=== PATIENT | male | born 1945 ===

== ENCOUNTER 2018-02-12 07:33 | Inpatient (IN) ==
[2018-02-12 08:44] LABS: Baso % (Auto) 0.5 % (0.0-2.0); Eos # (Auto) 0.1 th/mm3 (0.0-0.4); Eos % (Auto) 0.6 % (0.0-4.0); Hematocrit 33.2 % (39.0-51.0); Hemoglobin 10.8 gm/dL (13.0-17.0); Lymph # (Auto) 0.5 th/mm3 (1.0-4.8); Lymph % (Auto) 5.8 % (9.0-44.0); Mean Corpuscular HGB Conc 32.7 % (32.0-36.0); Mean Corpuscular Hemoglobin 30.6 pg (27.0-34.0); Mean Corpuscular Volume 93.6 fL (80.0-100.0); Mean Platelet Volume 8.2 fL (7.0-11.0); Mono % (Auto) 10.7 % (0.0-8.0); Neut # (Auto) 7.4 th/mm3 (1.8-7.7); Neut % (Auto) 82.4 % (16.0-70.0); Platelet Count 249 th/mm3 (150-450); Red Blood Count 3.55 mil/mm3 (4.50-5.90); Red Cell Distribution Width 16.6 % (11.6-17.2)
[2018-02-12 09:02] LABS: Calcium 8.1 mg/dL (8.5-10.1); Carbon Dioxide 22.9 meq/L (21.0-32.0); Potassium 4.7 meq/L (3.5-5.1)
[2018-02-12 10:56] LABS: INR 1.8 Ratio; Prothrombin Time 18.2 sec (9.8-11.6)
[2018-02-12] MEDS ORDERED: Heparin/NS PF Inj 1,000 ML ONE (11:17)
[2018-02-12] MEDS ORDERED: Lidocaine 2% Inj 50 ML Vial ONE (11:18)
[2018-02-12] MEDS ORDERED: Sodium Chloride 0.9% 2 ML Flush PRN IV.FLUSH (11:32)
[2018-02-12] MEDS ORDERED: Heparin 10,000 UNITS/10 ML Vial (for IV use) ONE (11:58)
[2018-02-12] MEDS ORDERED: Sod Chloride 0.9% Inj 1,000 ML IV.SIG SCH (12:00)
[2018-02-12] MEDS ORDERED: fentaNYL Citrate Inj 100 MCG/2 ML Ampul ONE (12:02)
[2018-02-12] MEDS ORDERED: Morphine Sulfate Inj 2 MG/ML Vial IV.PUSH PRN (12:33)
--- NOTE | 2018-02-12 12:33 | P.OP ---
Preoperative Diagnosis: Left lower extremity critical limb ischemia with tissue loss Postoperative Diagnosis: Left lower extremity critical limb ischemia with tissue loss Date of procedure: 02/12/18 Procedure: #1 ultrasound-guided access of the right common femoral artery #2 AIF angiogram #3 left lower extremity third order angiogram #4 Perclose of the right common femoral artery #5 radiological supervision limitation #6 conscious sedation Anesthesia: other (Conscious sedation with local) Surgeon: Dami Sainz MD Estimated blood loss (mL): 5 Operation and Findings: Findings #1 the infrarenal abdominal aorta the bilateral common iliac artery, external iliac artery, and common femoral arteries noted to be patent with no evidence of significant stenosis. #2 the left common femoral artery left superficial femoral artery left profunda femoral artery, and popliteal artery with noted to be heavily calcified with no evidence of significant stenosis. 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 There is a single runoff to the foot via the left peroneal artery. There is severe microvascular disease involving the left foot with no evidence of constitution of the left posterior tibial artery, very small atrophic and diseased dorsalis pedis artery. #4 the patient does not have an endovascular or open option for left lower extremity revascularization. His left great toe with dry gangrene, auto amputating. I will perform left first toe amputation tomorrow. I explained to the patient that he has poor blood flow to the left foot and his wound healing may be compromised. I also explained to him that he is at high risk for needing an amputation. He understands the risk and he would like to proceed with a toe amputation. Description of the procedure The patient was taken to the operating room, laid supine on the OR table. After adequate sedation the patient was prepped and draped in the standard sterile fashion. Timeout was called with all members and they are in agreement. 1% lidocaine was injected in the right groin. Using ultrasound guidance access we accessed the right common femoral artery. 5 Icelandic sheath was placed. A catheter was placed in the infrarenal abdominal aorta and an AIF angiogram was performed. A catheter was placed in the left of the artery and a left lower extremity third order angiogram was performed. I attempted to cannulate which I thought the proximal left anterior tibial artery. But the vessel was turned out to be a collateral and the actual anterior tibial artery does not have proximal stump to cannulate. At this point all catheter and sheath removed hemostasis achieved by applying the Perclose device the right common femoral artery. The patient tolerated the procedure well and was taken to the recovery unit in stable condition.
[2018-02-12] MEDS ORDERED: Insulin NovoLOG Aspart Correctional Sugar Inj SQ SCH (12:45)
--- NOTE | 2018-02-12 12:47 | CATHPROC ---
[facility] HIS Report Study Information Study Number Admission Scheduled Start Study Start [id number] Feb 12 2018 7:33AM 02/12/2018 Feb 12 2018 11:04AM [facility] Service Cath Endovascular Study Admit Source Facility Department Other [facility] Physician and Clinical Staff Initial MD Sainz, Dami Quick Service Technician Chasidy Oshea RN Recorder Jazmyn Arzola,PHYSICAL OPTICS TEACHER TECH2 Scrub Marifer, Damaris,RT(R) (BS) Procedures Performed Procedure Location (Site) Vessel Name Angiogram (manual) Fem Sup. (left) Femoral Art Angiogram (manual) Fem Sup. (right) Femoral Art Angiogram (manual) PELVIS Angiogram (manual) Peroneal (left) Popliteal Angiogram (manual) Peroneal (right) Popliteal Angiogram (manual) Popliteal R (R10) Popliteal Angiogram (manual) Tib, Ant. (left) Popliteal Angiogram (manual) Tib, Post (Left) Popliteal Wire insertion Fem Art (right) Femoral Art Equipment Time Justowriter Operator Description Size Mfg Part Number Used/Scraped PERCLOSE, PRO GLIDE CLOSER 12:17 ILM CRITICAL CARE FR 6 [id number] *[id number] Used DEVICE [id number] 11:05 LIM CRITICAL CARE WIRE, SUPERCORE 190CM Used *[id number] 11:38 ANGIO-DYNAMICS OMNI FLUSH 65CM CATHETER FR 5 Used *[id number] INTRODUCER SET, 11:05 [employer]. FR 5 [id number] *[id number] Used MICROPUNCTURE STIFF CATHETER, CXI SUPPORT 2.6FR 12:01 COOK/DANIAL [id number] Used 0.18 WIRE, GUIDE APPROACH HYDRO [id number] 12:07 COOK/DANIAL 300CM Used ST *[id number] WIRE, CHOICE PT 300CM PT EX. [id number] 12:00 Meditech 300CM Used SUPP *[id number] 11:05 AvidBiotics PACK, CCL CUSTOM * Used *[id number] 12:11 nTAG Interactive 30 AARON INDEFLATOR Used *[id number] PROBE COVER, STERILE [id number] 11:05 ComCrowd * Used ULTRASOUND W/ GEL *[id number] 11:05 NAMIC MANIFOLD, 4 PORT * Used *[id number] 12:01 NAMIC TUBING, HIGH PRESSURE 48" 48" Used *[id number] 11:05 NYCOMED OMNIPAQUE, 300 MG, 150ML 150ML [id number] Used 11:05 NYCOMED OMNIPAQUE, 300 MG, 50ML 50ML [id number] Used [id number] 11:05 TERUMO MEDICAL SHEATH, FR5 TERUMO (10CM) FR 5 Used *[id number] SHEATH, FR6 PINNACLE [id number] 11:58 TERUMO MEDICAL/DANIAL FR 6 Used DESTINATION 45CM *[id number] WIRE, ANGLED GLIDE .035 [id number] 11:05 TERUMO MEDICAL/DANIAL 260CM Used 260CM *[id number] Equipment Model, Serial, Lot Number and Expiration Data Description Model Number Serial Number Lot Number Expiration Date PERCLOSE, PRO GLIDE CLOSER [id number] 08-16-2018 DEVICE WIRE, CHOICE PT 300CM PT EX. [id number] 11-24-2018 SUPP WIRE, GUIDE APPROACH HYDRO [id number] 01-04-2020 ST History: Current Medications Medication Dosage/Unit Route Frequency Last Date/Time Taken NORVASC Neurontin Insulin LOPRESSOR CRESTOR Coumadin History: Allergies Allergy Reaction No Known Allergies History: Risk Factors Hypertension Dyslipidemia Yes Yes Peripheral Artery On Dialysis Diabetes Disease History: Other Current Smoker Method No Cigarettes Labs Hgb (g/dl) Hct (%) Platelets (thousands) 11.60-17.00 35.00-51.00 150.00-450.00 10.8 33.2 249 Glucose (mg/dl) BUN (mg/dl) Creatinine (mg/dl) BUN:Creatinine (1:x) 74.00-106.00 7.00-18.00 0.50-1.30 10.00-20.00 88 57 8.1 7 Na (meq/l) K (meq/l) 136.00-145.00 3.50-5.10 133 4.7 INR (PTT:PT) 0.90-1.10 1.8 CPK-MB (ng/ML) 0.50-3.60 Not Drawn Medication Medication Total Dose (Bolus/Oral) Medication Total Dosage/Unit 1% XYLOCAINE 20 mL FENTANYL 50 mcg HEPARIN 3000 units Medications (Bolus/Oral) Medication Time Given Dosage/Unit Administered By Reason 02/12/2018 11:32:40 1% XYLOCAINE 20 mL Dami Sainz AM 20 mL 1% XYLOCAINE given in lab by Dami Sainz in Right Groin via Subcutaneous. Ordered by Dami Sainz. 02/12/2018 11:59:09 HEPARIN 3000 units Chasidy Oshea AM 3000 units HEPARIN given in lab by Chasidy Oshea, RN in Right Antecubital via Peripheral IV. Ordere d by Dami Sainz. 02/12/2018 12:03:06 FENTANYL 50 mcg Chasidy Oshea PM 50 mcg FENTANYL given in lab by Chasidy Oshea, NACHO in Right Antecubital via Peripheral IV. Ordered b y Dami Sainz. Medication (Drip) Medication Time Given Dosage/Unit Concentration/Unit Diluent (ml) Solutio n 02/12/2018 11:05:02 IV Solutions 0 mL (IV) 500 NaCl .9 AM Patient arrived on IV Solutions in Right Antecubital via Peripheral IV. Pump/Drip Flow = 20 ml/hr usi ng NaCl .9. Initial Case Assessment Cardiovascular HR Rhythm NIBP Chest Pain 71 sr 117/71 0 Circulatory - Right Pulses Femoral 2 Scale (0,1,2,3,4,d) Circulatory - Left Pulses Femoral 2 Scale (0,1,2,3,4,d) Neurological State Oriented to time-place- Alert Moves all extremities person Respiration - General Respiration Rate SpO2 (%) (B/min) 19 96 Final Case Assessment Cardiovascular HR Rhythm NIBP Chest Pain 76 sr/pvc's 168/37 0 Circulatory - Right Pulses Femoral 2 Scale (0,1,2,3,4,d) Circulatory - Left Pulses Femoral 2 Scale (0,1,2,3,4,d) Neurological State Oriented to time-place- Alert Moves all extremities person Respiration - General Respiration Rate SpO2 (%) (B/min) 18 98 Chronological Log Time Study Chronological Log 11:02:00 Patient arrived via Bed with port-a cath noted in the left upper chest and fistula in the l eft upper extremity. 11:02:05 Patient Name, D.O.B, / Armband Verified By R.N. 11:04:12 Consent signed by the physician and the patient and verified by the [facility] [employer] staff. 11:04:13 Pre-op and post- op instructions given; patient acknowledges understanding of instructions. 11:04:14 Verbal Stimulation=2 Physical Stimulation=2 Airway=2 Respiration=2 TOTAL=8. (0=absent, 1=li mited, 2=present) 11:04:56 Presedation assessment performed by [facility] [employer] [facility] RN. 11:04:58 Patient has been NPO for More than 6Hrs. 11:04:59 Skin Breakdown-necrosis of left great toe 11:05:00 Ebony Prominences Protected 11:05:01 A # 20 IV was noted in the Antecubital (right). Grade = 0 11:05:02 Patient arrived on IV Solutions in Right Antecubital via Peripheral IV. Pump/Drip Flow = 20 ml/hr using NaCl .9. 11:05:04 History and physical on the chart or being dictated. Vitals capture started with the following parameters, Patient=Adult, Interval=5 min, Initial Pr bvypxo=908 mmHg, 11:10:27 Deflation Rate=5 mmHg, Cuff placed on Left Arm 11:10:58 JRLK=647/71 mmhg, SpO2=94.0 % Assessment: Initial Case, HR=71 BPM, Rhythm=sr, OXRX=462/71 mmhg, Chest Pain=0 Right Pulses: Femoral=2 11:16:46 Left Pulses: Femoral=2 Neurological: State=Alert, Ox3, MIJARES Respiration: Resp=19 B/min, SpO2=96 % 11:16:48 HR=71 bpm, WGZC=228/47 mmhg, SpO2=97.0 %, Resp=16 B/min 11:19:10 MD arrived. 11:21:59 HR=72 bpm, NZIT=452/36 mmhg, SpO2=96.0 %, Resp=11 B/min 11:22:33 Bilateral groins prepped with 2% chlorhexidine, and draped after a 3 minute waiting time. 11:26:19 HR=58 bpm, GVEJ=144/40 mmhg, SpO2=96.0 %, Resp=19 B/min 11:28:51 Pressure channel 2 zeroed. 11:30:59 Reference ECG taken Time Out. Correct patient, correct procedure, correct physician, labs, allergies, and equipment verified with pathology laboratory director 11:31:21 team present. Fire risk assesment completed (see hard stop sheet for coding). Time Out Conc urred by MD and individual staff in procedure. INR 1.8 MD aware and wishes to proceed 11:31:49 HR=70 bpm, SKVV=840/69 mmhg, SpO2=97.0 %, Resp=21 B/min 11:32:37 Case Start 11:32:40 20 mL 1% XYLOCAINE given in lab by Dami Sainz in Right Groin via Subcutaneous. Ordered by Dami Sainz. 11:34:25 Access site was Right Femoral Artery. Using ultrasound guidance. A INTRODUCER SET, MICROPUNCTURE STIFF FR 5 was advanced into the Fem Art (right) using the Perc utaneous 11:34:51 technique. 11:35:13 A WIRE, SUPERCORE 190CM was inserted via Fem Art (right). A SHEATH, FR5 TERUMO (10CM) FR 5 was exchanged in the Fem Art (right). This was necessary in or dylan to 11:35:23 accomodate a larger catheter. 11:37:04 HR=77 bpm, KRGG=893/34 mmhg, SpO2=94.0 %, Resp=23 B/min A OMNI FLUSH 65CM CATHETER FR 5 was advanced over a wire. OMNIPAQUE, 300 MG, 150ML 150ML was us ed for 11:37:08 injections. 11:37:54 Wire removed 11:38:00 PELVIS angiogram, manually injected. 11:38:18 Wire advanced up and over to the left iliac. 11:40:02 Wire removed 11:40:16 Fem Sup. (left) angiogram, manually injected. Recorded Pressure: Ao, HR=71, Condition=Condition 1 11:40:22 (Aorta) Ao 193/58/107 11:41:13 Popliteal R (R10) angiogram, manually injected. 11:41:18 HR=73 bpm, XWBL=571/44 mmhg, SpO2=95.0 %, Resp=22 B/min 11:41:39 Peroneal (right) angiogram, manually injected. 11:44:13 Tib, Ant. (left) angiogram, manually injected. 11:46:17 HR=73 bpm, UUOX=931/53 mmhg, SpO2=96.0 %, Resp=20 B/min 11:50:19 Tib, Post (Left) angiogram, manually injected. 11:51:18 HR=73 bpm, HIRM=854/38 mmhg, SpO2=96.0 %, Resp=17 B/min 11:57:03 HR=73 bpm, YVTG=906/71 mmhg, SpO2=97.0 %, Resp=21 B/min 11:59:07 A WIRE, SUPERCORE 190CM was inserted via Fem Art (right). 3000 units HEPARIN given in lab by Chasidy Oshea, RN in Right Antecubital via Peripheral IV. Ordered by Emeli, 11:59:09 Dami. A SHEATH, FR6 PINNACLE DESTINATION 45CM FR 6 was exchanged in the Fem Art (right). This was nec essary in 11:59:30 order to accomodate a larger catheter. 12:01:14 HR=85 bpm, UWRT=128/35 mmhg, SpO2=95.0 %, Resp=15 B/min 50 mcg FENTANYL given in lab by Chasidy Oshea, RN in Right Antecubital via Peripheral IV. Ord ered by Emeli, 12:03:06 Dami. A CATHETER, CXI SUPPORT 2.6FR 0.18 was advanced over a wire. OMNIPAQUE, 300 MG, 150ML 150ML was used for 12:04:18 injections. Up and over to the left 12:05:34 A WIRE, CHOICE PT 300CM PT EX. SUPP 300CM was inserted via Fem Art (right). 12:06:23 Peroneal (left) angiogram, manually injected. 12:07:33 The previous wire was exchanged for a WIRE, GUIDE APPROACH HYDRO ST 300CM. Advanced up and over to the left 12:07:42 HR=71 bpm, XXYG=856/36 mmhg, SpO2=99.0 %, Resp=18 B/min 12:11:23 HR=73 bpm, PNXC=469/31 mmhg, SpO2=95.0 %, Resp=15 B/min 12:11:35 Tib, Ant. (left) angiogram, manually injected. 12:14:58 Tib, Ant. (left) angiogram, manually injected. 12:15:21 Wire removed 12:15:27 Catheter was removed w/o difficulty 12:15:30 A WIRE, SUPERCORE 190CM was inserted via Fem Art (right). 12:15:49 Sheath pulled back int abdominal aorta 12:16:26 HR=72 bpm, VWDA=020/39 mmhg, SpO2=98.0 %, Resp=17 B/min 12:16:49 Fem Sup. (right) angiogram, manually injected. 12:16:56 Sheath removed for closure device deployment. 12:17:28 PERCLOSE, PRO GLIDE CLOSER DEVICE FR 6 placement in the Fem Art (right) Manual pressure hel d 12:21:19 HR=74 bpm, EXNY=263/39 mmhg, SpO2=97.0 %, Resp=16 B/min 12:22:35 Case End (Physician broke scrub) 12:26:22 HR=79 bpm, GOTI=329/37 mmhg, SpO2=96.0 % 12:28:24 No case complications noted. 12:28:25 Cine recording checked. 12:28:27 Bedside Report will be given. Assessment: Final Case, HR=76 BPM, Rhythm=sr/pvc's, ICTL=764/37 mmhg, Chest Pain=0 Right Pulses: Femoral=2 12:28:32 Left Pulses: Femoral=2 Neurological: State=Alert, Ox3, MIJARES Respiration: Resp=18 B/min, SpO2=98 % 12:31:21 HR=70 bpm, IFWN=002/52 mmhg, SpO2=97.0 %, Resp=24 B/min 12:36:26 HR=69 bpm, CWLS=807/44 mmhg, SpO2=98.0 %, Resp=10 B/min 12:37:58 Hemostasis obtained. 12:38:20 Sterile dressing applied to site 12:41:48 Vitals capture stopped. 12:46:01 Patient moved to bed 12:46:09 Patient transported to DOCU. End Study - Contrast Media Used In Study Contrast Total Opened (mL) Total Used (mL) Total Wasted (mL) Omnipaque 300 55 55 0 End Study - Maximum Contrast Load Max Contrast Load (mL) 80.0 End Study - Radiation Exposure Fluoro Time Fluoro Dose (mGy) Cine Dose (uGym2) (minutes) 7.2 311 6061 End Study - Sheaths Sheaths Pulled By Sheath Hold Time (min) Dami Sainz End Study - Patient Disposition Complications Transferred To Interventional Outcome No [facility] [employer] Holding No attempt made
[2018-02-12] MEDS ORDERED: Gabapentin 300 MG Capsule PO SCH (13:00)
[2018-02-12] MEDS ORDERED: Dextrose 50% in Water 50 ML Vial IV.PUSH PRN (14:05)
[2018-02-12] MEDS ORDERED: Albumin Human 25% Inj 100 ML IV.SIG PRN (14:17)
[2018-02-12] MEDS ORDERED: Acetaminophen 325 MG Tablet PO PRN (14:17)
[2018-02-12] MEDS ORDERED: Sod Chloride 0.9% Inj 1,000 ML IV.CONT PRN (14:17)
[2018-02-12] MEDS ORDERED: Sod Chloride 0.9% Inj 1,000 ML OTHER PRN ×2 (14:17)
[2018-02-12] MEDS ORDERED: Gelatin 12 MM/7 MM Topical Foam TOPICAL PRN (14:17)
[2018-02-12] MEDS ORDERED: Heparin 10,000 UNITS/10 ML Vial (for IV use) OTHER PRN ×2 (14:17)
[2018-02-12] MEDS ORDERED: Iohexol 350 MG/ML 100 ML Vial (for Cath Lab) IVCONTRAST ONE (16:33)
--- NOTE | 2018-02-12 16:42 | P.CONNP ---
History of Present Illness Service: Nephrology Reason for Consult: ESRD Primary Care Provider: No Primary Care Physician History of Present Illness: Patient was admitted for an elective angiogram of lower extremities. He has had this procedure, there were no endovascular stent options or need for bypass surgery. Patient has history of dry gangrene of left big toe and there are plans for amputation of left 1st toe. Patient was seen during dialysis. He is on 2K, UF goal is 3 liters. BFR is 350 ml/min. He is tolerating it well, BP is high SBP is 170-180 Review of Systems Constitutional: Denies anorexia Eyes: Denies blind spots, Denies blurry vision Cardiovascular: Reports leg pain with activity, Denies chest pain, Denies shortness of breath when lying down Gastrointestinal: Denies abdominal pain Neurologic: Denies abnormal hearing, Denies confusion PMFSH - History History Provided By: Patient - Medical History Medical History: Medical History (Last Updated 02/12/18 @ 08:41 by Renetta Cunningham) Diabetes Hyperlipemia Hypertension Left popliteal artery occlusion PAD (peripheral artery disease) SOB (shortness of breath) on exertion Wound of left foot - Tobacco History Smoking Status: Former smoker - Alcohol History How Often Do You Have a Drink Containing Alcohol: Never Medications and Allergies Active Medications: Active Medications Acetaminophen (Tylenol) 650 mg PO UNSCH PRN PRN Reason: SEE LABEL COMMENTS Amlodipine Besylate (Norvasc) 10 mg PO DAILY YUMIKO Atorvastatin Calcium (Lipitor) 20 mg PO DAILY YUMIKO Clonidine HCl (Catapres) 0.1 mg PO UNSCH PRN PRN Reason: SEE LABEL COMMENTS Dextrose (D50w Vial) 50 ml IV.PUSH UNSCH PRN PRN Reason: PER HYPOGLYCEMIA PROTOCOL Diphenhydramine HCl (Benadryl) 25 mg PO UNSCH PRN PRN Reason: SEE LABEL COMMENTS Epoetin Itz (Epogen Inj) 10,000 unit IV.PUSH UNSCH PRN PRN Reason: SEE LABEL COMMENTS Gabapentin (Neurontin) 200 mg PO DAILY YUM[facility]KO Gelatin (Gelfoam 12 Mm/7 Mm Topical) 1 foam TOPICAL PRN PRN PRN Reason: help stop bleeding from site Gentamicin Sulfate (Gentamicin Inj) 20 mg OTHER WITH DIALYSIS PRN PRN Reason: Dwell Gentamycin Lock Glucagon (Glucagon Inj) 1 mg OTHER PRN PRN PRN Reason: for Hypoglycemia Protocol Heparin Sodium (Porcine) (Heparin Inj) 5,000 units SQ Q8H YUMIKO Heparin Sodium (Porcine) (Heparin Inj) 8,000 units OTHER WITH DIALYSIS PRN PRN Reason: for machine prime Heparin Sodium (Porcine) (Heparin Inj) 1,000 units OTHER WITH DIALYSIS PRN PRN Reason: Dwell Heparin to Fill Catheter Sodium Chloride (Ns Inj) 1,000 mls @ 30 mls/hr IV.SIG .Q24H YUMIKO Albumin Human (Flexbumin 25% Inj) 100 mls @ 60 mls/hr IV.SIG WITH DIALYSIS PRN PRN Reason: hypotension / volume replace Sodium Chloride (Ns Inj) 1,000 mls @ 0 mls/hr OTHER .Q0M PRN PRN Reason: for prime and rinse back Sodium Chloride (Ns Inj) 1,000 mls @ 200 mls/hr OTHER .Q5H PRN PRN Reason: for dialyzer flush PRN Sodium Chloride (Ns Inj) 1,000 mls @ 0 mls/hr IV.CONT .Q0M PRN PRN Reason: hypotension / volume replace Insulin Aspart (Novolog Insulin Correctional Sugar Inj) 0 unit SQ ACHS YUMIKO; Protocol Insulin Detemir (Levemir Inj) 10 unit SQ DAILY YUMIKO Mannitol (Mannitol Inj) 12.5 gm IV.PUSH UNSCH PRN PRN Reason: hypotension / volume replace Metoprolol Tartrate (Lopressor) 25 mg PO BID [facility] Morphine Sulfate (Morphine Inj) 2 mg IV.PUSH Q2H PRN PRN Reason: PAIN SCALE 7 TO 10 Nitroglycerin (Nitrostat Sl) 0.4 mg SL Q5M PRN PRN Reason: CHEST PAIN Ondansetron HCl (Zofran Inj) 4 mg IV.PUSH UNSCH PRN PRN Reason: NAUSEA OR VOMITING Oxycodone HCl (Roxicodone) 5 mg PO Q6H PRN PRN Reason: PAIN SCALE 1 TO 6 Sodium Chloride (Ns Flush) 2 ml IV.FLUSH BID [facility] Sodium Chloride (Ns Flush) 2 ml IV.FLUSH PRN PRN PRN Reason: FLUSH AFTER USING IV ACCESS Sodium Chloride (Ns Flush) 5 ml IV.FLUSH PRN PRN PRN Reason: flush each lumen during HD Allergies Allergy/AdvReac Type Severity Reaction Status Date / Time No Known Allergies Allergy Verified 02/12/18 08:31 Home Medications Medication Instructions Recorded Confirmed Type amlodipine 10 mg PO DAILY 02/12/18 02/12/18 History cyanocobalamin (vitamin B-12) 100 mcg PO DAILY 02/12/18 02/12/18 History gabapentin 300 mg PO TID 02/12/18 02/12/18 History insulin aspart U-100 [Novolog 1 sliding scale dose SUBCUT UD 02/12/18 02/12/18 History U-100 Insulin aspart] insulin glargine [Lantus Solostar 10 unit SUBCUT DAILY 02/12/18 02/12/18 History U-100 Insulin] metoprolol tartrate 25 mg PO BID 02/12/18 02/12/18 History multivitamin [Multiple Vitamins] 1 tab PO DAILY 02/12/18 02/12/18 History rosuvastatin 10 mg PO DAILY 02/12/18 02/12/18 History warfarin [Coumadin] 5 mg PO DAILY 02/12/18 02/12/18 History Exam Vital signs: Vital Signs 02/12/18 08:36 02/12/18 13:00 Temperature 98.7 F Pulse Rate 68 Respiratory Rate 18 Blood Pressure 179/85 H Pulse Oximetry 100 99 Intake & Output 02/11/18 02/12/18 02/12/18 18:59 06:59 18:59 Weight 129.6 kg Other: Weight On Admission 129.6 kg - Constitutional no acute distress, obese - Routine HEENT Exam Head: Present: normocephalic, atraumatic Eye: Present: EOMI, PERRL ENT: Present: mucous membranes moist - Routine Neck Exam Present: supple. Absent: JVD, lymphadenopathy, thyromegaly - Routine Respiratory Exam Present: accessory muscle use, CTA bilaterally - Routine Cardiovascular Exam Present: RRR, S1, S2 - Routine Abdominal Exam Present: soft, normoactive bowel sounds - Routine Extremities Exam Present: full ROM. Absent: cyanosis, clubbing, edema - Routine Skin Exam Present: gangrene. Absent: rash - Routine Neurological Exam Present: alert, oriented X3, CN II-XII intact Results - Lab Results 02/12/18 08:20 02/12/18 08:20 Most recent lab results Calcium 8.1 mg/dL (8.5-10.1) L 02/12/18 08:20 Assessment and Plan - Assessment (1) ESRD (end stage renal disease) Code(s): N18.6 - End stage renal disease Status: Acute Plan: Dialysis will be continued TTS. Seen during dialysis today. Avoid Gadolinium. Monitor fluid and electrolytes. Monitor phosphorus intermittently. (2) Type 2 diabetes mellitus Code(s): E11.9 - Type 2 diabetes mellitus without complications Status: Acute Plan: maintain Blood sugar between 140 and 180 while hospitalized. (3) Essential (primary) hypertension Code(s): I10 - Essential (primary) hypertension Status: Acute Plan: Currently on Amlodipine and Metoprolol. BP is high. On prn Clonidine. Patient to be monitored. Restart home medications. (4) Anemia associated with chronic renal failure Code(s): D63.1 - Anemia in chronic kidney disease Status: Acute Plan: Epogen with dialysis. - Attending Attestation Thanks for the consult.
[2018-02-12] MEDS: Insulin NovoLOG Aspart Correctional Sugar Inj SQ SCH ×2 (18:28→21:29)
[2018-02-12] MEDS ORDERED: Sodium Chloride 0.9% 2 ML Flush BID IV.FLUSH SCH (21:00)
[2018-02-12] MEDS: Gabapentin 100 MG Capsule PO SCH (21:26)
[2018-02-12] MEDS: Metoprolol Tartrate 25 MG Tablet PO SCH (21:29)
[2018-02-12] MEDS: Heparin - SQ 10,000 UNITS/ML Vial SQ SCH (21:30)
[2018-02-13 07:43] LABS: Hematocrit 31.9 % (39.0-51.0); Hemoglobin 10.6 gm/dL (13.0-17.0); Mean Corpuscular HGB Conc 33.2 % (32.0-36.0); Mean Corpuscular Hemoglobin 30.4 pg (27.0-34.0); Mean Corpuscular Volume 91.5 fL (80.0-100.0); Mean Platelet Volume 8.8 fL (7.0-11.0); Platelet Count 259 th/mm3 (150-450); Red Blood Count 3.49 mil/mm3 (4.50-5.90); Red Cell Distribution Width 16.1 % (11.6-17.2); White Blood Count 8.1 th/mm3 (4.0-11.0)
[2018-02-13 08:05] LABS: INR 1.7 Ratio
[2018-02-13 08:09] LABS: Prothrombin Time 16.8 sec (9.8-11.6)
[2018-02-13 08:27] LABS: Albumin 2.5 g/dL (3.4-5.0); Calcium 7.9 mg/dL (8.5-10.1); Carbon Dioxide 29.5 meq/L (21.0-32.0); Phosphorus 4.7 mg/dL (2.5-4.9); Potassium 4.7 meq/L (3.5-5.1)
[2018-02-13] MEDS: Heparin - SQ 10,000 UNITS/ML Vial SQ SCH ×3 (08:29→20:31)
[2018-02-13] MEDS: Insulin NovoLOG Aspart Correctional Sugar Inj SQ SCH ×4 (08:30→20:31)
[2018-02-13] MEDS: Insulin Detemir Inj 1,000 UNIT/10 ML Vial SQ SCH (08:30)
[2018-02-13] MEDS: Metoprolol Tartrate 25 MG Tablet PO SCH ×2 (08:30→20:32)
[2018-02-13] MEDS: amLODIPine 10 MG Tablet PO SCH (08:30)
[2018-02-13] MEDS: Gabapentin 100 MG Capsule PO SCH (08:31)
[2018-02-13] MEDS ORDERED: Sodium Chlor 0.9% Inj 500 ML IV.CONT ONE (12:45)
[2018-02-13] MEDS ORDERED: Chlorhexidine Gluconate 2% 1 Pack (2 Cloths) TOPICAL ONE (12:45)
[2018-02-13] MEDS ORDERED: Metoprolol Tartrate 25 MG Tablet PO ONE (12:45)
[2018-02-13] MEDS ORDERED: Propofol Inj 500 MG/50 ML Vial ONE (13:10)
--- NOTE | 2018-02-13 13:20 | P.PNVS ---
Subjective Post Op Day #: 1 Subjective/Hospital Course: Doing well, no complaints Objective Vital Signs / I&O: Vital Signs 02/12/18 18:33 02/12/18 20:00 02/12/18 23:29 Temperature 98.2 F 98.1 F 99.8 F H Pulse Rate 66 78 158 H Respiratory Rate 20 19 18 Blood Pressure 170/80 H 141/71 H 137/93 H Pulse Oximetry 97 95 96 02/12/18 23:35 02/13/18 00:00 02/13/18 04:00 Temperature 99.9 F H Pulse Rate 75 68 71 Respiratory Rate 19 Blood Pressure 182/81 H Pulse Oximetry 100 02/13/18 08:00 02/13/18 12:00 Temperature 98.8 F 98 F Pulse Rate 84 65 Respiratory Rate 20 18 Blood Pressure 111/65 119/58 L Pulse Oximetry 94 L 97 Intake & Output 02/12/18 02/13/18 02/13/18 18:59 06:59 18:59 Intake Total 600 / 600 Output Total 2500 / 2500 800 / 800 Balance -2500 / -2500 -200 / -200 Weight 129.6 kg 115.8 kg Intake: Oral 600 / 600 Output: Urine 800 / 800 Hemodialysis Amount 2500 / 2500 Other: # Voids 4 Weight On Admission 129.6 kg Exam: + L DP signal R groin CDI, no hematoma Laboratory Results - last 24 hr 02/12/18 02/12/18 02/13/18 17:59 21:22 07:08 WBC 8.1 RBC 3.49 L Hgb 10.6 L Hct 31.9 L MCV 91.5 MCH 30.4 MCHC 33.2 RDW 16.1 Plt Count 259 MPV 8.8 PT INR Sodium Potassium Chloride Carbon Dioxide Anion Gap BUN Creatinine Estimated GFR POC Glucose 123 H 107 Random Glucose Calcium Phosphorus Albumin 02/13/18 02/13/18 02/13/18 07:08 07:08 07:27 WBC RBC Hgb Hct MCV MCH MCHC RDW Plt Count MPV PT 16.8 H INR 1.7 Sodium 138 Potassium 4.7 Chloride 102 Carbon Dioxide 29.5 Anion Gap 7 BUN 47 H Creatinine 6.65 H Estimated GFR 8 L POC Glucose 82 Random Glucose 91 Calcium 7.9 L Phosphorus 4.7 Albumin 2.5 L Assessment and Plan - Plan S/P LLE angio POD 1 Plan Left 1st toe amp today
--- NOTE | 2018-02-13 13:31 | P.PNNP ---
Subjective Interval history: Patient was seen, no distress. Complaints of hunger. Patient is NPO, plans for amputation of left 1st today today. Patient gets dialysis TTS. Patient dialyzed yesterday, 2.5 L removed. Perm cath in place for dialysis. <Jacquelin Mendez - Last Filed: 02/13/18 13:37> Physical Exam Vital signs: Vital Signs 02/12/18 18:33 02/12/18 20:00 02/12/18 23:29 Temperature 98.2 F 98.1 F 99.8 F H Pulse Rate 66 78 158 H Respiratory Rate 20 19 18 Blood Pressure 170/80 H 141/71 H 137/93 H Pulse Oximetry 97 95 96 02/12/18 23:35 02/13/18 00:00 02/13/18 04:00 Temperature 99.9 F H Pulse Rate 75 68 71 Respiratory Rate 19 Blood Pressure 182/81 H Pulse Oximetry 100 02/13/18 08:00 02/13/18 12:00 Temperature 98.8 F 98 F Pulse Rate 84 65 Respiratory Rate 20 18 Blood Pressure 111/65 119/58 L Pulse Oximetry 94 L 97 Intake & Output 02/12/18 02/13/18 02/13/18 18:59 06:59 18:59 Intake Total 600 / 600 Output Total 2500 / 2500 800 / 800 Balance -2500 / -2500 -200 / -200 Weight 129.6 kg 115.8 kg Intake: Oral 600 / 600 Output: Urine 800 / 800 Hemodialysis Amount 2500 / 2500 Other: # Voids 4 Weight On Admission 129.6 kg - Constitutional no acute distress - Routine HEENT Exam Head: Present: normocephalic Eye: Present: EOMI, PERRL ENT: Present: mucous membranes moist - Routine Respiratory Exam Present: CTA bilaterally. Absent: accessory muscle use - Routine Cardiovascular Exam Present: RRR. Absent: murmur - Routine Abdominal Exam Present: soft, normoactive bowel sounds. Absent: tenderness - Routine Extremities Exam Present: vascular access Comments: Dry gangrene of left big toe. - Routine Neurological Exam Present: alert, oriented X3 - Routine Psychiatric Exam Present: normal affect <Jacquelin Mendez - Last Filed: 02/13/18 13:37> Vital signs: Vital Signs 02/12/18 20:00 02/12/18 23:29 02/12/18 23:35 Temperature 98.1 F 99.8 F H Pulse Rate 78 158 H 75 Respiratory Rate 19 18 Blood Pressure 141/71 H 137/93 H Pulse Oximetry 95 96 02/13/18 00:00 02/13/18 04:00 02/13/18 08:00 Temperature 99.9 F H 98.8 F Pulse Rate 68 71 68 Respiratory Rate 19 20 Blood Pressure 182/81 H 111/65 Pulse Oximetry 100 94 L 02/13/18 12:00 02/13/18 16:00 02/13/18 17:50 Temperature 98 F 98 F Pulse Rate 66 73 Respiratory Rate 18 18 Blood Pressure 119/58 L 126/63 Pulse Oximetry 97 93 L 93 L Intake & Output 02/12/18 02/13/18 02/13/18 18:59 06:59 18:59 Intake Total 600 / 600 450 / 450 Output Total 2500 / 2500 800 / 800 Balance -2500 / -2500 -200 / -200 449 / 449 Weight 129.6 kg 115.8 kg Intake: Oral 600 / 600 Anesthesia Amount 450 / 450 Output: Urine 800 / 800 Hemodialysis Amount 2500 / 2500 Estimated Blood Loss Other: # Voids 4 Weight On Admission 129.6 kg <Harvey Anaya - Last Filed: 02/13/18 18:53> Assessment and Plan - Assessment (1) ESRD (end stage renal disease) Code(s): N18.6 - End stage renal disease Status: Acute Plan: Patient gets dialysis TTS. Patient dialyzed yesterday, 2.5 L removed. Perm cath in place for dialysis. Avoid Gadolinium. Monitor fluid and electrolytes. Monitor phosphorus intermittently. (2) Type 2 diabetes mellitus Code(s): E11.9 - Type 2 diabetes mellitus without complications Status: Acute Plan: maintain Blood sugar between 140 and 180 while hospitalized. (3) Essential (primary) hypertension Code(s): I10 - Essential (primary) hypertension Status: Acute Plan: Currently on Amlodipine and Metoprolol. BP is high. On prn Clonidine. Patient to be monitored. (4) Anemia associated with chronic renal failure Code(s): D63.1 - Anemia in chronic kidney disease Status: Acute Plan: Epogen with dialysis. <Jacquelin Mendez - Last Filed: 02/13/18 13:37> - Assessment (1) ESRD (end stage renal disease) Code(s): N18.6 - End stage renal disease Status: Acute (2) Type 2 diabetes mellitus Code(s): E11.9 - Type 2 diabetes mellitus without complications Status: Acute (3) Essential (primary) hypertension Code(s): I10 - Essential (primary) hypertension Status: Acute (4) Anemia associated with chronic renal failure Code(s): D63.1 - Anemia in chronic kidney disease Status: Acute - Attending Attestation patient was seen and examined. Amputation of left first toe scheduled for today. <Harvey Anaya - Last Filed: 02/13/18 18:53>
[2018-02-13] MEDS ORDERED: Lidocaine 1% Inj 50 ML Vial ONE (13:41)
[2018-02-13] MEDS ORDERED: ceFAZolin 1 GM Premix Inj 2 GM/100 ML FROZ.PIGGY IV.SIG ONE (13:55)
--- NOTE | 2018-02-13 16:15 | P.OP ---
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 He was prepped and draped in the slandered sterile fashion, time out was called with all members of the OR in agreement. An incision was made around the right 1st toe, dissection was taking down the subcutaneous tissue using the electrocautery. the toe was amputated and sent for pathology. Hemostasis was acheived. the wound was closed using nylon suture that were placed in the interrupted fashion. sterile dressing was applied, the patient tolerated the procedure well and was taking to the recovery unit in stable condition Conclusion: Patient underwent a successful right first toe amputation. 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 He is at high risk for limb loss.
[2018-02-14] MEDS: Heparin - SQ 10,000 UNITS/ML Vial SQ SCH ×3 (06:21→21:01)
[2018-02-14] MEDS: Insulin NovoLOG Aspart Correctional Sugar Inj SQ SCH ×4 (08:06→20:52)
[2018-02-14] MEDS: Gabapentin 100 MG Capsule PO SCH (08:06)
[2018-02-14] MEDS: amLODIPine 10 MG Tablet PO SCH (08:06)
[2018-02-14] MEDS: Metoprolol Tartrate 25 MG Tablet PO SCH ×2 (08:06→21:03)
[2018-02-14] MEDS: Insulin Detemir Inj 1,000 UNIT/10 ML Vial SQ SCH (08:07)
--- NOTE | 2018-02-14 09:57 | P.PNNP ---
Subjective Interval history: Patient gets dialysis TTS. Patient to be dialyzed today, goal of [address] for dialysis. Patient had complaints of diarrhea that started this morning. Denied nausea/ vomiting, SOB, chest pain. Patient is s/p right first toe amputation. <Jacquelin Mendez - Last Filed: 02/14/18 10:06> Physical Exam Vital signs: Vital Signs 02/13/18 12:00 02/13/18 14:33 02/13/18 14:45 Temperature 98 F 99 F Pulse Rate 66 66 67 Respiratory Rate 18 15 16 Blood Pressure 119/58 L 112/56 L 150/67 H Pulse Oximetry 97 100 98 02/13/18 15:00 02/13/18 15:15 02/13/18 15:33 Temperature 97.8 F Pulse Rate 63 67 64 Respiratory Rate 15 17 17 Blood Pressure 176/77 H 165/72 H 172/74 H Pulse Oximetry 93 L 97 95 02/13/18 16:00 02/13/18 17:50 02/13/18 20:00 Temperature 98 F Pulse Rate 73 96 H Respiratory Rate 18 Blood Pressure 126/63 Pulse Oximetry 93 L 93 L 02/13/18 20:30 02/14/18 00:00 02/14/18 04:00 Temperature 100.3 F H 100.8 F H Pulse Rate 75 71 72 Respiratory Rate 18 20 Blood Pressure 146/68 H 118/59 L Pulse Oximetry 95 94 L 02/14/18 08:00 02/14/18 09:42 Temperature 99.3 F Pulse Rate 78 Respiratory Rate 16 Blood Pressure 124/56 L Pulse Oximetry 99 94 L Intake & Output 02/13/18 02/14/18 02/14/18 18:59 06:59 18:59 Intake Total 550 / 550 740 / 740 Output Total 301 / 301 600 / 600 Balance 249 / 249 140 / 140 Weight 128 kg Intake: IV 100 / 100 500 / 500 NS Inj 500 ML @ 30 mls/hr IV. 500 / 500 CONT .[id number] ONE Rx#:[id number] Ancef 1 GM Premix Inj 2 gm In 100 / 100 100 ml @ 0 mls/hr IV.SIG .STK- MED ONE Rx#:[id number] Oral 240 / 240 Anesthesia Amount 450 / 450 Output: Urine 300 / 300 600 / 600 Estimated Blood Loss Other: # Bowel Movements 0 - Constitutional no acute distress - Routine HEENT Exam Head: Present: normocephalic Eye: Present: EOMI, PERRL ENT: Present: mucous membranes moist - Routine Neck Exam Present: trachea midline, tracheal deviation. Absent: JVD - Routine Respiratory Exam Absent: accessory muscle use, respiratory distress - Routine Cardiovascular Exam Present: RRR - Routine Abdominal Exam Present: soft, normoactive bowel sounds. Absent: tenderness - Routine Extremities Exam Present: edema, amputation - Routine Neurological Exam Present: alert, oriented X3 - Routine Psychiatric Exam Present: normal affect <Jacquelin Mendez - Last Filed: 02/14/18 10:06> Vital signs: Vital Signs 02/14/18 00:00 02/14/18 04:00 02/14/18 08:00 Temperature 100.8 F H 99.3 F Pulse Rate 71 72 87 Respiratory Rate 20 16 Blood Pressure 118/59 L 124/56 L Pulse Oximetry 94 L 99 02/14/18 09:42 02/14/18 16:00 Temperature 100.8 F H Pulse Rate 102 H Respiratory Rate 18 Blood Pressure 179/80 H Pulse Oximetry 94 L 96 Intake & Output 02/14/18 02/14/18 02/15/18 06:59 18:59 06:59 Intake Total 740 / 740 240 / 240 Output Total 600 / 600 2500 / 2500 Balance 140 / 140 -2260 / -2260 Weight 128 kg Intake: IV 500 / 500 NS Inj 500 ML @ 30 mls/hr IV. 500 / 500 CONT .[id number] ONE Rx#:[id number] Oral 240 / 240 240 / 240 Output: Urine 600 / 600 Hemodialysis Amount 2500 / 2500 Other: # Voids 1 # Bowel Movements 0 1 <Harvey Anaya - Last Filed: 02/14/18 20:50> Assessment and Plan - Assessment (1) ESRD (end stage renal disease) Code(s): N18.6 - End stage renal disease Status: Acute Plan: Patient gets dialysis TTS. Patient to be dialyzed today, goal of 3 L. [address] in [address] for dialysis. Avoid Gadolinium. Monitor fluid and electrolytes. Monitor phosphorus intermittently. (2) Type 2 diabetes mellitus Code(s): E11.9 - Type 2 diabetes mellitus without complications Status: Acute Plan: maintain Blood sugar between 140 and 180 while hospitalized. (3) Essential (primary) hypertension Code(s): I10 - Essential (primary) hypertension Status: Acute Plan: Currently on Amlodipine and Metoprolol. On prn Clonidine. Monitor BP. (4) Anemia associated with chronic renal failure Code(s): D63.1 - Anemia in chronic kidney disease Status: Acute Plan: Epogen with dialysis. Hemoglobin 10.6. <Jacquelin Mendez - Last Filed: 02/14/18 10:06> - Assessment (1) ESRD (end stage renal disease) Code(s): N18.6 - End stage renal disease Status: Acute (2) Type 2 diabetes mellitus Code(s): E11.9 - Type 2 diabetes mellitus without complications Status: Acute (3) Essential (primary) hypertension Code(s): I10 - Essential (primary) hypertension Status: Acute (4) Anemia associated with chronic renal failure Code(s): D63.1 - Anemia in chronic kidney disease Status: Acute - Attending Attestation patient was seen and examined. Agree with above assessment and plan. <Harvey Anaya - Last Filed: 02/14/18 20:50>
[2018-02-14 10:12] LABS: Baso % (Auto) 0.5 % (0.0-2.0); Eos % (Auto) 0.4 % (0.0-4.0); Hematocrit 35.4 % (39.0-51.0); Hemoglobin 11.6 gm/dL (13.0-17.0); Lymph # (Auto) 0.4 th/mm3 (1.0-4.8); Lymph % (Auto) 3.9 % (9.0-44.0); Mean Corpuscular HGB Conc 32.8 % (32.0-36.0); Mean Corpuscular Hemoglobin 30.1 pg (27.0-34.0); Mean Corpuscular Volume 91.8 fL (80.0-100.0); Mean Platelet Volume 8.8 fL (7.0-11.0); Mono # (Auto) 1.2 th/mm3 (0.0-0.9); Mono % (Auto) 12.2 % (0.0-8.0); Platelet Count 231 th/mm3 (150-450); Red Blood Count 3.86 mil/mm3 (4.50-5.90); Red Cell Distribution Width 15.7 % (11.6-17.2); White Blood Count 9.6 th/mm3 (4.0-11.0)
--- NOTE | 2018-02-14 10:21 | P.PNVS ---
Subjective Post Op Day #: 1 Procedure: R first toe amputation Subjective/Hospital Course: 72/M s/p R 1st toe amputation POD 1 Pt seen in HD Pt reported 1 episode of diarrhea this am Pt denied abdominal/Chest pain Pt w/o any complaints of pain Objective Vital Signs / I&O: Vital Signs 02/13/18 12:00 02/13/18 14:33 02/13/18 14:45 Temperature 98 F 99 F Pulse Rate 66 66 67 Respiratory Rate 18 15 16 Blood Pressure 119/58 L 112/56 L 150/67 H Pulse Oximetry 97 100 98 02/13/18 15:00 02/13/18 15:15 02/13/18 15:33 Temperature 97.8 F Pulse Rate 63 67 64 Respiratory Rate 15 17 17 Blood Pressure 176/77 H 165/72 H 172/74 H Pulse Oximetry 93 L 97 95 02/13/18 16:00 02/13/18 17:50 02/13/18 20:00 Temperature 98 F Pulse Rate 73 96 H Respiratory Rate 18 Blood Pressure 126/63 Pulse Oximetry 93 L 93 L 02/13/18 20:30 02/14/18 00:00 02/14/18 04:00 Temperature 100.3 F H 100.8 F H Pulse Rate 75 71 72 Respiratory Rate 18 20 Blood Pressure 146/68 H 118/59 L Pulse Oximetry 95 94 L 02/14/18 08:00 02/14/18 09:42 Temperature 99.3 F Pulse Rate 78 Respiratory Rate 16 Blood Pressure 124/56 L Pulse Oximetry 99 94 L Intake & Output 02/13/18 02/14/18 02/14/18 18:59 06:59 18:59 Intake Total 550 / 550 740 / 740 Output Total 301 / 301 600 / 600 Balance 249 / 249 140 / 140 Weight 128 kg Intake: IV 100 / 100 500 / 500 NS Inj 500 ML @ 30 mls/hr IV. 500 / 500 CONT .[id number] ONE Rx#:[id number] Ancef 1 GM Premix Inj 2 gm In 100 / 100 100 ml @ 0 mls/hr IV.SIG .STK- MED ONE Rx#:[id number] Oral 240 / 240 Anesthesia Amount 450 / 450 Output: Urine 300 / 300 600 / 600 Estimated Blood Loss Other: # Bowel Movements 0 Laboratory Results - last 24 hr 11/02/13/18 02/13/18 14:40 16:40 17:40 WBC RBC Hgb Hct MCV MCH MCHC RDW Plt Count MPV Neut % (Auto) Lymph % (Auto) [place] % (Auto) Eos % (Auto) Baso % (Auto) Neut # (Auto) Lymph # (Auto) [place] # (Auto) Eos # (Auto) Baso # (Auto) WBC Differential Differential Comment POC Glucose 82 132 H Phosphorus 4.8 02/13/18 02/14/18 02/14/18 20:24 07:13 09:11 WBC 9.6 RBC 3.86 L Hgb 11.6 L Hct 35.4 L MCV 91.8 MCH 30.1 MCHC 32.8 RDW 15.7 Plt Count 231 MPV 8.8 Neut % (Auto) 83.0 H Lymph % (Auto) 3.9 L [place] % (Auto) 12.2 H Eos % (Auto) 0.4 Baso % (Auto) 0.5 Neut # (Auto) 8.0 H Lymph # (Auto) 0.4 L [place] # (Auto) 1.2 H Eos # (Auto) 0.0 Baso # (Auto) 0.0 WBC Differential . Differential Comment Auto diff final POC Glucose 111 H 87 Phosphorus Assessment and Plan - Plan S/P LLE angio POD 2 S/P R 1st toe amputation POD 1 Pt w/o complaints Plan D/C planning - Potentially tomorrow am Continue pain control Continue post operative surveillance and monitoring Jaquelin Smith NP [facility] [phone] Discharge Planning: tomorrow am
[2018-02-14 10:44] LABS: Calcium 7.4 mg/dL (8.5-10.1); Carbon Dioxide 24.8 meq/L (21.0-32.0); Phosphorus 4.6 mg/dL (2.5-4.9); Potassium 4.7 meq/L (3.5-5.1)
[2018-02-14 10:59] LABS: Albumin 2.5 g/dL (3.4-5.0); Calcium-Albumin Corrected 8.6 mg/dL (8.5-10.1)
[2018-02-14] MEDS ORDERED: Influenza (Quadrivalent) Vaccine 0.5 ML Syringe IM ONE (19:15)
[2018-02-15] MEDS: Heparin - SQ 10,000 UNITS/ML Vial SQ SCH ×4 (05:19→22:28)
[2018-02-15] MEDS: Metoprolol Tartrate 25 MG Tablet PO SCH ×2 (09:32→22:29)
[2018-02-15] MEDS: Insulin Detemir Inj 1,000 UNIT/10 ML Vial SQ SCH (09:32)
[2018-02-15] MEDS: amLODIPine 10 MG Tablet PO SCH (09:32)
[2018-02-15] MEDS: Insulin NovoLOG Aspart Correctional Sugar Inj SQ SCH ×4 (09:33→22:30)
[2018-02-15] MEDS: Gabapentin 100 MG Capsule PO SCH (09:33)
--- NOTE | 2018-02-15 09:53 | P.PNNP ---
Subjective Interval history: Patient was seen, no distress. Denied chest pain, nausea, vomiting. Patient was on 2L nasal cannula for SOB. Patient stated he no longer has diarrhea. Patient is s/p right first toe amputation. Patient was dialyzed yesterday, 2.5 L removed. Patient gets dialysis TTS. Patient is possibly getting discharged today, if not, patient to be dialyzed tomorrow. <Jacquelin Mendez - Last Filed: 02/15/18 09:56> Physical Exam Vital signs: Vital Signs 02/14/18 16:00 02/14/18 20:00 02/14/18 21:43 Temperature 100.8 F H 97.8 F Pulse Rate 102 H 99 H Respiratory Rate 18 17 Blood Pressure 179/80 H 166/83 H Pulse Oximetry 96 94 L 95 02/14/18 23:45 02/15/18 00:00 02/15/18 04:00 Temperature 101.3 F H 99.1 F Pulse Rate 84 90 91 H Respiratory Rate 18 16 Blood Pressure 162/80 H 168/92 H Pulse Oximetry 95 95 02/15/18 08:00 Temperature 99.1 F Pulse Rate 80 Respiratory Rate 20 Blood Pressure 197/91 H Pulse Oximetry 95 Intake & Output 02/14/18 02/15/18 02/15/18 18:59 06:59 18:59 Intake Total 240 / 240 240 / 240 Output Total 2500 / 2500 Balance -2260 / -2260 240 / 240 Weight 124.2 kg Intake: Oral 240 / 240 240 / 240 Output: Hemodialysis Amount 2500 / 2500 Other: # Voids 1 # Bowel Movements 1 - Constitutional no acute distress - Routine HEENT Exam Head: Present: normocephalic Eye: Present: EOMI, PERRL ENT: Present: mucous membranes moist - Routine Neck Exam Present: trachea midline. Absent: JVD, tracheal deviation - Routine Respiratory Exam Present: decreased breath sounds. Absent: accessory muscle use, respiratory distress - Routine Cardiovascular Exam Present: RRR - Routine Abdominal Exam Present: soft, normoactive bowel sounds - Routine Extremities Exam Present: edema, amputation, vascular access Comments: s/p right 1st toe amputation - Routine Neurological Exam Present: alert, oriented X3 - Routine Psychiatric Exam Present: normal affect <Jacquelin Mendez - Last Filed: 02/15/18 09:56> Vital signs: Vital Signs 02/14/18 16:00 02/14/18 20:00 02/14/18 21:43 Temperature 100.8 F H 97.8 F Pulse Rate 102 H 99 H Respiratory Rate 18 17 Blood Pressure 179/80 H 166/83 H Pulse Oximetry 96 94 L 95 02/14/18 23:45 02/15/18 00:00 02/15/18 04:00 Temperature 101.3 F H 99.1 F Pulse Rate 84 90 91 H Respiratory Rate 18 16 Blood Pressure 162/80 H 168/92 H Pulse Oximetry 95 95 02/15/18 08:00 02/15/18 09:30 02/15/18 12:00 Temperature 99.1 F 99.2 F Pulse Rate 90 81 80 Respiratory Rate 20 16 Blood Pressure 197/91 H 138/62 155/70 H Pulse Oximetry 95 98 02/15/18 12:12 Temperature Pulse Rate Respiratory Rate Blood Pressure Pulse Oximetry 98 Intake & Output 02/14/18 02/15/18 02/15/18 18:59 06:59 18:59 Intake Total 240 / 240 240 / 240 Output Total 2500 / 2500 Balance -2260 / -2260 240 / 240 Weight 124.2 kg Intake: Oral 240 / 240 240 / 240 Output: Hemodialysis Amount 2500 / 2500 Other: # Voids 1 # Bowel Movements 1 <Harvey Anaya - Last Filed: 02/15/18 15:54> Assessment and Plan - Assessment (1) ESRD (end stage renal disease) Code(s): N18.6 - End stage renal disease Status: Acute Plan: Patient was dialyzed yesterday, 2.5 L removed. Patient gets dialysis TTS. Perm cath in place for dialysis. Patient is possibly getting discharged today, if not, patient to be dialyzed tomorrow. Avoid Gadolinium. Monitor fluid and electrolytes. Monitor phosphorus intermittently. (2) Type 2 diabetes mellitus Code(s): E11.9 - Type 2 diabetes mellitus without complications Status: Acute Plan: maintain Blood sugar between 140 and 180 while hospitalized. (3) Essential (primary) hypertension Code(s): I10 - Essential (primary) hypertension Status: Acute Plan: Currently on Amlodipine and Metoprolol. On prn Clonidine. Monitor BP. (4) Anemia associated with chronic renal failure Code(s): D63.1 - Anemia in chronic kidney disease Status: Acute Plan: Epogen with dialysis. Hemoglobin 11.6. <Jacquelin Mendez - Last Filed: 02/15/18 09:56> - Assessment (1) ESRD (end stage renal disease) Code(s): N18.6 - End stage renal disease Status: Acute (2) Type 2 diabetes mellitus Code(s): E11.9 - Type 2 diabetes mellitus without complications Status: Acute (3) Essential (primary) hypertension Code(s): I10 - Essential (primary) hypertension Status: Acute (4) Anemia associated with chronic renal failure Code(s): D63.1 - Anemia in chronic kidney disease Status: Acute - Attending Attestation patient was seen and examined. Agree with above assessment and plan. To be discharged today. <Harvey Anaya - Last Filed: 02/15/18 15:54>
--- NOTE | 2018-02-15 10:38 | P.PNVS ---
Subjective Procedure: R first toe amputation Subjective/Hospital Course: 72/M s/p R 1st toe amputation report pain at the amputation site Objective Vital Signs / I&O: Vital Signs 02/14/18 16:00 02/14/18 20:00 02/14/18 21:43 Temperature 100.8 F H 97.8 F Pulse Rate 102 H 99 H Respiratory Rate 18 17 Blood Pressure 179/80 H 166/83 H Pulse Oximetry 96 94 L 95 02/14/18 23:45 02/15/18 00:00 02/15/18 04:00 Temperature 101.3 F H 99.1 F Pulse Rate 84 90 91 H Respiratory Rate 18 16 Blood Pressure 162/80 H 168/92 H Pulse Oximetry 95 95 02/15/18 08:00 Temperature 99.1 F Pulse Rate 80 Respiratory Rate 20 Blood Pressure 197/91 H Pulse Oximetry 95 Intake & Output 02/14/18 02/15/18 02/15/18 18:59 06:59 18:59 Intake Total 240 / 240 240 / 240 Output Total 2500 / 2500 Balance -2260 / -2260 240 / 240 Weight 124.2 kg Intake: Oral 240 / 240 240 / 240 Output: Hemodialysis Amount 2500 / 2500 Other: # Voids 1 # Bowel Movements 1 Exam: Right fist toe wound CDI Laboratory Results - last 24 hr 02/14/18 02/14/18 02/14/18 09:11 11:49 17:52 Sodium 135 L Potassium 4.7 Chloride 100 Carbon Dioxide 24.8 Anion Gap 10 BUN 55 H Creatinine 7.79 H Estimated GFR 7 L POC Glucose 90 147 H Random Glucose 106 Calcium 7.4 L* Calcium Adj for Albumin 8.6 Phosphorus 4.6 Albumin 2.5 L 02/14/18 02/15/18 19:45 08:14 Sodium Potassium Chloride Carbon Dioxide Anion Gap BUN Creatinine Estimated GFR POC Glucose 128 H 118 H Random Glucose Calcium Calcium Adj for Albumin Phosphorus Albumin Assessment and Plan - Plan S/P LLE angio POD 3 S/P R 1st toe amputation POD 2 Pt w/o complaints Plan D/C planning - Potentially tomorrow am patient requesting one more day in hospital for pain control will DC in am Discharge Planning: tomorrow am
--- NOTE | 2018-02-15 10:45 | P.DS ---
Discharge Summary - Admission Date 02/12/18 12:33 - Admission Diagnosis (1) PVD (peripheral vascular disease) - Discharge Date 02/16/18 - Discharge Diagnosis (1) PVD (peripheral vascular disease) Status: Chronic - Summary Brief History from admission: 72-year-old male who presents with right first toe gangrene. I performed a diagnostic angiography this shows significant significant tibial disease with significant microvascular disease of the right foot. There is no endovascular, open option to treat the patient. He was offered to amputation understanding the high risk of limb loss. Procedure: R first toe amputation Significant Findings: Abnormal Lab Results 02/14/18 02/14/18 02/14/18 09:11 11:49 17:52 Sodium 135 L Potassium 4.7 Chloride 100 Carbon Dioxide 24.8 Anion Gap 10 BUN 55 H Creatinine 7.79 H Estimated GFR 7 L POC Glucose 90 147 H Random Glucose 106 Calcium 7.4 L* Calcium Adj for Albumin 8.6 Phosphorus 4.6 Albumin 2.5 L 02/14/18 02/15/18 19:45 08:14 Sodium Potassium Chloride Carbon Dioxide Anion Gap BUN Creatinine Estimated GFR POC Glucose 128 H 118 H Random Glucose Calcium Calcium Adj for Albumin Phosphorus Albumin Hospital Course: Evaluation and angiomas performed successfully. Postop day #1 the patient was taken to the operating room for a right first palpitation that was done successfully. The patient has not completed hospital course. He wanted to stay in the hospital for an pain control. Patient was tolerated regular diet and he was ambulating without any difficulties. His right toe wound was clean dry intact. He was discharged home in stable condition. - Discharge Instructions Any questions or concerns: Call [facility] at [facility] [phone] Discharge Plan - Discharge Disposition Patient Disposition: Discharge Home - Discharge Condition Condition: Good - Discharge Order Discharge Orders: Discharge Order (Routine); Ordered 02/16/18 Ordered By: Dami Sainz - Physicians Team Primary Care Provider: Primary Care Nadia Gould Attending Provider: Dami Sainz Other Providers: Harvey Anaya MD - Rxs /Orders / Referrals /Forms Prescriptions: No Action amlodipine 10 mg Tablet 10 mg PO DAILY cyanocobalamin (vitamin B-12) 100 mcg Tablet 100 mcg PO DAILY gabapentin 300 mg Capsule 300 mg PO TID insulin aspart U-100 [Novolog U-100 Insulin aspart] 100 unit/mL Solution 1 sliding scale dose SUBCUT UD insulin glargine [Lantus Solostar U-100 Insulin] 100 unit/mL (3 mL) Insulin Pen 10 unit SUBCUT DAILY metoprolol tartrate 25 mg Tablet 25 mg PO BID multivitamin [Multiple Vitamins] Tablet 1 tab PO DAILY rosuvastatin 10 mg Tablet 10 mg PO DAILY warfarin [Coumadin] 5 mg Tablet 5 mg PO DAILY Referrals: Dami Sainz MD [Physician] - See Instructions (Your follow up appointment is scheduled on 03/06/18 at 9:15) Primary Care Nadia Gould [Primary Care Provider] - See Instructions - Discharge Instructions Patient Printed Instructions: Heart Healthy Diet (DC), Cigarette Smoking and Your Health (GEN), Preventing Infections (GEN), How To Wash Your Hands (DC), Toe Amputation (DC), Toe Amputation (IP), Angiogram (DC)
[2018-02-15] MEDS ORDERED: Gabapentin 100 MG Capsule PO SCH (21:00)
[2018-02-16] MEDS: Heparin - SQ 10,000 UNITS/ML Vial SQ SCH (04:45)
--- NOTE | 2018-02-16 07:22 | P.PNVS ---
Subjective Post Op Day #: 2 Procedure: R first toe amputation Subjective/Hospital Course: burning pain but only slightly worse than usual ready for d/c Objective Vital Signs / I&O: Vital Signs 02/15/18 08:00 02/15/18 09:30 02/15/18 12:00 Temperature 99.1 F 99.2 F Pulse Rate 90 81 80 Respiratory Rate 20 16 Blood Pressure 197/91 H 138/62 155/70 H Pulse Oximetry 95 98 02/15/18 12:12 02/15/18 16:00 02/15/18 17:43 Temperature 99.1 F Pulse Rate 76 Respiratory Rate 16 Blood Pressure 207/91 H Pulse Oximetry 98 96 96 02/15/18 20:00 02/16/18 00:00 02/16/18 04:00 Temperature 99.4 F 98.2 F 99 F Pulse Rate 70 81 73 Respiratory Rate 20 18 15 Blood Pressure 160/77 H 164/71 H 158/86 H Pulse Oximetry 99 94 L 97 Intake & Output 02/15/18 02/16/18 02/16/18 18:59 06:59 18:59 Intake Total 480 / 480 Balance 480 / 480 Weight 123.1 kg Intake: Oral 480 / 480 Other: # Voids 3 # Bowel Movements 1 Exam: resting comfortably no distress foot wrapped Laboratory Results - last 24 hr 02/15/18 02/15/18 02/15/18 08:14 11:24 16:37 POC Glucose 118 H 131 H 175 H 02/15/18 20:36 POC Glucose 148 H Assessment and Plan - Plan S/P LLE angio POD 4 S/P R 1st toe amputation POD 3 Pt w/o complaints Plan d/c today Discharge Planning: today
[2018-02-16 09:00] VITALS: BP 138/81; RESP 18; TEMP 100.2
[2018-02-16] MEDS: Insulin Detemir Inj 1,000 UNIT/10 ML Vial SQ SCH (09:04)
[2018-02-16] MEDS: Metoprolol Tartrate 25 MG Tablet PO SCH (09:05)
[2018-02-16] MEDS: amLODIPine 10 MG Tablet PO SCH (09:05)
[2018-02-16] MEDS: Insulin NovoLOG Aspart Correctional Sugar Inj SQ SCH (09:09)
[2018-02-16 10:45] VITALS: PULSE 84
[2018-02-16 11:19] VITALS: O2SAT 99
== END 2018-02-16 11:51 | disposition home or self-care (01) ==
LOC: HSDC 07:33 → HDIC 07:40 → HSDI 12:33 → N04 18:30
PROVIDERS: ADMIT Surgery; ATTEND Surgery
PROC: ANGIOLE (2018-02-12 10:30)

== ENCOUNTER 2018-02-22 16:27 | Inpatient (IN) ==
[2018-02-22] MEDS ORDERED: Bisacodyl 10 MG Supp RECTAL PRN (21:49)
--- NOTE | 2018-02-22 22:51 | P.HPIM ---
History of Present Illness Service: [facility] Primary Care Physician: UNKNOWN History of Present Illness: 72 y/o male with a history of hypertension, HLD, diabetes, dvt on anticoagulation, neuropathy and ESRD on hemodialysis was [place] [facility] [place] be [place] by vascular surgery. He is 1 week status post left great toe amputation by Dr. Earl. He states once he got home last Sunday he had tripped and fallen, EMS came and picked him up and put him on the couch and when he tried to get off the couch he fell again [facility]. He states he has been at ever since and has only been laying around in bed. He denies any chest pain, shortness of breath, fever or chills. Dressing noted to the left amputation site it was covered with Vaseline gauze and Bart and patient states they have been changing it daily and treating him with antibiotics. According to the RN he received vancomycin prior to coming to [place]. Not much documentation was sent from prior hospital. Review of Systems Review of Systems: all other systems reviewed are negative [facility] Social History Social History Substance History: No History of Abuse Second Hand Smoke Exposure: No Smoking Status: Former smoker How Often Do You Have a Drink Containing Alcohol: Never Medications and Allergies Allergies Allergy/AdvReac Type Severity Reaction Status Date / Time No Known Allergies Allergy Verified 02/12/18 08:31 Home Medications Medication Instructions Recorded Confirmed Type amlodipine 10 mg PO DAILY 02/12/18 02/22/18 History gabapentin 300 mg PO TID 02/12/18 02/22/18 History insulin aspart U-100 [Novolog 1 sliding scale dose SUBCUT UD 02/12/18 02/22/18 History U-100 Insulin aspart] insulin glargine [Lantus Solostar 10 unit SUBCUT DAILY 02/12/18 02/22/18 History U-100 Insulin] metoprolol tartrate 25 mg PO BID 02/12/18 02/22/18 History multivitamin [Multiple Vitamins] 1 tab PO DAILY 02/12/18 02/22/18 History rosuvastatin 10 mg PO DAILY 02/12/18 02/22/18 History warfarin [Coumadin] 5 mg PO DAILY 02/12/18 02/22/18 History Active Medications: Active Medications Acetaminophen (Tylenol) 650 mg PO Q4H PRN PRN Reason: Temp > 100.4 Al Hydroxide/Mg Hydroxide (Milk Of Magnesia Liq) 30 ml PO Q12H PRN PRN Reason: Mild Constipation Bisacodyl (Dulcolax Supp) 10 mg RECTAL DAILY PRN PRN Reason: SEVERE CONSITIPATION Lactulose (Lactulose Liq) 30 ml PO DAILY PRN PRN Reason: SEVERE CONSITIPATION Ondansetron HCl (Zofran Inj) 4 mg IV.PUSH Q6H PRN PRN Reason: NAUSEA OR VOMITING Sennosides (Senokot) 17.2 mg PO Q12H PRN PRN Reason: Moderate Constipation Sodium Chloride (Ns Flush) 2 ml IV.FLUSH BID YUMIKO Sodium Chloride (Ns Flush) 2 ml IV.FLUSH PRN PRN PRN Reason: FLUSH AFTER USING IV ACCESS Physical Exam Narrative: GENERAL: well nourished patient in no acute distress SKIN: Warm and dry. left foot s/p great toe amputation partially open draining sanguinous fluid, 2 sutures intact HEAD: Atraumatic. Normocephalic. EYES: Pupils equal and round. No scleral icterus. No injection or drainage. CARDIOVASCULAR: Regular rate and rhythm. RESPIRATORY: No accessory muscle use. Clear to auscultation. Breath sounds equal bilaterally. GASTROINTESTINAL: Abdomen soft, obese, non-tender, nondistended. Hepatic and splenic margins not palpable. MUSCULOSKELETAL: Extremities without clubbing, cyanosis, or edema. No obvious deformities. NEUROLOGICAL: Awake and alert. No obvious cranial nerve deficits. Motor grossly within normal limits. 4 out of 5 muscle strength in bilateral legs. Normal speech. Caprini VTE Risk Assessment Caprini VTE Risk Assessment: Moderate/High Risk (score >= 2) Caprini Risk Assessment Model: Point Value = 1 Point Value = 2 Point Value = 3 Point Value = 5 Age 41-60 Minor surgery BMI > 25 kg/m2 Swollen legs Varicose veins or History of unexplained or recurrent spontaneous Oral contraceptives or hormone replacement Sepsis (< 1 month) Serious lung disease, including pneumonia (< 1 month) Abnormal pulmonary function Acute myocardial infarction Congestive heart failure (< 1 month) History of inflammatory bowel disease Medical patient at bed rest Age 61-74 Arthroscopic surgery Major open surgery (> 45 min) Laparoscopic surgery (> 45 min) Malignancy Confined to bed (> 72 hours) Immobilizing plaster cast Central venous access Age >= 75 History of VTE Family history of VTE Factor V Leiden Prothrombin [id number] Lupus anticoagulant Anticardiolipin antibodies Elevated serum homocysteine Heparin-induced thrombocytopenia Other congenital or acquired thrombophilia Stroke (< 1 month) Elective arthroplasty Hip, pelvis, or leg fracture Acute spinal cord injury (< 1 month) Prophylaxis Regimen: Total Risk Factor Score Risk Level Prophylaxis Regimen 0-1 Low Early ambulation 2 Moderate Order ONE of the following: *Sequential Compression Device (SCD) *Heparin 5000 units SQ BID 3-4 Higher Order ONE of the following medications: *Heparin 5000 units SQ TID *Enoxaparin/Lovenox 40 mg SQ daily (WT < 150 kg, CrCl > 30 mL/min) *Enoxaparin/Lovenox 30 mg SQ daily (WT < 150 kg, CrCl > 10-29 mL/min) *Enoxaparin/Lovenox 30 mg SQ BID (WT < 150 kg, CrCl > 30 mL/min) AND/OR *Sequential Compression Device (SCD) 5 or more Highest Order ONE of the following medications: *Heparin 5000 units SQ TID (Preferred with Epidurals) *Enoxaparin/Lovenox 40 mg SQ daily (WT < 150 kg, CrCl > 30 mL/min) *Enoxaparin/Lovenox 30 mg SQ daily (WT < 150 kg, CrCl > 10-29 mL/min) *Enoxaparin/Lovenox 30 mg SQ BID (WT < 150 kg, CrCl > 30 mL/min) AND *Sequential Compression Device (SCD) Assessment and Plan Plan 72 y/o male with a history of hypertension, diabetes, neuropathy and ESRD on hemodialysis was sent [place] [facility] [place] be evaluated by vascular surgery. He is 1 week status post left great toe amputation by Dr. Earl. Cellulitis with Non healing wound s/p left great toe amputation CTA runoff completed at reviewed and shows LLE swelling/edema with disorganized soft tissue fluid without a drainable abscess, extensive pad with steno-occlusive disease -Consult vascular surgery for recommendations -vancomycin and zosyn IV -PT eval and treat -CBC in AM -Hold antibiotics for now until evaluated by vascular HTN, chronic -Resume home medications amlodipine and metoprolol -Monitor vitals Diabetes, chronic -Accu checks with SSI -Diabetic/renal diet -Resume long-acting insulin Diabetic neuropathy -Continue home gabapentin End-stage renal disease on hemodialysis -Consult nephrology, patient known to Dr. Prather DVT prophylaxis: Coumadin
[2018-02-22] MEDS ORDERED: Dextrose 50% in Water 50 ML Vial IV.PUSH PRN (23:05)
[2018-02-22] MEDS: Acetaminophen 325 MG Tablet PO PRN (23:32)
[2018-02-23 05:22] LABS: Baso % (Auto) 0.2 % (0.0-2.0); Eos # (Auto) 0.4 th/mm3 (0.0-0.4); Eos % (Auto) 3.9 % (0.0-4.0); Hematocrit 30.1 % (39.0-51.0); Hemoglobin 10.1 gm/dL (13.0-17.0); Lymph # (Auto) 0.4 th/mm3 (1.0-4.8); Lymph % (Auto) 3.9 % (9.0-44.0); Mean Corpuscular HGB Conc 33.4 % (32.0-36.0); Mean Corpuscular Hemoglobin 30.4 pg (27.0-34.0); Mean Corpuscular Volume 91.1 fL (80.0-100.0); Mean Platelet Volume 8.4 fL (7.0-11.0); Mono # (Auto) 1.2 th/mm3 (0.0-0.9); Mono % (Auto) 10.7 % (0.0-8.0); Neut # (Auto) 8.8 th/mm3 (1.8-7.7); Neut % (Auto) 81.3 % (16.0-70.0); Platelet Count 275 th/mm3 (150-450); Red Blood Count 3.31 mil/mm3 (4.50-5.90); Red Cell Distribution Width 16.4 % (11.6-17.2); White Blood Count 10.8 th/mm3 (4.0-11.0)
[2018-02-23 05:33] LABS: Calcium 7.1 mg/dL (8.5-10.1); Carbon Dioxide 23.7 meq/L (21.0-32.0); Magnesium 2.3 mg/dL (1.5-2.5)
[2018-02-23 05:49] LABS: Albumin 1.9 g/dL (3.4-5.0); Calcium-Albumin Corrected 8.8 mg/dL (8.5-10.1)
--- NOTE | 2018-02-23 08:50 | P.PNVS ---
Subjective Post Op Day #: 10 Procedure: L great toe amputation Subjective/Hospital Course: admitted for concerns of wound. pt denies pain (though diminished sensation) he denies f/c Objective Vital Signs / I&O: Vital Signs 02/23/18 00:00 02/23/18 04:00 02/23/18 07:47 Temperature 99.3 F 99.8 F H 99.2 F Pulse Rate 68 70 77 Respiratory Rate 20 20 18 Blood Pressure 161/67 H 141/65 H 108/44 L Pulse Oximetry 95 95 02/23/18 08:20 Temperature Pulse Rate Respiratory Rate 18 Blood Pressure Pulse Oximetry Intake & Output 02/22/18 02/23/18 02/23/18 18:59 06:59 18:59 Intake Total 200 / 200 Balance 200 / 200 Intake: Oral 200 / 200 Exam: L foot with amputation of great toe with minimal healing no odor incision dehisced no significant drainage Laboratory Results - last 24 hr 02/23/18 02/23/18 02/23/18 04:15 04:15 08:24 WBC 10.8 RBC 3.31 L Hgb 10.1 L Hct 30.1 L MCV 91.1 MCH 30.4 MCHC 33.4 RDW 16.4 Plt Count 275 MPV 8.4 Neut % (Auto) 81.3 H Lymph % (Auto) 3.9 L [place] % (Auto) 10.7 H Eos % (Auto) 3.9 Baso % (Auto) 0.2 Neut # (Auto) 8.8 H Lymph # (Auto) 0.4 L [place] # (Auto) 1.2 H Eos # (Auto) 0.4 Baso # (Auto) 0.0 WBC Differential . Differential Comment Auto diff final Sodium 134 L Potassium 5.0 Chloride 97 L Carbon Dioxide 23.7 Anion Gap 13 BUN 68 H Creatinine 9.55 H Estimated GFR 5 L POC Glucose 175 H Random Glucose 138 H Calcium 7.1 L* Calcium Adj for Albumin 8.8 Magnesium 2.3 Albumin 1.9 L Assessment and Plan - Assessment (1) PVD (peripheral vascular disease) Code(s): I73.9 - Peripheral vascular disease, unspecified Status: Chronic - Plan R LE with poorly healing toe amputation. This was discussed by Dr. Sainz with the patient pre-operatively given poor perfusion. However, I don't see any evidence of worsening infection (no systemic symptoms, no leukocytosis) 1. Wound care 2. Check XRay 3. Likely can be managed as an outpatient but may require further more proximal amputation Bayron Malloy MD [facility] [phone]
[2018-02-23] MEDS ORDERED: Gabapentin 300 MG Capsule PO SCH (09:00)
--- NOTE | 2018-02-23 09:17 | XR ---
EXAM DATE: 02/23/2018 9:09 AM EST AGE/SEX: 72 years / Male INDICATIONS: Left foot amputation. CLINICAL DATA: This is the patient's initial encounter. Patient reports that signs and symptoms have been present for 1 day and indicates a pain score of 4/10. MEDICAL/SURGICAL HISTORY: Diabetes. . Left foot toes amputation. COMPARISON: No prior exams available for comparison. FINDINGS: Severe deformity is identified of the forefoot. A surgical changes following subtotal amputation of t he great toe is noted. The base of the proximal phalanx remains present. The second toe has been completely amputated. Small residual metallic structure which appears to repr esent a distal end of the fixation pin remains embedded in the distal second metatarsal. The third toe has been partially amputated at the proximal interphalangeal joint. Soft tissue breakdown is identified along the stump of the great toe. Residual proximal phalanx demon strates some marginal irregularity adjacent to the breakdown. Bony structures are otherwise intact. Significant arthropathy is seen of the midfoot. CONCLUSION: Tissue breakdown overlying the residual proximal phalanx of the great toe with underlying bone irregu larity. Deformity of the forefoot following amputations as described above. Significant midfoot arthropathy. Electronically signed by: Jayden Juan MD 02/23/2018 9:15 AM EST
[2018-02-23] MEDS: Insulin Detemir Inj 1,000 UNIT/10 ML Vial SQ SCH (09:41)
[2018-02-23] MEDS: Insulin NovoLOG Aspart Correctional Sugar Inj SQ SCH ×4 (09:41→20:22)
[2018-02-23] MEDS: Metoprolol Tartrate 25 MG Tablet PO SCH ×2 (09:42→20:22)
[2018-02-23] MEDS: amLODIPine 10 MG Tablet PO SCH (09:43)
--- NOTE | 2018-02-23 10:14 | P.CONNP ---
History of Present Illness Service: Nephrology Consult date: 02/23/18 Requesting Physician: Salvatore Armendariz Reason for Consult: ESRD management Primary Care Provider: UNKNOWN Chief Complaint: Weakness and fall History of Present Illness: Patient is a 72-year-old -[place] male who had diabetes, hypertension, ESRD on hemodialysis on Sunday, and Sunday last dialysis on , he stated he had left toe amputation by Dr. Malloy, he went home and he could not walk properly and had a fall they picked him up and put him on the couch and he had a second fall as well, patient was brought to the emergency has been admitted for observation his left foot wound check by vascular surgery, today is his day for dialysis he denies any chest pain or shortness of breath. Review of Systems Constitutional: Reports body ache(s), Reports weakness Cardiovascular: Reports other Respiratory: Reports other Gastrointestinal: Reports other Musculoskeletal: Reports muscle weakness Neurologic: Reports weakness PMFSH - History History Provided By: Patient - Medical History Medical History: Medical History (Last Reviewed 02/23/18 @ 10:11 by Shin Castrejon MD) Diabetes Hyperlipemia Hypertension Left popliteal artery occlusion PAD (peripheral artery disease) SOB (shortness of breath) on exertion Wound of left foot - Family History Family History: Family History (Last Updated 02/23/18 @ 10:12 by Shin Castrejon MD) Other Family history non-contributory - Social History I have reviewed the patient's Social History: Yes - Tobacco History Second Hand Smoke Exposure: No Tobacco Use In Past 30 Days: No Smoking Status: Former smoker - Alcohol History How Often Do You Have a Drink Containing Alcohol: Never - Substance Use History Substance History: No History of Abuse Medications and Allergies Active Medications: Active Medications Acetaminophen (Tylenol) 650 mg PO Q4H PRN PRN Reason: Temp > 100.4 Last Admin: 02/22/18 23:32 Dose: 650 mg Al Hydroxide/Mg Hydroxide (Milk Of Magnesia Liq) 30 ml PO Q12H PRN PRN Reason: Mild Constipation Amlodipine Besylate (Norvasc) 10 mg PO DAILY [facility] Last Admin: 02/23/18 09:43 Dose: Not Given Atorvastatin Calcium (Lipitor) 20 mg PO DAILY [facility] Last Admin: 02/23/18 09:43 Dose: 20 mg Bisacodyl (Dulcolax Supp) 10 mg RECTAL DAILY PRN PRN Reason: SEVERE CONSITIPATION Dextrose (D50w Vial) 50 ml IV.PUSH UNSCH PRN PRN Reason: PER HYPOGLYCEMIA PROTOCOL Gabapentin (Neurontin) 300 mg PO TID [facility] Last Admin: 02/23/18 09:43 Dose: 300 mg Glucagon (Glucagon Inj) 1 mg OTHER PRN PRN PRN Reason: for Hypoglycemia Protocol Insulin Aspart (Novolog Insulin Correctional Sugar Inj) 0 unit SQ ACHS [facility]; Protocol Last Admin: 02/23/18 09:41 Dose: 2 unit Insulin Detemir (Levemir Inj) 10 unit SQ DAILY [facility] Last Admin: 02/23/18 09:41 Dose: 10 unit Lactulose (Lactulose Liq) 30 ml PO DAILY PRN PRN Reason: SEVERE CONSITIPATION Last Admin: 02/23/18 05:30 Dose: 30 ml Metoprolol Tartrate (Lopressor) 25 mg PO BID [facility] Last Admin: 02/23/18 09:42 Dose: 25 mg Multivitamins (Theragran) 1 tab PO DAILY [facility] Last Admin: 02/23/18 09:43 Dose: 1 tab Ondansetron HCl (Zofran Inj) 4 mg IV.PUSH Q6H PRN PRN Reason: NAUSEA OR VOMITING Sennosides (Senokot) 17.2 mg PO Q12H PRN PRN Reason: Moderate Constipation Sodium Chloride (Ns Flush) 2 ml IV.FLUSH BID [facility] Last Admin: 02/23/18 09:42 Dose: 2 ml Sodium Chloride (Ns Flush) 2 ml IV.FLUSH PRN PRN PRN Reason: FLUSH AFTER USING IV ACCESS Warfarin Sodium (Coumadin) 5 mg PO DAILY [facility] Allergies Allergy/AdvReac Type Severity Reaction Status Date / Time No Known Allergies Allergy Verified 02/12/18 08:31 Home Medications Medication Instructions Recorded Confirmed Type amlodipine 10 mg PO DAILY 02/12/18 02/22/18 History gabapentin 300 mg PO TID 02/12/18 02/22/18 History insulin aspart U-100 [Novolog 1 sliding scale dose SUBCUT UD 02/12/18 02/22/18 History U-100 Insulin aspart] insulin glargine [Lantus Solostar 10 unit SUBCUT DAILY 02/12/18 02/22/18 History U-100 Insulin] metoprolol tartrate 25 mg PO BID 02/12/18 02/22/18 History multivitamin [Multiple Vitamins] 1 tab PO DAILY 02/12/18 02/22/18 History rosuvastatin 10 mg PO DAILY 02/12/18 02/22/18 History warfarin [Coumadin] 5 mg PO DAILY 02/12/18 02/22/18 History Exam Vital signs: Vital Signs 02/23/18 00:00 02/23/18 04:00 02/23/18 07:47 Temperature 99.3 F 99.8 F H 99.2 F Pulse Rate 68 70 77 Respiratory Rate 20 20 18 Blood Pressure 161/67 H 141/65 H 108/44 L Pulse Oximetry 95 95 02/23/18 08:20 Temperature Pulse Rate Respiratory Rate 18 Blood Pressure Pulse Oximetry Intake & Output 02/22/18 02/23/18 02/23/18 18:59 06:59 18:59 Intake Total 200 / 200 Balance 200 / 200 Intake: Oral 200 / 200 Narrative: GENERAL: Well-nourished, well-developed patient. SKIN: Warm and dry. HEAD: Normocephalic. EYES: No scleral icterus. No injection or drainage. NECK: Supple, trachea midline. No JVD or lymphadenopathy. CARDIOVASCULAR: Regular rate and rhythm without murmurs, gallops, or rubs. Permacath on the left side of the chest RESPIRATORY: Breath sounds equal bilaterally. No accessory muscle use. GASTROINTESTINAL: Abdomen soft, non-tender, nondistended. EXTREMITIES: Left foot is dressed no drainage, muscle weakness present NEUROLOGICAL: Awake, alert, and oriented x 3. Non-focal. Generalized weakness Results - Lab Results 02/23/18 04:15 02/23/18 04:15 Most recent lab results Calcium 7.1 mg/dL (8.5-10.1) L* 02/23/18 04:15 Magnesium 2.3 mg/dL (1.5-2.5) 02/23/18 04:15 Assessment and Plan - Assessment (1) ESRD (end stage renal disease) Code(s): N18.6 - End stage renal disease Status: Acute (2) Type 2 diabetes mellitus Code(s): E11.9 - Type 2 diabetes mellitus without complications Status: Acute (3) Essential (primary) hypertension Code(s): I10 - Essential (primary) hypertension Status: Acute (4) PVD (peripheral vascular disease) Code(s): I73.9 - Peripheral vascular disease, unspecified Status: Chronic - Plan Hemodialysis to be arranged on Sunday, and Sunday continue supportive care, patient is seen by vascular surgery and continue to monitor wound on the left foot, dressing changes as ordered Physical therapy will be needed strengthening exercises Continue to monitor
[2018-02-23] MEDS ORDERED: Heparin 10,000 UNITS/10 ML Vial (for IV use) OTHER PRN (10:32)
[2018-02-23] MEDS ORDERED: Gelatin 12 MM/7 MM Topical Foam TOPICAL PRN (10:32)
[2018-02-23] MEDS ORDERED: Acetaminophen 325 MG Tablet PO PRN (10:32)
[2018-02-23] MEDS ORDERED: Sod Chloride 0.9% Inj 1,000 ML IV.CONT PRN (10:32)
[2018-02-23] MEDS ORDERED: Sod Chloride 0.9% Inj 1,000 ML OTHER PRN (10:32)
[2018-02-23 13:40] LABS: INR 3.6 Ratio; Prothrombin Time 35.8 sec (9.8-11.6)
--- NOTE | 2018-02-23 16:52 | P.PN ---
Subjective Interval history: Nursing denies any acute changes overnight. Patient himself says he feels weak overall. Says he has no sensation in his left foot. When asking exactly why he was sent over from [facility] to [place], he says "I do not know." Chart H&P indicates that he was sent over for possible worsening wound infection to [place] since he had an amputation of that left foot toe done here. Physical Exam Vital signs: Vital Signs 02/23/18 00:00 02/23/18 04:00 02/23/18 07:47 Temperature 99.3 F 99.8 F H 99.2 F Pulse Rate 68 70 77 Respiratory Rate 20 20 18 Blood Pressure 161/67 H 141/65 H 108/44 L Pulse Oximetry 95 95 02/23/18 08:20 02/23/18 11:39 02/23/18 12:15 Temperature 99.0 F Pulse Rate 59 L Respiratory Rate 18 18 Blood Pressure 85/37 L 130/51 L Pulse Oximetry 94 L Intake & Output 02/22/18 02/23/18 02/23/18 18:59 06:59 18:59 Intake Total 200 / 200 Balance 200 / 200 Weight 117.9 kg Intake: Oral 200 / 200 Other: Weight On Admission 117.9 kg Narrative: Getting dialysis done at this time Clear lungs bilaterally, unlabored breathing Heart sounds regular rate and rhythm, murmurs Left lower extremities sock removed, only has lateralmost 2 digits remaining, , appears to have some necrotic tissue where he had his most recent amputation with sutures Results - Labs CBC & Chem 7: 02/23/18 04:15 02/23/18 04:15 Laboratory Results - last 24 hr 02/23/18 02/23/18 02/23/18 04:15 04:15 08:24 WBC 10.8 RBC 3.31 L Hgb 10.1 L Hct 30.1 L MCV 91.1 MCH 30.4 MCHC 33.4 RDW 16.4 Plt Count 275 MPV 8.4 Neut % (Auto) 81.3 H Lymph % (Auto) 3.9 L [place] % (Auto) 10.7 H Eos % (Auto) 3.9 Baso % (Auto) 0.2 Neut # (Auto) 8.8 H Lymph # (Auto) 0.4 L [place] # (Auto) 1.2 H Eos # (Auto) 0.4 Baso # (Auto) 0.0 WBC Differential . Differential Comment Auto diff final PT INR Sodium 134 L Potassium 5.0 Chloride 97 L Carbon Dioxide 23.7 Anion Gap 13 BUN 68 H Creatinine 9.55 H Estimated GFR 5 L POC Glucose 175 H Random Glucose 138 H Calcium 7.1 L* Calcium Adj for Albumin 8.8 Magnesium 2.3 Albumin 1.9 L 02/23/18 13:10 WBC RBC Hgb Hct MCV MCH MCHC RDW Plt Count MPV Neut % (Auto) Lymph % (Auto) [place] % (Auto) Eos % (Auto) Baso % (Auto) Neut # (Auto) Lymph # (Auto) [place] # (Auto) Eos # (Auto) Baso # (Auto) WBC Differential Differential Comment PT 35.8 H D INR 3.6 Sodium Potassium Chloride Carbon Dioxide Anion Gap BUN Creatinine Estimated GFR POC Glucose Random Glucose Calcium Calcium Adj for Albumin Magnesium Albumin - Imaging Impressions Foot X-Ray 02/23/18 00:00 CONCLUSION: Tissue breakdown overlying the residual proximal phalanx of the great toe with underlying bone irregularity. Deformity of the forefoot following amputations as described above. Significant midfoot arthropathy. Assessment and Plan - Plan 72 y/o male with a history of hypertension, diabetes, neuropathy and ESRD on hemodialysis was [facility] [place] be evaluated by vascular surgery. He is 1 week status post left great toe amputation by Dr. Malloy. Cellulitis with Non healing wound s/p left great toe amputation CTA runoff completed at reviewed and shows LLE swelling/edema with disorganized soft tissue fluid without a drainable abscess, extensive pad with steno-occlusive disease -Vascular surgery following, recommending medical management for now, x-ray is unremarkable -I will hold off on antibiotics at this time -Continue Lipitor, already on Coumadin -PT eval and treat -His culture results from there indicate: UA NG 48 hrs 12 Blood culture 02/17 - NG x 5 Blood culture 02/21 - Neg so far ESRD HTN, chronic -home medications amlodipine and metoprolol -Nephrology following, dialysis Diabetes, chronic -Accu checks with SSI -Diabetic/renal diet -long-acting insulin Diabetic neuropathy -Continue home gabapentin Generalized weakness PT recommending rehab Hx of DVT - has [place] filter, Coumadin I have faxed over a request medical records to [facility] and so that we can get more definitive information regarding his hospital course through their discharge summary and the exact reason for transfer.
[2018-02-23] MEDS: Sod Chloride 0.9% Inj 1,000 ML OTHER PRN (17:29)
[2018-02-24 08:12] LABS: INR 2.8 Ratio; Prothrombin Time 28.3 sec (9.8-11.6)
[2018-02-24] MEDS: Insulin NovoLOG Aspart Correctional Sugar Inj SQ SCH ×5 (09:26→20:41)
[2018-02-24] MEDS: Metoprolol Tartrate 25 MG Tablet PO SCH ×2 (09:28→20:41)
[2018-02-24] MEDS: amLODIPine 10 MG Tablet PO SCH (09:28)
[2018-02-24] MEDS: Gabapentin 300 MG Capsule PO SCH (09:28)
[2018-02-24] MEDS: Insulin Detemir Inj 1,000 UNIT/10 ML Vial SQ SCH (09:29)
--- NOTE | 2018-02-24 14:31 | P.PN ---
Subjective Interval history: Nursing denies any acute changes overnight. Patient self reports having some low back pain which he thinks is due to his position in the bed. There apparently was a fever since last night of 100.5. Patient himself denies feeling feverish. Denies any new pain in her nausea vomiting. Denies having any pain in his left foot which he has no sensation in any way. I was able to review the remaining of his outside medical records Physical Exam Vital signs: Vital Signs 02/23/18 20:00 02/24/18 00:00 02/24/18 04:00 Temperature 98.3 F 100.5 F H 98.9 F Pulse Rate 84 77 67 Respiratory Rate 17 19 18 Blood Pressure 132/62 133/61 138/79 Pulse Oximetry 95 91 L 92 L 02/24/18 08:00 02/24/18 10:05 02/24/18 12:00 Temperature 97.6 F 98.4 F Pulse Rate 54 L 70 69 Respiratory Rate 12 14 Blood Pressure 120/56 L 187/81 H Pulse Oximetry 97 98 Intake & Output 02/23/18 02/24/18 02/24/18 18:59 06:59 18:59 Intake Total 240 / 240 Output Total 3000 / 3000 0 / 0 Balance -3000 / -3000 240 / 240 Weight 117.9 kg Intake: Oral 240 / 240 Other 0 / 0 Output: Urine 0 / 0 Hemodialysis Amount 3000 / 3000 Other: # Voids 600 Date of Last Bowel Movement 02/23/18 02/23/18 02/23/18 # Bowel Movements 1 Weight On Admission 117.9 kg Narrative: Left foot appears largely unchanged since yesterday, status post lateral digit amputation with sutures in place, upon high pressure I am able to express some blood from the most distal aspect of his incision. There is no pus I am able to express, no follow odor noted Clear lungs bilaterally, unlabored breathing Heart sounds regular rate and rhythm, no murmurs No lower extremity edema bilaterally Results - Labs CBC & Chem 7: 02/23/18 04:15 02/23/18 04:15 Laboratory Results - last 24 hr 02/24/18 02/24/18 02/24/18 07:30 07:51 13:19 PT 28.3 H INR 2.8 POC Glucose 170 H 162 H Assessment and Plan - Plan 72 y/o black male transferred over from [facility] to [facility] on 02/22 for suspected infected nonhealing diabetic foot wound status post left great toe amputation (operated on 02/13 at [place]). Patient was originally admitted to [facility] on 02/17 due to generalized weakness and fevers. He was started on B.S. abxs, had CTA workup which demonstrated extensive PAD but no drainable abscess. Outside MRI report of of L foot is questionable for osteomyelitis. He was then transferred to [place] for vascular surgery input at rec of pt's personal cyanide pot tender in light of non- healing L foot wound. Diabetic L foot wound -Non healing wound s/p left great toe amputation at [facility] on 02/[address] Sainz at [place] -CTA runoff completed at reviewed and shows LLE swelling/edema with disorganized soft tissue fluid without a drainable abscess, extensive pad with steno-occlusive disease -Vascular surgery following, recommending medical management for now -Continue Lipitor, already on Coumadin -His culture results [facility] show: UA NG 48 hrs 02/18 Blood culture 02/17 - NG x 5 Blood culture 02/21 - Neg so far New fever - obtaining blood cultures, CXR - start zosyn if fever recurs in light of possible undiagnosed osteo ESRD HTN, chronic -home medications amlodipine and metoprolol -Nephrology following, dialysis Diabetes, chronic -Accu checks with SSI -Diabetic/renal diet -long-acting insulin Diabetic neuropathy -Continue home gabapentin Generalized weakness PT recommending rehab Hx of DVT - has Prince filter, Coumadin Addendum: received outside foot MRI report. hard to R/o osteo based upon extensive conclusion. D/w Dr. Malloy from vascular surgery, conservative management for now. Borderline fever at 100.2 has occurred and CRP and sed rate are elevated significantly, thus I will order blood cultures, order bone scan, consult infectious disease, and order Zosyn renally dosed.
[2018-02-24] MEDS: Lidocaine 5% Patch T-DERMAL SCH (15:05)
--- NOTE | 2018-02-24 16:03 | XR ---
EXAM DATE: 02/24/2018 3:54 PM EST AGE/SEX: 72 years / Male INDICATIONS: . fever CLINICAL DATA: This is the patient's initial encounter. Patient reports that signs and symptoms have been present for 2 days and indicates a pain score of Nonresponsive. MEDICAL/SURGICAL HISTORY: . Diabetes. . Left foot toes amputation COMPARISON: No prior exams available for comparison. FINDINGS: There is a double-lumen catheter in place from the left internal jugular approach with the tips overl orquidea the right atrium. The heart size is mildly enlarged. The lungs are associated grossly clear. Sig nificant effusion is not seen. CONCLUSION: Double-lumen catheter in place from the left internal jugular approach. Electronically signed by: Josep Rich MD 02/24/2018 4:02 PM EST
--- NOTE | 2018-02-24 18:13 | P.PNNP ---
Subjective Interval history: Patient had hemodialysis yesterday Physical Exam Vital signs: Vital Signs 02/23/18 20:00 02/24/18 00:00 02/24/18 04:00 Temperature 98.3 F 100.5 F H 98.9 F Pulse Rate 84 77 67 Respiratory Rate 17 19 18 Blood Pressure 132/62 133/61 138/79 Pulse Oximetry 95 91 L 92 L 02/24/18 08:00 02/24/18 10:05 02/24/18 12:00 Temperature 97.6 F 98.4 F Pulse Rate 54 L 70 69 Respiratory Rate 12 14 Blood Pressure 120/56 L 187/81 H Pulse Oximetry 97 98 02/24/18 16:00 Temperature 99.1 F Pulse Rate 70 Respiratory Rate 12 Blood Pressure 160/76 H Pulse Oximetry 98 Intake & Output 02/23/18 02/24/18 02/24/18 18:59 06:59 18:59 Intake Total 240 / 240 Output Total 3000 / 3000 0 / 0 Balance -3000 / -3000 240 / 240 Weight 117.9 kg Intake: Oral 240 / 240 Other 0 / 0 Output: Urine 0 / 0 Hemodialysis Amount 3000 / 3000 Other: # Voids 600 Date of Last Bowel Movement 02/23/18 02/23/18 02/23/18 # Bowel Movements 1 Weight On Admission 117.9 kg Narrative: Left foot appears largely unchanged since yesterday, status post lateral digit amputation with sutures in place, upon high pressure I am able to express some blood from the most distal aspect of his incision. There is no pus I am able to express, no follow odor noted Clear lungs bilaterally, unlabored breathing Heart sounds regular rate and rhythm, no murmurs No lower extremity edema bilaterally Assessment and Plan - Assessment (1) ESRD (end stage renal disease) Code(s): N18.6 - End stage renal disease Status: Acute (2) Type 2 diabetes mellitus Code(s): E11.9 - Type 2 diabetes mellitus without complications Status: Acute (3) Essential (primary) hypertension Code(s): I10 - Essential (primary) hypertension Status: Acute (4) PVD (peripheral vascular disease) Code(s): I73.9 - Peripheral vascular disease, unspecified Status: Chronic - Plan Hemodialysis to be arranged on Sunday, and Sunday continue supportive care, patient is seen by vascular surgery and continue to monitor wound on the left foot, dressing changes as ordered Hemodialysis done yesterday 3 L removed continue TTS schedule
[2018-02-24] MEDS: Piperacil/Tazo 2.25 GM Premix 50 ML IV.SIG SCH (22:23)
[2018-02-25 07:30] LABS: INR 2.8 Ratio
[2018-02-25] MEDS: Insulin Detemir Inj 1,000 UNIT/10 ML Vial SQ SCH (09:31)
[2018-02-25] MEDS: Lidocaine 5% Patch T-DERMAL SCH (09:31)
[2018-02-25] MEDS: Metoprolol Tartrate 25 MG Tablet PO SCH ×2 (09:32→20:42)
[2018-02-25] MEDS: Gabapentin 300 MG Capsule PO SCH (09:32)
[2018-02-25] MEDS: Insulin NovoLOG Aspart Correctional Sugar Inj SQ SCH ×4 (09:32→20:48)
[2018-02-25] MEDS: amLODIPine 10 MG Tablet PO SCH (09:32)
[2018-02-25] MEDS: Piperacil/Tazo 2.25 GM Premix 50 ML IV.SIG SCH ×3 (09:33→20:42)
--- NOTE | 2018-02-25 10:39 | P.PNVS ---
Subjective Subjective/Hospital Course: denies foot pain Objective Vital Signs / I&O: Vital Signs 02/24/18 12:00 02/24/18 16:00 02/24/18 19:59 Temperature 98.4 F 99.1 F 100.2 F H Pulse Rate 69 70 72 Respiratory Rate 14 12 18 Blood Pressure 187/81 H 160/76 H 136/64 Pulse Oximetry 98 98 95 02/24/18 20:00 02/25/18 00:00 02/25/18 01:42 Temperature 99.7 F H 99.5 F Pulse Rate 71 Respiratory Rate 18 Blood Pressure 130/60 Pulse Oximetry 98 95 93 L 02/25/18 04:00 02/25/18 08:00 02/25/18 10:03 Temperature 98.2 F 98.6 F Pulse Rate 67 62 Respiratory Rate 18 17 Blood Pressure 119/53 L 165/71 H Pulse Oximetry 100 99 99 Intake & Output 02/24/18 02/25/18 02/25/18 18:59 06:59 18:59 Intake Total 200 / 200 Output Total 0 / 0 Balance 0 / 0 200 / 200 Weight 117.9 kg Intake: IV 50 / 50 Zosyn 2.25 GM Premix 50 ML @ 50 / 50 100 mls/hr IV.SIG Q12H [facility] Rx#: [id number] Oral 150 / 150 Output: Urine 0 / 0 Other: Date of Last Bowel Movement 02/23/18 02/23/18 02/23/18 Physical Exam: left 1st toe wound with gangrene. No purulent discharge Laboratory Results - last 24 hr 02/23/18 02/24/18 02/24/18 04:15 13:19 17:31 ESR PT INR POC Glucose 162 H 174 H C-Reactive Protein 20.00 H 02/24/18 02/25/18 19:42 06:43 ESR Greater than 140 H PT 28.0 H INR 2.8 POC Glucose C-Reactive Protein Impressions Chest X-Ray 02/24/18 00:00 CONCLUSION: Double-lumen catheter in place from the left internal jugular approach. Assessment and Plan - Assessment (1) PVD (peripheral vascular disease) Code(s): I73.9 - Peripheral vascular disease, unspecified Status: Chronic - Plan R LE with poorly healing toe amputation We will treat the patient medically with local wound care. He may need more proximal amputation in the future. Stable for discharge from vascular surgery standpoint will schedule follow-up appointment.
[2018-02-25] MEDS ORDERED: Vancomycin Inj 1,000 MG in Sodium Chlor 0.9% Inj 250 ML IV.SIG ONE (11:00)
--- NOTE | 2018-02-25 11:11 | P.PN ---
Subjective Interval history: Follow up osteomyelitis February 25, 2018-patient seen and examined, no acute event overnight. Case discussed with above infectious disease specialist and vascular surgery. Patient states per nurse report has not been able to urinate. Vitals stable. Physical Exam Vital signs: Vital Signs 02/24/18 12:00 02/24/18 16:00 02/24/18 19:59 Temperature 98.4 F 99.1 F 100.2 F H Pulse Rate 69 70 72 Respiratory Rate 14 12 18 Blood Pressure 187/81 H 160/76 H 136/64 Pulse Oximetry 98 98 95 02/24/18 20:00 02/25/18 00:00 02/25/18 01:42 Temperature 99.7 F H 99.5 F Pulse Rate 71 Respiratory Rate 18 Blood Pressure 130/60 Pulse Oximetry 98 95 93 L 02/25/18 04:00 02/25/18 08:00 02/25/18 10:03 Temperature 98.2 F 98.6 F Pulse Rate 67 62 Respiratory Rate 18 17 Blood Pressure 119/53 L 165/71 H Pulse Oximetry 100 99 99 Intake & Output 02/24/18 02/25/18 02/25/18 18:59 06:59 18:59 Intake Total 200 / 200 Output Total 0 / 0 Balance 0 / 0 200 / 200 Weight 117.9 kg Intake: IV 50 / 50 Zosyn 2.25 GM Premix 50 ML @ 50 / 50 100 mls/hr IV.SIG Q12H [facility] Rx#: [id number] Oral 150 / 150 Output: Urine 0 / 0 Other: Date of Last Bowel Movement 02/23/18 02/23/18 02/23/18 Narrative: GENERAL: NAD SKIN: Warm and dry. Left foot with open and chronic ulcer HEAD: Atraumatic. Normocephalic. EYES: Pupils equal and round. No scleral icterus. No injection or drainage. ENT: No nasal bleeding or discharge. Mucous membranes pink and moist. NECK: Trachea midline. No JVD. CARDIOVASCULAR: Regular rate and rhythm. RESPIRATORY: No accessory muscle use. Clear to auscultation. Breath sounds equal bilaterally. GASTROINTESTINAL: Abdomen soft, non-tender, nondistended. Hepatic and splenic margins not palpable. MUSCULOSKELETAL: Extremities without clubbing, cyanosis, or edema. No obvious deformities. NEUROLOGICAL: Awake and alert. No obvious cranial nerve deficits. Motor grossly within normal limits. Five out of 5 muscle strength in the arms and legs. Normal speech. PSYCHIATRIC: Appropriate mood and affect; insight and judgment normal. Results - Labs CBC & Chem 7: 02/23/18 04:15 02/23/18 04:15 Laboratory Results - last 24 hr 02/23/18 02/24/18 02/24/18 04:15 13:19 17:31 ESR PT INR POC Glucose 162 H 174 H C-Reactive Protein 20.00 H 02/24/18 02/25/18 19:42 06:43 ESR Greater than 140 H PT 28.0 H INR 2.8 POC Glucose C-Reactive Protein Microbiology 02/24/18 19:45 Blood - Peripheral Aerobic Blood Culture - Preliminary No growth in 1 day 02/24/18 19:45 Blood - Peripheral Anaerobic Blood Culture - Preliminary No growth in 1 day 02/24/18 20:00 Blood - Peripheral Aerobic Blood Culture - Preliminary No growth in 1 day 02/24/18 20:00 Blood - Peripheral Anaerobic Blood Culture - Preliminary No growth in 1 day - Imaging Impressions Chest X-Ray 02/24/18 00:00 CONCLUSION: Double-lumen catheter in place from the left internal jugular approach. Assessment and Plan - Plan 72-year-old man with: Diabetic L foot wound Osteomyelitis left foot -Non healing wound s/p left great toe amputation at [facility] on 02/[address] Sainz at [place] -CTA runoff completed at reviewed and shows LLE swelling/edema with disorganized soft tissue fluid without a drainable abscess, extensive pad with steno-occlusive disease -Vascular surgery following, recommending medical management for now. Case discussed with Dr. Sainz today February 25, 2018 -Infectious disease specialist consulted, and [facility] -Currently on vancomycin and Zosyn culture report -Patient will more likely benefit from BKA -Bone scan pending -His culture results [facility] show: UA NG 48 hrs 02/18 Blood culture 02/17 - NG x 5 Blood culture 02/21 - Neg so far Febrile episode -Currently on Zosyn and vancomycin -Infectious disease specialty has been consulted ESRD on hemodialysis TTS HTN, chronic -home medications amlodipine and metoprolol -Nephrology following, dialysis -Check bladder scan Diabetes, chronic -Accu checks with SSI -Diabetic/renal diet -long-acting insulin Diabetic neuropathy -Continue home gabapentin Generalized weakness PT recommending rehab Hx of DVT - has Prince filter, Coumadin
--- NOTE | 2018-02-25 11:18 | P.CONID ---
History of Present Illness Service: Infectious disease Consult date: 02/25/18 Requesting Physician: Salvatore Armendariz Reason for Consult: Evaluate patient with fevers Primary Care Provider: UNKNOWN Chief Complaint: Weakness and fall History of Present Illness: Patient seen and examined. Records reviewed. Records from the other hospital reviewed. Patient is a 72-year-old male, initially admitted at [facility] on February 17, transferred here at [place] for vascular surgical evaluation. Patient had undergone revascularization procedure, as well as amputation of his left big toe. On reviewing the pathology report, the margin of the toe was positive for osteomyelitis. According to the patient after he was discharged from the hospital he went home, and at home he fell. He lives by himself. He fell a second time and we could not get up, so he called the ambulance, and the patient was taken to [facility] and he was admitted there. There is mention that he had some fevers in the other hospital, and he had leukocytosis. MRI of the left foot did not show any evidence suggestive of osteomyelitis on the remaining toe on the left foot. He was transferred here for further vascular evaluation. Since admission he has had some fevers. His white count is normal. Patient denies any respiratory complaint. He stated that he has not been able to urinate. Normally he still could urinate, and patient stated he had a straight catheterization done at [facility] and they got a lot of urine. No diarrhea. No nausea or vomiting. No abdominal pain. He has been noted to have gangrenous changes at his amputation site on the left foot. Infectious disease consultation has been requested to assist with evaluation and treatment of this patient with ongoing fevers. Review of Systems Constitutional: Reports fever(s), Denies chills, Denies night sweats Eyes: Denies discharge, Denies dry eyes Ears, Nose, Mouth, and Throat: Denies difficulty swallowing, Denies facial pain , Denies headache(s), Denies nasal discharge, Denies pain with swallowing, Denies sore throat Cardiovascular: Denies chest pain, Denies shortness of breath Respiratory: Denies chest congestion, Denies cough Gastrointestinal: Denies abdominal pain, Denies loose stools, Denies nausea, Denies pain with swallowing, Denies vomiting Genitourinary: Reports other (unable to urinate) Musculoskeletal: Reports back pain, Denies body aches Skin/Breast: Reports sores, Reports wounds Neurologic: Reports tingling/numbness/burning sensations PMFSH - History History Provided By: Patient - Medical History Medical History: Medical History (Last Reviewed 02/25/18 @ 11:12 by Krystal Raymond MD) Diabetes Hyperlipemia Hypertension Left popliteal artery occlusion PAD (peripheral artery disease) SOB (shortness of breath) on exertion Wound of left foot - Family History Family History: Family History (Last Reviewed 02/25/18 @ 11:12 by Krystal Raymond MD) Other Family history non-contributory - Tobacco History Second Hand Smoke Exposure: No Tobacco Use In Past 30 Days: No Smoking Status: Former smoker - Alcohol History How Often Do You Have a Drink Containing Alcohol: Never - Substance Use History Substance History: No History of Abuse - Travel History Recent Travel in the [facility] Within the Last 8 Weeks: No Recent Travel Out of the Country Within the Last 8 Weeks: No - Immunization History Tetanus Immunization: Unsure Medications and Allergies Active Medications: Active Medications Acetaminophen (Tylenol) 650 mg PO Q4H PRN PRN Reason: Temp > 100.4 Last Admin: 02/22/18 23:32 Dose: 650 mg Al Hydroxide/Mg Hydroxide (Milk Of Marlon Romero) 30 ml PO Q12H PRN PRN Reason: Mild Constipation Amlodipine Besylate (Norvasc) 10 mg PO DAILY [facility] Last Admin: 02/25/18 09:32 Dose: 10 mg Atorvastatin Calcium (Lipitor) 20 mg PO DAILY [facility] Last Admin: 02/25/18 09:32 Dose: 20 mg Bisacodyl (Dulcolax Supp) 10 mg RECTAL DAILY PRN PRN Reason: SEVERE CONSITIPATION Clonidine HCl (Catapres) 0.1 mg PO UNSCH PRN PRN Reason: SEE LABEL COMMENTS Dextrose (D50w Vial) 50 ml IV.PUSH UNSCH PRN PRN Reason: PER HYPOGLYCEMIA PROTOCOL Diphenhydramine HCl (Benadryl) 25 mg PO UNSCH PRN PRN Reason: SEE LABEL COMMENTS Epoetin Itz (Epogen Inj) 4,000 unit IV.PUSH UNSCH PRN PRN Reason: SEE LABEL COMMENTS Last Admin: 02/23/18 17:28 Dose: 4,000 unit Gabapentin (Neurontin) 300 mg PO Q24H [facility] Last Admin: 02/25/18 09:32 Dose: 300 mg Gelatin (Gelfoam 12 Mm/7 Mm Topical) 1 foam TOPICAL PRN PRN PRN Reason: help stop bleeding from site Gentamicin Sulfate (Gentamicin Inj) 20 mg OTHER WITH DIALYSIS PRN PRN Reason: Dwell Gentamycin Lock Last Admin: 02/23/18 17:29 Dose: 20 mg Glucagon (Glucagon Inj) 1 mg OTHER PRN PRN PRN Reason: for Hypoglycemia Protocol Heparin Sodium (Porcine) (Heparin Inj) 8,000 units OTHER WITH DIALYSIS PRN PRN Reason: for machine prime Heparin Sodium (Porcine) (Heparin Inj) 1,000 units OTHER WITH DIALYSIS PRN PRN Reason: Dwell Heparin to Fill Catheter Albumin Human (Flexbumin 25% Inj) 100 mls @ 60 mls/hr IV.SIG WITH DIALYSIS PRN PRN Reason: hypotension / volume replace Sodium Chloride (Ns Inj) 1,000 mls @ 0 mls/hr OTHER .Q0M PRN PRN Reason: for prime and rinse back Last Infusion: 02/23/18 19:00 Dose: 0 mls/hr Sodium Chloride (Ns Inj) 1,000 mls @ 0 mls/hr IV.CONT .Q0M PRN PRN Reason: hypotension / volume replace Sodium Chloride (Ns Inj) 1,000 mls @ 200 mls/hr OTHER .Q5H PRN PRN Reason: for dialyzer flush PRN Vancomycin HCl 1,000 mg/ (Sodium Chloride) 250 mls @ 250 mls/hr IV.SIG ONCE ONE Stop: 02/25/18 12:03 Piperacillin/Tazobactam/Dextrose (Zosyn 2.25 Gm Premix) 50 mls @ 100 mls/hr IV.SIG Q8H [facility] Insulin Aspart (Novolog Insulin Correctional Sugar Inj) 0 unit SQ ACHS [facility]; Protocol Last Admin: 02/25/18 09:32 Dose: 2 unit Insulin Detemir (Levemir Inj) 10 unit SQ DAILY [facility] Last Admin: 02/25/18 09:31 Dose: 10 unit Lactulose (Lactulose Liq) 30 ml PO DAILY PRN PRN Reason: SEVERE CONSITIPATION Last Admin: 02/23/18 05:30 Dose: 30 ml Lidocaine HCl (Lidoderm 5% Patch.12 Hr) 1 patch T-DERMAL DAILY [facility] Last Admin: 02/25/18 09:31 Dose: 1 patch Mannitol (Mannitol Inj) 12.5 gm IV.PUSH UNSCH PRN PRN Reason: hypotension / volume replace Metoprolol Tartrate (Lopressor) 25 mg PO BID [facility] Last Admin: 02/25/18 09:32 Dose: 25 mg Multivitamins (Theragran) 1 tab PO DAILY [facility] Last Admin: 02/25/18 09:32 Dose: 1 tab Nitroglycerin (Nitrostat Sl) 0.4 mg SL Q5M PRN PRN Reason: CHEST PAIN Ondansetron HCl (Zofran Inj) 4 mg IV.PUSH Q6H PRN PRN Reason: NAUSEA OR VOMITING Ondansetron HCl (Zofran Inj) 4 mg IV.PUSH UNSCH PRN PRN Reason: NAUSEA OR VOMITING Patch Removal (Remove Old Patch) 1 each T-DERMAL HS [facility] Last Admin: 02/24/18 20:42 Dose: 1 each Sennosides (Senokot) 17.2 mg PO Q12H PRN PRN Reason: Moderate Constipation Sodium Chloride (Ns Flush) 2 ml IV.FLUSH BID [facility] Last Admin: 02/24/18 20:41 Dose: 2 ml Sodium Chloride (Ns Flush) 2 ml IV.FLUSH PRN PRN PRN Reason: FLUSH AFTER USING IV ACCESS Sodium Chloride (Ns Flush) 5 ml IV.FLUSH PRN PRN PRN Reason: flush each lumen during HD Warfarin Sodium (Coumadin) 5 mg PO DAILY@1600 [facility] Last Admin: 02/24/18 15:05 Dose: 5 mg Allergies Allergy/AdvReac Type Severity Reaction Status Date / Time No Known Allergies Allergy Verified 02/12/18 08:31 Home Medications Medication Instructions Recorded Confirmed Type amlodipine 10 mg PO DAILY 02/12/18 02/22/18 History gabapentin 300 mg PO TID 02/12/18 02/22/18 History insulin aspart U-100 [Novolog 1 sliding scale dose SUBCUT UD 02/12/18 02/22/18 History U-100 Insulin aspart] insulin glargine [Lantus Solostar 10 unit SUBCUT DAILY 02/12/18 02/22/18 History U-100 Insulin] metoprolol tartrate 25 mg PO BID 02/12/18 02/22/18 History multivitamin [Multiple Vitamins] 1 tab PO DAILY 02/12/18 02/22/18 History rosuvastatin 10 mg PO DAILY 02/12/18 02/22/18 History warfarin [Coumadin] 5 mg PO DAILY 02/12/18 02/22/18 History Exam Vital signs: Vital Signs 02/24/18 12:00 02/24/18 16:00 02/24/18 19:59 Temperature 98.4 F 99.1 F 100.2 F H Pulse Rate 69 70 72 Respiratory Rate 14 12 18 Blood Pressure 187/81 H 160/76 H 136/64 Pulse Oximetry 98 98 95 02/24/18 20:00 02/25/18 00:00 02/25/18 01:42 Temperature 99.7 F H 99.5 F Pulse Rate 71 Respiratory Rate 18 Blood Pressure 130/60 Pulse Oximetry 98 95 93 L 02/25/18 04:00 02/25/18 08:00 02/25/18 10:03 Temperature 98.2 F 98.6 F Pulse Rate 67 62 Respiratory Rate 18 17 Blood Pressure 119/53 L 165/71 H Pulse Oximetry 100 99 99 Intake & Output 02/24/18 02/25/18 02/25/18 18:59 06:59 18:59 Intake Total 200 / 200 Output Total 0 / 0 Balance 0 / 0 200 / 200 Weight 117.9 kg Intake: IV 50 / 50 Zosyn 2.25 GM Premix 50 ML @ 50 / 50 100 mls/hr IV.SIG Q12H [facility] Rx#: [id number] Oral 150 / 150 Output: Urine 0 / 0 Other: Date of Last Bowel Movement 02/23/18 02/23/18 02/23/18 Narrative: Physical examination GENERAL: Patient is a well-nourished, well-developed male, awake and alert, not in respiratory distress. SKIN: Cool and dry. No generalized rash, no ecchymoses and no evidence of embolic lesions. HEAD: Atraumatic. Normocephalic. No temporal wasting, or tenderness. EYES: [place] conjunctiva. No petechia or hemorrhage. Pupils equal, round and reactive to light. Extraocular movements full and intact. No scleral icterus. No injection or drainage. EARS, NOSE AND THROAT: Nose without bleeding or purulent nasal discharge. No sinus tenderness. Mucous membranes pink and moist. No oral lesions noted. No exudate. No oral thrush. NECK: Trachea midline. Supple and not tender, no meningeal signs CARDIOVASCULAR: Regular rate and rhythm. No murmurs, rubs or gallops heard RESPIRATORY: Clear to auscultation. Breath sounds equal bilaterally. No rales , wheezing or rhonchi ABDOMEN: Soft, globular, non-tender, nondistended. He have ventral hernia . Bowel sounds present and normoactive. No guarding. No rebound. No organomegaly. EXTREMITIES: No clubbing, cyanosis, or edema. No calf tenderness. He has brownish discoloration of his skin both legs. L foot - amputation site is very dark, with sutures in place, has a small area of dehiscence with some dark bloody, and there is also black skin on plantar aspect of his L foot over his MT. Also with some ischemic changes on dorsum of his L foot over the MT. NO odor currently appreciated NEUROLOGICAL: Awake and alert. Cranial nerves grossly intact. Motor grossly within normal limits. PSYCHIATRIC: Normal affect, calm and cooperative. LINE: No evidence of infection Results - Labs CBC & Chem 7: 02/23/18 04:15 02/23/18 04:15 Labs: Laboratory Results - last 24 hr 02/23/18 02/24/18 02/24/18 04:15 13:19 17:31 ESR PT INR POC Glucose 162 H 174 H C-Reactive Protein 20.00 H 02/24/18 02/25/18 19:42 06:43 ESR Greater than 140 H PT 28.0 H INR 2.8 POC Glucose C-Reactive Protein - Imaging Impressions Chest X-Ray 02/24/18 00:00 CONCLUSION: Double-lumen catheter in place from the left internal jugular approach. Assessment and Plan - Plan Impression Possible sepsis, with ongoing fevers, source? - ?L foot, has ongoing ischemia - has osteo in the margin on pathology - unable to urinate, R/O UTI - has permacath ESRD on HD PVD Recommendation IV vanco Continue Zosyn UA and C/S Wound C/S Get BC from permacath when he goes for his HD tomorrow Follow C/S Spoke with vascular surgery Follow temps MOnitor progress I will make further recommendation once work-up completed I will follow along with you Thank you for this consultation D/W RN D/W Chayo (HEPAS) D/WS Dr Sainz (vascular)
--- NOTE | 2018-02-25 14:02 | P.PNNP ---
Subjective Interval history: Patient is feeling tired left toe wound some drainage seen Physical Exam Vital signs: Vital Signs 02/24/18 16:00 02/24/18 19:59 02/24/18 20:00 Temperature 99.1 F 100.2 F H 99.7 F H Pulse Rate 70 72 Respiratory Rate 12 18 Blood Pressure 160/76 H 136/64 Pulse Oximetry 98 95 98 02/25/18 00:00 02/25/18 01:42 02/25/18 04:00 Temperature 99.5 F 98.2 F Pulse Rate 71 67 Respiratory Rate 18 Blood Pressure 130/60 119/53 L Pulse Oximetry 95 93 L 100 02/25/18 08:00 02/25/18 10:03 Temperature 98.6 F Pulse Rate 62 Respiratory Rate 17 Blood Pressure 165/71 H Pulse Oximetry 99 99 Intake & Output 02/24/18 02/25/18 02/25/18 18:59 06:59 18:59 Intake Total 200 / 200 Output Total 0 / 0 Balance 0 / 0 200 / 200 Weight 117.9 kg Intake: IV 50 / 50 Zosyn 2.25 GM Premix 50 ML @ 50 / 50 100 mls/hr IV.SIG Q12H [facility] Rx#: [id number] Oral 150 / 150 Output: Urine 0 / 0 Other: Date of Last Bowel Movement 02/23/18 02/23/18 02/23/18 Narrative: GENERAL: Well-nourished, well-developed patient. SKIN: Warm and dry. HEAD: Normocephalic. EYES: No scleral icterus. No injection or drainage. NECK: Supple, trachea midline. No JVD or lymphadenopathy. CARDIOVASCULAR: Regular rate and rhythm without murmurs, gallops, or rubs. RESPIRATORY: Breath sounds equal bilaterally. No accessory muscle use. GASTROINTESTINAL: Abdomen soft, non-tender, nondistended. EXTREMITIES: Left toe amputation site darkening of skin drainage seen NEUROLOGICAL: Awake, alert, and oriented x 3. Non-focal. Assessment and Plan - Assessment (1) ESRD (end stage renal disease) Code(s): N18.6 - End stage renal disease Status: Acute (2) Type 2 diabetes mellitus Code(s): E11.9 - Type 2 diabetes mellitus without complications Status: Acute (3) Essential (primary) hypertension Code(s): I10 - Essential (primary) hypertension Status: Acute (4) PVD (peripheral vascular disease) Code(s): I73.9 - Peripheral vascular disease, unspecified Status: Chronic - Plan Hemodialysis to be arranged on Sunday, and Sunday continue supportive care, patient is seen by vascular surgery and continue to monitor wound on the left foot, Hemodialysis done Sunday 3 L removed continue TTS schedule Continue supportive care
[2018-02-26] MEDS: Piperacil/Tazo 2.25 GM Premix 50 ML IV.SIG SCH ×3 (03:38→20:50)
[2018-02-26 06:13] LABS: INR 3.3 Ratio; Prothrombin Time 33.2 sec (9.8-11.6)
[2018-02-26] MEDS: Insulin NovoLOG Aspart Correctional Sugar Inj SQ SCH ×4 (09:46→20:52)
[2018-02-26] MEDS: Albumin Human 25% Inj 100 ML IV.SIG PRN (10:05)
--- NOTE | 2018-02-26 10:05 | NM ---
EXAM DATE: 02/26/2018 9:07 AM EST AGE/SEX: 72 years / Male INDICATIONS: Left foot wound. CLINICAL DATA: This is the patient's initial encounter. Patient reports that signs and symptoms have been present for 3 days and indicates a pain score of 5/10. Location: , Laterality: MEDICAL/SURGICAL HISTORY: Diabetes mellitus type II. . Left great tor amputated. COMPARISON: [facility], FOOT LIMITED LEFT 2V, 02/23/2018. . DOSE: 20.1 mCi Tc99m Ceretec labeled white blood cells IV IMAGING TIMES: 30 min , 3 hrs , 24 hrs IMAGING: SPECT/CT imaging with fusion was performed. RADIATION DOSE: 2.55 CTDIvol(mGy) TECHNIQUE: Following the in vitro labeling of autologous white cells and reinjection, whole body sca n was performed at the specified times. SPECT imaging was performed at the specified time in sagittal , axial and coronal planes. Attenuation correction was performed with the computed tomography and neal th the attenuation correction and non-attenuation corrected data sets were reviewed. FINDINGS: CT of the foot demonstrates erosive destructive changes involving the base of the proximal phalanx of the first toe and underlying sesamoid bones beneath the first metatarsophalangeal joint. Small gas b ubbles are seen surrounding the sesamoid bones. Deformity is also noted of the distal first metatarsal without clearly destructive change. Focal radiotracer accumulation is identified in the tracer circulation is predominantly in the residu al proximal phalanx and the lateral sesamoid beneath the metatarsophalangeal joint. CONCLUSION: 1. Erosive destructive bone changes with abnormal radiotracer accumulation involving the residual pr oximal phalanx of the great toe following amputation and the underlying sesamoid bones. 2. Deformity of the distal first metatarsal without significant tracer accumulation. 3. Inflammation with small air bubbles surrounding the sesamoid bones. 4. Osteomyelitis of the residual first proximal phalanx and sesamoid bones is suspected. Electronically signed by: Jayden Juan MD 02/26/2018 10:04 AM EST
--- NOTE | 2018-02-26 11:16 | P.PNID ---
Subjective Remarks: Patient is a 72-year-old male, initially admitted at [facility] on February 17, transferred here at [place] for vascular surgical evaluation. Patient had undergone revascularization procedure, as well as amputation of his left big toe. On reviewing the pathology report, the margin of the toe was positive for osteomyelitis. According to the patient after he was discharged from the hospital he went home, and at home he fell. He lives by himself. He fell a second time and we could not get up, so he called the ambulance, and the patient was taken to [facility] and he was admitted there. There is mention that he had some fevers in the other hospital, and he had leukocytosis. MRI of the left foot did not show any evidence suggestive of osteomyelitis on the remaining toe on the left foot. He was transferred here for further vascular evaluation. Since admission he has had some fevers. His white count is normal. Patient denies any respiratory complaint. He stated that he has not been able to urinate. Normally he still could urinate, and patient stated he had a straight catheterization done at [facility] and they got a lot of urine. No diarrhea. No nausea or vomiting. No abdominal pain. He has been noted to have gangrenous changes at his amputation site on the left foot. Infectious disease consultation has been requested to assist with evaluation and treatment of this patient with ongoing fevers. Notes reviewed Kavita lawton Seen in HD unit D/W RN - to get wound C/S Antibiotics: Rory Sainz Past Medical History: Diabetes Hyperlipemia Hypertension Left popliteal artery occlusion PAD (peripheral artery disease) SOB (shortness of breath) on exertion Wound of left foot Allergies/Adverse Reactions: Allergies No Known Allergies Allergy (Verified 02/12/18 08:31) Objective Vital Signs 02/25/18 17:00 02/25/18 20:00 02/25/18 20:42 Temperature 98.1 F 97.8 F Pulse Rate 69 64 Respiratory Rate 18 17 Blood Pressure 113/55 L 154/66 H Pulse Oximetry 97 98 97 02/26/18 00:00 02/26/18 09:20 Temperature 97.9 F Pulse Rate 67 Respiratory Rate 17 Blood Pressure 135/72 Pulse Oximetry 96 92 L Intake & Output 02/25/18 02/26/18 02/26/18 18:59 06:59 18:59 Intake Total 770 / 770 880 / 880 Balance 770 / 770 880 / 880 Weight 117.9 kg Intake: IV 50 / 50 400 / 400 Zosyn 2.25 GM Premix 50 ML @ 50 / 50 150 / 150 100 mls/hr IV.SIG Q8H [facility] Rx#: [id number] Vancomycin Inj 1,000 MG In NS 250 / 250 Inj 250 ML @ 250 mls/hr IV.SIG ONCE ONE Rx#:[id number] Oral 720 / 720 480 / 480 Other: # Voids 0 Date of Last Bowel Movement 02/23/18 # Bowel Movements 0 02/24/18 19:45 Blood - Peripheral Aerobic Blood Culture - Preliminary No growth in 2 days 02/24/18 19:45 Blood - Peripheral Anaerobic Blood Culture - Preliminary No growth in 2 days 02/24/18 20:00 Blood - Peripheral Aerobic Blood Culture - Preliminary No growth in 2 days 02/24/18 20:00 Blood - Peripheral Anaerobic Blood Culture - Preliminary No growth in 2 days Lab - Hematology Results 02/24/18 19:42 ESR Greater than 140 H Lab - Chemistry Results 02/23/18 02/24/18 02/24/18 04:15 13:19 17:31 POC Glucose 162 H 174 H C-Reactive Protein 20.00 H 02/25/18 02/25/18 11:41 17:54 POC Glucose 128 H 200 H C-Reactive Protein Imaging: ITS Impressions Foot X-Ray 02/23/18 00:00 CONCLUSION: Tissue breakdown overlying the residual proximal phalanx of the great toe with underlying bone irregularity. Deformity of the forefoot following amputations as described above. Significant midfoot arthropathy. Chest X-Ray 02/24/18 00:00 CONCLUSION: Double-lumen catheter in place from the left internal jugular approach. WBC Scan Nuclear Medicine 02/25/18 00:00 CONCLUSION: 1. Erosive destructive bone changes with abnormal radiotracer accumulation involving the residual proximal phalanx of the great toe following amputation and the underlying sesamoid bones. 2. Deformity of the distal first metatarsal without significant tracer accumulation. 3. Inflammation with small air bubbles surrounding the sesamoid bones. 4. Osteomyelitis of the residual first proximal phalanx and sesamoid bones is suspected. Physical Exam: GENERAL: awake and alert, not in respiratory distress. SKIN: Cool and dry. No generalized rash, no ecchymoses and no evidence of embolic lesions. HEAD: Atraumatic. Normocephalic. No temporal wasting, or tenderness. EYES: [place] conjunctiva. No petechia or hemorrhage. Pupils equal, round and reactive to light. Extraocular movements full and intact. No scleral icterus. No injection or drainage. EARS, NOSE AND THROAT: Nose without bleeding or purulent nasal discharge. No sinus tenderness. Mucous membranes pink and moist. No oral lesions noted. No exudate. No oral thrush. NECK: Trachea midline. Supple and not tender, no meningeal signs CARDIOVASCULAR: Regular rate and rhythm. No murmurs, rubs or gallops heard RESPIRATORY: Clear to auscultation. Breath sounds equal bilaterally. No rales , wheezing or rhonchi ABDOMEN: Soft, globular, non-tender, nondistended. He has ventral hernia . Bowel sounds present and normoactive. No guarding. No rebound. No organomegaly. EXTREMITIES: No clubbing, cyanosis, or edema. No calf tenderness. He has brownish discoloration of his skin both legs. L foot - amputation site is very dark, with sutures in place, has a small area of dehiscence with some dark bloody, and there is also black skin on plantar aspect of his L foot over his MT. Also with some ischemic changes on dorsum of his L foot over the MT. NO odor currently appreciated NEUROLOGICAL: Grossly non-focal. PSYCHIATRIC: Normal affect, calm and cooperative. LINE: No evidence of infection Assessment and Plan - Plan Impression Possible sepsis, with ongoing fevers, source? - ?L foot, has ongoing ischemia - has osteo in the margin on pathology - unable to urinate, R/O UTI - has permacath Osteo remaining big toe left and sesamoid - ischemic changes on his L foot ESRD on HD PVD Recommendation IV vanco Continue Zosyn Follow C/S Spoke with vascular surgery yesterday Follow temps MOnitor progress
[2018-02-26] MEDS: Insulin Detemir Inj 1,000 UNIT/10 ML Vial SQ SCH (12:53)
[2018-02-26] MEDS: Metoprolol Tartrate 25 MG Tablet PO SCH ×2 (13:44→20:50)
--- NOTE | 2018-02-26 13:45 | P.PNVS ---
Subjective Subjective/Hospital Course: denies foot pain Objective Vital Signs / I&O: Vital Signs 02/25/18 17:00 02/25/18 20:00 02/25/18 20:42 Temperature 98.1 F 97.8 F Pulse Rate 69 64 Respiratory Rate 18 17 Blood Pressure 113/55 L 154/66 H Pulse Oximetry 97 98 97 02/26/18 00:00 02/26/18 09:20 02/26/18 13:13 Temperature 97.9 F 97.0 F L Pulse Rate 67 69 Respiratory Rate 17 20 Blood Pressure 135/72 146/65 H Pulse Oximetry 96 92 L 92 L Intake & Output 02/25/18 02/26/18 02/26/18 18:59 06:59 18:59 Intake Total 770 / 770 880 / 880 100 / 100 Output Total 1500 / 1500 Balance 770 / 770 880 / 880 -1400 / -1400 Weight 117.9 kg Intake: IV 50 / 50 400 / 400 100 / 100 Flexbumin 25% Inj 100 ML @ 60 100 / 100 mls/hr IV.SIG WITH DIALYSIS PRN Rx#:[id number] Zosyn 2.25 GM Premix 50 ML @ 50 / 50 150 / 150 100 mls/hr IV.SIG Q8H YUMIKO Rx#: [id number] Vancomycin Inj 1,000 MG In NS 250 / 250 Inj 250 ML @ 250 mls/hr IV.SIG ONCE ONE Rx#:[id number] Oral 720 / 720 480 / 480 Output: Hemodialysis Amount 1500 / 1500 Other: # Voids 0 Date of Last Bowel Movement 02/23/18 # Bowel Movements 0 Physical Exam: left 1st toe wound stable since previous exam. Laboratory Results - last 24 hr 02/25/18 02/26/18 02/26/18 17:54 04:41 11:09 PT 33.2 H INR 3.3 POC Glucose 200 H 103 Microbiology 02/24/18 19:45 Aerobic Blood Culture - Preliminary Blood - Peripheral No growth in 2 days Anaerobic Blood Culture - Preliminary No growth in 2 days 02/24/18 20:00 Aerobic Blood Culture - Preliminary Blood - Peripheral No growth in 2 days Anaerobic Blood Culture - Preliminary No growth in 2 days Impressions Chest X-Ray 02/24/18 00:00 CONCLUSION: Double-lumen catheter in place from the left internal jugular approach. WBC Scan Nuclear Medicine 02/25/18 00:00 CONCLUSION: 1. Erosive destructive bone changes with abnormal radiotracer accumulation involving the residual proximal phalanx of the great toe following amputation and the underlying sesamoid bones. 2. Deformity of the distal first metatarsal without significant tracer accumulation. 3. Inflammation with small air bubbles surrounding the sesamoid bones. 4. Osteomyelitis of the residual first proximal phalanx and sesamoid bones is suspected. Assessment and Plan - Assessment (1) PVD (peripheral vascular disease) Code(s): I73.9 - Peripheral vascular disease, unspecified Status: Chronic - Plan L LE with poorly healing toe amputation possible osteo of the first toe Discussed with patient regarding his condition and poor blood supply I explained to him that he may need a L BKA. Continue with local wound care I discussed the case with ID and admitting team Will continue to follow
[2018-02-26] MEDS: Gabapentin 300 MG Capsule PO SCH (14:09)
[2018-02-26] MEDS: amLODIPine 10 MG Tablet PO SCH (14:09)
[2018-02-26] MEDS: Lidocaine 5% Patch T-DERMAL SCH (14:09)
--- NOTE | 2018-02-26 14:19 | P.PN ---
Subjective Interval history: Follow up osteomyelitis February 25, 2018-patient seen and examined, no acute event overnight. Case discussed with above infectious disease specialist and vascular surgery. Patient states per nurse report has not been able to urinate. Vitals stable. February 26, 2018-patient seen and examined, had hemodialysis today. Denies any left foot pain. Again discussed with patient about the need for possible left BKA; his response was he needed to talk to his family and he was not ready to have his foot cut off yet Physical Exam Vital signs: Vital Signs 02/25/18 17:00 02/25/18 20:00 02/25/18 20:42 Temperature 98.1 F 97.8 F Pulse Rate 69 64 Respiratory Rate 18 17 Blood Pressure 113/55 L 154/66 H Pulse Oximetry 97 98 97 02/26/18 00:00 02/26/18 09:20 02/26/18 13:13 Temperature 97.9 F 97.0 F L Pulse Rate 67 69 Respiratory Rate 17 20 Blood Pressure 135/72 146/65 H Pulse Oximetry 96 92 L 92 L Intake & Output 02/25/18 02/26/18 02/26/18 18:59 06:59 18:59 Intake Total 770 / 770 880 / 880 100 / 100 Output Total 1500 / 1500 Balance 770 / 770 880 / 880 -1400 / -1400 Weight 117.9 kg Intake: IV 50 / 50 400 / 400 100 / 100 Flexbumin 25% Inj 100 ML @ 60 100 / 100 mls/hr IV.SIG WITH DIALYSIS PRN Rx#:[id number] Zosyn 2.25 GM Premix 50 ML @ 50 / 50 150 / 150 100 mls/hr IV.SIG Q8H YUMIKO Rx#: [id number] Vancomycin Inj 1,000 MG In NS 250 / 250 Inj 250 ML @ 250 mls/hr IV.SIG ONCE ONE Rx#:[id number] Oral 720 / 720 480 / 480 Output: Hemodialysis Amount 1500 / 1500 Other: # Voids 0 Date of Last Bowel Movement 02/23/18 # Bowel Movements 0 Narrative: GENERAL: NAD SKIN: Warm and dry. HEAD: Atraumatic. Normocephalic. EYES: Pupils equal and round. No scleral icterus. No injection or drainage. ENT: No nasal bleeding or discharge. Mucous membranes pink and moist. NECK: Trachea midline. No JVD. CARDIOVASCULAR: Regular rate and rhythm. RESPIRATORY: No accessory muscle use. Clear to auscultation. Breath sounds equal bilaterally. GASTROINTESTINAL: Abdomen soft, non-tender, nondistended. Hepatic and splenic margins not palpable. MUSCULOSKELETAL: Extremities without clubbing, cyanosis, or edema. No obvious deformities. NEUROLOGICAL: Awake and alert. No obvious cranial nerve deficits. Motor grossly within normal limits. Left foot - amputation site is very dark, with sutures in place, has a small area of dehiscence with some dark bloody, and there is also black skin on plantar aspect of his L foot over his MT. Also with some ischemic changes on dorsum of his L foot over the MT PSYCHIATRIC: Appropriate mood and affect; insight and judgment normal. Results - Labs CBC & Chem 7: 02/23/18 04:15 02/23/18 04:15 Laboratory Results - last 24 hr 02/25/18 02/26/18 02/26/18 17:54 04:41 11:09 PT 33.2 H INR 3.3 POC Glucose 200 H 103 Microbiology 02/24/18 19:45 Blood - Peripheral Aerobic Blood Culture - Preliminary No growth in 2 days 02/24/18 19:45 Blood - Peripheral Anaerobic Blood Culture - Preliminary No growth in 2 days 02/24/18 20:00 Blood - Peripheral Aerobic Blood Culture - Preliminary No growth in 2 days 02/24/18 20:00 Blood - Peripheral Anaerobic Blood Culture - Preliminary No growth in 2 days - Imaging Impressions WBC Scan Nuclear Medicine 02/25/18 00:00 CONCLUSION: 1. Erosive destructive bone changes with abnormal radiotracer accumulation involving the residual proximal phalanx of the great toe following amputation and the underlying sesamoid bones. 2. Deformity of the distal first metatarsal without significant tracer accumulation. 3. Inflammation with small air bubbles surrounding the sesamoid bones. 4. Osteomyelitis of the residual first proximal phalanx and sesamoid bones is suspected. Assessment and Plan - Plan 72-year-old man with: Diabetic L foot wound Osteomyelitis left foot -Non healing wound s/p left great toe amputation at [facility] on 02/[address] Sainz at [place] -CTA runoff completed at reviewed and shows LLE swelling/edema with disorganized soft tissue fluid without a drainable abscess, extensive pad with steno-occlusive disease -Vascular surgery following, Dr. Sainz -Infectious disease specialist consulted -Currently on vancomycin and Zosyn pending culture report -Patient will more likely benefit from left BKA -Bone scan pending -His culture results [facility] show: UA NG 48 hrs 02/18 Blood culture 02/17 - NG x 5 Blood culture 02/21 - Neg so far Febrile episode -Currently on Zosyn and vancomycin -Infectious disease specialty has been consulted ESRD on hemodialysis TTS HTN, chronic -home medications amlodipine and metoprolol -Nephrology following, dialysis Diabetes, chronic -Accu checks with SSI -Diabetic/renal diet -long-acting insulin Diabetic neuropathy -Continue home gabapentin Generalized weakness PT recommending rehab Hx of DVT - has [place] filter, Coumadin
--- NOTE | 2018-02-26 19:02 | P.PNNP ---
Subjective Interval history: Patient feels tired at dialysis earlier Physical Exam Vital signs: Vital Signs 02/25/18 20:00 02/25/18 20:42 02/26/18 00:00 Temperature 97.8 F 97.9 F Pulse Rate 64 67 Respiratory Rate 17 17 Blood Pressure 154/66 H 135/72 Pulse Oximetry 98 97 96 02/26/18 09:20 02/26/18 13:13 02/26/18 16:00 Temperature 97.0 F L 97.3 F L Pulse Rate 69 73 Respiratory Rate 20 18 Blood Pressure 146/65 H 132/59 L Pulse Oximetry 92 L 92 L 100 Intake & Output 02/26/18 02/26/18 02/27/18 06:59 18:59 06:59 Intake Total 880 / 880 150 / 150 Output Total 1500 / 1500 Balance 880 / 880 -1350 / -1350 Weight 117.9 kg Intake: IV 400 / 400 150 / 150 Flexbumin 25% Inj 100 ML @ 60 100 / 100 mls/hr IV.SIG WITH DIALYSIS PRN Rx#:[id number] Zosyn 2.25 GM Premix 50 ML @ 150 / 150 50 / 50 100 mls/hr IV.SIG Q8H YUMIKO Rx#: [id number] Vancomycin Inj 1,000 MG In NS 250 / 250 Inj 250 ML @ 250 mls/hr IV.SIG ONCE ONE Rx#:[id number] Oral 480 / 480 Output: Hemodialysis Amount 1500 / 1500 Other: Date of Last Bowel Movement 02/23/18 Narrative: GENERAL: Well-nourished, well-developed patient. SKIN: Warm and dry. HEAD: Normocephalic. EYES: No scleral icterus. No injection or drainage. NECK: Supple, trachea midline. No JVD or lymphadenopathy. CARDIOVASCULAR: Regular rate and rhythm without murmurs, gallops, or rubs. RESPIRATORY: Breath sounds equal bilaterally. No accessory muscle use. GASTROINTESTINAL: Abdomen soft, non-tender, nondistended. EXTREMITIES: Left foot darkening of the skin, poor wound healing NEUROLOGICAL: Awake, alert, and oriented x 3. Non-focal. Assessment and Plan - Assessment (1) ESRD (end stage renal disease) Code(s): N18.6 - End stage renal disease Status: Acute (2) Type 2 diabetes mellitus Code(s): E11.9 - Type 2 diabetes mellitus without complications Status: Acute (3) Essential (primary) hypertension Code(s): I10 - Essential (primary) hypertension Status: Acute (4) PVD (peripheral vascular disease) Code(s): I73.9 - Peripheral vascular disease, unspecified Status: Chronic - Plan Hemodialysis arranged on Sunday, and Sunday continue supportive care, patient is seen by vascular surgery and continue to monitor wound on the left foot, possible left BKA plan Hemodialysis done today 1.5 L removed continue TTS schedule Continue supportive care
[2018-02-27] MEDS: Piperacil/Tazo 2.25 GM Premix 50 ML IV.SIG SCH ×3 (04:10→21:18)
[2018-02-27 06:09] LABS: INR 4.5 Ratio; Prothrombin Time 44.8 sec (9.8-11.6)
[2018-02-27] MEDS: amLODIPine 10 MG Tablet PO SCH (08:45)
[2018-02-27] MEDS: Lidocaine 5% Patch T-DERMAL SCH (08:45)
[2018-02-27] MEDS: Gabapentin 300 MG Capsule PO SCH (08:45)
[2018-02-27] MEDS: Metoprolol Tartrate 25 MG Tablet PO SCH ×2 (08:45→21:18)
[2018-02-27] MEDS: Insulin Detemir Inj 1,000 UNIT/10 ML Vial SQ SCH (08:45)
[2018-02-27] MEDS: Insulin NovoLOG Aspart Correctional Sugar Inj SQ SCH ×4 (08:46→21:24)
--- NOTE | 2018-02-27 10:51 | P.PN ---
Subjective Interval history: Follow up osteomyelitis February 25, 2018-patient seen and examined, no acute event overnight. Case discussed with above infectious disease specialist and vascular surgery. Patient states per nurse report has not been able to urinate. Vitals stable. February 26, 2018-patient seen and examined, had hemodialysis today. Denies any left foot pain. Again discussed with patient about the need for possible left BKA; his response was he needed to talk to his family and he was not ready to have his foot cut off yet February 27, 2018-patient seen and examined, states he would like to work with PT. No other issues. No acute event overnight. Physical Exam Vital signs: Vital Signs 02/26/18 13:13 02/26/18 16:00 02/26/18 20:00 Temperature 97.0 F L 97.3 F L 99.4 F Pulse Rate 69 73 72 Respiratory Rate 20 18 17 Blood Pressure 146/65 H 132/59 L 138/63 Pulse Oximetry 92 L 100 100 02/27/18 00:00 02/27/18 04:00 02/27/18 08:00 Temperature 100.2 F H 98.6 F 97.8 F Pulse Rate 65 60 59 L Respiratory Rate 18 19 19 Blood Pressure 133/63 132/62 114/65 Pulse Oximetry 98 98 96 02/27/18 09:34 Temperature Pulse Rate Respiratory Rate Blood Pressure Pulse Oximetry 98 Intake & Output 02/26/18 02/27/18 02/27/18 18:59 06:59 18:59 Intake Total 510 / 510 750 / 750 Output Total 1500 / 1500 0 / 0 Balance -990 / -990 750 / 750 Weight 117.8 kg Intake: IV 150 / 150 100 / 100 Flexbumin 25% Inj 100 ML @ 60 100 / 100 mls/hr IV.SIG WITH DIALYSIS PRN Rx#:[id number] Zosyn 2.25 GM Premix 50 ML @ 50 / 50 100 / 100 100 mls/hr IV.SIG Q8H YUMIKO Rx#: [id number] Oral 360 / 360 650 / 650 Output: Urine 0 / 0 Hemodialysis Amount 1500 / 1500 Other: Date of Last Bowel Movement 02/23/18 02/24/18 Narrative: GENERAL: NAD SKIN: Warm and dry. HEAD: Normocephalic. EYES: No scleral icterus. No injection or drainage. NECK: Supple, trachea midline. No JVD or lymphadenopathy. CARDIOVASCULAR: Regular rate and rhythm without murmurs, gallops, or rubs. RESPIRATORY: Breath sounds equal bilaterally. No accessory muscle use. GASTROINTESTINAL: Abdomen soft, non-tender, nondistended. EXTREMITIES: Left foot darkening of the skin, poor wound healing NEUROLOGICAL: Awake, alert, and oriented x 3. Non-focal. Results - Labs CBC & Chem 7: 02/23/18 04:15 02/23/18 04:15 Laboratory Results - last 24 hr 02/26/18 02/26/18 02/26/18 11:09 17:41 20:12 PT INR POC Glucose 103 169 H 248 H 02/27/18 02/27/18 05:19 07:56 PT 44.8 H D INR 4.5 POC Glucose 134 H Microbiology 02/26/18 13:51 Wound - Foot Gram Stain - Final 02/24/18 19:45 Blood - Peripheral Aerobic Blood Culture - Preliminary No growth in 2 days 02/24/18 19:45 Blood - Peripheral Anaerobic Blood Culture - Preliminary No growth in 2 days 02/24/18 20:00 Blood - Peripheral Aerobic Blood Culture - Preliminary No growth in 2 days 02/24/18 20:00 Blood - Peripheral Anaerobic Blood Culture - Preliminary No growth in 2 days Assessment and Plan - Plan 72-year-old man with: Diabetic L foot wound Osteomyelitis left foot -Non healing wound s/p left great toe amputation at [facility] on 02/[address] Sainz at [place] -CTA runoff completed at reviewed and shows LLE swelling/edema with disorganized soft tissue fluid without a drainable abscess, extensive pad with steno-occlusive disease -Vascular surgery following, Dr. Sainz -Infectious disease specialist consulted -Currently on vancomycin and Zosyn pending culture report -Patient will more likely benefit from left BKA -His culture results [facility] show: UA NG 48 hrs 02/18 Blood culture 02/17 - NG x 5 Blood culture 02/21 - Neg so far ESRD on hemodialysis TTS HTN, chronic -home medications amlodipine and metoprolol -Nephrology following, dialysis Diabetes, chronic -Accu checks with SSI -Diabetic/renal diet -long-acting insulin Diabetic neuropathy -Continue home gabapentin Generalized weakness PT recommending rehab Hx of DVT - has [place] filter, Coumadin -INR supratherapeutic, Coumadin currently on hold
--- NOTE | 2018-02-27 13:21 | P.PNID ---
Subjective Remarks: Patient is a 72-year-old male, initially admitted at [facility] on February 17, transferred here at [facility] for vascular surgical evaluation. Patient had undergone revascularization procedure, as well as amputation of his left big toe. On reviewing the pathology report, the margin of the toe was positive for osteomyelitis. According to the patient after he was discharged from the hospital he went home, and at home he fell. He lives by himself. He fell a second time and we could not get up, so he called the ambulance, and the patient was taken to [facility] and he was admitted there. There is mention that he had some fevers in the other hospital, and he had leukocytosis. MRI of the left foot did not show any evidence suggestive of osteomyelitis on the remaining toe on the left foot. He was transferred here for further vascular evaluation. Since admission he has had some fevers. His white count is normal. Patient denies any respiratory complaint. He stated that he has not been able to urinate. Normally he still could urinate, and patient stated he had a straight catheterization done at [facility] and they got a lot of urine. No diarrhea. No nausea or vomiting. No abdominal pain. He has been noted to have gangrenous changes at his amputation site on the left foot. Infectious disease consultation has been requested to assist with evaluation and treatment of this patient with ongoing fevers. Notes reviewed Has low grade temps HD done yesterday Wound C/S pending States he is not ready for amputation Antibiotics: Rory Sainz Past Medical History: Diabetes Hyperlipemia Hypertension Left popliteal artery occlusion PAD (peripheral artery disease) SOB (shortness of breath) on exertion Wound of left foot Allergies/Adverse Reactions: Allergies No Known Allergies Allergy (Verified 02/12/18 08:31) Objective Vital Signs 02/26/18 16:00 02/26/18 20:00 02/27/18 00:00 Temperature 97.3 F L 99.4 F 100.2 F H Pulse Rate 73 72 65 Respiratory Rate 18 17 18 Blood Pressure 132/59 L 138/63 133/63 Pulse Oximetry 100 100 98 02/27/18 04:00 02/27/18 08:00 02/27/18 09:34 Temperature 98.6 F 97.8 F Pulse Rate 60 59 L Respiratory Rate 19 19 Blood Pressure 132/62 114/65 Pulse Oximetry 98 96 98 02/27/18 12:00 Temperature 98.0 F Pulse Rate 74 Respiratory Rate 19 Blood Pressure 131/52 L Pulse Oximetry 95 Intake & Output 02/26/18 02/27/18 02/27/18 18:59 06:59 18:59 Intake Total 510 / 510 750 / 750 Output Total 1500 / 1500 0 / 0 Balance -990 / -990 750 / 750 Weight 117.8 kg Intake: IV 150 / 150 100 / 100 Flexbumin 25% Inj 100 ML @ 60 100 / 100 mls/hr IV.SIG WITH DIALYSIS PRN Rx#:[id number] Zosyn 2.25 GM Premix 50 ML @ 50 / 50 100 / 100 100 mls/hr IV.SIG Q8H YUMIKO Rx#: [id number] Oral 360 / 360 650 / 650 Output: Urine 0 / 0 Hemodialysis Amount 1500 / 1500 Other: Date of Last Bowel Movement 02/23/18 02/24/18 02/26/18 11:24 Blood - Other Aerobic Blood Culture - Preliminary No growth in 1 day 02/26/18 11:24 Blood - Other Anaerobic Blood Culture - Preliminary No growth in 1 day 02/26/18 11:24 Blood - Other Aerobic Blood Culture - Preliminary No growth in 1 day 02/26/18 11:24 Blood - Other Anaerobic Blood Culture - Preliminary No growth in 1 day 02/24/18 19:45 Blood - Peripheral Aerobic Blood Culture - Preliminary No growth in 3 days 02/24/18 19:45 Blood - Peripheral Anaerobic Blood Culture - Preliminary No growth in 3 days 02/24/18 20:00 Blood - Peripheral Aerobic Blood Culture - Preliminary No growth in 3 days 02/24/18 20:00 Blood - Peripheral Anaerobic Blood Culture - Preliminary No growth in 3 days 02/26/18 13:51 Wound - Foot Gram Stain - Final 02/26/18 13:51 Wound - Foot Wound Culture - Pending Lab - Chemistry Results 02/25/18 02/26/18 02/26/18 17:54 11:09 17:41 POC Glucose 200 H 103 169 H 02/26/18 02/27/18 02/27/18 20:12 07:56 11:22 POC Glucose 248 H 134 H 210 H Imaging: ITS Impressions Foot X-Ray 02/23/18 00:00 CONCLUSION: Tissue breakdown overlying the residual proximal phalanx of the great toe with underlying bone irregularity. Deformity of the forefoot following amputations as described above. Significant midfoot arthropathy. Chest X-Ray 02/24/18 00:00 CONCLUSION: Double-lumen catheter in place from the left internal jugular approach. WBC Scan Nuclear Medicine 02/25/18 00:00 CONCLUSION: 1. Erosive destructive bone changes with abnormal radiotracer accumulation involving the residual proximal phalanx of the great toe following amputation and the underlying sesamoid bones. 2. Deformity of the distal first metatarsal without significant tracer accumulation. 3. Inflammation with small air bubbles surrounding the sesamoid bones. 4. Osteomyelitis of the residual first proximal phalanx and sesamoid bones is suspected. Physical Exam: GENERAL: awake and alert, not in respiratory distress. SKIN: Cool and dry. No generalized rash. HEAD: Atraumatic. Normocephalic. No temporal wasting, or tenderness. EYES: [place] conjunctiva. No petechia or hemorrhage. Pupils equal, round and reactive to light. Extraocular movements full and intact. No scleral icterus. No injection or drainage. EARS, NOSE AND THROAT: Mucous membranes pink and moist. No oral lesions noted. No exudate. No oral thrush. NECK: Trachea midline. Supple and not tender, no meningeal signs CARDIOVASCULAR: Regular rate and rhythm. No murmurs, rubs or gallops heard RESPIRATORY: Clear to auscultation. Breath sounds equal bilaterally. No rales , wheezing or rhonchi ABDOMEN: Soft, globular, non-tender, nondistended. He has ventral hernia . Bowel sounds present and normoactive. No guarding. No rebound. No organomegaly. EXTREMITIES: No clubbing, cyanosis, or edema. No calf tenderness. He has brownish discoloration of his skin both legs. L foot - amputation site is very dark, with sutures in place, has a small area of dehiscence with some dark bloody, and there is also black skin on plantar aspect of his L foot over his MT. Also with some ischemic changes on dorsum of his L foot over the MT. NEUROLOGICAL: Grossly non-focal. PSYCHIATRIC: Normal affect, calm and cooperative. LINE: No evidence of infection Assessment and Plan - Plan Impression Possible sepsis, with ongoing fevers, source? - ?L foot, has ongoing ischemia - has osteo in the margin on pathology - unable to urinate, R/O UTI - has permacath Osteo remaining big toe left and sesamoid - ischemic changes on his L foot ESRD on HD PVD Recommendation Continue Zosyn Continue Vancomycin Follow C/S Follow temps Monitor progress
--- NOTE | 2018-02-27 14:26 | P.PNNP ---
Subjective Interval history: Patient is doing better however he is upset that he has MRSA in his left foot Physical Exam Vital signs: Vital Signs 02/26/18 16:00 02/26/18 20:00 02/27/18 00:00 Temperature 97.3 F L 99.4 F 100.2 F H Pulse Rate 73 72 65 Respiratory Rate 18 17 18 Blood Pressure 132/59 L 138/63 133/63 Pulse Oximetry 100 100 98 02/27/18 04:00 02/27/18 08:00 02/27/18 09:34 Temperature 98.6 F 97.8 F Pulse Rate 60 59 L Respiratory Rate 19 19 Blood Pressure 132/62 114/65 Pulse Oximetry 98 96 98 02/27/18 12:00 Temperature 98.0 F Pulse Rate 74 Respiratory Rate 19 Blood Pressure 131/52 L Pulse Oximetry 95 Intake & Output 02/26/18 02/27/18 02/27/18 18:59 06:59 18:59 Intake Total 510 / 510 750 / 750 50 / 50 Output Total 1500 / 1500 0 / 0 Balance -990 / -990 750 / 750 50 / 50 Weight 117.8 kg Intake: IV 150 / 150 100 / 100 50 / 50 Flexbumin 25% Inj 100 ML @ 60 100 / 100 mls/hr IV.SIG WITH DIALYSIS PRN Rx#:[id number] Zosyn 2.25 GM Premix 50 ML @ 50 / 50 100 / 100 50 / 50 100 mls/hr IV.SIG Q8H YUMIKO Rx#: [id number] Oral 360 / 360 650 / 650 Output: Urine 0 / 0 Hemodialysis Amount 1500 / 1500 Other: Date of Last Bowel Movement 02/23/18 02/24/18 Narrative: GENERAL: NAD SKIN: Warm and dry. HEAD: Normocephalic. EYES: No scleral icterus. No injection or drainage. NECK: Supple, trachea midline. No JVD or lymphadenopathy. CARDIOVASCULAR: Regular rate and rhythm without murmurs, gallops, or rubs. RESPIRATORY: Breath sounds equal bilaterally. No accessory muscle use. GASTROINTESTINAL: Abdomen soft, non-tender, nondistended. EXTREMITIES: Left foot darkening of the skin, poor wound healing NEUROLOGICAL: Awake, alert, and oriented x 3. Non-focal. Assessment and Plan - Assessment (1) ESRD (end stage renal disease) Code(s): N18.6 - End stage renal disease Status: Acute (2) Type 2 diabetes mellitus Code(s): E11.9 - Type 2 diabetes mellitus without complications Status: Acute (3) Essential (primary) hypertension Code(s): I10 - Essential (primary) hypertension Status: Acute (4) PVD (peripheral vascular disease) Code(s): I73.9 - Peripheral vascular disease, unspecified Status: Chronic - Plan Hemodialysis arranged on Sunday, and Sunday continue supportive care, patient is seen by vascular surgery and continue to monitor wound on the left foot, possible left BKA plan Hemodialysis next tomorrow continue TTS schedule continue with vancomycin followed level also is covered for gram-negative with Zosyn Continue supportive care
--- NOTE | 2018-02-27 17:29 | P.PNVS ---
Subjective Subjective/Hospital Course: denies foot pain Objective Vital Signs / I&O: Vital Signs 02/26/18 20:00 02/27/18 00:00 02/27/18 04:00 Temperature 99.4 F 100.2 F H 98.6 F Pulse Rate 72 65 60 Respiratory Rate 17 18 19 Blood Pressure 138/63 133/63 132/62 Pulse Oximetry 100 98 98 02/27/18 08:00 02/27/18 09:34 02/27/18 12:00 Temperature 97.8 F 98.0 F Pulse Rate 59 L 74 Respiratory Rate 19 19 Blood Pressure 114/65 131/52 L Pulse Oximetry 96 98 95 Intake & Output 02/26/18 02/27/18 02/27/18 18:59 06:59 18:59 Intake Total 510 / 510 750 / 750 50 / 50 Output Total 1500 / 1500 0 / 0 Balance -990 / -990 750 / 750 50 / 50 Weight 117.8 kg Intake: IV 150 / 150 100 / 100 50 / 50 Flexbumin 25% Inj 100 ML @ 60 100 / 100 mls/hr IV.SIG WITH DIALYSIS PRN Rx#:[id number] Zosyn 2.25 GM Premix 50 ML @ 50 / 50 100 / 100 50 / 50 100 mls/hr IV.SIG Q8H [facility] Rx#: [id number] Oral 360 / 360 650 / 650 Output: Urine 0 / 0 Hemodialysis Amount 1500 / 1500 Other: Date of Last Bowel Movement 02/23/18 02/24/18 02/27/18 # Bowel Movements 1 Physical Exam: non healing left 1st toe wound with gangrene Laboratory Results - last 24 hr 02/26/18 02/26/18 02/27/18 17:41 20:12 05:19 PT 44.8 H D INR 4.5 POC Glucose 169 H 248 H 02/27/18 02/27/18 02/27/18 07:56 11:22 16:29 PT INR POC Glucose 134 H 210 H 269 H Microbiology 02/26/18 13:51 Gram Stain - Final Wound - Foot Wound Culture - Preliminary S. aureus MRSA gram negative rods 02/26/18 11:24 Aerobic Blood Culture - Preliminary Blood - Other No growth in 1 day Anaerobic Blood Culture - Preliminary No growth in 1 day 02/26/18 11:24 Aerobic Blood Culture - Preliminary Blood - Other No growth in 1 day Anaerobic Blood Culture - Preliminary No growth in 1 day 02/24/18 19:45 Aerobic Blood Culture - Preliminary Blood - Peripheral No growth in 3 days Anaerobic Blood Culture - Preliminary No growth in 3 days 02/24/18 20:00 Aerobic Blood Culture - Preliminary Blood - Peripheral No growth in 3 days Anaerobic Blood Culture - Preliminary No growth in 3 days Impressions WBC Scan Nuclear Medicine 02/25/18 00:00 CONCLUSION: 1. Erosive destructive bone changes with abnormal radiotracer accumulation involving the residual proximal phalanx of the great toe following amputation and the underlying sesamoid bones. 2. Deformity of the distal first metatarsal without significant tracer accumulation. 3. Inflammation with small air bubbles surrounding the sesamoid bones. 4. Osteomyelitis of the residual first proximal phalanx and sesamoid bones is suspected. Assessment and Plan - Assessment (1) PVD (peripheral vascular disease) Code(s): I73.9 - Peripheral vascular disease, unspecified Status: Chronic - Plan L LE with poorly healing toe amputation Patient agrees to L BKA will plan for tomorrow
--- NOTE | 2018-02-28 05:16 | P.PNVS ---
Subjective Subjective/Hospital Course: denies foot pain I have seen Mr Luis Roach and reviewed the angiogram. I agree with Dr. Sainz's surgical plan and think a major amputation is the appropriate next step. Objective Vital Signs / I&O: Vital Signs 02/27/18 08:00 02/27/18 09:34 02/27/18 12:00 Temperature 97.8 F 98.0 F Pulse Rate 59 L 74 Respiratory Rate 19 19 Blood Pressure 114/65 131/52 L Pulse Oximetry 96 98 95 02/27/18 16:00 02/27/18 20:00 02/28/18 00:00 Temperature 98.9 F 98.3 F 98.4 F Pulse Rate 70 70 69 Respiratory Rate 19 18 20 Blood Pressure 146/66 H 141/87 H 134/62 Pulse Oximetry 95 93 L 94 L Intake & Output 02/27/18 02/27/18 02/28/18 06:59 18:59 06:59 Intake Total 750 / 750 50 / 50 50 / 50 Output Total 0 / 0 Balance 750 / 750 50 / 50 50 / 50 Weight 117.8 kg 117.8 kg Intake: IV 100 / 100 50 / 50 50 / 50 Zosyn 2.25 GM Premix 50 ML @ 100 / 100 50 / 50 50 / 50 100 mls/hr IV.SIG Q8H [facility] Rx#: [id number] Oral 650 / 650 Output: Urine 0 / 0 Other: Date of Last Bowel Movement 02/24/18 02/27/18 # Bowel Movements 1 Laboratory Results - last 24 hr 02/27/18 02/27/18 02/27/18 05:19 07:56 11:22 PT 44.8 H D INR 4.5 POC Glucose 134 H 210 H Blood Type Blood Type Recheck Antibody Screen 02/27/18 02/27/18 02/27/18 16:29 18:03 21:21 PT INR POC Glucose 269 H 224 H Blood Type A Positive Blood Type Recheck Required Antibody Screen Negative Microbiology 02/26/18 13:51 Gram Stain - Final Wound - Foot Wound Culture - Preliminary S. aureus MRSA gram negative rods 02/26/18 11:24 Aerobic Blood Culture - Preliminary Blood - Other No growth in 1 day Anaerobic Blood Culture - Preliminary No growth in 1 day 02/26/18 11:24 Aerobic Blood Culture - Preliminary Blood - Other No growth in 1 day Anaerobic Blood Culture - Preliminary No growth in 1 day 02/24/18 19:45 Aerobic Blood Culture - Preliminary Blood - Peripheral No growth in 3 days Anaerobic Blood Culture - Preliminary No growth in 3 days 02/24/18 20:00 Aerobic Blood Culture - Preliminary Blood - Peripheral No growth in 3 days Anaerobic Blood Culture - Preliminary No growth in 3 days Impressions WBC Scan Nuclear Medicine 02/25/18 00:00 CONCLUSION: 1. Erosive destructive bone changes with abnormal radiotracer accumulation involving the residual proximal phalanx of the great toe following amputation and the underlying sesamoid bones. 2. Deformity of the distal first metatarsal without significant tracer accumulation. 3. Inflammation with small air bubbles surrounding the sesamoid bones. 4. Osteomyelitis of the residual first proximal phalanx and sesamoid bones is suspected. Assessment and Plan - Assessment (1) PVD (peripheral vascular disease) Code(s): I73.9 - Peripheral vascular disease, unspecified Status: Chronic - Plan L LE with poorly healing toe amputation Patient agrees to L BKA will plan for tomorrow
[2018-02-28] MEDS: Piperacil/Tazo 2.25 GM Premix 50 ML IV.SIG SCH ×3 (05:23→21:51)
[2018-02-28 07:23] LABS: Baso # (Auto) 0.1 th/mm3 (0.0-0.2); Baso % (Auto) 0.4 % (0.0-2.0); Eos # (Auto) 0.3 th/mm3 (0.0-0.4); Eos % (Auto) 2.4 % (0.0-4.0); Hematocrit 27.2 % (39.0-51.0); Lymph # (Auto) 0.6 th/mm3 (1.0-4.8); Lymph % (Auto) 4.6 % (9.0-44.0); Mean Corpuscular HGB Conc 33.1 % (32.0-36.0); Mean Corpuscular Hemoglobin 29.5 pg (27.0-34.0); Mean Corpuscular Volume 88.9 fL (80.0-100.0); Mean Platelet Volume 7.3 fL (7.0-11.0); Mono # (Auto) 1.1 th/mm3 (0.0-0.9); Mono % (Auto) 8.6 % (0.0-8.0); Neut # (Auto) 10.5 th/mm3 (1.8-7.7); Platelet Count 415 th/mm3 (150-450); Red Blood Count 3.06 mil/mm3 (4.50-5.90); Red Cell Distribution Width 16.6 % (11.6-17.2); White Blood Count 12.5 th/mm3 (4.0-11.0)
[2018-02-28 07:32] LABS: INR 3.3 Ratio; Prothrombin Time 33.4 sec (9.8-11.6)
[2018-02-28 08:02] LABS: Calcium 6.9 mg/dL (8.5-10.1); Carbon Dioxide 25.6 meq/L (21.0-32.0); Total Protein 7.7 g/dL (6.4-8.2); Vancomycin,Random 15.6 Comment
[2018-02-28] MEDS: Lidocaine 5% Patch T-DERMAL SCH (08:32)
[2018-02-28] MEDS: Insulin Detemir Inj 1,000 UNIT/10 ML Vial SQ SCH (08:33)
[2018-02-28] MEDS: Insulin NovoLOG Aspart Correctional Sugar Inj SQ SCH ×4 (08:45→21:55)
[2018-02-28] MEDS: Metoprolol Tartrate 25 MG Tablet PO SCH ×2 (08:46→21:50)
[2018-02-28] MEDS: Gabapentin 300 MG Capsule PO SCH (08:46)
[2018-02-28] MEDS: amLODIPine 10 MG Tablet PO SCH (08:46)
--- NOTE | 2018-02-28 09:12 | P.PN ---
Subjective Interval history: Follow up osteomyelitis February 25, 2018-patient seen and examined, no acute event overnight. Case discussed with above infectious disease specialist and vascular surgery. Patient states per nurse report has not been able to urinate. Vitals stable. February 26, 2018-patient seen and examined, had hemodialysis today. Denies any left foot pain. Again discussed with patient about the need for possible left BKA; his response was he needed to talk to his family and he was not ready to have his foot cut off yet February 27, 2018-patient seen and examined, states he would like to work with PT. No other issues. No acute event overnight. February 28, 2018-patient seen and examined, is now agreeable for left BKA. No acute event overnight. Afebrile. Physical Exam Vital signs: Vital Signs 02/27/18 09:34 02/27/18 12:00 02/27/18 16:00 Temperature 98.0 F 98.9 F Pulse Rate 74 70 Respiratory Rate 19 19 Blood Pressure 131/52 L 146/66 H Pulse Oximetry 98 95 95 02/27/18 20:00 02/28/18 00:00 02/28/18 08:00 Temperature 98.3 F 98.4 F 99.7 F H Pulse Rate 70 69 70 Respiratory Rate 18 20 19 Blood Pressure 141/87 H 134/62 145/65 H Pulse Oximetry 93 L 94 L 95 Intake & Output 02/27/18 02/28/18 02/28/18 18:59 06:59 18:59 Intake Total 50 / 50 580 / 580 Output Total 200 / 200 Balance 50 / 50 380 / 380 Weight 117.8 kg Intake: IV 50 / 50 100 / 100 Zosyn 2.25 GM Premix 50 ML @ 50 / 50 100 / 100 100 mls/hr IV.SIG Q8H [facility] Rx#: [id number] Oral 480 / 480 Output: Urine 200 / 200 Other: Date of Last Bowel Movement 02/27/18 # Bowel Movements 1 Narrative: GENERAL: NAD SKIN: Warm and dry. HEAD: Atraumatic. Normocephalic. EYES: Pupils equal and round. No scleral icterus. No injection or drainage. ENT: No nasal bleeding or discharge. Mucous membranes pink and moist. NECK: Trachea midline. No JVD. CARDIOVASCULAR: Regular rate and rhythm. RESPIRATORY: No accessory muscle use. Clear to auscultation. Breath sounds equal bilaterally. GASTROINTESTINAL: Abdomen soft, non-tender, nondistended. Hepatic and splenic margins not palpable. MUSCULOSKELETAL: Extremities- Left foot darkening of the skin, poor wound healing NEUROLOGICAL: Awake and alert. No obvious cranial nerve deficits. Motor grossly within normal limits. Five out of 5 muscle strength in the arms and legs. Normal speech. PSYCHIATRIC: Appropriate mood and affect; insight and judgment normal. Results - Labs CBC & Chem 7: 02/28/18 07:01 02/28/18 05:01 Laboratory Results - last 24 hr 02/27/18 02/27/18 02/27/18 11:22 16:29 18:03 WBC RBC Hgb Hct MCV MCH MCHC RDW Plt Count MPV Neut % (Auto) Lymph % (Auto) [place] % (Auto) Eos % (Auto) Baso % (Auto) Neut # (Auto) Lymph # (Auto) [place] # (Auto) Eos # (Auto) Baso # (Auto) WBC Differential Differential Comment PT INR Sodium Potassium Chloride Carbon Dioxide Anion Gap BUN Creatinine Estimated GFR POC Glucose 210 H 269 H Random Glucose Calcium Calcium Adj for Albumin Total Bilirubin AST ALT Alkaline Phosphatase Total Protein Albumin Random Vancomycin Blood Type A Positive Blood Type Recheck Required Antibody Screen Negative 02/27/18 02/28/18 02/28/18 21:21 05:01 07:01 WBC 12.5 H RBC 3.06 L Hgb 9.0 L Hct 27.2 L MCV 88.9 MCH 29.5 MCHC 33.1 RDW 16.6 Plt Count 415 D MPV 7.3 Neut % (Auto) 84.0 H Lymph % (Auto) 4.6 L [place] % (Auto) 8.6 H Eos % (Auto) 2.4 Baso % (Auto) 0.4 Neut # (Auto) 10.5 H Lymph # (Auto) 0.6 L [place] # (Auto) 1.1 H Eos # (Auto) 0.3 Baso # (Auto) 0.1 WBC Differential . Differential Comment Auto diff final PT INR Sodium 132 L Potassium 5.0 Chloride 95 L Carbon Dioxide 25.6 Anion Gap 11 BUN 72 H Creatinine 10.68 H* Estimated GFR 5 L POC Glucose 224 H Random Glucose 138 H Calcium 6.9 L* Calcium Adj for Albumin 8.5 Total Bilirubin 0.4 AST 103 H ALT 96 H Alkaline Phosphatase 83 Total Protein 7.7 Albumin 2.0 L Random Vancomycin 15.6 Blood Type Blood Type Recheck Antibody Screen 02/28/18 02/28/18 07:01 08:23 WBC RBC Hgb Hct MCV MCH MCHC RDW Plt Count MPV Neut % (Auto) Lymph % (Auto) [place] % (Auto) Eos % (Auto) Baso % (Auto) Neut # (Auto) Lymph # (Auto) [place] # (Auto) Eos # (Auto) Baso # (Auto) WBC Differential Differential Comment PT 33.4 H D INR 3.3 Sodium Potassium Chloride Carbon Dioxide Anion Gap BUN Creatinine Estimated GFR POC Glucose 141 H Random Glucose Calcium Calcium Adj for Albumin Total Bilirubin AST ALT Alkaline Phosphatase Total Protein Albumin Random Vancomycin Blood Type Blood Type Recheck Antibody Screen Microbiology 02/26/18 13:51 Wound - Foot Gram Stain - Final 02/26/18 13:51 Wound - Foot Wound Culture - Preliminary S. aureus MRSA gram negative rods 02/26/18 11:24 Blood - Other Aerobic Blood Culture - Preliminary No growth in 1 day 02/26/18 11:24 Blood - Other Anaerobic Blood Culture - Preliminary No growth in 1 day 02/26/18 11:24 Blood - Other Aerobic Blood Culture - Preliminary No growth in 1 day 02/26/18 11:24 Blood - Other Anaerobic Blood Culture - Preliminary No growth in 1 day 02/24/18 19:45 Blood - Peripheral Aerobic Blood Culture - Preliminary No growth in 3 days 02/24/18 19:45 Blood - Peripheral Anaerobic Blood Culture - Preliminary No growth in 3 days 02/24/18 20:00 Blood - Peripheral Aerobic Blood Culture - Preliminary No growth in 3 days 02/24/18 20:00 Blood - Peripheral Anaerobic Blood Culture - Preliminary No growth in 3 days Assessment and Plan - Plan 72-year-old man with: Diabetic L foot wound Osteomyelitis left foot -Non healing wound s/p left great toe amputation at [facility] on 02/[address] Sainz at [place] -CTA runoff completed at reviewed and shows LLE swelling/edema with disorganized soft tissue fluid without a drainable abscess, extensive pad with steno-occlusive disease -Vascular surgery following, Dr. Sainz -Infectious disease specialist consulted -Currently on vancomycin and Zosyn wound culture positive for MRSA -Plan for left BKA March 01, 2018 ESRD on hemodialysis TTS HTN, chronic -home medications amlodipine and metoprolol -Nephrology following, dialysis Diabetes, chronic -Accu checks with SSI -Diabetic/renal diet -long-acting insulin Diabetic neuropathy -Continue home gabapentin Generalized weakness PT recommending rehab Hx of DVT - has [place] filter, Coumadin -INR supratherapeutic, Coumadin currently on hold
--- NOTE | 2018-02-28 10:37 | P.PNNP ---
Subjective Interval history: Patient is on dialysis seen during treatment Physical Exam Vital signs: Vital Signs 02/27/18 12:00 02/27/18 16:00 02/27/18 20:00 Temperature 98.0 F 98.9 F 98.3 F Pulse Rate 74 70 70 Respiratory Rate 19 19 18 Blood Pressure 131/52 L 146/66 H 141/87 H Pulse Oximetry 95 95 93 L 02/28/18 00:00 02/28/18 08:00 Temperature 98.4 F 99.7 F H Pulse Rate 69 70 Respiratory Rate 20 19 Blood Pressure 134/62 145/65 H Pulse Oximetry 94 L 95 Intake & Output 02/27/18 02/28/18 02/28/18 18:59 06:59 18:59 Intake Total 50 / 50 580 / 580 Output Total 200 / 200 Balance 50 / 50 380 / 380 Weight 117.8 kg Intake: IV 50 / 50 100 / 100 Zosyn 2.25 GM Premix 50 ML @ 50 / 50 100 / 100 100 mls/hr IV.SIG Q8H [facility] Rx#: [id number] Oral 480 / 480 Output: Urine 200 / 200 Other: Date of Last Bowel Movement 02/27/18 # Bowel Movements 1 Narrative: GENERAL: NAD SKIN: Warm and dry. HEAD: Atraumatic. Normocephalic. EYES: Pupils equal and round. No scleral icterus. No injection or drainage. ENT: No nasal bleeding or discharge. Mucous membranes pink and moist. NECK: Trachea midline. No JVD. CARDIOVASCULAR: Regular rate and rhythm. RESPIRATORY: No accessory muscle use. Clear to auscultation. Breath sounds equal bilaterally. GASTROINTESTINAL: Abdomen soft, non-tender, nondistended. Hepatic and splenic margins not palpable. MUSCULOSKELETAL: Extremities- Left foot darkening of the skin, poor wound healing NEUROLOGICAL: Awake and alert. No obvious cranial nerve deficits. Motor grossly within normal limits. Five out of 5 muscle strength in the arms and legs. Normal speech. PSYCHIATRIC: Appropriate mood and affect; insight and judgment normal. Assessment and Plan - Assessment (1) ESRD (end stage renal disease) Code(s): N18.6 - End stage renal disease Status: Acute (2) Type 2 diabetes mellitus Code(s): E11.9 - Type 2 diabetes mellitus without complications Status: Acute (3) Essential (primary) hypertension Code(s): I10 - Essential (primary) hypertension Status: Acute (4) PVD (peripheral vascular disease) Code(s): I73.9 - Peripheral vascular disease, unspecified Status: Chronic - Plan Hemodialysis arranged on Sunday, and Sunday continue supportive care, patient is seen by vascular surgery and continue to monitor wound on the left foot, possible left BKA plan for tomorrow Hemodialysis proceeding noted ultrafiltration of 2.5 L on 2K bath continue TTS schedule continue with vancomycin also is covered for gram-negative with Zosyn, Vanco level 15.6 Continue supportive care
[2018-02-28] MEDS: Heparin 10,000 UNITS/10 ML Vial (for IV use) OTHER PRN (12:40)
--- NOTE | 2018-02-28 12:40 | P.PNID ---
Subjective Remarks: Patient is a 72-year-old male, initially admitted at [facility] on February 17, transferred here at [place] for vascular surgical evaluation. Patient had undergone revascularization procedure, as well as amputation of his left big toe. On reviewing the pathology report, the margin of the toe was positive for osteomyelitis. According to the patient after he was discharged from the hospital he went home, and at home he fell. He lives by himself. He fell a second time and we could not get up, so he called the ambulance, and the patient was taken to [facility] and he was admitted there. There is mention that he had some fevers in the other hospital, and he had leukocytosis. MRI of the left foot did not show any evidence suggestive of osteomyelitis on the remaining toe on the left foot. He was transferred here for further vascular evaluation. Since admission he has had some fevers. His white count is normal. Patient denies any respiratory complaint. He stated that he has not been able to urinate. Normally he still could urinate, and patient stated he had a straight catheterization done at [facility] and they got a lot of urine. No diarrhea. No nausea or vomiting. No abdominal pain. He has been noted to have gangrenous changes at his amputation site on the left foot. Infectious disease consultation has been requested to assist with evaluation and treatment of this patient with ongoing fevers. Notes reviewed Has low grade temps Getting HD Vascular notes reviewed Patient has agreed to amputation C/S MRSA and GNR Antibiotics: Vanco Zosyn Past Medical History: Diabetes Hyperlipemia Hypertension Left popliteal artery occlusion PAD (peripheral artery disease) SOB (shortness of breath) on exertion Wound of left foot Allergies/Adverse Reactions: Allergies lactose Adverse Reaction (Verified 02/27/18 17:56) Diarrhea Objective Vital Signs 02/27/18 16:00 02/27/18 20:00 02/28/18 00:00 Temperature 98.9 F 98.3 F 98.4 F Pulse Rate 70 70 69 Respiratory Rate 19 18 20 Blood Pressure 146/66 H 141/87 H 134/62 Pulse Oximetry 95 93 L 94 L 02/28/18 08:00 Temperature 99.7 F H Pulse Rate 70 Respiratory Rate 19 Blood Pressure 145/65 H Pulse Oximetry 95 Intake & Output 02/27/18 02/28/18 02/28/18 18:59 06:59 18:59 Intake Total 50 / 50 580 / 580 Output Total 200 / 200 Balance 50 / 50 380 / 380 Weight 117.8 kg Intake: IV 50 / 50 100 / 100 Zosyn 2.25 GM Premix 50 ML @ 50 / 50 100 / 100 100 mls/hr IV.SIG Q8H [facility] Rx#: [id number] Oral 480 / 480 Output: Urine 200 / 200 Other: Date of Last Bowel Movement 02/27/18 # Bowel Movements 1 02/26/18 13:51 Wound - Foot Gram Stain - Final 02/26/18 13:51 Wound - Foot Wound Culture - Preliminary S. aureus MRSA gram negative rods 02/26/18 11:24 Blood - Other Aerobic Blood Culture - Preliminary No growth in 2 days 02/26/18 11:24 Blood - Other Anaerobic Blood Culture - Preliminary No growth in 2 days 02/26/18 11:24 Blood - Other Aerobic Blood Culture - Preliminary No growth in 2 days 02/26/18 11:24 Blood - Other Anaerobic Blood Culture - Preliminary No growth in 2 days 02/24/18 19:45 Blood - Peripheral Aerobic Blood Culture - Preliminary No growth in 4 days 02/24/18 19:45 Blood - Peripheral Anaerobic Blood Culture - Preliminary No growth in 4 days 02/24/18 20:00 Blood - Peripheral Aerobic Blood Culture - Preliminary No growth in 4 days 02/24/18 20:00 Blood - Peripheral Anaerobic Blood Culture - Preliminary No growth in 4 days Lab - Hematology Results 02/28/18 07:01 WBC 12.5 H RBC 3.06 L Hgb 9.0 L Hct 27.2 L MCV 88.9 MCH 29.5 MCHC 33.1 RDW 16.6 Plt Count 415 D MPV 7.3 Neut % (Auto) 84.0 H Lymph % (Auto) 4.6 L [place] % (Auto) 8.6 H Eos % (Auto) 2.4 Baso % (Auto) 0.4 Neut # (Auto) 10.5 H Lymph # (Auto) 0.6 L [place] # (Auto) 1.1 H Eos # (Auto) 0.3 Baso # (Auto) 0.1 WBC Differential . Differential Comment Auto diff final Lab - Chemistry Results 02/26/18 02/26/18 02/27/18 17:41 20:12 07:56 Sodium Potassium Chloride Carbon Dioxide Anion Gap BUN Creatinine Estimated GFR POC Glucose 169 H 248 H 134 H Random Glucose Calcium Calcium Adj for Albumin Total Bilirubin AST ALT Alkaline Phosphatase Total Protein Albumin 02/27/18 02/27/18 02/27/18 11:22 16:29 21:21 Sodium Potassium Chloride Carbon Dioxide Anion Gap BUN Creatinine Estimated GFR POC Glucose 210 H 269 H 224 H Random Glucose Calcium Calcium Adj for Albumin Total Bilirubin AST ALT Alkaline Phosphatase Total Protein Albumin 02/28/18 02/28/18 02/28/18 05:01 08:23 12:13 Sodium 132 L Potassium 5.0 Chloride 95 L Carbon Dioxide 25.6 Anion Gap 11 BUN 72 H Creatinine 10.68 H* Estimated GFR 5 L POC Glucose 141 H 114 H Random Glucose 138 H Calcium 6.9 L* Calcium Adj for Albumin 8.5 Total Bilirubin 0.4 AST 103 H ALT 96 H Alkaline Phosphatase 83 Total Protein 7.7 Albumin 2.0 L Imaging: ITS Impressions Foot X-Ray 02/23/18 00:00 CONCLUSION: Tissue breakdown overlying the residual proximal phalanx of the great toe with underlying bone irregularity. Deformity of the forefoot following amputations as described above. Significant midfoot arthropathy. Chest X-Ray 02/24/18 00:00 CONCLUSION: Double-lumen catheter in place from the left internal jugular approach. WBC Scan Nuclear Medicine 02/25/18 00:00 CONCLUSION: 1. Erosive destructive bone changes with abnormal radiotracer accumulation involving the residual proximal phalanx of the great toe following amputation and the underlying sesamoid bones. 2. Deformity of the distal first metatarsal without significant tracer accumulation. 3. Inflammation with small air bubbles surrounding the sesamoid bones. 4. Osteomyelitis of the residual first proximal phalanx and sesamoid bones is suspected. Physical Exam: GENERAL: awake and alert, not in respiratory distress. SKIN: Cool and dry. No generalized rash. HEAD: Atraumatic. Normocephalic. No temporal wasting, or tenderness. EYES: [place] conjunctiva. No petechia or hemorrhage. Pupils equal, round and reactive to light. Extraocular movements full and intact. No scleral icterus. No injection or drainage. EARS, NOSE AND THROAT: Mucous membranes pink and moist. No oral lesions noted. No exudate. No oral thrush. NECK: Trachea midline. Supple and not tender, no meningeal signs CARDIOVASCULAR: Regular rate and rhythm. No murmurs, rubs or gallops heard RESPIRATORY: Clear to auscultation. Breath sounds equal bilaterally. No rales , wheezing or rhonchi ABDOMEN: Soft, globular, non-tender, nondistended. He has ventral hernia . Bowel sounds present and normoactive. No guarding. No rebound. No organomegaly. EXTREMITIES: No clubbing, cyanosis, or edema. No calf tenderness. He has brownish discoloration of his skin both legs. L foot - amputation site is very dark, with sutures in place, has a small area of dehiscence with some dark bloody, and there is also black skin on plantar aspect of his L foot over his MT. Also with some ischemic changes on dorsum of his L foot over the MT. NEUROLOGICAL: Grossly non-focal. PSYCHIATRIC: Normal affect, calm and cooperative. LINE: No evidence of infection Assessment and Plan - Plan Impression Possible sepsis, with ongoing fevers, source? - ?L foot, has ongoing ischemia - has osteo in the margin on pathology - unable to urinate, R/O UTI - has permacath Osteo remaining big toe left and sesamoid - ischemic changes on his L foot ESRD on HD PVD Recommendation Continue Zosyn Continue Vancomycin - given with HD Follow C/S Follow temps Monitor progress Amputation plans noted for tomorrow
[2018-02-28] MEDS: Vancomycin Inj 1,000 MG in Sodium Chlor 0.9% Inj 250 ML IV.SIG SCH (12:42)
[2018-02-28] MEDS: Budesonide-Formoterol 160/4.5 MCG 6 GM Inhaler INH SCH ×2 (15:04→21:50)
[2018-02-28] MEDS: Acetaminophen 325 MG Tablet PO PRN (23:32)
[2018-03-01] MEDS: Piperacil/Tazo 2.25 GM Premix 50 ML IV.SIG SCH ×3 (05:01→21:20)
[2018-03-01 05:51] LABS: Baso % (Auto) 0.4 % (0.0-2.0); Eos # (Auto) 0.2 th/mm3 (0.0-0.4); Eos % (Auto) 1.6 % (0.0-4.0); Hematocrit 28.6 % (39.0-51.0); Hemoglobin 9.3 gm/dL (13.0-17.0); Lymph # (Auto) 0.5 th/mm3 (1.0-4.8); Lymph % (Auto) 4.4 % (9.0-44.0); Mean Corpuscular HGB Conc 32.5 % (32.0-36.0); Mean Corpuscular Hemoglobin 29.4 pg (27.0-34.0); Mean Corpuscular Volume 90.3 fL (80.0-100.0); Mean Platelet Volume 7.7 fL (7.0-11.0); Mono % (Auto) 8.6 % (0.0-8.0); Neut # (Auto) 9.9 th/mm3 (1.8-7.7); Platelet Count 413 th/mm3 (150-450); Red Blood Count 3.17 mil/mm3 (4.50-5.90); Red Cell Distribution Width 16.2 % (11.6-17.2); White Blood Count 11.7 th/mm3 (4.0-11.0)
[2018-03-01 06:01] LABS: INR 2.1 Ratio; Prothrombin Time 21.4 sec (9.8-11.6)
[2018-03-01 06:11] LABS: Albumin 2.2 g/dL (3.4-5.0); Calcium 7.4 mg/dL (8.5-10.1); Potassium 5.1 meq/L (3.5-5.1); Total Protein 7.8 g/dL (6.4-8.2)
[2018-03-01] MEDS ORDERED: Chlorhexidine Gluconate 2% 1 Pack (2 Cloths) TOPICAL ONE (07:30)
[2018-03-01] MEDS ORDERED: Metoprolol Tartrate 25 MG Tablet PO ONE ×2 (07:30→15:00)
[2018-03-01] MEDS ORDERED: Sodium Chlor 0.9% Inj 500 ML IV.CONT ONE (07:30)
[2018-03-01] MEDS: amLODIPine 10 MG Tablet PO SCH (08:27)
[2018-03-01] MEDS: Metoprolol Tartrate 25 MG Tablet PO SCH ×2 (08:27→21:29)
[2018-03-01] MEDS: Insulin Detemir Inj 1,000 UNIT/10 ML Vial SQ SCH (08:28)
[2018-03-01] MEDS: Insulin NovoLOG Aspart Correctional Sugar Inj SQ SCH ×4 (08:29→21:29)
[2018-03-01] MEDS: Lidocaine 5% Patch T-DERMAL SCH (08:30)
[2018-03-01] MEDS: Gabapentin 300 MG Capsule PO SCH (08:31)
[2018-03-01] MEDS: Budesonide-Formoterol 160/4.5 MCG 6 GM Inhaler INH SCH ×2 (08:31→21:31)
[2018-03-01 09:59] LABS: Bacteria,Urine Rare /hpf; Bilirubin,Urine Negative (Negative); Clarity,Urine Cloudy (Clear); Color,Urine Amber (Yellw/Straw); Glucose,Urine (UA) Negative (Negative); Leukocyte Esterase,Urine Small (Negative); Mucus,Urine Few /lpf (Occasional); Nitrite,Urine Negative (Negative); Specific Gravity,Urine 1.017 (1.002-1.035); Squamous Epithelial Cell,Urine 16 /hpf (0-5)
--- NOTE | 2018-03-01 10:33 | P.PN ---
Subjective Interval history: Follow up osteomyelitis February 25, 2018-patient seen and examined, no acute event overnight. Case discussed with above infectious disease specialist and vascular surgery. Patient states per nurse report has not been able to urinate. Vitals stable. February 26, 2018-patient seen and examined, had hemodialysis today. Denies any left foot pain. Again discussed with patient about the need for possible left BKA; his response was he needed to talk to his family and he was not ready to have his foot cut off yet February 27, 2018-patient seen and examined, states he would like to work with PT. No other issues. No acute event overnight. February 28, 2018-patient seen and examined, is now agreeable for left BKA. No acute event overnight. Afebrile. March 01, 2018-patient seen and examined, currently n.p.o. and heading to the operating room for left BKA. Physical Exam Vital signs: Vital Signs 02/28/18 16:00 02/28/18 17:53 02/28/18 20:00 Temperature 98.7 F 100 F H Pulse Rate 79 78 Respiratory Rate 19 18 Blood Pressure 142/67 H 158/76 H Pulse Oximetry 93 L 93 L 95 02/28/18 23:20 03/01/18 00:00 03/01/18 02:13 Temperature 101.4 F H 101.4 F H 97.3 F L Pulse Rate 75 75 71 Respiratory Rate 20 20 18 Blood Pressure 127/77 127/77 155/70 H Pulse Oximetry 93 L 93 L 03/01/18 04:00 03/01/18 08:23 03/01/18 08:40 Temperature 98.1 F 98.2 F 98.6 F Pulse Rate 73 67 66 Respiratory Rate 18 18 18 Blood Pressure 159/72 H 164/74 H 170/74 H Pulse Oximetry 94 L 96 95 03/01/18 08:58 03/01/18 09:17 Temperature 98.4 F 98.8 F Pulse Rate 71 73 Respiratory Rate 18 18 Blood Pressure 171/76 H 179/74 H Pulse Oximetry 95 94 L Intake & Output 02/28/18 03/01/18 03/01/18 18:59 06:59 18:59 Intake Total 540 / 540 537 / 537 221 / 221 Output Total 0 / 0 75 / 75 Balance 540 / 540 537 / 537 146 / 146 Weight 120.4 kg Intake: IV 300 / 300 100 / 100 Zosyn 2.25 GM Premix 50 ML @ 50 / 50 100 / 100 100 mls/hr IV.SIG Q8H [facility]KO Rx#: [id number] Vancomycin Inj 1,000 MG In NS 250 / 250 Inj 250 ML @ 250 mls/hr IV.SIG WITH DIALYSIS [facility]KO Rx#:[id number] Oral 240 / 240 Intake (Blood Product) Amt 437 / 437 221 / 221 Plasma Thawed 5 Day Acda Unit 221 / 221 [id number] Plasma Thawed 5 Day Acda Unit 210 / 210 [id number] Plasma Thawed 5 Day Acda Unit 0 / 0 [id number] Plasma Thawed 5 Day Acda Unit 227 / 227 [id number] Output: Urine 0 / 0 75 / 75 Other: Date of Last Bowel Movement 02/27/18 02/27/18 # Bowel Movements 0 Narrative: GENERAL: NAD SKIN: Warm and dry. HEAD: Atraumatic. Normocephalic. EYES: Pupils equal and round. No scleral icterus. No injection or drainage. ENT: No nasal bleeding or discharge. Mucous membranes pink and moist. NECK: Trachea midline. No JVD. CARDIOVASCULAR: Regular rate and rhythm. RESPIRATORY: No accessory muscle use. Clear to auscultation. Breath sounds equal bilaterally. GASTROINTESTINAL: Abdomen soft, non-tender, nondistended. Hepatic and splenic margins not palpable. MUSCULOSKELETAL: Extremities- Left foot darkening of the skin, poor wound healing NEUROLOGICAL: Awake and alert. No obvious cranial nerve deficits. Motor grossly within normal limits. Five out of 5 muscle strength in the arms and legs. Normal speech. PSYCHIATRIC: Appropriate mood and affect; insight and judgment normal. Results - Labs CBC & Chem 7: 03/01/18 04:18 03/01/18 04:18 Laboratory Results - last 24 hr 02/28/18 02/28/18 02/28/18 12:13 17:18 17:35 WBC RBC Hgb Hct MCV MCH MCHC RDW Plt Count MPV Neut % (Auto) Lymph % (Auto) [place] % (Auto) Eos % (Auto) Baso % (Auto) Neut # (Auto) Lymph # (Auto) [place] # (Auto) Eos # (Auto) Baso # (Auto) WBC Differential Differential Comment PT INR Sodium Potassium Chloride Carbon Dioxide Anion Gap BUN Creatinine Estimated GFR POC Glucose 114 H 234 H Random Glucose Calcium Calcium Adj for Albumin Total Bilirubin AST ALT Alkaline Phosphatase Total Protein Albumin Urine Color Urine Clarity Urine pH Ur Specific [place] Urine Protein Urine Glucose (UA) Urine Ketones Urine Occult Blood Urine Nitrate Urine Bilirubin Urine Urobilinogen Ur Leukocyte Esterase Urine RBC Urine WBC Ur Squamous Epith Cells Urine Bacteria Urine Mucus Micro UA Comment Ur Microscopic Review Urine Culture Comments Blood Bank Comment 02/28/18 03/01/18 03/01/18 21:53 04:18 04:18 WBC 11.7 H RBC 3.17 L Hgb 9.3 L Hct 28.6 L MCV 90.3 MCH 29.4 MCHC 32.5 RDW 16.2 Plt Count 413 MPV 7.7 Neut % (Auto) 85.0 H Lymph % (Auto) 4.4 L [place] % (Auto) 8.6 H Eos % (Auto) 1.6 Baso % (Auto) 0.4 Neut # (Auto) 9.9 H Lymph # (Auto) 0.5 L [place] # (Auto) 1.0 H Eos # (Auto) 0.2 Baso # (Auto) 0.0 WBC Differential . Differential Comment Auto diff final PT INR Sodium 135 L Potassium 5.1 Chloride 95 L Carbon Dioxide 28.0 Anion Gap 12 BUN 53 H Creatinine 8.59 H Estimated GFR 6 L POC Glucose 167 H Random Glucose 148 H Calcium 7.4 L* Calcium Adj for Albumin 8.8 Total Bilirubin 0.4 AST 110 H ALT 107 H Alkaline Phosphatase 90 Total Protein 7.8 Albumin 2.2 L Urine Color Urine Clarity Urine pH Ur Specific [place] Urine Protein Urine Glucose (UA) Urine Ketones Urine Occult Blood Urine Nitrate Urine Bilirubin Urine Urobilinogen Ur Leukocyte Esterase Urine RBC Urine WBC Ur Squamous Epith Cells Urine Bacteria Urine Mucus Micro UA Comment Ur Microscopic Review Urine Culture Comments Blood Bank Comment 03/01/18 03/01/18 03/01/18 04:18 06:31 07:39 WBC RBC Hgb Hct MCV MCH MCHC RDW Plt Count MPV Neut % (Auto) Lymph % (Auto) [place] % (Auto) Eos % (Auto) Baso % (Auto) Neut # (Auto) Lymph # (Auto) [place] # (Auto) Eos # (Auto) Baso # (Auto) WBC Differential Differential Comment PT 21.4 H D INR 2.1 Sodium Potassium Chloride Carbon Dioxide Anion Gap BUN Creatinine Estimated GFR POC Glucose 127 H Random Glucose Calcium Calcium Adj for Albumin Total Bilirubin AST ALT Alkaline Phosphatase Total Protein Albumin Urine Color Urine Clarity Urine pH Ur Specific [place] Urine Protein Urine Glucose (UA) Urine Ketones Urine Occult Blood Urine Nitrate Urine Bilirubin Urine Urobilinogen Ur Leukocyte Esterase Urine RBC Urine WBC Ur Squamous Epith Cells Urine Bacteria Urine Mucus Micro UA Comment Ur Microscopic Review Urine Culture Comments Blood Bank Comment 03/01/18 03/01/18 09:15 09:15 WBC RBC Hgb Hct MCV MCH MCHC RDW Plt Count MPV Neut % (Auto) Lymph % (Auto) [place] % (Auto) Eos % (Auto) Baso % (Auto) Neut # (Auto) Lymph # (Auto) [place] # (Auto) Eos # (Auto) Baso # (Auto) WBC Differential Differential Comment PT Cancelled INR Cancelled Sodium Potassium Chloride Carbon Dioxide Anion Gap BUN Creatinine Estimated GFR POC Glucose Random Glucose Calcium Calcium Adj for Albumin Total Bilirubin AST ALT Alkaline Phosphatase Total Protein Albumin Urine Color Laura Urine Clarity Cloudy H Urine pH 5.0 Ur Specific [place] 1.017 Urine Protein 100 H Urine Glucose (UA) Negative Urine Ketones Negative Urine Occult Blood Small H Urine Nitrate Negative Urine Bilirubin Negative Urine Urobilinogen Less than 2 Ur Leukocyte Esterase Small H Urine RBC 1 Urine WBC 16 H Ur Squamous Epith Cells 16 Urine Bacteria Rare H Urine Mucus Few H Micro UA Comment Culture indicated Ur Microscopic Review Not Reportable Urine Culture Comments Culture indicated Blood Bank Comment Microbiology 02/26/18 13:51 Wound - Foot Gram Stain - Final 02/26/18 13:51 Wound - Foot Wound Culture - Final S. aureus MRSA Enterobacter species Multidrug Resistant 02/26/18 11:24 Blood - Other Aerobic Blood Culture - Preliminary No growth in 2 days 02/26/18 11:24 Blood - Other Anaerobic Blood Culture - Preliminary No growth in 2 days 02/26/18 11:24 Blood - Other Aerobic Blood Culture - Preliminary No growth in 2 days 02/26/18 11:24 Blood - Other Anaerobic Blood Culture - Preliminary No growth in 2 days 02/24/18 19:45 Blood - Peripheral Aerobic Blood Culture - Preliminary No growth in 4 days 02/24/18 19:45 Blood - Peripheral Anaerobic Blood Culture - Preliminary No growth in 4 days 02/24/18 20:00 Blood - Peripheral Aerobic Blood Culture - Preliminary No growth in 4 days 02/24/18 20:00 Blood - Peripheral Anaerobic Blood Culture - Preliminary No growth in 4 days Assessment and Plan - Plan 72-year-old man with: Diabetic L foot wound Osteomyelitis left foot (left big toe and seasamoi) -Non healing wound s/p left great toe amputation at [facility] on 02/[address] Sainz at [place] -CTA runoff completed at reviewed and shows LLE swelling/edema with disorganized soft tissue fluid without a drainable abscess, extensive pad with steno-occlusive disease -Vascular surgery following, Dr. Sainz -Infectious disease specialist consulted -Currently on vancomycin during HD and Zosyn wound culture positive for MRSA -Plan for left BKA today March 01, 2018 ESRD on hemodialysis TTS HTN, chronic -home medications amlodipine and metoprolol -Nephrology following, dialysis Diabetes, chronic -Accu checks with SSI -Diabetic/renal diet -long-acting insulin Diabetic neuropathy -Continue home gabapentin Generalized weakness PT recommending rehab Hx of DVT - has Prince filter, Coumadin -INR therapeutic, Coumadin currently on hold pending Left BKA today 03/01/18
--- NOTE | 2018-03-01 10:44 | ECG ---
Date Performed: 03/01/2018 Time Performed: 06:08:18 PTAGE: 72 years EKG: Sinus rhythm with 1st degree A-V block Possible left atrial abnormality Left anterior fascicular block Poor R wav e progression Abnormal ECG NO PREVIOUS TRACING DOCTOR: Dex Dumont Interpretating Date/Time 03/01/2018 10:44:36
[2018-03-01 10:46] LABS: INR 1.8 Ratio; Prothrombin Time 17.9 sec (9.8-11.6)
--- NOTE | 2018-03-01 12:00 | P.PNVS ---
Subjective Subjective/Hospital Course: denies foot pain Objective Vital Signs / I&O: Vital Signs 02/28/18 16:00 02/28/18 17:53 02/28/18 20:00 Temperature 98.7 F 100 F H Pulse Rate 79 78 Respiratory Rate 19 18 Blood Pressure 142/67 H 158/76 H Pulse Oximetry 93 L 93 L 95 02/28/18 23:20 03/01/18 00:00 03/01/18 02:13 Temperature 101.4 F H 101.4 F H 97.3 F L Pulse Rate 75 75 71 Respiratory Rate 20 20 18 Blood Pressure 127/77 127/77 155/70 H Pulse Oximetry 93 L 93 L 03/01/18 04:00 03/01/18 08:23 03/01/18 08:40 Temperature 98.1 F 98.2 F 98.6 F Pulse Rate 73 67 66 Respiratory Rate 18 18 18 Blood Pressure 159/72 H 164/74 H 170/74 H Pulse Oximetry 94 L 96 95 03/01/18 08:58 03/01/18 09:17 Temperature 98.4 F 98.8 F Pulse Rate 71 73 Respiratory Rate 18 18 Blood Pressure 171/76 H 179/74 H Pulse Oximetry 95 94 L Intake & Output 02/28/18 03/01/18 03/01/18 18:59 06:59 18:59 Intake Total 540 / 540 537 / 537 221 / 221 Output Total 0 / 0 75 / 75 Balance 540 / 540 537 / 537 146 / 146 Weight 120.4 kg Intake: IV 300 / 300 100 / 100 Zosyn 2.25 GM Premix 50 ML @ 50 / 50 100 / 100 100 mls/hr IV.SIG Q8H [facility] Rx#: [id number] Vancomycin Inj 1,000 MG In NS 250 / 250 Inj 250 ML @ 250 mls/hr IV.SIG WITH DIALYSIS [facility]KO Rx#:[id number] Oral 240 / 240 Intake (Blood Product) Amt 437 / 437 221 / 221 Plasma Thawed 5 Day Acda Unit 221 / 221 [id number] Plasma Thawed 5 Day Acda Unit 210 / 210 [id number] Plasma Thawed 5 Day Acda Unit 0 / 0 [id number] Plasma Thawed 5 Day Acda Unit 227 / 227 [id number] Output: Urine 0 / 0 75 / 75 Other: Date of Last Bowel Movement 02/27/18 02/27/18 # Bowel Movements 0 Physical Exam: Left foot gangrene Laboratory Results - last 24 hr 02/28/18 02/28/18 02/28/18 12:13 17:18 17:35 WBC RBC Hgb Hct MCV MCH MCHC RDW Plt Count MPV Neut % (Auto) Lymph % (Auto) [facility] % (Auto) Eos % (Auto) Baso % (Auto) Neut # (Auto) Lymph # (Auto) [facility] # (Auto) Eos # (Auto) Baso # (Auto) WBC Differential Differential Comment PT INR Sodium Potassium Chloride Carbon Dioxide Anion Gap BUN Creatinine Estimated GFR POC Glucose 114 H 234 H Random Glucose Calcium Calcium Adj for Albumin Total Bilirubin AST ALT Alkaline Phosphatase Total Protein Albumin Urine Color Urine Clarity Urine pH Ur Specific [place] Urine Protein Urine Glucose (UA) Urine Ketones Urine Occult Blood Urine Nitrate Urine Bilirubin Urine Urobilinogen Ur Leukocyte Esterase Urine RBC Urine WBC Ur Squamous Epith Cells Urine Bacteria Urine Mucus Micro UA Comment Ur Microscopic Review Urine Culture Comments Blood Bank Comment 02/28/18 03/01/18 03/01/18 21:53 04:18 04:18 WBC 11.7 H RBC 3.17 L Hgb 9.3 L Hct 28.6 L MCV 90.3 MCH 29.4 MCHC 32.5 RDW 16.2 Plt Count 413 MPV 7.7 Neut % (Auto) 85.0 H Lymph % (Auto) 4.4 L [facility] % (Auto) 8.6 H Eos % (Auto) 1.6 Baso % (Auto) 0.4 Neut # (Auto) 9.9 H Lymph # (Auto) 0.5 L [facility] # (Auto) 1.0 H Eos # (Auto) 0.2 Baso # (Auto) 0.0 WBC Differential . Differential Comment Auto diff final PT INR Sodium 135 L Potassium 5.1 Chloride 95 L Carbon Dioxide 28.0 Anion Gap 12 BUN 53 H Creatinine 8.59 H Estimated GFR 6 L POC Glucose 167 H Random Glucose 148 H Calcium 7.4 L* Calcium Adj for Albumin 8.8 Total Bilirubin 0.4 AST 110 H ALT 107 H Alkaline Phosphatase 90 Total Protein 7.8 Albumin 2.2 L Urine Color Urine Clarity Urine pH Ur Specific [place] Urine Protein Urine Glucose (UA) Urine Ketones Urine Occult Blood Urine Nitrate Urine Bilirubin Urine Urobilinogen Ur Leukocyte Esterase Urine RBC Urine WBC Ur Squamous Epith Cells Urine Bacteria Urine Mucus Micro UA Comment Ur Microscopic Review Urine Culture Comments Blood Bank Comment 03/01/18 03/01/18 03/01/18 04:18 06:31 07:39 WBC RBC Hgb Hct MCV MCH MCHC RDW Plt Count MPV Neut % (Auto) Lymph % (Auto) [facility] % (Auto) Eos % (Auto) Baso % (Auto) Neut # (Auto) Lymph # (Auto) [facility] # (Auto) Eos # (Auto) Baso # (Auto) WBC Differential Differential Comment PT 21.4 H D INR 2.1 Sodium Potassium Chloride Carbon Dioxide Anion Gap BUN Creatinine Estimated GFR POC Glucose 127 H Random Glucose Calcium Calcium Adj for Albumin Total Bilirubin AST ALT Alkaline Phosphatase Total Protein Albumin Urine Color Urine Clarity Urine pH Ur Specific [place] Urine Protein Urine Glucose (UA) Urine Ketones Urine Occult Blood Urine Nitrate Urine Bilirubin Urine Urobilinogen Ur Leukocyte Esterase Urine RBC Urine WBC Ur Squamous Epith Cells Urine Bacteria Urine Mucus Micro UA Comment Ur Microscopic Review Urine Culture Comments Blood Bank Comment 03/01/18 03/01/18 03/01/18 09:15 09:15 10:15 WBC RBC Hgb Hct MCV MCH MCHC RDW Plt Count MPV Neut % (Auto) Lymph % (Auto) [facility] % (Auto) Eos % (Auto) Baso % (Auto) Neut # (Auto) Lymph # (Auto) [facility] # (Auto) Eos # (Auto) Baso # (Auto) WBC Differential Differential Comment PT Cancelled 17.9 H INR Cancelled 1.8 Sodium Potassium Chloride Carbon Dioxide Anion Gap BUN Creatinine Estimated GFR POC Glucose Random Glucose Calcium Calcium Adj for Albumin Total Bilirubin AST ALT Alkaline Phosphatase Total Protein Albumin Urine Color Laura Urine Clarity Cloudy H Urine pH 5.0 Ur Specific [place] 1.017 Urine Protein 100 H Urine Glucose (UA) Negative Urine Ketones Negative Urine Occult Blood Small H Urine Nitrate Negative Urine Bilirubin Negative Urine Urobilinogen Less than 2 Ur Leukocyte Esterase Small H Urine RBC 1 Urine WBC 16 H Ur Squamous Epith Cells 16 Urine Bacteria Rare H Urine Mucus Few H Micro UA Comment Culture indicated Ur Microscopic Review Not Reportable Urine Culture Comments Culture indicated Blood Bank Comment Microbiology 02/26/18 11:24 Aerobic Blood Culture - Preliminary Blood - Other No growth in 3 days Anaerobic Blood Culture - Preliminary No growth in 3 days 02/26/18 11:24 Aerobic Blood Culture - Preliminary Blood - Other No growth in 3 days Anaerobic Blood Culture - Preliminary No growth in 3 days 02/24/18 19:45 Aerobic Blood Culture - Final Blood - Peripheral No growth in 5 days Anaerobic Blood Culture - Final No growth in 5 days 02/24/18 20:00 Aerobic Blood Culture - Final Blood - Peripheral No growth in 5 days Anaerobic Blood Culture - Final No growth in 5 days 02/26/18 13:51 Gram Stain - Final Wound - Foot Wound Culture - Final S. aureus MRSA Enterobacter species Multidrug Resistant Assessment and Plan - Assessment (1) PVD (peripheral vascular disease) Code(s): I73.9 - Peripheral vascular disease, unspecified Status: Chronic - Plan L LE with poorly healing toe amputation Patient received 4 units of FFP, INR 1.8 will hold off surgery today to correct INR Surgery tomorrow Dami Sainz MD [phone]
--- NOTE | 2018-03-01 14:11 | P.PNID ---
Subjective Remarks: Patient is a 72-year-old male, initially admitted at [facility] on February 17, transferred here at [place] for vascular surgical evaluation. Patient had undergone revascularization procedure, as well as amputation of his left big toe. On reviewing the pathology report, the margin of the toe was positive for osteomyelitis. According to the patient after he was discharged from the hospital he went home, and at home he fell. He lives by himself. He fell a second time and we could not get up, so he called the ambulance, and the patient was taken to [facility] and he was admitted there. There is mention that he had some fevers in the other hospital, and he had leukocytosis. MRI of the left foot did not show any evidence suggestive of osteomyelitis on the remaining toe on the left foot. He was transferred here for further vascular evaluation. Since admission he has had some fevers. His white count is normal. Patient denies any respiratory complaint. He stated that he has not been able to urinate. Normally he still could urinate, and patient stated he had a straight catheterization done at [facility] and they got a lot of urine. No diarrhea. No nausea or vomiting. No abdominal pain. He has been noted to have gangrenous changes at his amputation site on the left foot. Infectious disease consultation has been requested to assist with evaluation and treatment of this patient with ongoing fevers. Notes reviewed Temps ok OR on hold - INR still elevated Vascular notes reviewed C/S MRSA and Enterobacter Antibiotics: Vanco Zosyn Past Medical History: Diabetes Hyperlipemia Hypertension Left popliteal artery occlusion PAD (peripheral artery disease) SOB (shortness of breath) on exertion Wound of left foot Allergies/Adverse Reactions: Allergies lactose Adverse Reaction (Verified 02/27/18 17:56) Diarrhea Objective Vital Signs 02/28/18 16:00 02/28/18 17:53 02/28/18 20:00 Temperature 98.7 F 100 F H Pulse Rate 79 78 Respiratory Rate 19 18 Blood Pressure 142/67 H 158/76 H Pulse Oximetry 93 L 93 L 95 02/28/18 23:20 03/01/18 00:00 03/01/18 02:13 Temperature 101.4 F H 101.4 F H 97.3 F L Pulse Rate 75 75 71 Respiratory Rate 20 20 18 Blood Pressure 127/77 127/77 155/70 H Pulse Oximetry 93 L 93 L 03/01/18 04:00 03/01/18 08:23 03/01/18 08:40 Temperature 98.1 F 98.2 F 98.6 F Pulse Rate 73 67 66 Respiratory Rate 18 18 18 Blood Pressure 159/72 H 164/74 H 170/74 H Pulse Oximetry 94 L 96 95 03/01/18 08:58 03/01/18 09:17 Temperature 98.4 F 98.8 F Pulse Rate 71 73 Respiratory Rate 18 18 Blood Pressure 171/76 H 179/74 H Pulse Oximetry 95 94 L Intake & Output 02/28/18 03/01/18 03/01/18 18:59 06:59 18:59 Intake Total 540 / 540 537 / 537 221 / 221 Output Total 0 / 0 75 / 75 Balance 540 / 540 537 / 537 146 / 146 Weight 120.4 kg Intake: IV 300 / 300 100 / 100 Zosyn 2.25 GM Premix 50 ML @ 50 / 50 100 / 100 100 mls/hr IV.SIG Q8H YUMIKO Rx#: [id number] Vancomycin Inj 1,000 MG In NS 250 / 250 Inj 250 ML @ 250 mls/hr IV.SIG WITH DIALYSIS YUMIKO Rx#:[id number] Oral 240 / 240 Intake (Blood Product) Amt 437 / 437 221 / 221 Plasma Thawed 5 Day Acda Unit 221 / 221 [id number] Plasma Thawed 5 Day Acda Unit 210 / 210 [id number] Plasma Thawed 5 Day Acda Unit 0 / 0 [id number] Plasma Thawed 5 Day Acda Unit 227 / 227 [id number] Output: Urine 0 / 0 75 / 75 Other: Date of Last Bowel Movement 02/27/18 02/27/18 # Bowel Movements 0 02/26/18 11:24 Blood - Other Aerobic Blood Culture - Preliminary No growth in 3 days 02/26/18 11:24 Blood - Other Anaerobic Blood Culture - Preliminary No growth in 3 days 02/26/18 11:24 Blood - Other Aerobic Blood Culture - Preliminary No growth in 3 days 02/26/18 11:24 Blood - Other Anaerobic Blood Culture - Preliminary No growth in 3 days 02/24/18 19:45 Blood - Peripheral Aerobic Blood Culture - Final No growth in 5 days 02/24/18 19:45 Blood - Peripheral Anaerobic Blood Culture - Final No growth in 5 days 02/24/18 20:00 Blood - Peripheral Aerobic Blood Culture - Final No growth in 5 days 02/24/18 20:00 Blood - Peripheral Anaerobic Blood Culture - Final No growth in 5 days 03/01/18 09:15 Clean Catch Urine Urine Culture - Pending 02/26/18 13:51 Wound - Foot Gram Stain - Final 02/26/18 13:51 Wound - Foot Wound Culture - Final S. aureus MRSA Enterobacter species Multidrug Resistant Lab - Hematology Results 02/28/18 03/01/18 07:01 04:18 WBC 12.5 H 11.7 H RBC 3.06 L 3.17 L Hgb 9.0 L 9.3 L Hct 27.2 L 28.6 L MCV 88.9 90.3 MCH 29.5 29.4 MCHC 33.1 32.5 RDW 16.6 16.2 Plt Count 415 D 413 MPV 7.3 7.7 Neut % (Auto) 84.0 H 85.0 H Lymph % (Auto) 4.6 L 4.4 L [place] % (Auto) 8.6 H 8.6 H Eos % (Auto) 2.4 1.6 Baso % (Auto) 0.4 0.4 Neut # (Auto) 10.5 H 9.9 H Lymph # (Auto) 0.6 L 0.5 L [place] # (Auto) 1.1 H 1.0 H Eos # (Auto) 0.3 0.2 Baso # (Auto) 0.1 0.0 WBC Differential . . Differential Comment Auto diff final Auto diff final Lab - Chemistry Results 02/27/18 02/27/18 02/28/18 16:29 21:21 05:01 Sodium 132 L Potassium 5.0 Chloride 95 L Carbon Dioxide 25.6 Anion Gap 11 BUN 72 H Creatinine 10.68 H* Estimated GFR 5 L POC Glucose 269 H 224 H Random Glucose 138 H Calcium 6.9 L* Calcium Adj for Albumin 8.5 Total Bilirubin 0.4 AST 103 H ALT 96 H Alkaline Phosphatase 83 Total Protein 7.7 Albumin 2.0 L 02/28/18 02/28/18 02/28/18 08:23 12:13 17:18 Sodium Potassium Chloride Carbon Dioxide Anion Gap BUN Creatinine Estimated GFR POC Glucose 141 H 114 H 234 H Random Glucose Calcium Calcium Adj for Albumin Total Bilirubin AST ALT Alkaline Phosphatase Total Protein Albumin 02/28/18 03/01/18 03/01/18 21:53 04:18 07:39 Sodium 135 L Potassium 5.1 Chloride 95 L Carbon Dioxide 28.0 Anion Gap 12 BUN 53 H Creatinine 8.59 H Estimated GFR 6 L POC Glucose 167 H 127 H Random Glucose 148 H Calcium 7.4 L* Calcium Adj for Albumin 8.8 Total Bilirubin 0.4 AST 110 H ALT 107 H Alkaline Phosphatase 90 Total Protein 7.8 Albumin 2.2 L 03/01/18 12:51 Sodium Potassium Chloride Carbon Dioxide Anion Gap BUN Creatinine Estimated GFR POC Glucose 123 H Random Glucose Calcium Calcium Adj for Albumin Total Bilirubin AST ALT Alkaline Phosphatase Total Protein Albumin Imaging: ITS Impressions Foot X-Ray 02/23/18 00:00 CONCLUSION: Tissue breakdown overlying the residual proximal phalanx of the great toe with underlying bone irregularity. Deformity of the forefoot following amputations as described above. Significant midfoot arthropathy. Chest X-Ray 02/24/18 00:00 CONCLUSION: Double-lumen catheter in place from the left internal jugular approach. WBC Scan Nuclear Medicine 02/25/18 00:00 CONCLUSION: 1. Erosive destructive bone changes with abnormal radiotracer accumulation involving the residual proximal phalanx of the great toe following amputation and the underlying sesamoid bones. 2. Deformity of the distal first metatarsal without significant tracer accumulation. 3. Inflammation with small air bubbles surrounding the sesamoid bones. 4. Osteomyelitis of the residual first proximal phalanx and sesamoid bones is suspected. Physical Exam: GENERAL: awakens easily, NAD. SKIN: Cool and dry. No generalized rash. HEAD: Atraumatic. Normocephalic. No temporal wasting, or tenderness. EYES: [place] conjunctiva. No petechia or hemorrhage. Pupils equal, round and reactive to light. Extraocular movements full and intact. No scleral icterus. No injection or drainage. EARS, NOSE AND THROAT: Mucous membranes pink and moist. No oral lesions noted. No exudate. No oral thrush. NECK: Trachea midline. Supple and not tender, no meningeal signs CARDIOVASCULAR: Regular rate and rhythm. No murmurs, rubs or gallops heard RESPIRATORY: Clear to auscultation. Breath sounds equal bilaterally. No rales , wheezing or rhonchi ABDOMEN: Soft, globular, non-tender, nondistended. He has ventral hernia . Bowel sounds present and normoactive. No guarding. No rebound. No organomegaly. EXTREMITIES: No clubbing, cyanosis, or edema. No calf tenderness. He has brownish discoloration of his skin both legs. L foot - with dressing in place. NEUROLOGICAL: Grossly non-focal. PSYCHIATRIC: Normal affect, calm and cooperative. LINE: No evidence of infection Assessment and Plan - Plan Impression Possible sepsis, with ongoing fevers, source? - ?L foot, has ongoing ischemia - has osteo in the margin on pathology - unable to urinate, R/O UTI - has permacath Osteo remaining big toe left and sesamoid - ischemic changes on his L foot ESRD on HD PVD Recommendation Continue Zosyn Continue Vancomycin - given with HD Follow temps Monitor progress Amputation plans noted - when INR corrected He will not need long course of Abx once amputation done
--- NOTE | 2018-03-01 17:45 | P.PNNP ---
Subjective Interval history: patient Left leg wound gangrene Physical Exam Vital signs: Vital Signs 02/28/18 17:53 02/28/18 20:00 02/28/18 23:20 Temperature 100 F H 101.4 F H Pulse Rate 78 75 Respiratory Rate 18 20 Blood Pressure 158/76 H 127/77 Pulse Oximetry 93 L 95 93 L 03/01/18 00:00 03/01/18 02:13 03/01/18 04:00 Temperature 101.4 F H 97.3 F L 98.1 F Pulse Rate 75 71 73 Respiratory Rate 20 18 18 Blood Pressure 127/77 155/70 H 159/72 H Pulse Oximetry 93 L 94 L 03/01/18 08:00 03/01/18 08:23 03/01/18 08:40 Temperature 98.2 F 98.2 F 98.6 F Pulse Rate 67 67 66 Respiratory Rate 18 18 18 Blood Pressure 164/74 H 164/74 H 170/74 H Pulse Oximetry 96 96 95 03/01/18 08:58 03/01/18 09:17 03/01/18 15:43 Temperature 98.4 F 98.8 F Pulse Rate 71 73 Respiratory Rate 18 18 Blood Pressure 171/76 H 179/74 H Pulse Oximetry 95 94 L 95 03/01/18 16:00 Temperature 99.3 F Pulse Rate 71 Respiratory Rate 20 Blood Pressure 171/74 H Pulse Oximetry 96 Intake & Output 02/28/18 03/01/18 03/01/18 18:59 06:59 18:59 Intake Total 540 / 540 537 / 537 271 / 271 Output Total 0 / 0 75 / 75 Balance 540 / 540 537 / 537 196 / 196 Weight 120.4 kg Intake: IV 300 / 300 100 / 100 50 / 50 Zosyn 2.25 GM Premix 50 ML @ 50 / 50 100 / 100 50 / 50 100 mls/hr IV.SIG Q8H [facility] Rx#: [id number] Vancomycin Inj 1,000 MG In NS 250 / 250 Inj 250 ML @ 250 mls/hr IV.SIG WITH DIALYSIS [facility]KO Rx#:[id number] Oral 240 / 240 Intake (Blood Product) Amt 437 / 437 221 / 221 Plasma Thawed 5 Day Acda Unit 221 / 221 [id number] Plasma Thawed 5 Day Acda Unit 210 / 210 [id number] Plasma Thawed 5 Day Acda Unit 0 / 0 [id number] Plasma Thawed 5 Day Acda Unit 227 / 227 [id number] Output: Urine 0 / 0 75 / 75 Other: Date of Last Bowel Movement 02/27/18 02/27/18 # Bowel Movements 0 Narrative: GENERAL: NAD SKIN: Warm and dry. HEAD: Atraumatic. Normocephalic. EYES: Pupils equal and round. No scleral icterus. No injection or drainage. ENT: No nasal bleeding or discharge. Mucous membranes pink and moist. NECK: Trachea midline. No JVD. CARDIOVASCULAR: Regular rate and rhythm. RESPIRATORY: No accessory muscle use. Clear to auscultation. Breath sounds equal bilaterally. GASTROINTESTINAL: Abdomen soft, non-tender, nondistended. Hepatic and splenic margins not palpable. MUSCULOSKELETAL: Extremities- Left foot darkening of the skin, poor wound healing NEUROLOGICAL: Awake and alert. No obvious cranial nerve deficits. Motor grossly within normal limits. Five out of 5 muscle strength in the arms and legs. Normal speech. PSYCHIATRIC: Appropriate mood and affect; insight and judgment normal. Assessment and Plan - Assessment (1) ESRD (end stage renal disease) Code(s): N18.6 - End stage renal disease Status: Acute (2) Type 2 diabetes mellitus Code(s): E11.9 - Type 2 diabetes mellitus without complications Status: Acute (3) Essential (primary) hypertension Code(s): I10 - Essential (primary) hypertension Status: Acute (4) PVD (peripheral vascular disease) Code(s): I73.9 - Peripheral vascular disease, unspecified Status: Chronic - Plan Hemodialysis arranged on Sunday, and Sunday continue supportive care, patient is seen by vascular surgery and continue to monitor wound on the left foot, possible left BKA plan for tomorrow INR 1.8 FFP given Hemodialysis continue TTS schedule continue with vancomycin also is covered for gram-negative with Zosyn, Vanco level 15.6 02/28/18 Continue supportive care
[2018-03-01 20:35] LABS: INR 1.7 Ratio; Prothrombin Time 16.9 sec (9.8-11.6)
[2018-03-01] MEDS ORDERED: Phytonadione 5 MG/SWFI 5 ML Oral Syringe PO SCH (23:00)
[2018-03-02] MEDS: Piperacil/Tazo 2.25 GM Premix 50 ML IV.SIG SCH ×3 (05:05→19:29)
[2018-03-02 06:37] LABS: INR 1.6 Ratio
[2018-03-02] MEDS: Vancomycin Inj 1,000 MG in Sodium Chlor 0.9% Inj 250 ML IV.SIG SCH (09:10)
[2018-03-02] MEDS: Sod Chloride 0.9% Inj 1,000 ML OTHER PRN (09:11)
[2018-03-02] MEDS: Heparin 10,000 UNITS/10 ML Vial (for IV use) OTHER PRN (09:11)
--- NOTE | 2018-03-02 09:52 | P.PNNP ---
Subjective Interval history: Seen during Hemodialysis tolerating well. Denies any shortness of breath, chest pain, nausea, or vomiting. <Ayah Natarajan - Last Filed: 03/02/18 09:35> Physical Exam Vital signs: Vital Signs 03/01/18 15:43 03/01/18 16:00 03/01/18 18:21 Temperature 99.3 F 97.8 F Pulse Rate 71 71 Respiratory Rate 20 18 Blood Pressure 171/74 H 188/78 H Pulse Oximetry 95 96 95 03/01/18 18:56 03/01/18 19:35 03/01/18 20:00 Temperature 98.3 F 98.7 F 98.6 F Pulse Rate 65 72 74 Respiratory Rate 18 17 20 Blood Pressure 176/76 H 174/77 H 168/88 H Pulse Oximetry 94 L 94 L 97 03/02/18 00:00 03/02/18 04:00 Temperature 99.8 F H 99.2 F Pulse Rate 63 62 Respiratory Rate 17 18 Blood Pressure 160/86 H 155/71 H Pulse Oximetry 98 93 L Intake & Output 03/01/18 03/02/18 03/02/18 18:59 06:59 18:59 Intake Total 631 / 631 100 / 100 1000 / 1000 Output Total 75 / 75 300 / 300 Balance 556 / 556 -200 / -200 1000 / 1000 Weight 120 kg Intake: IV 50 / 50 100 / 100 1000 / 1000 Zosyn 2.25 GM Premix 50 ML @ 50 / 50 100 / 100 100 mls/hr IV.SIG Q8H [facility] Rx#: [id number] NS Inj 1,000 ML @ As Directed 1000 / 1000 OTHER .Q0M PRN Rx#:[id number] Oral 360 / 360 Intake (Blood Product) Amt 221 / 221 0 / 0 Plasma Thawed 5 Day Acda Unit 0 / 0 [id number] Plasma Thawed 5 Day Acda Unit 221 / 221 [id number] Plasma Thawed 5 Day Acda Unit 0 / 0 [id number] Plasma Thawed 5 Day Acda Unit 0 / 0 0 / 0 [id number] Output: Urine 75 / 75 300 / 300 Other: # Voids 2 Date of Last Bowel Movement 03/01/18 03/01/18 # Bowel Movements 2 Narrative: GENERAL: Alert and oriented. NAD SKIN: Warm and dry. NECK: Trachea midline. No JVD. CARDIOVASCULAR: Regular rate and rhythm. Left IJ HD catheter RESPIRATORY: No accessory muscle use. Clear to auscultation. Breath sounds equal bilaterally. GASTROINTESTINAL: Abdomen soft, non-tender, nondistended. Positive BS MUSCULOSKELETAL: Extremities- Left foot darkening of the skin, poor wound healing. PSYCHIATRIC: Appropriate mood and affect; insight and judgment normal. <Ayah Natarajan - Last Filed: 03/02/18 09:35> Vital signs: Vital Signs 03/02/18 00:00 03/02/18 04:00 03/02/18 12:00 Temperature 99.8 F H 99.2 F 99.0 F Pulse Rate 63 62 74 Respiratory Rate 17 18 16 Blood Pressure 160/86 H 155/71 H 160/74 H Pulse Oximetry 98 93 L 94 L 03/02/18 17:00 03/02/18 17:15 03/02/18 17:30 Temperature 98.3 F Pulse Rate 61 62 65 Respiratory Rate 17 16 14 Blood Pressure 111/56 L 101/51 L 104/52 L Pulse Oximetry 100 100 100 03/02/18 17:45 03/02/18 17:46 03/02/18 17:47 Temperature Pulse Rate 62 Respiratory Rate 12 12 12 Blood Pressure 108/56 L Pulse Oximetry 100 03/02/18 18:00 03/02/18 18:30 03/02/18 18:44 Temperature 98.2 F Pulse Rate 63 65 66 Respiratory Rate 14 14 20 Blood Pressure 116/56 L 119/58 L 118/58 L Pulse Oximetry 100 100 100 03/02/18 19:00 03/02/18 19:30 03/02/18 19:31 Temperature Pulse Rate 66 68 Respiratory Rate 14 11 L Blood Pressure 122/58 L 119/58 L Pulse Oximetry 98 100 100 03/02/18 20:02 03/02/18 20:03 Temperature Pulse Rate 69 Respiratory Rate 12 Blood Pressure 112/53 L Pulse Oximetry 100 100 Intake & Output 03/02/18 03/02/18 03/03/18 06:59 18:59 06:59 Intake Total 100 / 100 2868 / 2868 50 / 50 Output Total 300 / 300 4400 / 4400 Balance -200 / -200 -1532 / -1532 50 / 50 Weight 120 kg Intake: IV 100 / 100 1050 / 1050 50 / 50 Zosyn 2.25 GM Premix 50 ML @ 100 / 100 50 / 50 50 / 50 100 mls/hr IV.SIG Q8H [facility]KO Rx#: [id number] NS Inj 1,000 ML @ As Directed 1000 / 1000 OTHER .Q0M PRN Rx#:[id number] Anesthesia Amount 1300 / 1300 Intake (Blood Product) Amt 0 / 0 Plasma Thawed 5 Day Acda Unit 0 / 0 [id number] Mass Transfusion Protocol 518 / 518 Output: Urine 300 / 300 Hemodialysis Amount 4000 / 4000 Estimated Blood Loss 400 / 400 Other: Date of Last Bowel Movement 03/01/18 <Eliana Arita - Last Filed: 03/02/18 20:57> Assessment and Plan - Assessment (1) ESRD (end stage renal disease) Code(s): N18.6 - End stage renal disease Status: Acute Plan: Hemodialysis on Sunday, and Sunday Avoid IVF administration Epogen with dialysis Seen during HD tolerating well, 2 K bath, plan to remove 4 liters of fluid (2) Type 2 diabetes mellitus Code(s): E11.9 - Type 2 diabetes mellitus without complications Status: Acute Plan: Well controlled. On insuling. Recommend to Maintain blood sugars between 140 mg/dl to 180 mg/dl while hospitalized. (3) Essential (primary) hypertension Code(s): I10 - Essential (primary) hypertension Status: Acute Plan: On amlodipine and metoprolol, will monitor (4) PVD (peripheral vascular disease) Code(s): I73.9 - Peripheral vascular disease, unspecified Status: Chronic Plan: Patient is seen by vascular surgery and continue to monitor wound on the left foot, possible left BKA (5) Osteomyelitis Code(s): M86.9 - Osteomyelitis, unspecified Status: Acute Plan: On antibiotics to gram-negative with Zosyn and vancomycin per ID. <Ayah Natarajan - Last Filed: 03/02/18 09:35> - Assessment (1) ESRD (end stage renal disease) Code(s): N18.6 - End stage renal disease Status: Acute Plan: Patient seen during HD and examined, agree with above. Removing 4 liters. Continue antibiotics. (2) Type 2 diabetes mellitus Code(s): E11.9 - Type 2 diabetes mellitus without complications Status: Acute (3) Essential (primary) hypertension Code(s): I10 - Essential (primary) hypertension Status: Acute (4) PVD (peripheral vascular disease) Code(s): I73.9 - Peripheral vascular disease, unspecified Status: Chronic (5) Osteomyelitis Code(s): M86.9 - Osteomyelitis, unspecified Status: Acute <Eliana Arita - Last Filed: 03/02/18 20:57>
--- NOTE | 2018-03-02 11:36 | P.PNIM ---
Subjective Interval history: Patient seen and examined today. Doing well this time. He has not had his BKA performed yet it has been postponed. Status post hemodialysis. Reports he is doing well and his pain is tolerable. Physical Exam Vital signs: Vital Signs 03/01/18 15:43 03/01/18 16:00 03/01/18 18:21 Temperature 99.3 F 97.8 F Pulse Rate 71 71 Respiratory Rate 20 18 Blood Pressure 171/74 H 188/78 H Pulse Oximetry 95 96 95 03/01/18 18:56 03/01/18 19:35 03/01/18 20:00 Temperature 98.3 F 98.7 F 98.6 F Pulse Rate 65 72 74 Respiratory Rate 18 17 20 Blood Pressure 176/76 H 174/77 H 168/88 H Pulse Oximetry 94 L 94 L 97 03/02/18 00:00 03/02/18 04:00 Temperature 99.8 F H 99.2 F Pulse Rate 63 62 Respiratory Rate 17 18 Blood Pressure 160/86 H 155/71 H Pulse Oximetry 98 93 L Intake & Output 03/01/18 03/02/18 03/02/18 18:59 06:59 18:59 Intake Total 631 / 631 100 / 100 1000 / 1000 Output Total 75 / 75 300 / 300 4000 / 4000 Balance 556 / 556 -200 / -200 -3000 / -3000 Weight 120 kg Intake: IV 50 / 50 100 / 100 1000 / 1000 Zosyn 2.25 GM Premix 50 ML @ 50 / 50 100 / 100 100 mls/hr IV.SIG Q8H [facility] Rx#: [id number] NS Inj 1,000 ML @ As Directed 1000 / 1000 OTHER .Q0M PRN Rx#:[id number] Oral 360 / 360 Intake (Blood Product) Amt 221 / 221 0 / 0 Plasma Thawed 5 Day Acda Unit 0 / 0 [id number] Plasma Thawed 5 Day Acda Unit 221 / 221 [id number] Plasma Thawed 5 Day Acda Unit 0 / 0 [id number] Plasma Thawed 5 Day Acda Unit 0 / 0 0 / 0 [id number] Output: Urine 75 / 75 300 / 300 Hemodialysis Amount 4000 / 4000 Other: # Voids 2 Date of Last Bowel Movement 03/01/18 03/01/18 # Bowel Movements 2 Narrative: GENERAL: Alert and oriented. NAD SKIN: Warm and dry. NECK: Trachea midline. No JVD. CARDIOVASCULAR: Regular rate and rhythm. Left IJ HD catheter RESPIRATORY: No accessory muscle use. Clear to auscultation. Breath sounds equal bilaterally. GASTROINTESTINAL: Abdomen soft, non-tender, nondistended. Positive BS MUSCULOSKELETAL: lower extremity with non healing ulcer PSYCHIATRIC: Appropriate mood and affect; insight and judgment normal. Results - Labs CBC & Chem 7: 03/01/18 04:18 03/01/18 04:18 Laboratory Results - last 24 hr 02/25/18 03/01/18 03/01/18 20:42 12:03 12:51 PT INR POC Glucose 251 H 123 H Blood Bank Comment 03/01/18 03/01/18 03/01/18 16:20 19:52 21:22 PT 16.9 H INR 1.7 POC Glucose 130 H 144 H Blood Bank Comment 03/02/18 03/02/18 03/02/18 05:35 08:01 08:21 PT 16.0 H INR 1.6 POC Glucose 114 H Blood Bank Comment Microbiology 02/26/18 11:24 Blood - Other Aerobic Blood Culture - Preliminary No growth in 4 days 02/26/18 11:24 Blood - Other Anaerobic Blood Culture - Preliminary No growth in 4 days 02/26/18 11:24 Blood - Other Aerobic Blood Culture - Preliminary No growth in 4 days 02/26/18 11:24 Blood - Other Anaerobic Blood Culture - Preliminary No growth in 4 days 02/24/18 19:45 Blood - Peripheral Aerobic Blood Culture - Final No growth in 5 days 02/24/18 19:45 Blood - Peripheral Anaerobic Blood Culture - Final No growth in 5 days 02/24/18 20:00 Blood - Peripheral Aerobic Blood Culture - Final No growth in 5 days 02/24/18 20:00 Blood - Peripheral Anaerobic Blood Culture - Final No growth in 5 days 02/26/18 13:51 Wound - Foot Gram Stain - Final 02/26/18 13:51 Wound - Foot Wound Culture - Final S. aureus MRSA Enterobacter species Multidrug Resistant Assessment and Plan - Assessment (1) ESRD (end stage renal disease) Code(s): N18.6 - End stage renal disease Status: Acute (2) Type 2 diabetes mellitus Code(s): E11.9 - Type 2 diabetes mellitus without complications Status: Acute (3) Essential (primary) hypertension Code(s): I10 - Essential (primary) hypertension Status: Acute (4) Anemia associated with chronic renal failure Code(s): D63.1 - Anemia in chronic kidney disease Status: Acute (5) Osteomyelitis Code(s): M86.9 - Osteomyelitis, unspecified Status: Acute - Plan 72-year-old man with: Diabetic L foot wound Osteomyelitis left foot (left big toe and sesamoid) -Plan for BKA currently pending -CTA runoff completed at reviewed and shows LLE swelling/edema with disorganized soft tissue fluid without a drainable abscess, extensive pad with steno-occlusive disease -Vascular surgery following, Dr. 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
[2018-03-02] MEDS: Insulin NovoLOG Aspart Correctional Sugar Inj SQ SCH ×3 (11:43→17:18)
[2018-03-02] MEDS: Insulin Detemir Inj 1,000 UNIT/10 ML Vial SQ SCH (11:44)
[2018-03-02 12:14] LABS: INR 1.5 Ratio; Prothrombin Time 14.7 sec (9.8-11.6)
[2018-03-02] MEDS ORDERED: fentaNYL Citrate Inj 250 MCG/5 ML Ampul ONE (12:49)
[2018-03-02] MEDS: Metoprolol Tartrate 25 MG Tablet PO SCH ×2 (12:57→23:14)
[2018-03-02] MEDS: Budesonide-Formoterol 160/4.5 MCG 6 GM Inhaler INH SCH (13:42)
[2018-03-02] MEDS ORDERED: Calcium Chloride Inj 1 GM/10 ML Syringe ONE (15:08)
[2018-03-02 15:13] LABS: Baso % (Auto) 0.5 % (0.0-2.0); Eos # (Auto) 0.2 th/mm3 (0.0-0.4); Lymph # (Auto) 0.3 th/mm3 (1.0-4.8); Lymph % (Auto) 5.5 % (9.0-44.0); Mean Corpuscular HGB Conc 32.7 % (32.0-36.0); Mean Corpuscular Hemoglobin 30.1 pg (27.0-34.0); Mean Corpuscular Volume 92.2 fL (80.0-100.0); Mean Platelet Volume 7.2 fL (7.0-11.0); Mono # (Auto) 0.3 th/mm3 (0.0-0.9); Neut # (Auto) 4.4 th/mm3 (1.8-7.7); Platelet Count 239 th/mm3 (150-450); Red Blood Count 1.46 mil/mm3 (4.50-5.90); Red Cell Distribution Width 16.5 % (11.6-17.2); White Blood Count 5.3 th/mm3 (4.0-11.0)
[2018-03-02 15:22] LABS: Hematocrit 13.4 % (39.0-51.0); Hemoglobin 4.4 gm/dL (13.0-17.0)
--- NOTE | 2018-03-02 16:34 | P.OP ---
Preoperative Diagnosis: Gangrene of the left foot Postoperative Diagnosis: Gangrene of the left foot Date of procedure: 03/02/18 Procedure: Left below-knee amputation Anesthesia: GETA Surgeon: Dami Sainz MD Estimated blood loss (mL): 400 Operation and Findings: Finding 1. Severe chronic venous insufficiency with engorged venous system that contributed to the majority of the blood loss. 2. Calcinosis of the posterior flap which made the closure extremely difficult. This may compromise wound healing 3. Intraoperative hypotension that was treated with bolus pressors. 4. Incorrect intraoperative hemoglobin of 4 due to poor specimen. Repeat hemoglobin was 10. Description of procedure The patient was taken to the operating room, laid supine on the OR table. After general tracheal anesthesia, the patient was prepped and draped in the standard sterile fashion. Timeout was called with all members in the OR in agreement. An incision was made about 4 fingerbreadths below the tibial tuberosity. Dissection was taken down through the subcutaneous tissues electrocautery. Large varicosities were encountered these were ligated and divided. There was extensive oozing from the subcutaneous tissue that was controlled using electrocautery. The subcutaneous tissue was very difficult to divide due to guarding and calcinosis. The tibia was divided the fibula was divided the posterior compartment neurovascular bundle ligated and divided the anterior compartment neurovascular bundle was ligated and divided. The amputation was completed hemostasis was achieved using multiple 2-0 silk sutures that were placed in the [id number] fashion. The posterior flap was constructed by approximating the fascia using multiple 2-0 Vicryl sutures are placed in a [id number] fashion. The skin was closed using interrupted nylons. Sterile dressing was applied. The patient tolerated the procedure well and was taken to recovery unit in stable condition.
[2018-03-02] MEDS ORDERED: Morphine Sulfate Inj 2 MG/ML Vial IV.PUSH PRN (16:38)
[2018-03-02] MEDS: Lidocaine 5% Patch T-DERMAL SCH (17:16)
[2018-03-02] MEDS: Gabapentin 300 MG Capsule PO SCH (17:17)
[2018-03-02] MEDS: amLODIPine 10 MG Tablet PO SCH (17:17)
[2018-03-02] MEDS ORDERED: *morphine SULFATE 4 MG/ML PERIprocedure ONLY ONE ×2 (17:33→18:45)
[2018-03-02 18:24] LABS: Baso # (Auto) 0.1 th/mm3 (0.0-0.2); Baso % (Auto) 0.8 % (0.0-2.0); Eos # (Auto) 0.2 th/mm3 (0.0-0.4); Eos % (Auto) 1.9 % (0.0-4.0); Hematocrit 24.7 % (39.0-51.0); Hemoglobin 8.1 gm/dL (13.0-17.0); Lymph # (Auto) 0.4 th/mm3 (1.0-4.8); Lymph % (Auto) 3.5 % (9.0-44.0); Mean Corpuscular HGB Conc 32.9 % (32.0-36.0); Mean Corpuscular Hemoglobin 29.8 pg (27.0-34.0); Mean Corpuscular Volume 90.6 fL (80.0-100.0); Mean Platelet Volume 8.2 fL (7.0-11.0); Mono # (Auto) 0.9 th/mm3 (0.0-0.9); Mono % (Auto) 7.4 % (0.0-8.0); Neut # (Auto) 10.1 th/mm3 (1.8-7.7); Neut % (Auto) 86.4 % (16.0-70.0); Platelet Count 395 th/mm3 (150-450); Red Blood Count 2.73 mil/mm3 (4.50-5.90); White Blood Count 11.7 th/mm3 (4.0-11.0)
[2018-03-03] MEDS: Insulin NovoLOG Aspart Correctional Sugar Inj SQ SCH ×5 (01:41→20:36)
[2018-03-03] MEDS: Piperacil/Tazo 2.25 GM Premix 50 ML IV.SIG SCH ×3 (03:28→20:30)
[2018-03-03 04:32] LABS: Hematocrit 23.7 % (39.0-51.0); Hemoglobin 7.5 gm/dL (13.0-17.0); Mean Corpuscular HGB Conc 31.6 % (32.0-36.0); Mean Corpuscular Hemoglobin 28.9 pg (27.0-34.0); Mean Corpuscular Volume 91.4 fL (80.0-100.0); Mean Platelet Volume 7.7 fL (7.0-11.0); Platelet Count 401 th/mm3 (150-450); Red Blood Count 2.59 mil/mm3 (4.50-5.90); Red Cell Distribution Width 16.2 % (11.6-17.2); White Blood Count 11.4 th/mm3 (4.0-11.0)
[2018-03-03 04:56] LABS: Calcium 7.7 mg/dL (8.5-10.1); Carbon Dioxide 29.2 meq/L (21.0-32.0); Potassium 5.2 meq/L (3.5-5.1)
--- NOTE | 2018-03-03 07:27 | P.PNVS ---
Subjective Post Op Day #: 1 Procedure: Left below-knee amputation Subjective/Hospital Course: Left lower extremity pain is controlled Objective Vital Signs / I&O: Vital Signs 03/02/18 12:00 03/02/18 17:00 03/02/18 17:15 Temperature 99.0 F 98.3 F Pulse Rate 74 61 62 Respiratory Rate 16 17 16 Blood Pressure 160/74 H 111/56 L 101/51 L Pulse Oximetry 94 L 100 100 03/02/18 17:30 03/02/18 17:45 03/02/18 17:46 Temperature Pulse Rate 65 62 Respiratory Rate 14 12 12 Blood Pressure 104/52 L 108/56 L Pulse Oximetry 100 100 03/02/18 17:47 03/02/18 18:00 03/02/18 18:30 Temperature 98.2 F Pulse Rate 63 65 Respiratory Rate 12 14 14 Blood Pressure 116/56 L 119/58 L Pulse Oximetry 100 100 03/02/18 18:44 03/02/18 19:00 03/02/18 19:30 Temperature Pulse Rate 66 66 Respiratory Rate 20 14 Blood Pressure 118/58 L 122/58 L Pulse Oximetry 100 98 100 03/02/18 19:31 03/02/18 20:02 03/02/18 20:03 Temperature Pulse Rate 68 69 Respiratory Rate 11 L 12 Blood Pressure 119/58 L 112/53 L Pulse Oximetry 100 100 100 03/02/18 20:15 03/02/18 21:00 03/03/18 00:00 Temperature 98.4 F 98.7 F Pulse Rate 71 75 Respiratory Rate 12 16 Blood Pressure 112/51 L Pulse Oximetry 100 91 L 90 L 03/03/18 01:45 03/03/18 04:00 03/03/18 07:02 Temperature 98.4 F Pulse Rate 70 Respiratory Rate 16 16 Blood Pressure 129/58 L Pulse Oximetry 94 L 90 L Intake & Output 03/02/18 03/03/18 03/03/18 18:59 06:59 18:59 Intake Total 2868 / 2868 770 / 770 Output Total 4400 / 4400 Balance -1532 / -1532 770 / 770 Weight 122 kg Intake: IV 1050 / 1050 50 / 50 Zosyn 2.25 GM Premix 50 ML @ 50 / 50 50 / 50 100 mls/hr IV.SIG Q8H [facility] Rx#: [id number] NS Inj 1,000 ML @ As Directed 1000 / 1000 OTHER .Q0M PRN Rx#:[id number] Oral 720 / 720 Anesthesia Amount 1300 / 1300 Mass Transfusion Protocol 518 / 518 Output: Hemodialysis Amount 4000 / 4000 Estimated Blood Loss 400 / 400 Other: # Voids 0 Date of Last Bowel Movement 03/01/18 Exam: Left BKA dressings clean dry intact Laboratory Results - last 24 hr 03/02/18 03/02/18 03/02/18 08:01 08:21 11:41 WBC RBC Hgb Hct MCV MCH MCHC RDW Plt Count MPV Prelim Diff (Auto) Neut % (Auto) Lymph % (Auto) [place] % (Auto) Eos % (Auto) Baso % (Auto) Neut # (Auto) Lymph # (Auto) [place] # (Auto) Eos # (Auto) Baso # (Auto) WBC Differential Differential Comment PT 14.7 H INR 1.5 Sodium Potassium Chloride Carbon Dioxide Anion Gap BUN Creatinine Estimated GFR POC Glucose 114 H Random Glucose Calcium Blood Type Antibody Screen MTS Gel Crossmatch Blood Bank Comment 03/02/18 03/02/18 03/02/18 14:43 14:44 14:45 WBC 5.3 RBC 1.46 L Hgb 4.4 L* D Hct 13.4 L* MCV 92.2 MCH 30.1 MCHC 32.7 RDW 16.5 Plt Count 239 D MPV 7.2 Prelim Diff (Auto) Sales Appointment Coordinator Neut % (Auto) 84.0 H Lymph % (Auto) 5.5 L [place] % (Auto) 6.0 Eos % (Auto) 4.0 Baso % (Auto) 0.5 Neut # (Auto) 4.4 Lymph # (Auto) 0.3 L [place] # (Auto) 0.3 Eos # (Auto) 0.2 Baso # (Auto) 0.0 WBC Differential . Differential Comment Auto diff final PT INR Sodium Potassium Chloride Carbon Dioxide Anion Gap BUN Creatinine Estimated GFR POC Glucose Random Glucose Calcium Blood Type A Positive Antibody Screen Negative MTS Gel Crossmatch See Detail Blood Bank Comment 03/02/18 03/02/18 03/03/18 17:01 18:12 01:36 WBC 11.7 H D RBC 2.73 L Hgb 8.1 L D Hct 24.7 L MCV 90.6 MCH 29.8 MCHC 32.9 RDW 17.0 Plt Count 395 D MPV 8.2 Prelim Diff (Auto) Neut % (Auto) 86.4 H Lymph % (Auto) 3.5 L [place] % (Auto) 7.4 Eos % (Auto) 1.9 Baso % (Auto) 0.8 Neut # (Auto) 10.1 H Lymph # (Auto) 0.4 L [place] # (Auto) 0.9 Eos # (Auto) 0.2 Baso # (Auto) 0.1 WBC Differential . Differential Comment Auto diff final PT INR Sodium Potassium Chloride Carbon Dioxide Anion Gap BUN Creatinine Estimated GFR POC Glucose 130 H 140 H Random Glucose Calcium Blood Type Antibody Screen MTS Gel Crossmatch Blood Bank Comment 03/03/18 03/03/18 03:13 03:13 WBC 11.4 H RBC 2.59 L Hgb 7.5 L Hct 23.7 L MCV 91.4 MCH 28.9 MCHC 31.6 L RDW 16.2 Plt Count 401 MPV 7.7 Prelim Diff (Auto) Neut % (Auto) Lymph % (Auto) [place] % (Auto) Eos % (Auto) Baso % (Auto) Neut # (Auto) Lymph # (Auto) [place] # (Auto) Eos # (Auto) Baso # (Auto) WBC Differential Differential Comment PT INR Sodium 135 L Potassium 5.2 H Chloride 96 L Carbon Dioxide 29.2 Anion Gap 10 BUN 48 H Creatinine 8.37 H Estimated GFR 6 L POC Glucose Random Glucose 121 H Calcium 7.7 L Blood Type Antibody Screen MTS Gel Crossmatch Blood Bank Comment Microbiology 03/01/18 09:15 Urine Culture - Preliminary Clean Catch Urine Immature growth - reincubate 02/26/18 11:24 Aerobic Blood Culture - Preliminary Blood - Other No growth in 4 days Anaerobic Blood Culture - Preliminary No growth in 4 days 02/26/18 11:24 Aerobic Blood Culture - Preliminary Blood - Other No growth in 4 days Anaerobic Blood Culture - Preliminary No growth in 4 days Assessment and Plan - Assessment (1) PVD (peripheral vascular disease) Code(s): I73.9 - Peripheral vascular disease, unspecified Status: Chronic - Plan Status post left BKA postop day #1 1. Pain control 2. PT 3. Transfuse 1 unit of packed RBC 4. Dressing change in 1-2 days Dami Sainz MD [id number]
[2018-03-03] MEDS: Budesonide-Formoterol 160/4.5 MCG 6 GM Inhaler INH SCH ×3 (08:18→20:33)
[2018-03-03] MEDS: Insulin Detemir Inj 1,000 UNIT/10 ML Vial SQ SCH (10:37)
[2018-03-03] MEDS: Gabapentin 300 MG Capsule PO SCH (10:37)
[2018-03-03] MEDS: amLODIPine 10 MG Tablet PO SCH (10:47)
[2018-03-03] MEDS: Metoprolol Tartrate 25 MG Tablet PO SCH ×2 (10:47→20:30)
--- NOTE | 2018-03-03 10:58 | P.PNID ---
Subjective Remarks: Patient is a 72-year-old male, initially admitted at [facility] on February 17, transferred here at [facility] for vascular surgical evaluation. Patient had undergone revascularization procedure, as well as amputation of his left big toe. On reviewing the pathology report, the margin of the toe was positive for osteomyelitis. According to the patient after he was discharged from the hospital he went home, and at home he fell. He lives by himself. He fell a second time and we could not get up, so he called the ambulance, and the patient was taken to [facility] and he was admitted there. There is mention that he had some fevers in the other hospital, and he had leukocytosis. MRI of the left foot did not show any evidence suggestive of osteomyelitis on the remaining toe on the left foot. He was transferred here for further vascular evaluation. Since admission he has had some fevers. His white count is normal. Patient denies any respiratory complaint. He stated that he has not been able to urinate. Normally he still could urinate, and patient stated he had a straight catheterization done at [facility] and they got a lot of urine. No diarrhea. No nausea or vomiting. No abdominal pain. He has been noted to have gangrenous changes at his amputation site on the left foot. Infectious disease consultation has been requested to assist with evaluation and treatment of this patient with ongoing fevers. Notes reviewed Temps ok Had LBKA yesterday C/O pain C/S MRSA and Enterobacter Antibiotics: Vanco Zosyn Past Medical History: Diabetes Hyperlipemia Hypertension Left popliteal artery occlusion PAD (peripheral artery disease) SOB (shortness of breath) on exertion Wound of left foot Allergies/Adverse Reactions: Allergies lactose Adverse Reaction (Verified 02/27/18 17:56) Diarrhea Objective Vital Signs 03/02/18 12:00 03/02/18 17:00 03/02/18 17:15 Temperature 99.0 F 98.3 F Pulse Rate 74 61 62 Respiratory Rate 16 17 16 Blood Pressure 160/74 H 111/56 L 101/51 L Pulse Oximetry 94 L 100 100 03/02/18 17:30 03/02/18 17:45 03/02/18 17:46 Temperature Pulse Rate 65 62 Respiratory Rate 14 12 12 Blood Pressure 104/52 L 108/56 L Pulse Oximetry 100 100 03/02/18 17:47 03/02/18 18:00 03/02/18 18:30 Temperature 98.2 F Pulse Rate 63 65 Respiratory Rate 12 14 14 Blood Pressure 116/56 L 119/58 L Pulse Oximetry 100 100 03/02/18 18:44 03/02/18 19:00 03/02/18 19:30 Temperature Pulse Rate 66 66 Respiratory Rate 20 14 Blood Pressure 118/58 L 122/58 L Pulse Oximetry 100 98 100 03/02/18 19:31 03/02/18 20:02 03/02/18 20:03 Temperature Pulse Rate 68 69 Respiratory Rate 11 L 12 Blood Pressure 119/58 L 112/53 L Pulse Oximetry 100 100 100 03/02/18 20:15 03/02/18 21:00 03/03/18 00:00 Temperature 98.4 F 98.7 F Pulse Rate 71 75 Respiratory Rate 12 16 Blood Pressure 112/51 L Pulse Oximetry 100 91 L 90 L 03/03/18 01:45 03/03/18 04:00 03/03/18 07:02 Temperature 98.4 F Pulse Rate 70 Respiratory Rate 16 16 Blood Pressure 129/58 L Pulse Oximetry 94 L 90 L 03/03/18 08:00 03/03/18 08:37 Temperature 97.9 F Pulse Rate 77 Respiratory Rate 18 Blood Pressure 106/51 L Pulse Oximetry 100 91 L Intake & Output 03/02/18 03/03/18 03/03/18 18:59 06:59 18:59 Intake Total 2868 / 2868 770 / 770 Output Total 4400 / 4400 Balance -1532 / -1532 770 / 770 Weight 122 kg Intake: IV 1050 / 1050 50 / 50 Zosyn 2.25 GM Premix 50 ML @ 50 / 50 50 / 50 100 mls/hr IV.SIG Q8H [facility] Rx#: [id number] NS Inj 1,000 ML @ As Directed 1000 / 1000 OTHER .Q0M PRN Rx#:[id number] Oral 720 / 720 Anesthesia Amount 1300 / 1300 Mass Transfusion Protocol 518 / 518 Output: Hemodialysis Amount 4000 / 4000 Estimated Blood Loss 400 / 400 Other: # Voids 0 Date of Last Bowel Movement 03/01/18 03/01/18 09:15 Clean Catch Urine Urine Culture - Final 10-50,000 cfu/mL mixed christophe (probable contaminants) 02/26/18 11:24 Blood - Other Aerobic Blood Culture - Preliminary No growth in 4 days 02/26/18 11:24 Blood - Other Anaerobic Blood Culture - Preliminary No growth in 4 days 02/26/18 11:24 Blood - Other Aerobic Blood Culture - Preliminary No growth in 4 days 02/26/18 11:24 Blood - Other Anaerobic Blood Culture - Preliminary No growth in 4 days 02/24/18 19:45 Blood - Peripheral Aerobic Blood Culture - Final No growth in 5 days 02/24/18 19:45 Blood - Peripheral Anaerobic Blood Culture - Final No growth in 5 days 02/24/18 20:00 Blood - Peripheral Aerobic Blood Culture - Final No growth in 5 days 02/24/18 20:00 Blood - Peripheral Anaerobic Blood Culture - Final No growth in 5 days 02/26/18 13:51 Wound - Foot Gram Stain - Final 02/26/18 13:51 Wound - Foot Wound Culture - Final S. aureus MRSA Enterobacter species Multidrug Resistant Lab - Hematology Results 03/02/18 03/02/18 03/03/18 14:45 18:12 03:13 WBC 5.3 11.7 H D 11.4 H RBC 1.46 L 2.73 L 2.59 L Hgb 4.4 L* D 8.1 L D 7.5 L Hct 13.4 L* 24.7 L 23.7 L MCV 92.2 90.6 91.4 MCH 30.1 29.8 28.9 MCHC 32.7 32.9 31.6 L RDW 16.5 17.0 16.2 Plt Count 239 D 395 D 401 MPV 7.2 8.2 7.7 Prelim Diff (Auto) Director Professional Services Neut % (Auto) 84.0 H 86.4 H Lymph % (Auto) 5.5 L 3.5 L [place] % (Auto) 6.0 7.4 Eos % (Auto) 4.0 1.9 Baso % (Auto) 0.5 0.8 Neut # (Auto) 4.4 10.1 H Lymph # (Auto) 0.3 L 0.4 L [place] # (Auto) 0.3 0.9 Eos # (Auto) 0.2 0.2 Baso # (Auto) 0.0 0.1 WBC Differential . . Differential Comment Auto diff final Auto diff final Lab - Chemistry Results 12/10/18 12/14/18 12/14/18 20:42 12:51 16:20 Sodium Potassium Chloride Carbon Dioxide Anion Gap BUN Creatinine Estimated GFR POC Glucose 251 H 123 H 130 H Random Glucose Calcium 03/01/18 03/02/18 03/02/18 21:22 08:01 17:01 Sodium Potassium Chloride Carbon Dioxide Anion Gap BUN Creatinine Estimated GFR POC Glucose 144 H 114 H 130 H Random Glucose Calcium 03/03/18 03/03/18 03/03/18 01:36 03:13 08:25 Sodium 135 L Potassium 5.2 H Chloride 96 L Carbon Dioxide 29.2 Anion Gap 10 BUN 48 H Creatinine 8.37 H Estimated GFR 6 L POC Glucose 140 H 136 H Random Glucose 121 H Calcium 7.7 L Imaging: ITS Impressions Foot X-Ray 02/23/18 00:00 CONCLUSION: Tissue breakdown overlying the residual proximal phalanx of the great toe with underlying bone irregularity. Deformity of the forefoot following amputations as described above. Significant midfoot arthropathy. Chest X-Ray 02/24/18 00:00 CONCLUSION: Double-lumen catheter in place from the left internal jugular approach. WBC Scan Nuclear Medicine 02/25/18 00:00 CONCLUSION: 1. Erosive destructive bone changes with abnormal radiotracer accumulation involving the residual proximal phalanx of the great toe following amputation and the underlying sesamoid bones. 2. Deformity of the distal first metatarsal without significant tracer accumulation. 3. Inflammation with small air bubbles surrounding the sesamoid bones. 4. Osteomyelitis of the residual first proximal phalanx and sesamoid bones is suspected. Physical Exam: GENERAL: awakens easily, NAD. SKIN: Cool and dry. No generalized rash. HEAD: Atraumatic. Normocephalic. No temporal wasting, or tenderness. EYES: Richards conjunctiva. No petechia or hemorrhage. No scleral icterus. No injection or drainage. EARS, NOSE AND THROAT: Mucous membranes pink and moist. No oral lesions noted. No exudate. No oral thrush. NECK: Trachea midline. Supple and not tender, no meningeal signs CARDIOVASCULAR: Regular rate and rhythm. No murmurs, rubs or gallops heard RESPIRATORY: Clear to auscultation. Breath sounds equal bilaterally. No rales , wheezing or rhonchi ABDOMEN: Soft, globular, non-tender, nondistended. He has ventral hernia . Bowel sounds present and normoactive. No guarding. No rebound. No organomegaly. EXTREMITIES: No clubbing, cyanosis, or edema. Intact dressing to LBKA stump NEUROLOGICAL: Grossly non-focal. PSYCHIATRIC: Normal affect, calm and cooperative. LINE: No evidence of infection Assessment and Plan - Plan Impression Possible sepsis, with ongoing fevers, source? - ?L foot, has ongoing ischemia - has osteo in the margin on pathology - unable to urinate, R/O UTI - has permacath Osteo remaining big toe left and sesamoid - ischemic changes on his L foot - S/P LBKA ESRD on HD PVD Recommendation Continue Zosyn Continue Vancomycin - given with HD If stable, should be able to D/C Abx soon Monitor progress
--- NOTE | 2018-03-03 11:17 | P.PNNP ---
Subjective Interval history: Patient is alert, has pain in left leg, no SOB. Physical Exam Vital signs: Vital Signs 03/02/18 12:00 03/02/18 17:00 03/02/18 17:15 Temperature 99.0 F 98.3 F Pulse Rate 74 61 62 Respiratory Rate 16 17 16 Blood Pressure 160/74 H 111/56 L 101/51 L Pulse Oximetry 94 L 100 100 03/02/18 17:30 03/02/18 17:45 03/02/18 17:46 Temperature Pulse Rate 65 62 Respiratory Rate 14 12 12 Blood Pressure 104/52 L 108/56 L Pulse Oximetry 100 100 03/02/18 17:47 03/02/18 18:00 03/02/18 18:30 Temperature 98.2 F Pulse Rate 63 65 Respiratory Rate 12 14 14 Blood Pressure 116/56 L 119/58 L Pulse Oximetry 100 100 03/02/18 18:44 03/02/18 19:00 03/02/18 19:30 Temperature Pulse Rate 66 66 Respiratory Rate 20 14 Blood Pressure 118/58 L 122/58 L Pulse Oximetry 100 98 100 03/02/18 19:31 03/02/18 20:02 03/02/18 20:03 Temperature Pulse Rate 68 69 Respiratory Rate 11 L 12 Blood Pressure 119/58 L 112/53 L Pulse Oximetry 100 100 100 03/02/18 20:15 03/02/18 21:00 03/03/18 00:00 Temperature 98.4 F 98.7 F Pulse Rate 71 75 Respiratory Rate 12 16 Blood Pressure 112/51 L Pulse Oximetry 100 91 L 90 L 03/03/18 01:45 03/03/18 04:00 03/03/18 07:00 Temperature 98.4 F Pulse Rate 70 77 Respiratory Rate 16 Blood Pressure 129/58 L Pulse Oximetry 94 L 90 L 03/03/18 07:02 03/03/18 08:00 03/03/18 08:37 Temperature 97.9 F Pulse Rate 72 Respiratory Rate 16 18 Blood Pressure 106/51 L Pulse Oximetry 100 91 L 03/03/18 09:00 03/03/18 10:00 Temperature Pulse Rate 74 74 Respiratory Rate Blood Pressure Pulse Oximetry Intake & Output 03/02/18 03/03/18 03/03/18 18:59 06:59 18:59 Intake Total 2868 / 2868 770 / 770 Output Total 4400 / 4400 Balance -1532 / -1532 770 / 770 Weight 122 kg Intake: IV 1050 / 1050 50 / 50 Zosyn 2.25 GM Premix 50 ML @ 50 / 50 50 / 50 100 mls/hr IV.SIG Q8H [facility] Rx#: [id number] NS Inj 1,000 ML @ As Directed 1000 / 1000 OTHER .Q0M PRN Rx#:[id number] Oral 720 / 720 Anesthesia Amount 1300 / 1300 Mass Transfusion Protocol 518 / 518 Output: Hemodialysis Amount 4000 / 4000 Estimated Blood Loss 400 / 400 Other: # Voids 0 Date of Last Bowel Movement 03/01/18 Narrative: GENERAL: Alert and oriented. NAD SKIN: Warm and dry. NECK: Trachea midline. No JVD. CARDIOVASCULAR: Regular rate and rhythm. Left IJ HD catheter RESPIRATORY: No accessory muscle use. Clear to auscultation. Breath sounds equal bilaterally. GASTROINTESTINAL: Abdomen soft, non-tender, nondistended. Positive BS MUSCULOSKELETAL: Left BKA, covered with dressing. PSYCHIATRIC: Appropriate mood and affect; insight and judgment normal. Assessment and Plan - Assessment (1) ESRD (end stage renal disease) Code(s): N18.6 - End stage renal disease Status: Acute Plan: Patient with end stage renal disease, on HD. HD done yesterday, tolerated well. Now has Left BKA. Follow the Hgb and electrolytes. (2) Type 2 diabetes mellitus Code(s): E11.9 - Type 2 diabetes mellitus without complications Status: Acute Plan: Well controlled. On insuling. Recommend to Maintain blood sugars between 140 mg/dl to 180 mg/dl while hospitalized. (3) Essential (primary) hypertension Code(s): I10 - Essential (primary) hypertension Status: Acute Plan: On amlodipine and metoprolol, will monitor (4) PVD (peripheral vascular disease) Code(s): I73.9 - Peripheral vascular disease, unspecified Status: Chronic Plan: Patient is seen by vascular surgery and continue to monitor wound on the left foot, possible left BKA (5) Osteomyelitis Code(s): M86.9 - Osteomyelitis, unspecified Status: Acute Plan: On antibiotics to gram-negative with Zosyn and vancomycin per ID. - Plan Hemodialysis arranged on Sunday, and Sunday continue supportive care, patient is seen by vascular surgery and continue to monitor wound on the left foot, possible left BKA plan for tomorrow INR 1.8 FFP given Hemodialysis continue TTS schedule continue with vancomycin also is covered for gram-negative with Zosyn, Vanco level 15.6 02/28/18 Continue supportive care
[2018-03-03] MEDS: Lidocaine 5% Patch T-DERMAL SCH (12:38)
--- NOTE | 2018-03-03 16:33 | P.PNIM ---
Subjective Interval history: Patient complains of pain in the left lower ext after undergoing bka. No other complaints. Physical Exam Vital signs: Vital Signs 03/02/18 17:00 03/02/18 17:15 03/02/18 17:30 Temperature 98.3 F Pulse Rate 61 62 65 Respiratory Rate 17 16 14 Blood Pressure 111/56 L 101/51 L 104/52 L Pulse Oximetry 100 100 100 03/02/18 17:45 03/02/18 17:46 03/02/18 17:47 Temperature Pulse Rate 62 Respiratory Rate 12 12 12 Blood Pressure 108/56 L Pulse Oximetry 100 03/02/18 18:00 03/02/18 18:30 03/02/18 18:44 Temperature 98.2 F Pulse Rate 63 65 66 Respiratory Rate 14 14 20 Blood Pressure 116/56 L 119/58 L 118/58 L Pulse Oximetry 100 100 100 03/02/18 19:00 03/02/18 19:30 03/02/18 19:31 Temperature Pulse Rate 66 68 Respiratory Rate 14 11 L Blood Pressure 122/58 L 119/58 L Pulse Oximetry 98 100 100 03/02/18 20:02 03/02/18 20:03 03/02/18 20:15 Temperature 98.4 F Pulse Rate 69 71 Respiratory Rate 12 12 Blood Pressure 112/53 L Pulse Oximetry 100 100 100 03/02/18 21:00 03/03/18 00:00 03/03/18 01:45 Temperature 98.7 F Pulse Rate 75 Respiratory Rate 16 Blood Pressure 112/51 L Pulse Oximetry 91 L 90 L 94 L 03/03/18 04:00 03/03/18 07:00 03/03/18 07:02 Temperature 98.4 F Pulse Rate 70 77 Respiratory Rate 16 16 Blood Pressure 129/58 L Pulse Oximetry 90 L 03/03/18 08:00 03/03/18 08:37 03/03/18 09:00 Temperature 97.9 F Pulse Rate 72 74 Respiratory Rate 18 Blood Pressure 106/51 L Pulse Oximetry 100 91 L 03/03/18 10:00 03/03/18 11:00 03/03/18 12:00 Temperature 97.9 F Pulse Rate 74 68 72 Respiratory Rate 16 Blood Pressure 121/78 Pulse Oximetry 100 03/03/18 13:00 03/03/18 14:00 Temperature Pulse Rate 87 98 H Respiratory Rate Blood Pressure Pulse Oximetry Intake & Output 03/02/18 03/03/18 03/03/18 18:59 06:59 18:59 Intake Total 2868 / 2868 820 / 820 50 / 50 Output Total 4400 / 4400 Balance -1532 / -1532 820 / 820 50 / 50 Weight 122 kg Intake: IV 1050 / 1050 100 / 100 50 / 50 Zosyn 2.25 GM Premix 50 ML @ 50 / 50 100 / 100 50 / 50 100 mls/hr IV.SIG Q8H YUMIKO Rx#: [id number] NS Inj 1,000 ML @ As Directed 1000 / 1000 OTHER .Q0M PRN Rx#:[id number] Oral 720 / 720 Anesthesia Amount 1300 / 1300 Mass Transfusion Protocol 518 / 518 Output: Hemodialysis Amount 4000 / 4000 Estimated Blood Loss 400 / 400 Other: # Voids 0 Date of Last Bowel Movement 03/01/18 Narrative: alert and oriented S1S2 CTA b/l abd soft, non tender, normal bowel sounds Left lower ext s/p bka, in bandage. Complains of pain. No focal neuro deficits. Results - Labs CBC & Chem 7: 03/03/18 03:13 03/03/18 03:13 Laboratory Results - last 24 hr 03/02/18 03/02/18 03/02/18 08:21 14:43 14:44 WBC RBC Hgb Hct MCV MCH MCHC RDW Plt Count MPV Neut % (Auto) Lymph % (Auto) [place] % (Auto) Eos % (Auto) Baso % (Auto) Neut # (Auto) Lymph # (Auto) [place] # (Auto) Eos # (Auto) Baso # (Auto) WBC Differential Differential Comment Sodium Potassium Chloride Carbon Dioxide Anion Gap BUN Creatinine Estimated GFR POC Glucose Random Glucose Calcium Blood Type A Positive Antibody Screen Negative MTS Gel Crossmatch See Detail Blood Bank Comment Bld Prod Order Comment 03/02/18 03/02/18 03/03/18 17:01 18:12 01:36 WBC 11.7 H D RBC 2.73 L Hgb 8.1 L D Hct 24.7 L MCV 90.6 MCH 29.8 MCHC 32.9 RDW 17.0 Plt Count 395 D MPV 8.2 Neut % (Auto) 86.4 H Lymph % (Auto) 3.5 L [place] % (Auto) 7.4 Eos % (Auto) 1.9 Baso % (Auto) 0.8 Neut # (Auto) 10.1 H Lymph # (Auto) 0.4 L [place] # (Auto) 0.9 Eos # (Auto) 0.2 Baso # (Auto) 0.1 WBC Differential . Differential Comment Auto diff final Sodium Potassium Chloride Carbon Dioxide Anion Gap BUN Creatinine Estimated GFR POC Glucose 130 H 140 H Random Glucose Calcium Blood Type Antibody Screen MTS Gel Crossmatch Blood Bank Comment Bld Prod Order Comment 03/03/18 03/03/18 03/03/18 03:13 03:13 07:37 WBC 11.4 H RBC 2.59 L Hgb 7.5 L Hct 23.7 L MCV 91.4 MCH 28.9 MCHC 31.6 L RDW 16.2 Plt Count 401 MPV 7.7 Neut % (Auto) Lymph % (Auto) [place] % (Auto) Eos % (Auto) Baso % (Auto) Neut # (Auto) Lymph # (Auto) [place] # (Auto) Eos # (Auto) Baso # (Auto) WBC Differential Differential Comment Sodium 135 L Potassium 5.2 H Chloride 96 L Carbon Dioxide 29.2 Anion Gap 10 BUN 48 H Creatinine 8.37 H Estimated GFR 6 L POC Glucose Random Glucose 121 H Calcium 7.7 L Blood Type Antibody Screen MTS Gel Crossmatch See Detail Blood Bank Comment Bld Prod Order Comment Cancelled 03/03/18 03/03/18 08:25 11:55 WBC RBC Hgb Hct MCV MCH MCHC RDW Plt Count MPV Neut % (Auto) Lymph % (Auto) [place] % (Auto) Eos % (Auto) Baso % (Auto) Neut # (Auto) Lymph # (Auto) [place] # (Auto) Eos # (Auto) Baso # (Auto) WBC Differential Differential Comment Sodium Potassium Chloride Carbon Dioxide Anion Gap BUN Creatinine Estimated GFR POC Glucose 136 H 140 H Random Glucose Calcium Blood Type Antibody Screen MTS Gel Crossmatch Blood Bank Comment Bld Prod Order Comment Microbiology 02/26/18 11:24 Blood - Other Aerobic Blood Culture - Final No growth in 5 days 02/26/18 11:24 Blood - Other Anaerobic Blood Culture - Final No growth in 5 days 02/26/18 11:24 Blood - Other Aerobic Blood Culture - Final No growth in 5 days 02/26/18 11:24 Blood - Other Anaerobic Blood Culture - Final No growth in 5 days 03/01/18 09:15 Clean Catch Urine Urine Culture - Final 10-50,000 cfu/mL mixed christophe (probable contaminants) - Procedures Left-sided BKA on 02/19 Assessment and Plan - Assessment (1) ESRD (end stage renal disease) Code(s): N18.6 - End stage renal disease Status: Acute (2) Type 2 diabetes mellitus Code(s): E11.9 - Type 2 diabetes mellitus without complications Status: Acute (3) Essential (primary) hypertension Code(s): I10 - Essential (primary) hypertension Status: Acute (4) Anemia associated with chronic renal failure Code(s): D63.1 - Anemia in chronic kidney disease Status: Acute (5) Osteomyelitis Code(s): M86.9 - Osteomyelitis, unspecified Status: Acute - Plan 72-year-old man with DM, ESRD on HD, Hx of DVT who is currently admitted for Diabetic food ulcer with OM of the left foot. 1. Diabetic L foot wound Osteomyelitis left foot s/p BKA Patient is s/p BKA, post op day one. Vasc Surgery following. On IV antibiotics. Infectious Disease following the patient. I will follow up with recs from ID and Vasc Surgery. Continue with pain control. 2. ESRD on hemodialysis TTS 3. HTN Continue current medications. Nephrology following, continue with dialysis T, TH, Sat 4. Diabetes accu checks with SSI Diabetic/renal diet long-acting insulin cont gabapentin for neuropathy. 5. Generalized weakness PT recommending rehab Hx of DVT Has Prince filter, Coumadin INR therapeutic
[2018-03-03] MEDS: Acetaminophen 325 MG Tablet PO PRN (23:42)
[2018-03-04] MEDS: Piperacil/Tazo 2.25 GM Premix 50 ML IV.SIG SCH ×3 (03:47→21:01)
[2018-03-04 05:48] LABS: Baso % (Auto) 0.2 % (0.0-2.0); Eos # (Auto) 0.1 th/mm3 (0.0-0.4); Hematocrit 24.7 % (39.0-51.0); Hemoglobin 7.9 gm/dL (13.0-17.0); Lymph # (Auto) 0.5 th/mm3 (1.0-4.8); Lymph % (Auto) 3.6 % (9.0-44.0); Mean Corpuscular HGB Conc 32.2 % (32.0-36.0); Mean Corpuscular Hemoglobin 29.3 pg (27.0-34.0); Mean Corpuscular Volume 90.9 fL (80.0-100.0); Mean Platelet Volume 7.5 fL (7.0-11.0); Mono # (Auto) 1.3 th/mm3 (0.0-0.9); Mono % (Auto) 9.6 % (0.0-8.0); Neut # (Auto) 11.2 th/mm3 (1.8-7.7); Neut % (Auto) 85.6 % (16.0-70.0); Platelet Count 341 th/mm3 (150-450); Red Blood Count 2.71 mil/mm3 (4.50-5.90); White Blood Count 13.1 th/mm3 (4.0-11.0)
[2018-03-04 06:05] LABS: Calcium 7.1 mg/dL (8.5-10.1); Potassium 5.4 meq/L (3.5-5.1)
[2018-03-04 06:19] LABS: Albumin 2.5 g/dL (3.4-5.0); Calcium-Albumin Corrected 8.3 mg/dL (8.5-10.1)
[2018-03-04] MEDS: Insulin Detemir Inj 1,000 UNIT/10 ML Vial SQ SCH (09:28)
[2018-03-04] MEDS: amLODIPine 10 MG Tablet PO SCH (09:29)
[2018-03-04] MEDS: Gabapentin 300 MG Capsule PO SCH (09:29)
[2018-03-04] MEDS: Lidocaine 5% Patch T-DERMAL SCH (09:29)
[2018-03-04] MEDS: Insulin NovoLOG Aspart Correctional Sugar Inj SQ SCH ×4 (09:30→21:07)
[2018-03-04] MEDS: Budesonide-Formoterol 160/4.5 MCG 6 GM Inhaler INH SCH ×2 (09:36→21:08)
[2018-03-04] MEDS: Metoprolol Tartrate 25 MG Tablet PO SCH ×2 (09:36→21:02)
--- NOTE | 2018-03-04 10:15 | P.PNIM ---
Subjective Interval history: Nursing reports that the patient was somewhat hard to wake up this morning. Upon my arrival to his bed he is easily waking up. Patient is complaining of phantom limb pain. Otherwise has no new complaints. Says he feels okay with the amount of workup that we have done and says that he can take the pain/ suffering that he is undergoing with the medical care that we are providing with workup and further treatment including imaging and surgical interventions. Nursing reports that the patient had a fever last night of 101.8. Physical Exam Vital signs: Vital Signs 03/03/18 11:00 03/03/18 12:00 03/03/18 13:00 Temperature 97.9 F Pulse Rate 68 72 87 Respiratory Rate 16 Blood Pressure 121/78 Pulse Oximetry 100 03/03/18 14:00 03/03/18 16:00 03/03/18 17:00 Temperature 98.0 F Pulse Rate 98 H 74 90 Respiratory Rate 20 Blood Pressure 120/54 L Pulse Oximetry 98 03/03/18 18:00 03/03/18 19:00 03/03/18 20:00 Temperature 99.9 F H Pulse Rate 88 85 82 Respiratory Rate 16 Blood Pressure 113/71 Pulse Oximetry 95 03/03/18 20:05 03/03/18 21:00 03/03/18 22:00 Temperature Pulse Rate 84 80 Respiratory Rate Blood Pressure Pulse Oximetry 95 03/03/18 23:00 03/04/18 00:00 03/04/18 01:00 Temperature 101.8 F H Pulse Rate 85 84 84 Respiratory Rate 18 Blood Pressure 142/63 H Pulse Oximetry 99 03/04/18 02:00 03/04/18 03:00 03/04/18 04:00 Temperature 100.2 F H Pulse Rate 82 75 76 Respiratory Rate 16 Blood Pressure 138/62 Pulse Oximetry 100 03/04/18 05:00 03/04/18 06:00 Temperature Pulse Rate 81 80 Respiratory Rate Blood Pressure Pulse Oximetry Intake & Output 03/03/18 03/04/18 03/04/18 18:59 06:59 18:59 Intake Total 530 / 530 200 / 200 Output Total 0 / 0 Balance 530 / 530 200 / 200 Weight 126 kg Intake: IV 50 / 50 100 / 100 Zosyn 2.25 GM Premix 50 ML @ 50 / 50 100 / 100 100 mls/hr IV.SIG Q8H YUMIKO Rx#: [id number] Oral 480 / 480 100 / 100 Output: Urine 0 / 0 Other: # Voids 0 Date of Last Bowel Movement 03/01/18 # Bowel Movements 0 Narrative: Clear lungs bilaterally, unlabored breathing Heart sounds regular rate and rhythm Abdomen soft, nondistended Left lower leg in BKA postop stump wrap Results - Labs CBC & Chem 7: 03/04/18 04:15 03/04/18 04:15 Laboratory Results - last 24 hr 03/02/18 03/02/18 03/02/18 08:21 14:43 14:44 WBC RBC Hgb Hct MCV MCH MCHC RDW Plt Count MPV Neut % (Auto) Lymph % (Auto) [place] % (Auto) Eos % (Auto) Baso % (Auto) Neut # (Auto) Lymph # (Auto) [place] # (Auto) Eos # (Auto) Baso # (Auto) WBC Differential Differential Comment Sodium Potassium Chloride Carbon Dioxide Anion Gap BUN Creatinine Estimated GFR POC Glucose Random Glucose Calcium Calcium Adj for Albumin Albumin MTS Gel Crossmatch See Detail Blood Bank Comment 03/03/18 03/03/18 03/03/18 11:55 16:59 20:33 WBC RBC Hgb Hct MCV MCH MCHC RDW Plt Count MPV Neut % (Auto) Lymph % (Auto) [place] % (Auto) Eos % (Auto) Baso % (Auto) Neut # (Auto) Lymph # (Auto) [place] # (Auto) Eos # (Auto) Baso # (Auto) WBC Differential Differential Comment Sodium Potassium Chloride Carbon Dioxide Anion Gap BUN Creatinine Estimated GFR POC Glucose 140 H 147 H 149 H Random Glucose Calcium Calcium Adj for Albumin Albumin MTS Gel Crossmatch Blood Bank Comment 03/04/18 03/04/18 03/04/18 00:50 04:15 04:15 WBC 13.1 H RBC 2.71 L Hgb 7.9 L Hct 24.7 L MCV 90.9 MCH 29.3 MCHC 32.2 RDW 17.0 Plt Count 341 MPV 7.5 Neut % (Auto) 85.6 H Lymph % (Auto) 3.6 L [place] % (Auto) 9.6 H Eos % (Auto) 1.0 Baso % (Auto) 0.2 Neut # (Auto) 11.2 H Lymph # (Auto) 0.5 L [place] # (Auto) 1.3 H Eos # (Auto) 0.1 Baso # (Auto) 0.0 WBC Differential . Differential Comment Auto diff final Sodium 131 L Potassium 5.4 H Chloride 95 L Carbon Dioxide 25.0 Anion Gap 11 BUN 59 H Creatinine 9.87 H Estimated GFR 5 L POC Glucose 177 H Random Glucose 176 H Calcium 7.1 L* Calcium Adj for Albumin 8.3 L Albumin 2.5 L MTS Gel Crossmatch Blood Bank Comment 03/04/18 08:14 WBC RBC Hgb Hct MCV MCH MCHC RDW Plt Count MPV Neut % (Auto) Lymph % (Auto) [place] % (Auto) Eos % (Auto) Baso % (Auto) Neut # (Auto) Lymph # (Auto) [place] # (Auto) Eos # (Auto) Baso # (Auto) WBC Differential Differential Comment Sodium Potassium Chloride Carbon Dioxide Anion Gap BUN Creatinine Estimated GFR POC Glucose 160 H Random Glucose Calcium Calcium Adj for Albumin Albumin MTS Gel Crossmatch Blood Bank Comment Microbiology 02/26/18 11:24 Blood - Other Aerobic Blood Culture - Final No growth in 5 days 02/26/18 11:24 Blood - Other Anaerobic Blood Culture - Final No growth in 5 days 02/26/18 11:24 Blood - Other Aerobic Blood Culture - Final No growth in 5 days 02/26/18 11:24 Blood - Other Anaerobic Blood Culture - Final No growth in 5 days 03/01/18 09:15 Clean Catch Urine Urine Culture - Final 10-50,000 cfu/mL mixed christophe (probable contaminants) - Procedures Left-sided BKA on 02/19 Assessment and Plan - Assessment (1) ESRD (end stage renal disease) Code(s): N18.6 - End stage renal disease Status: Acute (2) Type 2 diabetes mellitus Code(s): E11.9 - Type 2 diabetes mellitus without complications Status: Acute (3) Essential (primary) hypertension Code(s): I10 - Essential (primary) hypertension Status: Acute (4) Anemia associated with chronic renal failure Code(s): D63.1 - Anemia in chronic kidney disease Status: Acute (5) Osteomyelitis Code(s): M86.9 - Osteomyelitis, unspecified Status: Acute - Plan 72 y/o black male transferred over from [facility] to [facility] on 02/22 for suspected infected nonhealing diabetic foot wound status post left great toe amputation (operated on 02/13 at [place]). Patient was originally admitted to [facility] on 02/17 due to generalized weakness and fevers. He was started on B.S. abxs, had CTA workup which demonstrated extensive PAD but no drainable abscess. Outside MRI report of of L foot is questionable for osteomyelitis. 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 Patient is now status post left BKA 03/02 due to poor healing wound 2/2 severe PAD, infectious disease helping comanage antibiotics for osteomyelitis. Fever occurred again on 03/04 despite being on antibiotics. Osteomyelitis in left lower extremity -Status post BKA on 03/02, on Zosyn and vancomycin per infectious disease -New fever has occurred, blood cultures drawn, obtain chest x-ray -Non healing wound s/p left great toe amputation at [facility] on 02/[address] Sainz at [place] -Continue Lipitor, already on Coumadin New fever on 03/04 - obtaining blood cultures, CXR again ESRD HTN, chronic -home medications amlodipine and metoprolol -Nephrology following, dialysis Diabetes, chronic -Accu checks with SSI -Diabetic/renal diet -long-acting insulin Diabetic neuropathy -Continue home gabapentin Generalized weakness PT recommending rehab Hx of DVT - has Prince filter, Lovenox while inpatient.
--- NOTE | 2018-03-04 11:21 | P.PNVS ---
Subjective Post Op Day #: 2 Procedure: Left below-knee amputation Subjective/Hospital Course: Left lower extremity pain is controlled Objective Vital Signs / I&O: Vital Signs 03/03/18 12:00 03/03/18 13:00 03/03/18 14:00 Temperature 97.9 F Pulse Rate 72 87 98 H Respiratory Rate 16 Blood Pressure 121/78 Pulse Oximetry 100 03/03/18 16:00 03/03/18 17:00 03/03/18 18:00 Temperature 98.0 F Pulse Rate 74 90 88 Respiratory Rate 20 Blood Pressure 120/54 L Pulse Oximetry 98 03/03/18 19:00 03/03/18 20:00 03/03/18 20:05 Temperature 99.9 F H Pulse Rate 85 82 Respiratory Rate 16 Blood Pressure 113/71 Pulse Oximetry 95 95 03/03/18 21:00 03/03/18 22:00 03/03/18 23:00 Temperature Pulse Rate 84 80 85 Respiratory Rate Blood Pressure Pulse Oximetry 03/04/18 00:00 03/04/18 01:00 03/04/18 02:00 Temperature 101.8 F H Pulse Rate 84 84 82 Respiratory Rate 18 Blood Pressure 142/63 H Pulse Oximetry 99 03/04/18 03:00 03/04/18 04:00 03/04/18 05:00 Temperature 100.2 F H Pulse Rate 75 76 81 Respiratory Rate 16 Blood Pressure 138/62 Pulse Oximetry 100 03/04/18 06:00 03/04/18 07:00 03/04/18 08:00 Temperature 99.3 F Pulse Rate 80 76 72 Respiratory Rate 13 Blood Pressure 149/71 H Pulse Oximetry 99 03/04/18 09:00 03/04/18 10:00 03/04/18 10:27 Temperature Pulse Rate 75 74 Respiratory Rate Blood Pressure Pulse Oximetry 99 Intake & Output 03/03/18 03/04/18 03/04/18 18:59 06:59 18:59 Intake Total 530 / 530 200 / 200 Output Total 0 / 0 Balance 530 / 530 200 / 200 Weight 126 kg Intake: IV 50 / 50 100 / 100 Zosyn 2.25 GM Premix 50 ML @ 50 / 50 100 / 100 100 mls/hr IV.SIG Q8H YUMIKO Rx#: [id number] Oral 480 / 480 100 / 100 Output: Urine 0 / 0 Other: # Voids 0 Date of Last Bowel Movement 03/01/18 03/02/18 # Bowel Movements 0 Exam: changed the dressing on L BKA wound CDI mild oozing from incision Laboratory Results - last 24 hr 03/02/18 03/02/18 03/02/18 08:21 14:43 14:44 WBC RBC Hgb Hct MCV MCH MCHC RDW Plt Count MPV Neut % (Auto) Lymph % (Auto) [place] % (Auto) Eos % (Auto) Baso % (Auto) Neut # (Auto) Lymph # (Auto) [place] # (Auto) Eos # (Auto) Baso # (Auto) WBC Differential Differential Comment Sodium Potassium Chloride Carbon Dioxide Anion Gap BUN Creatinine Estimated GFR POC Glucose Random Glucose Calcium Calcium Adj for Albumin Albumin MTS Gel Crossmatch See Detail Blood Bank Comment 03/03/18 03/03/18 03/03/18 11:55 16:59 20:33 WBC RBC Hgb Hct MCV MCH MCHC RDW Plt Count MPV Neut % (Auto) Lymph % (Auto) [place] % (Auto) Eos % (Auto) Baso % (Auto) Neut # (Auto) Lymph # (Auto) [place] # (Auto) Eos # (Auto) Baso # (Auto) WBC Differential Differential Comment Sodium Potassium Chloride Carbon Dioxide Anion Gap BUN Creatinine Estimated GFR POC Glucose 140 H 147 H 149 H Random Glucose Calcium Calcium Adj for Albumin Albumin MTS Gel Crossmatch Blood Bank Comment 03/04/18 03/04/18 03/04/18 00:50 04:15 04:15 WBC 13.1 H RBC 2.71 L Hgb 7.9 L Hct 24.7 L MCV 90.9 MCH 29.3 MCHC 32.2 RDW 17.0 Plt Count 341 MPV 7.5 Neut % (Auto) 85.6 H Lymph % (Auto) 3.6 L [place] % (Auto) 9.6 H Eos % (Auto) 1.0 Baso % (Auto) 0.2 Neut # (Auto) 11.2 H Lymph # (Auto) 0.5 L [place] # (Auto) 1.3 H Eos # (Auto) 0.1 Baso # (Auto) 0.0 WBC Differential . Differential Comment Auto diff final Sodium 131 L Potassium 5.4 H Chloride 95 L Carbon Dioxide 25.0 Anion Gap 11 BUN 59 H Creatinine 9.87 H Estimated GFR 5 L POC Glucose 177 H Random Glucose 176 H Calcium 7.1 L* Calcium Adj for Albumin 8.3 L Albumin 2.5 L MTS Gel Crossmatch Blood Bank Comment 03/04/18 08:14 WBC RBC Hgb Hct MCV MCH MCHC RDW Plt Count MPV Neut % (Auto) Lymph % (Auto) [place] % (Auto) Eos % (Auto) Baso % (Auto) Neut # (Auto) Lymph # (Auto) [place] # (Auto) Eos # (Auto) Baso # (Auto) WBC Differential Differential Comment Sodium Potassium Chloride Carbon Dioxide Anion Gap BUN Creatinine Estimated GFR POC Glucose 160 H Random Glucose Calcium Calcium Adj for Albumin Albumin MTS Gel Crossmatch Blood Bank Comment Microbiology 02/26/18 11:24 Aerobic Blood Culture - Final Blood - Other No growth in 5 days Anaerobic Blood Culture - Final No growth in 5 days 02/26/18 11:24 Aerobic Blood Culture - Final Blood - Other No growth in 5 days Anaerobic Blood Culture - Final No growth in 5 days 03/01/18 09:15 Urine Culture - Final Clean Catch Urine 10-50,000 cfu/mL mixed christophe (probable contaminants) Assessment and Plan - Assessment (1) PVD (peripheral vascular disease) Code(s): I73.9 - Peripheral vascular disease, unspecified Status: Chronic - Plan Status post left BKA postop day #2 1. Pain control 2. PT 3. Fever work up Dami Sainz MD [id number]
--- NOTE | 2018-03-04 12:36 | XR ---
EXAM DATE: 03/04/2018 12:26 PM EST AGE/SEX: 72 years / Male INDICATIONS: . Shortness of breath. CLINICAL DATA: This is the patient's initial encounter. Patient reports that signs and symptoms have been present for 4 - 6 days and indicates a pain score of Nonresponsive. MEDICAL/SURGICAL HISTORY: Diabetes mellitus type II. . Amputation COMPARISON: . FINDINGS: The heart is enlarged. Minimal central pulmonary vascular congestion is noted. Left internal jugular tunneled dialysis catheter has its tip in the right atrium. Degenerative changes and scoliosis of the thoracic spine are noted. CONCLUSION: 1. Cardiomegaly. 2. Minimal central pulmonary vascular congestion. Electronically signed by: Bayron Duffy MD Board Certified Radiologist 03/04/2018 12:34 PM EST
--- NOTE | 2018-03-04 16:45 | P.PNNP ---
Subjective Interval history: Patient is drowsy status post left BKA Physical Exam Vital signs: Vital Signs 03/03/18 17:00 03/03/18 18:00 03/03/18 19:00 Temperature Pulse Rate 90 88 85 Respiratory Rate Blood Pressure Pulse Oximetry 03/03/18 20:00 03/03/18 20:05 03/03/18 21:00 Temperature 99.9 F H Pulse Rate 82 84 Respiratory Rate 16 Blood Pressure 113/71 Pulse Oximetry 95 95 03/03/18 22:00 03/03/18 23:00 03/04/18 00:00 Temperature 101.8 F H Pulse Rate 80 85 84 Respiratory Rate 18 Blood Pressure 142/63 H Pulse Oximetry 99 03/04/18 01:00 03/04/18 02:00 03/04/18 03:00 Temperature Pulse Rate 84 82 75 Respiratory Rate Blood Pressure Pulse Oximetry 03/04/18 04:00 03/04/18 05:00 03/04/18 06:00 Temperature 100.2 F H Pulse Rate 76 81 80 Respiratory Rate 16 Blood Pressure 138/62 Pulse Oximetry 100 03/04/18 07:00 03/04/18 08:00 03/04/18 09:00 Temperature 99.3 F Pulse Rate 76 72 75 Respiratory Rate 13 Blood Pressure 149/71 H Pulse Oximetry 99 03/04/18 10:00 03/04/18 10:27 03/04/18 11:00 Temperature Pulse Rate 74 73 Respiratory Rate Blood Pressure Pulse Oximetry 99 03/04/18 12:00 03/04/18 13:00 03/04/18 13:56 Temperature 98.2 F Pulse Rate 73 75 76 Respiratory Rate 16 Blood Pressure 144/68 H Pulse Oximetry 98 03/04/18 15:00 03/04/18 15:50 03/04/18 15:51 Temperature 98.6 F Pulse Rate 76 78 75 Respiratory Rate 16 Blood Pressure 151/69 H Pulse Oximetry 98 Intake & Output 03/03/18 03/04/18 03/04/18 18:59 06:59 18:59 Intake Total 530 / 530 200 / 200 50 / 50 Output Total 0 / 0 Balance 530 / 530 200 / 200 50 / 50 Weight 126 kg Intake: IV 50 / 50 100 / 100 50 / 50 Zosyn 2.25 GM Premix 50 ML @ 50 / 50 100 / 100 50 / 50 100 mls/hr IV.SIG Q8H YUMIKO Rx#: [id number] Oral 480 / 480 100 / 100 Output: Urine 0 / 0 Other: # Voids 0 Date of Last Bowel Movement 03/01/18 03/02/18 # Bowel Movements 0 Narrative: GENERAL: Well-nourished, well-developed patient. SKIN: Warm and dry. HEAD: Normocephalic. EYES: No scleral icterus. No injection or drainage. NECK: Supple, trachea midline. No JVD or lymphadenopathy. CARDIOVASCULAR: Regular rate and rhythm without murmurs, gallops, or rubs. RESPIRATORY: Breath sounds equal bilaterally. No accessory muscle use. GASTROINTESTINAL: Abdomen soft, non-tender, nondistended. EXTREMITIES: Left BKA NEUROLOGICAL: Drowsy Assessment and Plan - Assessment (1) ESRD (end stage renal disease) Code(s): N18.6 - End stage renal disease Status: Acute Plan: Patient with end stage renal disease, on HD. HD done on Sunday, tolerated well. Now has Left BKA. Follow the Hgb and electrolytes. Received blood transfusions Next hemodialysis tomorrow Continue supportive care (2) Type 2 diabetes mellitus Code(s): E11.9 - Type 2 diabetes mellitus without complications Status: Acute Plan: Well controlled. On insuling. Recommend to Maintain blood sugars between 140 mg/dl to 180 mg/dl while hospitalized. (3) Essential (primary) hypertension Code(s): I10 - Essential (primary) hypertension Status: Acute Plan: On amlodipine and metoprolol, will monitor (4) PVD (peripheral vascular disease) Code(s): I73.9 - Peripheral vascular disease, unspecified Status: Chronic Plan: Patient is seen by vascular surgery and continue to monitor wound on the left foot, possible left BKA (5) Osteomyelitis Code(s): M86.9 - Osteomyelitis, unspecified Status: Acute Plan: On antibiotics to gram-negative with Zosyn and vancomycin per ID. - Plan Hemodialysis arranged on Sunday, and Sunday continue supportive care, patient is seen by vascular surgery and continue to monitor wound on the left foot, possible left BKA plan for tomorrow INR 1.8 FFP given Hemodialysis continue TTS schedule continue with vancomycin also is covered for gram-negative with Zosyn, Vanco level 15.6 02/28/18 Continue supportive care
[2018-03-04] MEDS: Acetaminophen 325 MG Tablet PO PRN (23:33)
[2018-03-05] MEDS: Piperacil/Tazo 2.25 GM Premix 50 ML IV.SIG SCH ×3 (05:21→20:00)
--- NOTE | 2018-03-05 09:15 | P.PNIM ---
Subjective Interval history: Discussed with RN. The patient has been very somnolent today. He is seen during hemodialysis. He briefly woke up but quickly falls back asleep. He is able to follow commands. Physical Exam Vital signs: Last Vital Signs Temp 98.4 F 03/05/18 04:00 Pulse 73 03/05/18 06:00 Resp 16 03/05/18 05:21 BP 132/62 03/05/18 04:00 Pulse Ox 99 03/05/18 04:00 Intake & Output 03/03/18 03/04/18 03/05/18 03/06/18 06:59 06:59 06:59 06:59 Intake Total 3688 / 3688 730 / 730 820 / 820 Output Total 4400 / 4400 0 / 0 0 / 0 Balance -712 / -712 730 / 730 820 / 820 Weight 122 kg 126 kg 122.5 kg Narrative: GENERAL: Elderly male in no acute distress. NECK: Supple, trachea midline. No JVD or lymphadenopathy. CARDIOVASCULAR: Regular rate and rhythm without murmurs, gallops, or rubs. RESPIRATORY: Breath sounds equal bilaterally. No accessory muscle use. GASTROINTESTINAL: Abdomen soft, non-tender, nondistended. EXTREMITIES: Status post left BKA NEUROLOGICAL: Drowsy Results Labs CBC & Chem 7: 03/05/18 13:00 03/05/18 13:00 Imaging Imaging: Impressions Chest X-Ray 03/04/18 00:00 CONCLUSION: 1. Cardiomegaly. 2. Minimal central pulmonary vascular congestion. Procedures Procedures: Left-sided BKA on 02/19 Assessment and Plan (1) ESRD (end stage renal disease): Code(s): N18.6 - End stage renal disease Status: Acute (2) Type 2 diabetes mellitus: Code(s): E11.9 - Type 2 diabetes mellitus without complications Status: Acute (3) Essential (primary) hypertension: Code(s): I10 - Essential (primary) hypertension Status: Acute (4) Anemia associated with chronic renal failure: Code(s): D63.1 - Anemia in chronic kidney disease Status: Acute (5) Osteomyelitis: Code(s): M86.9 - Osteomyelitis, unspecified Status: Acute Plan 72 y/o black male transferred over from [facility] to [facility] on 02/22 for suspected infected nonhealing diabetic foot wound status post left great toe amputation (operated on 02/13 at [place]). Patient was originally admitted to [facility] on 02/17 due to generalized weakness and fevers. He was started on B.S. abxs, had CTA workup which demonstrated extensive PAD but no drainable abscess. Outside MRI report of of L foot is questionable for osteomyelitis. 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 Patient is now status post left BKA 03/02 due to poor healing wound 2/2 severe PAD, infectious disease helping co-manage antibiotics for osteomyelitis. Fever occurred again on 03/04 despite being on antibiotics. Osteomyelitis in left lower extremity -Status post BKA on 03/02, on Zosyn and vancomycin per infectious disease -New fever has occurred, blood cultures drawn, obtain chest x-ray -Non healing wound s/p left great toe amputation at [facility] on 02/[address] Sainz at [place] -Continue Lipitor, already on Coumadin Intermittent fevers -Chest x-ray with no acute infectious focus. New blood culture is pending. Encephalopathy: Mild. Could be secondary to uremia. -Patient receiving hemodialysis today. Check ammonia levels. Continue to monitor. ESRD HTN, chronic -home medications amlodipine and metoprolol -Nephrology following, dialysis Diabetes, chronic -Accu checks with SSI -Diabetic/renal diet -long-acting insulin Diabetic neuropathy -Continue home gabapentin Generalized weakness PT recommending rehab Hx of DVT - has [place] filter, Lovenox while inpatient. Progress Note: Quality VTE Deep Vein Thrombosis/Pulmonary Embolism Present on Admission: Yes _ (1) Type 2 diabetes mellitus Qualifiers: Chronic kidney disease stage: Diabetes mellitus complication detail: Diabetes mellitus complication status: Diabetes mellitus half-way insulin use : Diabetes mellitus macular edema: Diabetic retinopathy severity: Laterality: Proliferative retinopathy type: (2) Osteomyelitis Qualifiers: Laterality: Osteomyelitis location: Osteomyelitis type:
--- NOTE | 2018-03-05 10:00 | P.PNNP ---
Subjective Interval history: Patient seen during hemodialysis, appears to be lethargic Physical Exam Vital signs: Vital Signs 03/04/18 10:00 03/04/18 10:27 03/04/18 11:00 Temperature Pulse Rate 74 73 Respiratory Rate Blood Pressure Pulse Oximetry 99 03/04/18 12:00 03/04/18 13:00 03/04/18 13:56 Temperature 98.2 F Pulse Rate 73 75 76 Respiratory Rate 16 Blood Pressure 144/68 H Pulse Oximetry 98 03/04/18 15:00 03/04/18 15:50 03/04/18 15:51 Temperature 98.6 F Pulse Rate 76 78 75 Respiratory Rate 16 Blood Pressure 151/69 H Pulse Oximetry 98 03/04/18 16:56 03/04/18 18:00 03/04/18 19:00 Temperature Pulse Rate 77 79 75 Respiratory Rate Blood Pressure Pulse Oximetry 03/04/18 20:00 03/04/18 21:00 03/04/18 21:27 Temperature 98.6 F Pulse Rate 78 80 Respiratory Rate 16 Blood Pressure 131/61 Pulse Oximetry 93 L 100 03/04/18 22:00 03/04/18 23:00 03/05/18 00:00 Temperature 100.8 F H Pulse Rate 80 85 72 Respiratory Rate 16 Blood Pressure 132/61 Pulse Oximetry 100 03/05/18 01:00 03/05/18 02:00 03/05/18 03:00 Temperature Pulse Rate 72 74 75 Respiratory Rate Blood Pressure Pulse Oximetry 03/05/18 04:00 03/05/18 05:00 03/05/18 05:21 Temperature 98.4 F Pulse Rate 75 72 Respiratory Rate 16 16 Blood Pressure 132/62 Pulse Oximetry 99 03/05/18 06:00 03/05/18 07:00 03/05/18 08:00 Temperature 98.3 F Pulse Rate 73 73 73 Respiratory Rate 12 Blood Pressure 120/58 L Pulse Oximetry 91 L 03/05/18 09:00 Temperature Pulse Rate 81 Respiratory Rate Blood Pressure Pulse Oximetry Intake & Output 03/04/18 03/05/18 03/05/18 18:59 06:59 18:59 Intake Total 530 / 530 290 / 290 Output Total 0 / 0 Balance 530 / 530 290 / 290 Weight 122.5 kg Intake: IV 50 / 50 50 / 50 Zosyn 2.25 GM Premix 50 ML @ 50 / 50 50 / 50 100 mls/hr IV.SIG Q8H YUMIKO Rx#: [id number] Oral 480 / 480 240 / 240 Output: Urine 0 / 0 Other: # Voids 0 Date of Last Bowel Movement 03/02/18 03/01/18 03/02/18 Narrative: GENERAL: Well-nourished, well-developed patient. SKIN: Warm and dry. HEAD: Normocephalic. EYES: No scleral icterus. No injection or drainage. NECK: Supple, trachea midline. No JVD or lymphadenopathy. CARDIOVASCULAR: Regular rate and rhythm without murmurs, gallops, or rubs. RESPIRATORY: Breath sounds equal bilaterally. No accessory muscle use. GASTROINTESTINAL: Abdomen soft, non-tender, nondistended. EXTREMITIES: Left BKA NEUROLOGICAL: Drowsy Assessment and Plan - Assessment (1) ESRD (end stage renal disease) Code(s): N18.6 - End stage renal disease Status: Acute Plan: Patient with end stage renal disease, on HD. HD done on Sunday, tolerated well. Now has Left BKA. Follow the Hgb and electrolytes. Received blood transfusions Seen during hemodialysis today 3-3-1/2 L ultrafiltration plan getting vancomycin Next hemodialysis Continue supportive care (2) Type 2 diabetes mellitus Code(s): E11.9 - Type 2 diabetes mellitus without complications Status: Acute Plan: Well controlled. On insuling. Recommend to Maintain blood sugars between 140 mg/dl to 180 mg/dl while hospitalized. (3) Essential (primary) hypertension Code(s): I10 - Essential (primary) hypertension Status: Acute Plan: On amlodipine and metoprolol, will monitor (4) PVD (peripheral vascular disease) Code(s): I73.9 - Peripheral vascular disease, unspecified Status: Chronic Plan: Patient is seen by vascular surgery and continue to monitor wound on the left foot, possible left BKA (5) Osteomyelitis Code(s): M86.9 - Osteomyelitis, unspecified Status: Acute Plan: On antibiotics to gram-negative with Zosyn and vancomycin per ID. - Plan Hemodialysis arranged on Sunday, and Sunday continue supportive care, patient is seen by vascular surgery and continue to monitor wound on the left foot, possible left BKA plan for tomorrow INR 1.8 FFP given Hemodialysis continue TTS schedule continue with vancomycin also is covered for gram-negative with Zosyn, Vanco level 15.6 02/28/18 Continue supportive care
[2018-03-05] MEDS: Vancomycin Inj 1,000 MG in Sodium Chlor 0.9% Inj 250 ML IV.SIG SCH (11:24)
[2018-03-05] MEDS: Heparin 10,000 UNITS/10 ML Vial (for IV use) OTHER PRN (11:26)
--- NOTE | 2018-03-05 11:46 | P.PNVS ---
Subjective Procedure: Left below-knee amputation Subjective/Hospital Course: Seen while on hemodialysis. Pain is well controlled Objective Vital Signs / I&O: Vital Signs 03/04/18 12:00 03/04/18 13:00 03/04/18 13:56 Temperature 98.2 F Pulse Rate 73 75 76 Respiratory Rate 16 Blood Pressure 144/68 H Pulse Oximetry 98 03/04/18 15:00 03/04/18 15:50 03/04/18 15:51 Temperature 98.6 F Pulse Rate 76 78 75 Respiratory Rate 16 Blood Pressure 151/69 H Pulse Oximetry 98 03/04/18 16:56 03/04/18 18:00 03/04/18 19:00 Temperature Pulse Rate 77 79 75 Respiratory Rate Blood Pressure Pulse Oximetry 03/04/18 20:00 03/04/18 21:00 03/04/18 21:27 Temperature 98.6 F Pulse Rate 78 80 Respiratory Rate 16 Blood Pressure 131/61 Pulse Oximetry 93 L 100 03/04/18 22:00 03/04/18 23:00 03/05/18 00:00 Temperature 100.8 F H Pulse Rate 80 85 72 Respiratory Rate 16 Blood Pressure 132/61 Pulse Oximetry 100 03/05/18 01:00 03/05/18 02:00 03/05/18 03:00 Temperature Pulse Rate 72 74 75 Respiratory Rate Blood Pressure Pulse Oximetry 03/05/18 04:00 03/05/18 05:00 03/05/18 05:21 Temperature 98.4 F Pulse Rate 75 72 Respiratory Rate 16 16 Blood Pressure 132/62 Pulse Oximetry 99 03/05/18 06:00 03/05/18 07:00 03/05/18 08:00 Temperature 98.3 F Pulse Rate 73 73 73 Respiratory Rate 12 Blood Pressure 120/58 L Pulse Oximetry 91 L 03/05/18 09:00 03/05/18 10:00 Temperature Pulse Rate 81 99 H Respiratory Rate Blood Pressure Pulse Oximetry Intake & Output 03/04/18 03/05/18 03/05/18 18:59 06:59 18:59 Intake Total 530 / 530 290 / 290 Output Total 0 / 0 3500 / 3500 Balance 530 / 530 290 / 290 -3500 / -3500 Weight 122.5 kg Intake: IV 50 / 50 50 / 50 Zosyn 2.25 GM Premix 50 ML @ 50 / 50 50 / 50 100 mls/hr IV.SIG Q8H YUMIKO Rx#: [id number] Oral 480 / 480 240 / 240 Output: Urine 0 / 0 Hemodialysis Amount 3500 / 3500 Other: # Voids 0 Date of Last Bowel Movement 03/02/18 03/01/18 03/02/18 Exam: Left below-knee amputation site is clean dry intact Laboratory Results - last 24 hr 03/02/18 03/02/18 03/02/18 08:21 14:43 14:44 POC Glucose MTS Gel Crossmatch See Detail Blood Bank Comment 03/04/18 03/04/18 03/04/18 11:54 16:25 21:06 POC Glucose 200 H 185 H 171 H MTS Gel Crossmatch Blood Bank Comment 03/05/18 03/05/18 07:51 11:22 POC Glucose 112 H 100 MTS Gel Crossmatch Blood Bank Comment Microbiology 03/04/18 09:59 Aerobic Blood Culture - Preliminary Blood - Peripheral No growth in 1 day Anaerobic Blood Culture - Preliminary No growth in 1 day 03/04/18 10:05 Aerobic Blood Culture - Preliminary Blood - Peripheral No growth in 1 day Anaerobic Blood Culture - Preliminary No growth in 1 day Assessment and Plan - Assessment (1) PVD (peripheral vascular disease) Code(s): I73.9 - Peripheral vascular disease, unspecified Status: Chronic - Plan Status post left BKA postop day #2 1. Continue with activity with PT 2. Pain control 3. Fever workup, pending labs Dami Sainz MD [phone]
[2018-03-05] MEDS: Insulin NovoLOG Aspart Correctional Sugar Inj SQ SCH ×2 (12:20→21:59)
[2018-03-05] MEDS: Insulin Detemir Inj 1,000 UNIT/10 ML Vial SQ SCH (12:20)
[2018-03-05] MEDS: Metoprolol Tartrate 25 MG Tablet PO SCH ×2 (12:43→21:46)
[2018-03-05] MEDS: Lidocaine 5% Patch T-DERMAL SCH (12:43)
[2018-03-05] MEDS: amLODIPine 10 MG Tablet PO SCH (12:44)
[2018-03-05] MEDS: Gabapentin 300 MG Capsule PO SCH (12:44)
[2018-03-05] MEDS: Budesonide-Formoterol 160/4.5 MCG 6 GM Inhaler INH SCH ×2 (12:45→21:46)
[2018-03-05 13:50] LABS: Calcium 7.5 mg/dL (8.5-10.1); Carbon Dioxide 30.4 meq/L (21.0-32.0); Potassium 4.4 meq/L (3.5-5.1)
[2018-03-05 13:56] LABS: Baso % (Auto) 0.3 % (0.0-2.0); Eos # (Auto) 0.3 th/mm3 (0.0-0.4); Hematocrit 26.6 % (39.0-51.0); Hemoglobin 9.2 gm/dL (13.0-17.0); Lymph # (Auto) 0.4 th/mm3 (1.0-4.8); Lymph % (Auto) 3.7 % (9.0-44.0); Mean Corpuscular HGB Conc 34.5 % (32.0-36.0); Mean Corpuscular Hemoglobin 30.9 pg (27.0-34.0); Mean Corpuscular Volume 89.6 fL (80.0-100.0); Mean Platelet Volume 7.7 fL (7.0-11.0); Mono # (Auto) 0.9 th/mm3 (0.0-0.9); Mono % (Auto) 9.5 % (0.0-8.0); Neut # (Auto) 8.1 th/mm3 (1.8-7.7); Neut % (Auto) 83.5 % (16.0-70.0); Platelet Count 292 th/mm3 (150-450); Red Blood Count 2.97 mil/mm3 (4.50-5.90); Red Cell Distribution Width 16.6 % (11.6-17.2); White Blood Count 9.7 th/mm3 (4.0-11.0)
--- NOTE | 2018-03-05 16:37 | ECG ---
Date Performed: 03/04/2018 Time Performed: 08:28:38 PTAGE: 72 years EKG: Sinus rhythm . Left anterior fascicular block Borderline ECG PREVIOUS TRACING 03/01/18 2 08.24.17 Since the previous tracing, no significant change noted DOCTOR: All Sahu Interpretating Date/Time 03/05/2018 16:36:30
[2018-03-06] MEDS: Piperacil/Tazo 2.25 GM Premix 50 ML IV.SIG SCH ×2 (04:02→11:05)
[2018-03-06 05:03] LABS: Baso # (Auto) 0.1 th/mm3 (0.0-0.2); Baso % (Auto) 0.4 % (0.0-2.0); Eos # (Auto) 0.1 th/mm3 (0.0-0.4); Eos % (Auto) 1.1 % (0.0-4.0); Lymph # (Auto) 0.4 th/mm3 (1.0-4.8); Lymph % (Auto) 3.6 % (9.0-44.0); Mean Corpuscular HGB Conc 32.4 % (32.0-36.0); Mean Corpuscular Hemoglobin 29.5 pg (27.0-34.0); Mean Corpuscular Volume 91.3 fL (80.0-100.0); Mean Platelet Volume 7.7 fL (7.0-11.0); Mono % (Auto) 8.6 % (0.0-8.0); Neut # (Auto) 9.8 th/mm3 (1.8-7.7); Neut % (Auto) 86.3 % (16.0-70.0); Platelet Count 337 th/mm3 (150-450); Red Blood Count 2.23 mil/mm3 (4.50-5.90); Red Cell Distribution Width 16.8 % (11.6-17.2); White Blood Count 11.3 th/mm3 (4.0-11.0)
[2018-03-06 05:08] LABS: Hematocrit 20.4 % (39.0-51.0); Hemoglobin 6.6 gm/dL (13.0-17.0)
[2018-03-06 05:37] LABS: Calcium 7.2 mg/dL (8.5-10.1); Carbon Dioxide 27.4 meq/L (21.0-32.0); Potassium 4.9 meq/L (3.5-5.1)
[2018-03-06 05:56] LABS: Albumin 2.4 g/dL (3.4-5.0); Calcium-Albumin Corrected 8.5 mg/dL (8.5-10.1)
[2018-03-06] MEDS ORDERED: Sodium Chlor 0.9% Inj 250 ML IV.SIG SCH (06:00)
[2018-03-06 06:08] LABS: Platelet Estimate Normal (Normal); Platelet Morphology Normal (Normal)
--- NOTE | 2018-03-06 08:44 | P.PNIM ---
Subjective Interval history: Patient is more awake today. Able to have a conversation. He states Percocet makes him sleepy but helps with the pain. He is requesting to eat eggs. Physical Exam Vital signs: Last Vital Signs Temp 97.9 F 03/06/18 04:00 Pulse 76 03/06/18 06:00 Resp 18 03/06/18 04:00 BP 116/58 L 03/06/18 04:00 Pulse Ox 100 03/06/18 04:00 Intake & Output 03/04/18 03/05/18 03/06/18 03/07/18 06:59 06:59 06:59 06:59 Intake Total 730 / 730 870 / 870 930 / 930 Output Total 0 / 0 0 / 0 3500 / 3500 Balance 730 / 730 870 / 870 -2570 / -2570 Weight 126 kg 122.5 kg 121.5 kg Narrative: GENERAL: Elderly male in no acute distress. NECK: Supple, trachea midline. No JVD or lymphadenopathy. CARDIOVASCULAR: Regular rate and rhythm without murmurs, gallops, or rubs. RESPIRATORY: Breath sounds equal bilaterally. No accessory muscle use. GASTROINTESTINAL: Abdomen soft, non-tender, nondistended. EXTREMITIES: Status post left BKA NEUROLOGICAL: More awake today. Results Labs CBC & Chem 7: 03/06/18 03:54 03/06/18 03:54 Labs: Microbiology 03/04/18 09:59 Blood - Peripheral Aerobic Blood Culture - Preliminary No growth in 1 day 03/04/18 09:59 Blood - Peripheral Anaerobic Blood Culture - Preliminary No growth in 1 day 03/04/18 10:05 Blood - Peripheral Aerobic Blood Culture - Preliminary No growth in 1 day 03/04/18 10:05 Blood - Peripheral Anaerobic Blood Culture - Preliminary No growth in 1 day Procedures Procedures: Left-sided BKA on 02/19 Assessment and Plan (1) ESRD (end stage renal disease): Code(s): N18.6 - End stage renal disease Status: Acute (2) Type 2 diabetes mellitus: Code(s): E11.9 - Type 2 diabetes mellitus without complications Status: Acute (3) Essential (primary) hypertension: Code(s): I10 - Essential (primary) hypertension Status: Acute (4) Anemia associated with chronic renal failure: Code(s): D63.1 - Anemia in chronic kidney disease Status: Acute (5) Osteomyelitis: Code(s): M86.9 - Osteomyelitis, unspecified Status: Acute Plan 72 y/o black male transferred over from [facility] to [facility] on 02/22 for suspected infected nonhealing diabetic foot wound status post left great toe amputation (operated on 02/13 at [place]). Patient was originally admitted to [facility] on 02/17 due to generalized weakness and fevers. He was started on B.S. abxs, had CTA workup which demonstrated extensive PAD but no drainable abscess. Outside MRI report of of L foot is questionable for osteomyelitis. 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 Patient is now status post left BKA 03/02 due to poor healing wound 2/2 severe PAD, infectious disease helping co-manage antibiotics for osteomyelitis. Fever occurred again on 03/04 despite being on antibiotics. Osteomyelitis in left lower extremity -Status post BKA on 03/02, on Zosyn and vancomycin per infectious disease -New fever has occurred, blood cultures drawn, obtain chest x-ray -Continue Lipitor, already on Coumadin - He becomes lethargic with Percocet. Will change to [place]. Continue to monitor. Intermittent fevers -Chest x-ray with no acute infectious focus. New blood culture is pending. Encephalopathy: Secondary to Narcotics. Resolved. ESRD HTN, chronic -home medications amlodipine and metoprolol -Nephrology following, dialysis Diabetes, chronic -Accu checks with SSI -Diabetic/renal diet -long-acting insulin Diabetic neuropathy -Continue home gabapentin Generalized weakness PT recommending rehab Hx of DVT - has [place] filter, Lovenox while inpatient. 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
[2018-03-06] MEDS: Gabapentin 300 MG Capsule PO SCH (09:58)
[2018-03-06] MEDS: Metoprolol Tartrate 25 MG Tablet PO SCH ×2 (09:58→21:00)
[2018-03-06] MEDS: amLODIPine 10 MG Tablet PO SCH (09:58)
[2018-03-06] MEDS: Lidocaine 5% Patch T-DERMAL SCH (10:04)
[2018-03-06] MEDS: Budesonide-Formoterol 160/4.5 MCG 6 GM Inhaler INH SCH ×2 (10:05→22:26)
[2018-03-06] MEDS: Insulin Detemir Inj 1,000 UNIT/10 ML Vial SQ SCH (10:11)
[2018-03-06] MEDS: Insulin NovoLOG Aspart Correctional Sugar Inj SQ SCH ×3 (12:17→18:43)
--- NOTE | 2018-03-06 14:23 | P.PNVS ---
Subjective Post Op Day #: 4 Procedure: Left below-knee amputation Subjective/Hospital Course: Lethargic but arousable Denies pain Objective Vital Signs / I&O: Vital Signs 03/05/18 15:00 03/05/18 16:00 03/05/18 17:00 Temperature 98.4 F Pulse Rate 88 83 81 Respiratory Rate 16 Blood Pressure 152/65 H Pulse Oximetry 94 L 03/05/18 18:00 03/05/18 19:00 03/05/18 20:00 Temperature 98.1 F Pulse Rate 81 84 84 Respiratory Rate 18 Blood Pressure 148/66 H Pulse Oximetry 100 03/05/18 21:00 03/05/18 22:00 03/05/18 23:00 Temperature Pulse Rate 82 80 23 L Respiratory Rate Blood Pressure Pulse Oximetry 03/06/18 00:00 03/06/18 01:00 03/06/18 02:00 Temperature Pulse Rate 84 86 77 Respiratory Rate Blood Pressure Pulse Oximetry 03/06/18 03:00 03/06/18 04:00 03/06/18 05:00 Temperature 97.9 F Pulse Rate 76 80 76 Respiratory Rate 18 Blood Pressure 116/58 L Pulse Oximetry 100 03/06/18 06:00 03/06/18 07:00 03/06/18 08:00 Temperature 97.7 F Pulse Rate 76 76 84 Respiratory Rate 20 Blood Pressure 137/64 Pulse Oximetry 94 L 03/06/18 09:00 03/06/18 10:00 03/06/18 10:24 Temperature Pulse Rate 78 74 Respiratory Rate Blood Pressure Pulse Oximetry 94 L 03/06/18 11:00 03/06/18 11:08 03/06/18 11:23 Temperature 97.4 F L 97.9 F Pulse Rate 74 84 84 Respiratory Rate 20 20 Blood Pressure 141/63 H 129/63 Pulse Oximetry 94 L 03/06/18 11:25 03/06/18 12:00 03/06/18 13:00 Temperature 97.9 F Pulse Rate 76 68 76 Respiratory Rate 20 Blood Pressure 129/62 Pulse Oximetry 94 L 03/06/18 14:00 Temperature Pulse Rate 79 Respiratory Rate Blood Pressure Pulse Oximetry Intake & Output 03/05/18 03/06/18 03/06/18 18:59 06:59 18:59 Intake Total 780 / 780 200 / 200 50 / 50 Output Total 3500 / 3500 0 / 0 Balance -2720 / -2720 200 / 200 50 / 50 Weight 121.5 kg Intake: IV 300 / 300 100 / 100 50 / 50 Zosyn 2.25 GM Premix 50 ML @ 50 / 50 100 / 100 50 / 50 100 mls/hr IV.SIG Q8H YUMIKO Rx#: [id number] Vancomycin Inj 1,000 MG In NS 250 / 250 Inj 250 ML @ 250 mls/hr IV.SIG WITH DIALYSIS YUMIKO Rx#:[id number] Oral 480 / 480 100 / 100 Intake (Blood Product) Amt 0 / 0 Rbc As-3 Leukoreduced Unit 0 / 0 [id number] Output: Urine 0 / 0 0 / 0 Hemodialysis Amount 3500 / 3500 Other: Date of Last Bowel Movement 03/05/18 03/05/18 03/06/18 # Bowel Movements 1 Exam: Left BKA stump clean dry intact Edges of wound with areas of necrosis Laboratory Results - last 24 hr 03/05/18 03/05/18 03/06/18 16:21 21:53 03:54 WBC 11.3 H RBC 2.23 L Hgb 6.6 L* D Hct 20.4 L* MCV 91.3 MCH 29.5 MCHC 32.4 RDW 16.8 Plt Count 337 MPV 7.7 Prelim Diff (Auto) Slide review pending Neut % (Auto) 86.3 H Lymph % (Auto) 3.6 L [place] % (Auto) 8.6 H Eos % (Auto) 1.1 Baso % (Auto) 0.4 Neut # (Auto) 9.8 H Lymph # (Auto) 0.4 L [place] # (Auto) 1.0 H Eos # (Auto) 0.1 Baso # (Auto) 0.1 WBC Differential . Diff Scan Auto diff confirmed Differential Comment . Platelet Estimate Normal Platelet Morphology Normal Sodium Potassium Chloride Carbon Dioxide Anion Gap BUN Creatinine Estimated GFR POC Glucose 108 130 H Random Glucose Calcium Calcium Adj for Albumin Albumin Blood Type Antibody Screen MTS Gel Crossmatch 03/06/18 03/06/18 03/06/18 03:54 07:42 08:11 WBC RBC Hgb Hct MCV MCH MCHC RDW Plt Count MPV Prelim Diff (Auto) Neut % (Auto) Lymph % (Auto) [place] % (Auto) Eos % (Auto) Baso % (Auto) Neut # (Auto) Lymph # (Auto) [place] # (Auto) Eos # (Auto) Baso # (Auto) WBC Differential Diff Scan Differential Comment Platelet Estimate Platelet Morphology Sodium 136 Potassium 4.9 Chloride 95 L Carbon Dioxide 27.4 Anion Gap 14 BUN 45 H Creatinine 9.07 H Estimated GFR 6 L POC Glucose 135 H Random Glucose 116 H Calcium 7.2 L* Calcium Adj for Albumin 8.5 Albumin 2.4 L Blood Type A Positive Antibody Screen Negative MTS Gel Crossmatch See Detail 03/06/18 11:26 WBC RBC Hgb Hct MCV MCH MCHC RDW Plt Count MPV Prelim Diff (Auto) Neut % (Auto) Lymph % (Auto) [place] % (Auto) Eos % (Auto) Baso % (Auto) Neut # (Auto) Lymph # (Auto) [place] # (Auto) Eos # (Auto) Baso # (Auto) WBC Differential Diff Scan Differential Comment Platelet Estimate Platelet Morphology Sodium Potassium Chloride Carbon Dioxide Anion Gap BUN Creatinine Estimated GFR POC Glucose 305 H Random Glucose Calcium Calcium Adj for Albumin Albumin Blood Type Antibody Screen MTS Gel Crossmatch Microbiology 03/04/18 09:59 Aerobic Blood Culture - Preliminary Blood - Peripheral No growth in 2 days Anaerobic Blood Culture - Preliminary No growth in 2 days 03/04/18 10:05 Aerobic Blood Culture - Preliminary Blood - Peripheral No growth in 2 days Anaerobic Blood Culture - Preliminary No growth in 2 days Assessment and Plan - Assessment (1) PVD (peripheral vascular disease) Code(s): I73.9 - Peripheral vascular disease, unspecified Status: Chronic - Plan Status post left BKA postop day #4 1. Continue with activity with PT 2.transfuse PRBCs 3. Stable from vascular surgery standpoint will schedule FU appointment Dami Sainz MD [phone]
--- NOTE | 2018-03-06 16:57 | P.PNID ---
Subjective Remarks: Patient is a 72-year-old male, initially admitted at [facility] on February 17, transferred here at [place] for vascular surgical evaluation. Patient had undergone revascularization procedure, as well as amputation of his left big toe. On reviewing the pathology report, the margin of the toe was positive for osteomyelitis. According to the patient after he was discharged from the hospital he went home, and at home he fell. He lives by himself. He fell a second time and we could not get up, so he called the ambulance, and the patient was taken to [facility] and he was admitted there. There is mention that he had some fevers in the other hospital, and he had leukocytosis. MRI of the left foot did not show any evidence suggestive of osteomyelitis on the remaining toe on the left foot. He was transferred here for further vascular evaluation. Since admission he has had some fevers. His white count is normal. Patient denies any respiratory complaint. He stated that he has not been able to urinate. Normally he still could urinate, and patient stated he had a straight catheterization done at [facility] and they got a lot of urine. No diarrhea. No nausea or vomiting. No abdominal pain. He has been noted to have gangrenous changes at his amputation site on the left foot. Infectious disease consultation has been requested to assist with evaluation and treatment of this patient with ongoing fevers. Notes reviewed Had fever 03/04 UA mild pyuria UC mixed christophe BC negative CXR CM and vascular congestion Had LBKA Had HD yesterday Pain under control Antibiotics: Vanco Zosyn Past Medical History: Diabetes Hyperlipemia Hypertension Left popliteal artery occlusion PAD (peripheral artery disease) SOB (shortness of breath) on exertion Wound of left foot Allergies/Adverse Reactions: Allergies lactose Adverse Reaction (Verified 02/27/18 17:56) Diarrhea Objective Vital Signs 03/05/18 17:00 03/05/18 18:00 03/05/18 19:00 Temperature Pulse Rate 81 81 84 Respiratory Rate Blood Pressure Pulse Oximetry 03/05/18 20:00 03/05/18 21:00 03/05/18 22:00 Temperature 98.1 F Pulse Rate 84 82 80 Respiratory Rate 18 Blood Pressure 148/66 H Pulse Oximetry 100 03/05/18 23:00 03/06/18 00:00 03/06/18 01:00 Temperature Pulse Rate 23 L 84 86 Respiratory Rate Blood Pressure Pulse Oximetry 03/06/18 02:00 03/06/18 03:00 03/06/18 04:00 Temperature 97.9 F Pulse Rate 77 76 80 Respiratory Rate 18 Blood Pressure 116/58 L Pulse Oximetry 100 03/06/18 05:00 03/06/18 06:00 03/06/18 07:00 Temperature Pulse Rate 76 76 76 Respiratory Rate Blood Pressure Pulse Oximetry 03/06/18 08:00 03/06/18 09:00 03/06/18 10:00 Temperature 97.7 F Pulse Rate 84 78 74 Respiratory Rate 20 Blood Pressure 137/64 Pulse Oximetry 94 L 03/06/18 10:24 03/06/18 11:00 03/06/18 11:08 Temperature 97.4 F L Pulse Rate 74 84 Respiratory Rate 20 Blood Pressure 141/63 H Pulse Oximetry 94 L 03/06/18 11:23 03/06/18 11:25 03/06/18 12:00 Temperature 97.9 F 97.9 F Pulse Rate 84 76 68 Respiratory Rate 20 20 Blood Pressure 129/63 129/62 Pulse Oximetry 94 L 94 L 03/06/18 13:00 03/06/18 14:00 03/06/18 14:32 Temperature 98.9 F Pulse Rate 76 79 82 Respiratory Rate 20 Blood Pressure 100/46 L Pulse Oximetry 93 L 03/06/18 15:00 03/06/18 15:14 03/06/18 16:00 Temperature 98.9 F Pulse Rate 70 82 74 Respiratory Rate 20 Blood Pressure 100/46 L Pulse Oximetry 93 L Intake & Output 03/05/18 03/06/18 03/06/18 18:59 06:59 18:59 Intake Total 780 / 780 200 / 200 50 / 50 Output Total 3500 / 3500 0 / 0 Balance -2720 / -2720 200 / 200 50 / 50 Weight 121.5 kg Intake: IV 300 / 300 100 / 100 50 / 50 Zosyn 2.25 GM Premix 50 ML @ 50 / 50 100 / 100 50 / 50 100 mls/hr IV.SIG Q8H YUMIKO Rx#: [id number] Vancomycin Inj 1,000 MG In NS 250 / 250 Inj 250 ML @ 250 mls/hr IV.SIG WITH DIALYSIS YUMIKO Rx#:[id number] Oral 480 / 480 100 / 100 Intake (Blood Product) Amt 0 / 0 Rbc As-3 Leukoreduced Unit 0 / 0 [id number] Output: Urine 0 / 0 0 / 0 Hemodialysis Amount 3500 / 3500 Other: Date of Last Bowel Movement 03/05/18 03/05/18 03/06/18 # Bowel Movements 1 03/04/18 09:59 Blood - Peripheral Aerobic Blood Culture - Preliminary No growth in 2 days 03/04/18 09:59 Blood - Peripheral Anaerobic Blood Culture - Preliminary No growth in 2 days 03/04/18 10:05 Blood - Peripheral Aerobic Blood Culture - Preliminary No growth in 2 days 03/04/18 10:05 Blood - Peripheral Anaerobic Blood Culture - Preliminary No growth in 2 days Lab - Hematology Results 03/05/18 03/06/18 13:00 03:54 WBC 9.7 11.3 H RBC 2.97 L 2.23 L Hgb 9.2 L 6.6 L* D Hct 26.6 L 20.4 L* MCV 89.6 91.3 MCH 30.9 29.5 MCHC 34.5 32.4 RDW 16.6 16.8 Plt Count 292 337 MPV 7.7 7.7 Prelim Diff (Auto) Slide review pending Neut % (Auto) 83.5 H 86.3 H Lymph % (Auto) 3.7 L 3.6 L [place] % (Auto) 9.5 H 8.6 H Eos % (Auto) 3.0 1.1 Baso % (Auto) 0.3 0.4 Neut # (Auto) 8.1 H 9.8 H Lymph # (Auto) 0.4 L 0.4 L [place] # (Auto) 0.9 1.0 H Eos # (Auto) 0.3 0.1 Baso # (Auto) 0.0 0.1 WBC Differential . . Diff Scan Auto diff confirmed Differential Comment Auto diff final . Platelet Estimate Normal Platelet Morphology Normal Hematology Comments Lab - Chemistry Results 03/04/18 03/05/18 03/05/18 21:06 07:51 11:22 Sodium Potassium Chloride Carbon Dioxide Anion Gap BUN Creatinine Estimated GFR POC Glucose 171 H 112 H 100 Random Glucose Calcium Calcium Adj for Albumin Ammonia Albumin 03/05/18 03/05/18 03/05/18 13:00 13:00 16:21 Sodium 137 Potassium 4.4 D Chloride 96 L Carbon Dioxide 30.4 Anion Gap 11 BUN 38 H Creatinine 7.34 H Estimated GFR 7 L POC Glucose 108 Random Glucose 103 Calcium 7.5 L Calcium Adj for Albumin Ammonia Less than 10 L Albumin 03/05/18 03/06/18 03/06/18 21:53 03:54 08:11 Sodium 136 Potassium 4.9 Chloride 95 L Carbon Dioxide 27.4 Anion Gap 14 BUN 45 H Creatinine 9.07 H Estimated GFR 6 L POC Glucose 130 H 135 H Random Glucose 116 H Calcium 7.2 L* Calcium Adj for Albumin 8.5 Ammonia Albumin 2.4 L 03/06/18 11:26 Sodium Potassium Chloride Carbon Dioxide Anion Gap BUN Creatinine Estimated GFR POC Glucose 305 H Random Glucose Calcium Calcium Adj for Albumin Ammonia Albumin Imaging: ITS Impressions Foot X-Ray 02/23/18 00:00 CONCLUSION: Tissue breakdown overlying the residual proximal phalanx of the great toe with underlying bone irregularity. Deformity of the forefoot following amputations as described above. Significant midfoot arthropathy. WBC Scan Nuclear Medicine 02/25/18 00:00 CONCLUSION: 1. Erosive destructive bone changes with abnormal radiotracer accumulation involving the residual proximal phalanx of the great toe following amputation and the underlying sesamoid bones. 2. Deformity of the distal first metatarsal without significant tracer accumulation. 3. Inflammation with small air bubbles surrounding the sesamoid bones. 4. Osteomyelitis of the residual first proximal phalanx and sesamoid bones is suspected. Chest X-Ray 03/04/18 00:00 CONCLUSION: 1. Cardiomegaly. 2. Minimal central pulmonary vascular congestion. Physical Exam: GENERAL: awakens easily, NAD. SKIN: Cool and dry. No generalized rash. EYES: [place] conjunctiva. No petechia or hemorrhage. No scleral icterus. No injection or drainage. EARS, NOSE AND THROAT: Mucous membranes pink and moist. No oral lesions noted. NECK: Trachea midline. Supple and not tender, no meningeal signs CARDIOVASCULAR: Regular rate and rhythm. No murmurs, rubs or gallops heard RESPIRATORY: Clear to auscultation. Breath sounds equal bilaterally. No rales , wheezing or rhonchi ABDOMEN: Soft, globular, non-tender, nondistended. He has ventral hernia . Bowel sounds present and normoactive. No guarding. No rebound. No organomegaly. EXTREMITIES: No clubbing, cyanosis, or edema. LBKA - intact incision, stump looks ischemic at the flap NEUROLOGICAL: Grossly non-focal. PSYCHIATRIC: calm and cooperative. LINE: No evidence of infection Assessment and Plan - Plan Impression Possible sepsis, with ongoing fevers, source? - ?L foot, has ongoing ischemia - has osteo in the margin on pathology - unable to urinate, R/O UTI - has permacath Osteo remaining big toe left and sesamoid - ischemic changes on his L foot - S/P LBKA ESRD on HD PVD Recommendation Stop Zosyn Continue Vancomycin for now - given with HD Levaquin po Monitor progress Follow temps
[2018-03-06 17:34] LABS: Hematocrit 22.4 % (39.0-51.0); Hemoglobin 7.3 gm/dL (13.0-17.0)
[2018-03-06] MEDS: levoFLOXacin 250 MG Tablet PO SCH (18:41)
--- NOTE | 2018-03-06 22:08 | P.PNNP ---
Subjective Interval history: Patient seen, alert, sitting on the chair, not in distress. Physical Exam Vital signs: Vital Signs 03/05/18 23:00 03/06/18 00:00 03/06/18 01:00 Temperature Pulse Rate 23 L 84 86 Respiratory Rate Blood Pressure Pulse Oximetry 03/06/18 02:00 03/06/18 03:00 03/06/18 04:00 Temperature 97.9 F Pulse Rate 77 76 80 Respiratory Rate 18 Blood Pressure 116/58 L Pulse Oximetry 100 03/06/18 05:00 03/06/18 06:00 03/06/18 07:00 Temperature Pulse Rate 76 76 76 Respiratory Rate Blood Pressure Pulse Oximetry 03/06/18 08:00 03/06/18 09:00 03/06/18 10:00 Temperature 97.7 F Pulse Rate 84 78 74 Respiratory Rate 20 Blood Pressure 137/64 Pulse Oximetry 94 L 03/06/18 10:24 03/06/18 11:00 03/06/18 11:08 Temperature 97.4 F L Pulse Rate 74 84 Respiratory Rate 20 Blood Pressure 141/63 H Pulse Oximetry 94 L 03/06/18 11:23 03/06/18 11:25 03/06/18 12:00 Temperature 97.9 F 97.9 F Pulse Rate 84 76 68 Respiratory Rate 20 20 Blood Pressure 129/63 129/62 Pulse Oximetry 94 L 94 L 03/06/18 13:00 03/06/18 14:00 03/06/18 14:32 Temperature 98.9 F Pulse Rate 76 79 82 Respiratory Rate 20 Blood Pressure 100/46 L Pulse Oximetry 93 L 03/06/18 15:00 03/06/18 15:14 03/06/18 16:00 Temperature 98.9 F Pulse Rate 70 82 74 Respiratory Rate 20 Blood Pressure 100/46 L Pulse Oximetry 93 L 03/06/18 17:00 03/06/18 18:00 Temperature Pulse Rate 77 81 Respiratory Rate Blood Pressure Pulse Oximetry Intake & Output 03/06/18 03/06/18 03/07/18 06:59 18:59 06:59 Intake Total 200 / 200 1010 / 1010 Output Total 0 / 0 0 / 0 Balance 200 / 200 1010 / 1010 Weight 121.5 kg Intake: IV 100 / 100 50 / 50 Zosyn 2.25 GM Premix 50 ML @ 100 / 100 50 / 50 100 mls/hr IV.SIG Q8H YUM[facility]KO Rx#: [id number] Oral 100 / 100 960 / 960 Intake (Blood Product) Amt 0 / 0 Rbc As-3 Leukoreduced Unit 0 / 0 [id number] Output: Urine 0 / 0 0 / 0 Other: Date of Last Bowel Movement 03/05/18 03/06/18 # Bowel Movements 5 Narrative: GENERAL: Elderly male in no acute distress. NECK: Supple, trachea midline. No JVD or lymphadenopathy. CARDIOVASCULAR: Regular rate and rhythm without murmurs, gallops, or rubs. RESPIRATORY: Breath sounds equal bilaterally. No accessory muscle use. GASTROINTESTINAL: Abdomen soft, non-tender, nondistended. EXTREMITIES: Status post left BKA NEUROLOGICAL: More awake today. Assessment and Plan - Assessment (1) ESRD (end stage renal disease) Code(s): N18.6 - End stage renal disease Status: Acute Plan: Patient with end stage renal disease, on HD. HD on ., and Sun. Now has Left BKA. Follow the Hgb and electrolytes. Received blood transfusions HD done yesterday and getting Vanco. with HD. Next hemodialysis will be in AM. Continue supportive care (2) Type 2 diabetes mellitus Code(s): E11.9 - Type 2 diabetes mellitus without complications Status: Acute Plan: Well controlled. On insuling. Recommend to Maintain blood sugars between 140 mg/dl to 180 mg/dl while hospitalized. (3) Essential (primary) hypertension Code(s): I10 - Essential (primary) hypertension Status: Acute Plan: On amlodipine and metoprolol, will monitor (4) PVD (peripheral vascular disease) Code(s): I73.9 - Peripheral vascular disease, unspecified Status: Chronic Plan: Patient is seen by vascular surgery and continue to monitor wound on the left foot, possible left BKA (5) Osteomyelitis Code(s): M86.9 - Osteomyelitis, unspecified Status: Acute Plan: On antibiotics to gram-negative with Zosyn and vancomycin per ID. - Plan Hemodialysis arranged on Sunday, and Sunday continue supportive care, patient is seen by vascular surgery and continue to monitor wound on the left foot, possible left BKA plan for tomorrow INR 1.8 FFP given Hemodialysis continue TTS schedule continue with vancomycin also is covered for gram-negative with Zosyn, Vanco level 15.6 02/28/18 Continue supportive care
[2018-03-07] MEDS: Insulin NovoLOG Aspart Correctional Sugar Inj SQ SCH ×6 (05:19→20:56)
--- NOTE | 2018-03-07 08:56 | P.PNIM ---
Subjective Interval history: Patient reports he is feeling okay today. No shortness of breath, lightheadedness or heart palpitations. Hemoglobin stable at 7.3 this morning. Physical Exam Vital signs: Last Vital Signs Temp 98.9 F 03/07/18 04:00 Pulse 72 03/07/18 07:00 Resp 16 03/07/18 04:00 BP 122/57 L 03/07/18 04:00 Pulse Ox 100 03/07/18 04:00 Intake & Output 03/05/18 03/06/18 03/07/18 03/08/18 06:59 06:59 06:59 06:59 Intake Total 870 / 870 980 / 980 1010 / 1010 Output Total 0 / 0 3500 / 3500 0 / 0 Balance 870 / 870 -2520 / -2520 1010 / 1010 Weight 122.5 kg 121.5 kg 121.5 kg Narrative: GENERAL: Elderly male in no acute distress. NECK: Supple, trachea midline. No JVD or lymphadenopathy. CARDIOVASCULAR: Regular rate and rhythm without murmurs, gallops, or rubs. RESPIRATORY: Breath sounds equal bilaterally. No accessory muscle use. GASTROINTESTINAL: Abdomen soft, non-tender, nondistended. EXTREMITIES: Status post left BKA NEUROLOGICAL: Awake, alert, and oriented x4 Results Labs CBC & Chem 7: 03/06/18 17:22 03/06/18 03:54 Labs: Microbiology 03/04/18 09:59 Blood - Peripheral Aerobic Blood Culture - Preliminary No growth in 2 days 03/04/18 09:59 Blood - Peripheral Anaerobic Blood Culture - Preliminary No growth in 2 days 03/04/18 10:05 Blood - Peripheral Aerobic Blood Culture - Preliminary No growth in 2 days 03/04/18 10:05 Blood - Peripheral Anaerobic Blood Culture - Preliminary No growth in 2 days Procedures Procedures: Left-sided BKA on 02/19 Assessment and Plan (1) ESRD (end stage renal disease): Code(s): N18.6 - End stage renal disease Status: Acute (2) Type 2 diabetes mellitus: Code(s): E11.9 - Type 2 diabetes mellitus without complications Status: Acute (3) Essential (primary) hypertension: Code(s): I10 - Essential (primary) hypertension Status: Acute (4) Anemia associated with chronic renal failure: Code(s): D63.1 - Anemia in chronic kidney disease Status: Acute (5) Osteomyelitis: Code(s): M86.9 - Osteomyelitis, unspecified Status: Acute Plan 72 y/o black male transferred over from [facility] to [facility] on 02/22 for suspected infected nonhealing diabetic foot wound status post left great toe amputation (operated on 02/13 at [facility]). Patient was originally admitted to [facility] on 02/17 due to generalized weakness and fevers. He was started on B.S. abxs, had CTA workup which demonstrated extensive PAD but no drainable abscess. Outside MRI report of of L foot is questionable for osteomyelitis. 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 Patient is now status post left BKA 03/02 due to poor healing wound 2/2 severe PAD, infectious disease helping co-manage antibiotics for osteomyelitis. Fever occurred again on 03/04 despite being on antibiotics. Osteomyelitis in left lower extremity -Status post BKA on 03/02, on Zosyn and vancomycin per infectious disease -New fever on 03/04, repeat blood cultures so far negative. No other obvious source of infection. Fever resolved. -Continue Lipitor, already on Coumadin - He becomes lethargic with Percocet. He is doing better with [place] for pain control. Continue to monitor. Intermittent fevers -Chest x-ray with no acute infectious focus. Blood cultures so far negative. Fever seems to have resolved. Encephalopathy: Secondary to Narcotics. Resolved. ESRD HTN, chronic -home medications amlodipine and metoprolol -Nephrology following, dialysis Diabetes, chronic -Accu checks with SSI -Diabetic/renal diet -long-acting insulin Diabetic neuropathy -Continue home gabapentin Generalized weakness PT recommending rehab Hx of DVT - has [place] filter, Lovenox while inpatient. DC planning: Monitor temp per ID. Continue antibiotics. Plan to DC when cleared by ID. Progress Note: Quality VTE Deep Vein Thrombosis/Pulmonary Embolism Present on Admission: Yes _ (1) Type 2 diabetes mellitus Qualifiers: Chronic kidney disease stage: Diabetes mellitus complication detail: Diabetes mellitus complication status: Diabetes mellitus mcc insulin use : Diabetes mellitus macular edema: Diabetic retinopathy severity: Laterality: Proliferative retinopathy type: (2) Osteomyelitis Qualifiers: Laterality: Osteomyelitis location: Osteomyelitis type:
[2018-03-07] MEDS: Albumin Human 25% Inj 100 ML IV.SIG PRN ×2 (10:00→10:48)
[2018-03-07] MEDS: Epoetin Alfa Inj 4,000 UNIT/ML Vial IV.PUSH PRN (10:45)
[2018-03-07] MEDS: Heparin 10,000 UNITS/10 ML Vial (for IV use) OTHER PRN (10:46)
--- NOTE | 2018-03-07 11:29 | P.PNNP ---
Subjective Interval history: Seen during hemodialysis tolerating well. Denies any shortness of breath, chest pain, nausea, or vomiting. <Ayah Natarajan - Last Filed: 03/07/18 11:24> Physical Exam Vital signs: Vital Signs 03/06/18 11:25 03/06/18 12:00 03/06/18 13:00 Temperature 97.9 F Pulse Rate 76 68 76 Respiratory Rate 20 Blood Pressure 129/62 Pulse Oximetry 94 L 03/06/18 14:00 03/06/18 14:32 03/06/18 15:00 Temperature 98.9 F Pulse Rate 79 82 70 Respiratory Rate 20 Blood Pressure 100/46 L Pulse Oximetry 93 L 03/06/18 15:14 03/06/18 16:00 03/06/18 17:00 Temperature 98.9 F Pulse Rate 82 74 77 Respiratory Rate 20 Blood Pressure 100/46 L Pulse Oximetry 93 L 03/06/18 18:00 03/06/18 19:00 03/06/18 20:00 Temperature 98.5 F Pulse Rate 81 75 78 Respiratory Rate 20 Blood Pressure 116/57 L Pulse Oximetry 94 L 03/06/18 21:00 03/06/18 22:00 03/06/18 23:00 Temperature Pulse Rate 72 72 75 Respiratory Rate Blood Pressure Pulse Oximetry 03/07/18 00:00 03/07/18 01:00 03/07/18 02:00 Temperature 97.5 F L Pulse Rate 68 68 66 Respiratory Rate 16 Blood Pressure 122/58 L Pulse Oximetry 100 03/07/18 03:00 03/07/18 04:00 03/07/18 05:00 Temperature 98.9 F Pulse Rate 75 70 72 Respiratory Rate 16 Blood Pressure 122/57 L Pulse Oximetry 100 03/07/18 06:00 03/07/18 07:00 03/07/18 07:30 Temperature 99.5 F Pulse Rate 69 72 70 Respiratory Rate 18 Blood Pressure 110/56 L Pulse Oximetry 98 03/07/18 08:00 Temperature Pulse Rate Respiratory Rate Blood Pressure Pulse Oximetry 96 Intake & Output 03/06/18 03/07/18 03/07/18 18:59 06:59 18:59 Intake Total 1010 / 1010 100 / 100 Output Total 0 / 0 0 / 0 Balance 1010 / 1010 0 / 0 100 / 100 Weight 121.5 kg Intake: IV 50 / 50 100 / 100 Flexbumin 25% Inj 100 ML @ 60 100 / 100 mls/hr IV.SIG WITH DIALYSIS PRN Rx#:[id number] Zosyn 2.25 GM Premix 50 ML @ 50 / 50 100 mls/hr IV.SIG Q8H [facility]KO Rx#: [id number] NS Inj 250 ML @ 15 mls/hr IV. 0 / 0 SIG ONCE YUMIKO Rx#:[id number] Oral 960 / 960 Intake (Blood Product) Amt 0 / 0 Rbc As-3 Leukoreduced Unit 0 / 0 [id number] Output: Urine 0 / 0 0 / 0 Other: # Voids 0 Date of Last Bowel Movement 03/06/18 03/06/18 # Bowel Movements 5 # Incontinent Bowel Movements 4 Narrative: GENERAL: Elderly male in no acute distress. NECK: Supple, trachea midline. No JVD. CARDIOVASCULAR: Regular rate and rhythm without murmurs, gallops, or rubs. left IJ HD catheter RESPIRATORY: Breath sounds equal bilaterally. No accessory muscle use. GASTROINTESTINAL: Abdomen soft, non-tender, nondistended. EXTREMITIES: Status post left BKA NEUROLOGICAL: Awake, alert, and oriented x3 <Ayah Natarajan - Last Filed: 03/07/18 11:24> Vital signs: Vital Signs 03/06/18 22:00 03/06/18 23:00 03/07/18 00:00 Temperature 97.5 F L Pulse Rate 72 75 68 Respiratory Rate 16 Blood Pressure 122/58 L Pulse Oximetry 100 03/07/18 01:00 03/07/18 02:00 03/07/18 03:00 Temperature Pulse Rate 68 66 75 Respiratory Rate Blood Pressure Pulse Oximetry 03/07/18 04:00 03/07/18 05:00 03/07/18 06:00 Temperature 98.9 F Pulse Rate 70 72 69 Respiratory Rate 16 Blood Pressure 122/57 L Pulse Oximetry 100 03/07/18 07:00 03/07/18 07:30 03/07/18 08:00 Temperature 99.5 F Pulse Rate 72 70 78 Respiratory Rate 18 Blood Pressure 110/56 L Pulse Oximetry 98 96 03/07/18 09:00 03/07/18 10:00 03/07/18 10:50 Temperature Pulse Rate 68 68 76 Respiratory Rate Blood Pressure Pulse Oximetry 03/07/18 13:00 03/07/18 13:54 03/07/18 14:21 Temperature Pulse Rate 80 81 89 Respiratory Rate Blood Pressure Pulse Oximetry 03/07/18 15:22 03/07/18 15:38 03/07/18 17:00 Temperature 99.3 F Pulse Rate 81 79 81 Respiratory Rate 17 Blood Pressure 128/60 Pulse Oximetry 96 03/07/18 18:00 03/07/18 20:00 Temperature 98.6 F Pulse Rate 76 75 Respiratory Rate 18 Blood Pressure 145/63 H Pulse Oximetry 100 Intake & Output 03/07/18 03/07/18 03/08/18 06:59 18:59 06:59 Intake Total 100 / 100 Output Total 0 / 0 2700 / 2700 Balance 0 / 0 -2600 / -2600 Weight 121.5 kg Intake: IV 100 / 100 Flexbumin 25% Inj 100 ML @ 60 100 / 100 mls/hr IV.SIG WITH DIALYSIS PRN Rx#:[id number] NS Inj 250 ML @ 15 mls/hr IV. 0 / 0 SIG ONCE YUMIKO Rx#:[id number] Output: Urine 0 / 0 Hemodialysis Amount 2700 / 2700 Other: # Voids 0 Date of Last Bowel Movement 03/06/18 03/07/18 03/07/18 # Incontinent Bowel Movements 4 4 <Deisy Arita Q - Last Filed: 03/07/18 21:35> Assessment and Plan - Assessment (1) ESRD (end stage renal disease) Code(s): N18.6 - End stage renal disease Status: Acute Plan: End stage renal disease on HD on ., and Sat. Follow the Hgb and electrolytes. Will increase epogen with dialysis has received blood transfusions Continue vancomycin with dialysis Seen during hemodialysis with plan to remove 2.5 liters of fluid. (2) Type 2 diabetes mellitus Code(s): E11.9 - Type 2 diabetes mellitus without complications Status: Acute Plan: Well controlled. On insulin. Recommend to Maintain blood sugars between 140 mg /dl to 180 mg/dl while hospitalized. (3) Essential (primary) hypertension Code(s): I10 - Essential (primary) hypertension Status: Acute Plan: On amlodipine and metoprolol, will monitor (4) PVD (peripheral vascular disease) Code(s): I73.9 - Peripheral vascular disease, unspecified Status: Chronic Plan: left BKA, dressing on (5) Osteomyelitis Code(s): M86.9 - Osteomyelitis, unspecified Status: Acute Plan: On vancomycin with dialysis. <Ayah Natarajan - Last Filed: 03/07/18 11:24> - Assessment (1) ESRD (end stage renal disease) Code(s): N18.6 - End stage renal disease Status: Acute Plan: Patient seen during HD, and examined, agree with above. Hgb. low, transfused and Epogen increased. (2) Type 2 diabetes mellitus Code(s): E11.9 - Type 2 diabetes mellitus without complications Status: Acute (3) Essential (primary) hypertension Code(s): I10 - Essential (primary) hypertension Status: Acute (4) PVD (peripheral vascular disease) Code(s): I73.9 - Peripheral vascular disease, unspecified Status: Chronic (5) Osteomyelitis Code(s): M86.9 - Osteomyelitis, unspecified Status: Acute <Eliana Arita - Last Filed: 03/07/18 21:35>
[2018-03-07] MEDS: Lidocaine 5% Patch T-DERMAL SCH (13:36)
[2018-03-07] MEDS: Insulin Detemir Inj 1,000 UNIT/10 ML Vial SQ SCH (13:37)
[2018-03-07] MEDS: Gabapentin 300 MG Capsule PO SCH (13:38)
[2018-03-07] MEDS: amLODIPine 10 MG Tablet PO SCH (13:39)
[2018-03-07] MEDS: Metoprolol Tartrate 25 MG Tablet PO SCH ×2 (13:41→20:56)
[2018-03-07] MEDS: Budesonide-Formoterol 160/4.5 MCG 6 GM Inhaler INH SCH ×2 (13:42→20:58)
[2018-03-08 05:19] LABS: Hematocrit 21.8 % (39.0-51.0); Hemoglobin 7.3 gm/dL (13.0-17.0); Mean Corpuscular HGB Conc 33.7 % (32.0-36.0); Mean Corpuscular Volume 89.1 fL (80.0-100.0); Platelet Count 283 th/mm3 (150-450); Red Blood Count 2.45 mil/mm3 (4.50-5.90); Red Cell Distribution Width 16.4 % (11.6-17.2); White Blood Count 9.1 th/mm3 (4.0-11.0)
[2018-03-08 05:51] LABS: Calcium 7.6 mg/dL (8.5-10.1); Carbon Dioxide 29.7 meq/L (21.0-32.0)
[2018-03-08] MEDS: Insulin NovoLOG Aspart Correctional Sugar Inj SQ SCH ×4 (08:16→21:17)
[2018-03-08] MEDS: Insulin Detemir Inj 1,000 UNIT/10 ML Vial SQ SCH (08:17)
[2018-03-08] MEDS: Metoprolol Tartrate 25 MG Tablet PO SCH ×2 (08:18→21:10)
[2018-03-08] MEDS: Lidocaine 5% Patch T-DERMAL SCH (08:18)
[2018-03-08] MEDS: Gabapentin 300 MG Capsule PO SCH (08:19)
[2018-03-08] MEDS: amLODIPine 10 MG Tablet PO SCH (08:19)
[2018-03-08] MEDS: Budesonide-Formoterol 160/4.5 MCG 6 GM Inhaler INH SCH ×2 (08:19→21:10)
--- NOTE | 2018-03-08 08:49 | P.PNIM ---
Subjective Interval history: No new issues. Will need SNF placement. Physical Exam Vital signs: Last Vital Signs Temp 98.7 F 03/08/18 08:00 Pulse 70 03/08/18 08:00 Resp 16 03/08/18 08:00 BP 137/63 03/08/18 08:00 Pulse Ox 98 03/08/18 08:00 Intake & Output 03/06/18 03/07/18 03/08/18 03/09/18 06:59 06:59 06:59 06:59 Intake Total 980 / 980 1010 / 1010 580 / 580 Output Total 3500 / 3500 0 / 0 2700 / 2700 Balance -2520 / -2520 1010 / 1010 -2120 / -2120 Weight 121.5 kg 121.5 kg 122 kg Narrative: GENERAL: Elderly male in no acute distress. NECK: Supple, trachea midline. No JVD. CARDIOVASCULAR: Regular rate and rhythm without murmurs, gallops, or rubs. left IJ HD catheter RESPIRATORY: Breath sounds equal bilaterally. No accessory muscle use. GASTROINTESTINAL: Abdomen soft, non-tender, nondistended. EXTREMITIES: Status post left BKA NEUROLOGICAL: Awake, alert, and oriented x3 Results Labs CBC & Chem 7: 03/08/18 03:44 03/08/18 03:44 Labs: Microbiology 03/04/18 09:59 Blood - Peripheral Aerobic Blood Culture - Preliminary No growth in 3 days 03/04/18 09:59 Blood - Peripheral Anaerobic Blood Culture - Preliminary No growth in 3 days 03/04/18 10:05 Blood - Peripheral Aerobic Blood Culture - Preliminary No growth in 3 days 03/04/18 10:05 Blood - Peripheral Anaerobic Blood Culture - Preliminary No growth in 3 days Procedures Procedures: Left-sided BKA on 02/19 Assessment and Plan (1) ESRD (end stage renal disease): Code(s): N18.6 - End stage renal disease Status: Acute (2) Type 2 diabetes mellitus: Code(s): E11.9 - Type 2 diabetes mellitus without complications Status: Acute (3) Essential (primary) hypertension: Code(s): I10 - Essential (primary) hypertension Status: Acute (4) Anemia associated with chronic renal failure: Code(s): D63.1 - Anemia in chronic kidney disease Status: Acute (5) Osteomyelitis: Code(s): M86.9 - Osteomyelitis, unspecified Status: Acute Plan 72 y/o black male transferred over from [facility] to [facility] on 02/22 for suspected infected nonhealing diabetic foot wound status post left great toe amputation (operated on 02/13 at [place]). Patient was originally admitted to [facility] on 02/17 due to generalized weakness and fevers. He was started on B.S. abxs, had CTA workup which demonstrated extensive PAD but no drainable abscess. Outside MRI report of of L foot is questionable for osteomyelitis. 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 Patient is now status post left BKA 03/02 due to poor healing wound 2/2 severe PAD, infectious disease helping co-manage antibiotics for osteomyelitis. Fever occurred again on 03/04 despite being on antibiotics. Osteomyelitis in left lower extremity -Status post BKA on 03/02, on Zosyn and vancomycin per infectious disease -New fever on 03/04, repeat blood cultures so far negative. No other obvious source of infection. Fever resolved. -Continue Lipitor, already on Coumadin - He becomes lethargic with Percocet. He is doing better with [place] for pain control. Continue to monitor. Intermittent fevers -Chest x-ray with no acute infectious focus. Blood cultures so far negative. Fever seems to have resolved. Encephalopathy: Secondary to Narcotics. Resolved. ESRD HTN, chronic -home medications amlodipine and metoprolol -Nephrology following, dialysis Diabetes, chronic -Accu checks with SSI -Diabetic/renal diet -long-acting insulin Diabetic neuropathy -Continue home gabapentin Generalized weakness PT recommending rehab Hx of DVT - has Prince filter, Lovenox while inpatient. DC planning: Monitor temp per ID. Continue antibiotics. Plan to DC when cleared by ID. CM to eval for [facility] vs SNF. Progress Note: Quality VTE Deep Vein Thrombosis/Pulmonary Embolism Present on Admission: Yes _ (1) Type 2 diabetes mellitus Qualifiers: Chronic kidney disease stage: Diabetes mellitus complication detail: Diabetes mellitus complication status: Diabetes mellitus shelter insulin use : Diabetes mellitus macular edema: Diabetic retinopathy severity: Laterality: Proliferative retinopathy type: (2) Osteomyelitis Qualifiers: Laterality: Osteomyelitis location: Osteomyelitis type:
--- NOTE | 2018-03-08 09:55 | P.DS ---
DS: Providers Date of admission: 02/24/18 14:50 Primary care physician: UNKNOWN Consults: 02/22/18 23:05 Consult to Vascular Surgery Routine Consulting Provider: Bayron Coffman Patient known to:: Bayron Coffman Reason for Consultation: patient known to you, non healing wound to left foot , s/p left great toe amputation Spoke with:: adding to dr coffman's list - call in AM Date Notified:: 02/22/18 Time Notified:: 23:09 Comments:: Spoke to Dr Coffman @ [phone] [facility] - Ordering Provider: MAY 02/22/18 23:44 Consult to Nephrology Routine Consulting Provider: Shin Castrejon Does the patient have a Pattern Stamper who follows them?: Yes Preferred Nephrology Sales Enablement Specialist:: Harvey Anaya Reason for Consultation: ESRD on HD Notified:: Service Spoke with:: donato Date Notified:: 02/23/18 Time Notified:: 01:40 Comments:: call svc aware pt known to kanwal anaya revenue cycle consultant for group Ordering Provider: MAY 02/24/18 20:33 Consult to Infectious Diseases Routine Consulting Provider: Krystal Raymond Reason for Consultation: borderline fevers in DFU pt w/ poor healing wound, nonspecific findings on outside MRI report Notified:: Service Spoke with:: Soledad Date Notified:: 02/24/18 Time Notified:: 20:41 Ordering Provider: ZHAO Brief History from admission: HPI as documented by the admitting physician: 72 y/o male with a history of hypertension, HLD, diabetes, dvt on anticoagulation, neuropathy and ESRD on hemodialysis was [place] [facility] [place] be evaluated by vascular surgery. He is 1 week status post left great toe amputation by Dr. Earl. He states once he got home last Sunday he had tripped and fallen, EMS came and picked him up and put him on the couch and when he tried to get off the couch he fell again [facility]. He states he has been at ever since and has only been laying around in bed. He denies any chest pain, shortness of breath, fever or chills. Dressing noted to the left amputation site it was covered with Vaseline gauze and Bart and patient states they have been changing it daily and treating him with antibiotics. According to the RN he received vancomycin prior to coming to [place]. Not much documentation was sent from prior hospital. Patient update on day of discharge: Patient reports he is feeling okay today. Pain is controlled. Afebrile. DS: Diagnosis Discharge Diagnosis (1) ESRD (end stage renal disease): Status: Acute (2) Type 2 diabetes mellitus: Status: Acute (3) Essential (primary) hypertension: Status: Acute (4) Anemia associated with chronic renal failure: Status: Acute (5) Osteomyelitis: Status: Acute DS: Summary 72 y/o black male transferred over from [facility] to [facility] on 02/22 for suspected infected nonhealing diabetic foot wound status post left great toe amputation (operated on 02/13 at [place]). Patient was originally admitted to [facility] on 02/17 due to generalized weakness and fevers. He was started on B.S. abxs, had CTA workup which demonstrated extensive PAD but no drainable abscess. Outside MRI report of of L foot is questionable for osteomyelitis. 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 Patient is now status post left BKA 03/02 due to poor healing wound 2/2 severe PAD, infectious followed and help manage antibiotics for osteomyelitis. Patient underwent left BKA. Course detailed below: Osteomyelitis in left lower extremity -Status post BKA on 03/02, on Zosyn and vancomycin per infectious disease -New fever on 03/04, repeat blood cultures negative. No other obvious source of infection. Fever resolved. -Continue Lipitor, already on Coumadin - He becomes lethargic with Percocet. He was transitioned to [place] with better pain control. - Discussed the case with infectious disease on the day of discharge. The patient is discharged on Levaquin for an additional 7 days. He does need continuing wound care and vascular surgery can be reconsulted for any issues with the wound care. Encephalopathy: Secondary to Narcotics. Resolved. ESRD HTN, chronic -home medications amlodipine and metoprolol -Nephrology following, on schedule hemodialysis Diabetes, chronic -Accu checks with SSI -Diabetic/renal diet -long-acting insulin Diabetic neuropathy -Continue home gabapentin Generalized weakness Patient is discharged to [facility] to continue rehabilitation efforts Hx of DVT - has Prince filter, Lovenox while inpatient. Time Spent with Patient Total time spent providing and/or coordinating discharge services: Quality: VTE Deep Vein Thrombosis/Pulmonary Embolism Present on Admission: Yes Exam Narrative Exam Narrative: GENERAL: Elderly male in no acute distress. NECK: Supple, trachea midline. No JVD. CARDIOVASCULAR: Regular rate and rhythm without murmurs, gallops, or rubs. left IJ HD catheter RESPIRATORY: Breath sounds equal bilaterally. No accessory muscle use. GASTROINTESTINAL: Abdomen soft, non-tender, nondistended. EXTREMITIES: Status post left BKA NEUROLOGICAL: Awake, alert, and oriented x3 Results Procedures completed during hospitalization: Left-sided BKA on 02/19 Completed studies during hospitalization: Pending at discharge 03/02/18 09:16 Surgical [PTH] Routine Labs on day of discharge: Labs from last 24 hours 03/08/18 03/08/18 03/08/18 07:58 03:44 03:44 WBC 9.1 RBC 2.45 L Hgb 7.3 L Hct 21.8 L MCV 89.1 MCH 30.0 MCHC 33.7 RDW 16.4 Plt Count 283 MPV 8.0 Sodium 135 L Potassium 4.0 D Chloride 94 L Carbon Dioxide 29.7 Anion Gap 11 BUN 50 H Creatinine 8.36 H Estimated GFR 6 L POC Glucose 159 H Random Glucose 111 H Calcium 7.6 L 03/07/18 03/07/18 03/07/18 20:55 16:34 13:35 WBC RBC Hgb Hct MCV MCH MCHC RDW Plt Count MPV Sodium Potassium Chloride Carbon Dioxide Anion Gap BUN Creatinine Estimated GFR POC Glucose 228 H 264 H 334 H Random Glucose Calcium 03/07/18 11:02 WBC RBC Hgb Hct MCV MCH MCHC RDW Plt Count MPV Sodium Potassium Chloride Carbon Dioxide Anion Gap BUN Creatinine Estimated GFR POC Glucose 156 H Random Glucose Calcium Preliminary micro results at discharge 03/04/18 09:59 Aerobic Blood Culture - Preliminary Blood - Peripheral No growth in 3 days Anaerobic Blood Culture - Preliminary No growth in 3 days 03/04/18 10:05 Aerobic Blood Culture - Preliminary Blood - Peripheral No growth in 3 days Anaerobic Blood Culture - Preliminary No growth in 3 days Impressions ITS Impressions Foot X-Ray 02/23/18 00:00 CONCLUSION: Tissue breakdown overlying the residual proximal phalanx of the great toe with underlying bone irregularity. Deformity of the forefoot following amputations as described above. Significant midfoot arthropathy. WBC Scan Nuclear Medicine 02/25/18 00:00 CONCLUSION: 1. Erosive destructive bone changes with abnormal radiotracer accumulation involving the residual proximal phalanx of the great toe following amputation and the underlying sesamoid bones. 2. Deformity of the distal first metatarsal without significant tracer accumulation. 3. Inflammation with small air bubbles surrounding the sesamoid bones. 4. Osteomyelitis of the residual first proximal phalanx and sesamoid bones is suspected. Chest X-Ray 03/04/18 00:00 CONCLUSION: 1. Cardiomegaly. 2. Minimal central pulmonary vascular congestion. Discharge Plan Discharge Disposition Patient Disposition: Discharge to [facility] Discharge Order Discharge Orders: Discharge Order (Routine); Ordered 03/08/18 Ordered By: Adriana Gtz Vascular Surgery Clear for Discharge (Routine); Ordered 02/23/18 Ordered By: Bayron Coffman Physicians Team Primary Care Provider: UNKNOWN, Attending Provider: Adriana Gtz Other Providers: Shin Castrejon ; Bayron Coffman ; Krystal Raymond Rxs /Orders / Referrals /Forms Prescriptions: New levofloxacin [Levaquin] 500 mg tablet 250 mg PO Q48H 7 Days Qty: 1.5 RF: 0 Continue insulin aspart U-100 [Novolog U-100 Insulin aspart] 100 unit/mL Solution 1 sliding scale dose SUBCUT UD RF: 0 gabapentin 300 mg Capsule 300 mg PO TID RF: 0 rosuvastatin 10 mg Tablet 10 mg PO DAILY RF: 0 metoprolol tartrate 25 mg Tablet 25 mg PO BID RF: 0 insulin glargine [Lantus Solostar U-100 Insulin] 100 unit/mL (3 mL) Insulin Pen 10 unit SUBCUT DAILY RF: 0 warfarin [Coumadin] 5 mg Tablet 5 mg PO DAILY RF: 0 multivitamin [Multiple Vitamins] Tablet 1 tab PO DAILY RF: 0 oxycodone 5 mg Tablet 5 mg PO Q6H PRN (Reason: Acute Pain Exception) Qty: 20 RF: 0 No Action amlodipine 10 mg Tablet 10 mg PO DAILY RF: 0 Referrals: Dami Sainz MD [Physician] - See Instructions (Your post op follow up is scheduled on 03/20/18 at 11:00) UNKNOWN, [Primary Care Provider] - See Instructions Discharge Instructions Patient Printed Instructions: MRSA (Methicillin-Resistant Staphylococcus Aureus ) (GEN), Below the Knee Amputation (DC)
--- NOTE | 2018-03-08 15:06 | P.PNNP ---
Subjective Interval history: Patient is doing well. Denies any shortness of breath, chest pain, nausea, or vomiting. Hemodialysis yesterday tolerated well. <Ayah Natarajan - Last Filed: 03/08/18 15:02> Physical Exam Vital signs: Vital Signs 03/07/18 15:22 03/07/18 15:38 03/07/18 17:00 Temperature 99.3 F Pulse Rate 81 79 81 Respiratory Rate 17 Blood Pressure 128/60 Pulse Oximetry 96 03/07/18 18:00 03/07/18 19:00 03/07/18 20:00 Temperature 98.6 F Pulse Rate 76 89 76 Respiratory Rate 18 Blood Pressure 145/63 H Pulse Oximetry 100 03/07/18 21:00 03/07/18 22:00 03/07/18 23:00 Temperature Pulse Rate 76 74 89 Respiratory Rate Blood Pressure Pulse Oximetry 03/07/18 23:31 03/08/18 00:00 03/08/18 01:00 Temperature 99.5 F Pulse Rate 82 72 73 Respiratory Rate 18 Blood Pressure 137/63 Pulse Oximetry 99 03/08/18 02:00 03/08/18 03:00 03/08/18 04:00 Temperature 99.3 F Pulse Rate 81 72 78 Respiratory Rate 18 Blood Pressure 125/69 Pulse Oximetry 91 L 03/08/18 05:00 03/08/18 06:00 03/08/18 07:00 Temperature Pulse Rate 73 68 72 Respiratory Rate Blood Pressure Pulse Oximetry 03/08/18 08:00 03/08/18 09:00 03/08/18 10:00 Temperature 98.7 F Pulse Rate 70 77 79 Respiratory Rate 16 Blood Pressure 137/63 Pulse Oximetry 98 03/08/18 11:00 03/08/18 12:00 Temperature 98.8 F Pulse Rate 69 69 Respiratory Rate 16 Blood Pressure 123/58 L Pulse Oximetry 98 Intake & Output 03/07/18 03/08/18 03/08/18 18:59 06:59 18:59 Intake Total 100 / 100 480 / 480 Output Total 2700 / 2700 0 / 0 Balance -2600 / -2600 480 / 480 Weight 122 kg Intake: IV 100 / 100 Flexbumin 25% Inj 100 ML @ 60 100 / 100 mls/hr IV.SIG WITH DIALYSIS PRN Rx#:[id number] NS Inj 250 ML @ 15 mls/hr IV. 0 / 0 SIG ONCE YUMIKO Rx#:[id number] Oral 480 / 480 Output: Urine 0 / 0 Hemodialysis Amount 2700 / 2700 Other: Date of Last Bowel Movement 03/07/18 03/08/18 03/08/18 # Bowel Movements 1 # Incontinent Bowel Movements 4 Narrative: GENERAL: Elderly male in no acute distress. NECK: Supple, trachea midline. No JVD. CARDIOVASCULAR: Regular rate and rhythm without murmurs, gallops, or rubs. left IJ HD catheter RESPIRATORY: Breath sounds equal bilaterally. No accessory muscle use. GASTROINTESTINAL: Abdomen soft, non-tender, nondistended. EXTREMITIES: Status post left BKA NEUROLOGICAL: Awake, alert, and oriented x3 <Ayah Natarajan - Last Filed: 03/08/18 15:02> Vital signs: Vital Signs 03/07/18 17:00 03/07/18 18:00 03/07/18 19:00 Temperature Pulse Rate 81 76 89 Respiratory Rate Blood Pressure Pulse Oximetry 03/07/18 20:00 03/07/18 21:00 03/07/18 22:00 Temperature 98.6 F Pulse Rate 76 76 74 Respiratory Rate 18 Blood Pressure 145/63 H Pulse Oximetry 100 03/07/18 23:00 03/07/18 23:31 03/08/18 00:00 Temperature 99.5 F Pulse Rate 89 82 72 Respiratory Rate 18 Blood Pressure 137/63 Pulse Oximetry 99 03/08/18 01:00 03/08/18 02:00 03/08/18 03:00 Temperature Pulse Rate 73 81 72 Respiratory Rate Blood Pressure Pulse Oximetry 03/08/18 04:00 03/08/18 05:00 03/08/18 06:00 Temperature 99.3 F Pulse Rate 78 73 68 Respiratory Rate 18 Blood Pressure 125/69 Pulse Oximetry 91 L 03/08/18 07:00 03/08/18 08:00 03/08/18 09:00 Temperature 98.7 F Pulse Rate 72 70 77 Respiratory Rate 16 Blood Pressure 137/63 Pulse Oximetry 98 03/08/18 10:00 03/08/18 11:00 03/08/18 12:00 Temperature 98.8 F Pulse Rate 79 69 69 Respiratory Rate 16 Blood Pressure 123/58 L Pulse Oximetry 98 Intake & Output 03/07/18 03/08/18 03/08/18 18:59 06:59 18:59 Intake Total 100 / 100 480 / 480 Output Total 2700 / 2700 0 / 0 Balance -2600 / -2600 480 / 480 Weight 122 kg Intake: IV 100 / 100 Flexbumin 25% Inj 100 ML @ 60 100 / 100 mls/hr IV.SIG WITH DIALYSIS PRN Rx#:[id number] NS Inj 250 ML @ 15 mls/hr IV. 0 / 0 SIG ONCE YUMIKO Rx#:[id number] Oral 480 / 480 Output: Urine 0 / 0 Hemodialysis Amount 2700 / 2700 Other: Date of Last Bowel Movement 03/07/18 03/08/18 03/08/18 # Bowel Movements 1 # Incontinent Bowel Movements 4 <Eliana Arita - Last Filed: 03/08/18 16:16> Assessment and Plan - Assessment (1) ESRD (end stage renal disease) Code(s): N18.6 - End stage renal disease Status: Acute Plan: End stage renal disease on HD on ., and Sat. Follow the Hgb and electrolytes. Epogen with dialysis Continue vancomycin with dialysis Hemodialysis yesterday with removal of 2.7 liters. (2) Type 2 diabetes mellitus Code(s): E11.9 - Type 2 diabetes mellitus without complications Status: Acute Plan: Well controlled. On insulin. Recommend to Maintain blood sugars between 140 mg /dl to 180 mg/dl while hospitalized. (3) Essential (primary) hypertension Code(s): I10 - Essential (primary) hypertension Status: Acute Plan: On amlodipine and metoprolol, will monitor (4) PVD (peripheral vascular disease) Code(s): I73.9 - Peripheral vascular disease, unspecified Status: Chronic Plan: left BKA, dressing on (5) Osteomyelitis Code(s): M86.9 - Osteomyelitis, unspecified Status: Acute Plan: On vancomycin with dialysis. <Ayah Natarajan - Last Filed: 03/08/18 15:02> - Assessment (1) ESRD (end stage renal disease) Code(s): N18.6 - End stage renal disease Status: Acute Plan: Patient seen and examine, agree with above. HD done yesterday. Hgb. is low and stable. On Epogen. Vancomycin with HD. (2) Type 2 diabetes mellitus Code(s): E11.9 - Type 2 diabetes mellitus without complications Status: Acute (3) Essential (primary) hypertension Code(s): I10 - Essential (primary) hypertension Status: Acute (4) PVD (peripheral vascular disease) Code(s): I73.9 - Peripheral vascular disease, unspecified Status: Chronic (5) Osteomyelitis Code(s): M86.9 - Osteomyelitis, unspecified Status: Acute <Eliana Arita - Last Filed: 03/08/18 16:16>
[2018-03-08] MEDS: levoFLOXacin 250 MG Tablet PO SCH (17:05)
[2018-03-09 05:34] LABS: Hematocrit 22.4 % (39.0-51.0); Hemoglobin 7.4 gm/dL (13.0-17.0); Mean Corpuscular HGB Conc 33.1 % (32.0-36.0); Mean Corpuscular Hemoglobin 29.5 pg (27.0-34.0); Mean Corpuscular Volume 89.3 fL (80.0-100.0); Mean Platelet Volume 8.1 fL (7.0-11.0); Platelet Count 308 th/mm3 (150-450); Red Cell Distribution Width 16.9 % (11.6-17.2); White Blood Count 7.1 th/mm3 (4.0-11.0)
[2018-03-09 06:03] LABS: Calcium 7.4 mg/dL (8.5-10.1); Carbon Dioxide 27.4 meq/L (21.0-32.0); Potassium 4.3 meq/L (3.5-5.1)
[2018-03-09 06:15] LABS: Albumin 2.5 g/dL (3.4-5.0); Calcium-Albumin Corrected 8.6 mg/dL (8.5-10.1)
--- NOTE | 2018-03-09 07:34 | P.PNIM ---
Subjective Interval history: Patient discharged to [place] yesterday but he was declined. CM working on SNF placement. he has no complaints. Physical Exam Vital signs: Last Vital Signs Temp 97.3 F L 03/09/18 04:00 Pulse 70 03/09/18 05:00 Resp 18 03/09/18 04:00 BP 116/58 L 03/09/18 04:00 Pulse Ox 90 L 03/09/18 04:00 Intake & Output 03/07/18 03/08/18 03/09/18 03/10/18 06:59 06:59 06:59 06:59 Intake Total 1010 / 1010 580 / 580 1040 / 1040 Output Total 0 / 0 2700 / 2700 0 / 0 Balance 1010 / 1010 -2120 / -2120 1040 / 1040 Weight 121.5 kg 122 kg 123 kg Narrative: GENERAL: Elderly male in no acute distress. NECK: Supple, trachea midline. No JVD. CARDIOVASCULAR: Regular rate and rhythm without murmurs, gallops, or rubs. left IJ HD catheter RESPIRATORY: Breath sounds equal bilaterally. No accessory muscle use. GASTROINTESTINAL: Abdomen soft, non-tender, nondistended. EXTREMITIES: Status post left BKA NEUROLOGICAL: Awake, alert, and oriented x3 Results Labs CBC & Chem 7: 03/09/18 04:31 03/09/18 04:31 Labs: Microbiology 03/04/18 09:59 Blood - Peripheral Aerobic Blood Culture - Preliminary No growth in 4 days 03/04/18 09:59 Blood - Peripheral Anaerobic Blood Culture - Preliminary No growth in 4 days 03/04/18 10:05 Blood - Peripheral Aerobic Blood Culture - Preliminary No growth in 4 days 03/04/18 10:05 Blood - Peripheral Anaerobic Blood Culture - Preliminary No growth in 4 days Procedures Procedures: Left-sided BKA on 02/19 Assessment and Plan (1) ESRD (end stage renal disease): Code(s): N18.6 - End stage renal disease Status: Acute (2) Type 2 diabetes mellitus: Code(s): E11.9 - Type 2 diabetes mellitus without complications Status: Acute (3) Essential (primary) hypertension: Code(s): I10 - Essential (primary) hypertension Status: Acute (4) Anemia associated with chronic renal failure: Code(s): D63.1 - Anemia in chronic kidney disease Status: Acute (5) Osteomyelitis: Code(s): M86.9 - Osteomyelitis, unspecified Status: Acute Plan 72 y/o black male transferred over from [facility] to [facility] on 02/22 for suspected infected nonhealing diabetic foot wound status post left great toe amputation (operated on 02/13 at [place]). Patient was originally admitted to [facility] on 02/17 due to generalized weakness and fevers. He was started on B.S. abxs, had CTA workup which demonstrated extensive PAD but no drainable abscess. Outside MRI report of of L foot is questionable for osteomyelitis. 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 Patient is now status post left BKA 03/02 due to poor healing wound 2/2 severe PAD, infectious followed and help manage antibiotics for osteomyelitis. Patient underwent left BKA. Course detailed below: Osteomyelitis in left lower extremity -Status post BKA on 03/02, on Zosyn and vancomycin per infectious disease -New fever on 03/04, repeat blood cultures negative. No other obvious source of infection. Fever resolved. -Continue Lipitor, already on Coumadin - He becomes lethargic with Percocet. He was transitioned to [place] with better pain control. - Discussed the case with infectious disease. The patient can be discharged on Levaquin for an additional 7 days. He does need continuing wound care and vascular surgery follow up. Encephalopathy: Secondary to Narcotics. Resolved. ESRD HTN, chronic -home medications amlodipine and metoprolol -Nephrology following, on schedule hemodialysis Diabetes, chronic -Accu checks with SSI -Diabetic/renal diet -long-acting insulin Diabetic neuropathy -Continue home gabapentin Generalized weakness Patient is discharged to [facility] to continue rehabilitation efforts Hx of DVT - has Prince filter, Lovenox while inpatient. Progress Note: Quality VTE Deep Vein Thrombosis/Pulmonary Embolism Present on Admission: Yes _ (1) Type 2 diabetes mellitus Qualifiers: Chronic kidney disease stage: Diabetes mellitus complication detail: Diabetes mellitus complication status: Diabetes mellitus senior living insulin use : Diabetes mellitus macular edema: Diabetic retinopathy severity: Laterality: Proliferative retinopathy type: (2) Osteomyelitis Qualifiers: Laterality: Osteomyelitis location: Osteomyelitis type:
[2018-03-09] MEDS ORDERED: Cathflo Activase Inj 2 MG Vial I-CATHETER ONE (09:00)
[2018-03-09 09:55] VITALS: RESP 16
--- NOTE | 2018-03-09 10:03 | P.PNNP ---
Subjective Interval history: Seen on dialysis today, received TPA at dialysis catheter and now flow in 200s. No acute complaints Physical Exam Vital signs: Vital Signs 03/08/18 10:00 03/08/18 11:00 03/08/18 12:00 Temperature 98.8 F Pulse Rate 79 69 70 Respiratory Rate 16 Blood Pressure 123/58 L Pulse Oximetry 98 03/08/18 13:00 03/08/18 14:00 03/08/18 15:00 Temperature Pulse Rate 70 72 72 Respiratory Rate Blood Pressure Pulse Oximetry 03/08/18 16:00 03/08/18 17:00 03/08/18 18:00 Temperature 98.7 F Pulse Rate 78 75 78 Respiratory Rate 16 Blood Pressure 146/67 H Pulse Oximetry 94 L 03/08/18 19:00 03/08/18 20:00 03/08/18 21:00 Temperature 98.4 F Pulse Rate 76 70 72 Respiratory Rate 16 Blood Pressure 145/65 H Pulse Oximetry 97 03/08/18 22:00 03/08/18 23:00 03/09/18 00:00 Temperature 97.9 F Pulse Rate 70 72 70 Respiratory Rate 16 Blood Pressure 141/63 H Pulse Oximetry 93 L 03/09/18 01:00 03/09/18 02:18 03/09/18 03:00 Temperature Pulse Rate 75 77 76 Respiratory Rate Blood Pressure Pulse Oximetry 03/09/18 04:00 03/09/18 05:00 03/09/18 07:00 Temperature 97.3 F L Pulse Rate 70 70 68 Respiratory Rate 18 Blood Pressure 116/58 L Pulse Oximetry 90 L 03/09/18 08:00 03/09/18 09:00 Temperature 98.2 F Pulse Rate 65 67 Respiratory Rate 16 Blood Pressure 152/64 H Pulse Oximetry 100 Intake & Output 03/08/18 03/09/18 03/09/18 18:59 06:59 18:59 Intake Total 800 / 800 240 / 240 Output Total 0 / 0 Balance 800 / 800 240 / 240 Weight 123 kg Intake: Oral 800 / 800 240 / 240 Output: Urine 0 / 0 Other: Date of Last Bowel Movement 03/08/18 03/08/18 03/09/18 # Bowel Movements 5 1 - Constitutional no acute distress - Routine HEENT Exam Head: Present: normocephalic Eye: Present: EOMI ENT: Present: mucous membranes moist - Routine Neck Exam Present: supple - Routine Respiratory Exam Present: CTA bilaterally - Routine Cardiovascular Exam Present: RRR - Routine Abdominal Exam Present: soft - Routine Skin Exam Present: intact - Routine Neurological Exam Present: alert, oriented X3 - Detailed Neurological Exam: Coma Scale Eye Opening: Spontaneous - Routine Psychiatric Exam Present: normal affect Assessment and Plan - Assessment (1) ESRD (end stage renal disease) Code(s): N18.6 - End stage renal disease Status: Acute Plan: HD done today, tolerated HD well Initial flow issues with catheter - able to do HD after TPA dwell to catheter. Will dwell TPA at end of treatment. If catheter flow issues again, will need catheter exchange. Hgb. is low and stable. On Epogen. Vancomycin with HD. On TTS HD schedule. Given upcoming iday, next HD on Sunday (2) Type 2 diabetes mellitus Code(s): E11.9 - Type 2 diabetes mellitus without complications Status: Acute Plan: Well controlled. On insulin. Recommend to Maintain blood sugars between 140 mg /dl to 180 mg/dl while hospitalized. (3) Essential (primary) hypertension Code(s): I10 - Essential (primary) hypertension Status: Acute Plan: On amlodipine and metoprolol, will monitor (4) PVD (peripheral vascular disease) Code(s): I73.9 - Peripheral vascular disease, unspecified Status: Chronic Plan: left BKA, dressing on (5) Osteomyelitis Code(s): M86.9 - Osteomyelitis, unspecified Status: Acute Plan: On vancomycin with dialysis.
[2018-03-09] MEDS: Vancomycin Inj 1,000 MG in Sodium Chlor 0.9% Inj 250 ML IV.SIG SCH (10:44)
[2018-03-09] MEDS: Epoetin Alfa Inj 4,000 UNIT/ML Vial IV.PUSH PRN (10:45)
[2018-03-09] MEDS: Insulin NovoLOG Aspart Correctional Sugar Inj SQ SCH ×5 (13:18→20:37)
[2018-03-09] MEDS: Lidocaine 5% Patch T-DERMAL SCH (13:19)
[2018-03-09] MEDS: Insulin Detemir Inj 1,000 UNIT/10 ML Vial SQ SCH (13:19)
[2018-03-09] MEDS: amLODIPine 10 MG Tablet PO SCH (13:20)
[2018-03-09] MEDS: Metoprolol Tartrate 25 MG Tablet PO SCH ×2 (13:20→20:37)
[2018-03-09] MEDS: Gabapentin 300 MG Capsule PO SCH (13:21)
[2018-03-09] MEDS: Budesonide-Formoterol 160/4.5 MCG 6 GM Inhaler INH SCH ×2 (13:21→20:25)
[2018-03-10] MEDS: Insulin NovoLOG Aspart Correctional Sugar Inj SQ SCH ×2 (08:41→11:54)
[2018-03-10] MEDS: Lidocaine 5% Patch T-DERMAL SCH (08:42)
[2018-03-10] MEDS: Insulin Detemir Inj 1,000 UNIT/10 ML Vial SQ SCH (08:42)
[2018-03-10] MEDS: amLODIPine 10 MG Tablet PO SCH (08:43)
[2018-03-10] MEDS: Metoprolol Tartrate 25 MG Tablet PO SCH (08:43)
[2018-03-10] MEDS: Gabapentin 300 MG Capsule PO SCH (08:43)
[2018-03-10] MEDS: Budesonide-Formoterol 160/4.5 MCG 6 GM Inhaler INH SCH (08:45)
[2018-03-10 12:23] VITALS: BP 153/70; TEMP 98.4; O2SAT 95
[2018-03-10 13:05] LABS: Hematocrit 22.8 % (39.0-51.0); Hemoglobin 7.6 gm/dL (13.0-17.0); Mean Corpuscular HGB Conc 33.2 % (32.0-36.0); Mean Corpuscular Volume 90.1 fL (80.0-100.0); Mean Platelet Volume 7.9 fL (7.0-11.0); Platelet Count 371 th/mm3 (150-450); Red Blood Count 2.53 mil/mm3 (4.50-5.90); Red Cell Distribution Width 16.8 % (11.6-17.2); White Blood Count 6.5 th/mm3 (4.0-11.0)
--- NOTE | 2018-03-10 13:18 | P.PNNP ---
Subjective Interval history: No acute complaints Physical Exam Vital signs: Vital Signs 03/09/18 14:00 03/09/18 15:00 03/09/18 16:00 Temperature 99 F Pulse Rate 69 69 69 Respiratory Rate 16 Blood Pressure 148/67 H Pulse Oximetry 95 03/09/18 17:00 03/09/18 18:00 03/09/18 19:00 Temperature Pulse Rate 69 72 73 Respiratory Rate Blood Pressure Pulse Oximetry 03/09/18 20:00 03/09/18 21:00 03/09/18 22:00 Temperature 98.2 F Pulse Rate 70 76 72 Respiratory Rate 16 Blood Pressure 133/59 L Pulse Oximetry 95 03/09/18 23:00 03/10/18 00:00 03/10/18 01:00 Temperature 98.8 F Pulse Rate 73 74 73 Respiratory Rate 16 Blood Pressure 141/66 H Pulse Oximetry 95 03/10/18 02:00 03/10/18 03:00 03/10/18 04:00 Temperature 98.2 F Pulse Rate 71 69 69 Respiratory Rate 16 Blood Pressure 142/67 H Pulse Oximetry 96 03/10/18 05:00 03/10/18 06:00 03/10/18 07:00 Temperature Pulse Rate 65 71 67 Respiratory Rate Blood Pressure Pulse Oximetry 03/10/18 08:00 03/10/18 09:00 03/10/18 10:00 Temperature 98.2 F Pulse Rate 67 69 67 Respiratory Rate 16 Blood Pressure 136/61 Pulse Oximetry 94 L 03/10/18 11:00 03/10/18 11:27 03/10/18 12:00 Temperature 98.4 F Pulse Rate 79 67 Respiratory Rate 16 16 Blood Pressure 153/70 H Pulse Oximetry 95 Intake & Output 03/09/18 03/10/18 03/10/18 18:59 06:59 18:59 Intake Total 900 / 900 480 / 480 Output Total 1500 / 1500 Balance -600 / -600 480 / 480 Weight 124 kg Intake: IV 100 / 100 Vancomycin Inj 1,000 MG In NS 100 / 100 Inj 250 ML @ 250 mls/hr IV.SIG WITH DIALYSIS [facility] Rx#:[id number] Oral 800 / 800 480 / 480 Output: Urine 0 / 0 Hemodialysis Amount 1500 / 1500 Other: Date of Last Bowel Movement 03/09/18 03/10/18 03/10/18 # Bowel Movements 4 1 - Constitutional no acute distress - Routine HEENT Exam Head: Present: normocephalic Eye: Present: EOMI ENT: Present: mucous membranes moist - Routine Neck Exam Present: supple - Routine Respiratory Exam Present: CTA bilaterally - Routine Cardiovascular Exam Present: RRR - Routine Abdominal Exam Present: soft - Routine Extremities Exam Present: vascular access - Routine Skin Exam Present: intact - Routine Neurological Exam Present: alert, oriented X3 - Detailed Neurological Exam: Coma Scale Eye Opening: Spontaneous - Routine Psychiatric Exam Present: normal affect Assessment and Plan - Assessment (1) ESRD (end stage renal disease) Code(s): N18.6 - End stage renal disease Status: Acute Plan: HD done Sunday, tolerated HD well Initial flow issues with catheter - able to do HD after TPA dwell to catheter. TPA dwelled in catheter at end of treatment. If catheter flow issues again on Sunday, will need catheter exchange. Hgb. is low and stable. On Epogen. Vancomycin with HD. On TTS HD schedule. Given upcoming , next HD on Sunday (2) Type 2 diabetes mellitus Code(s): E11.9 - Type 2 diabetes mellitus without complications Status: Acute Plan: Well controlled. On insulin. Recommend to Maintain blood sugars between 140 mg /dl to 180 mg/dl while hospitalized. (3) Essential (primary) hypertension Code(s): I10 - Essential (primary) hypertension Status: Acute Plan: On amlodipine and metoprolol, will monitor (4) PVD (peripheral vascular disease) Code(s): I73.9 - Peripheral vascular disease, unspecified Status: Chronic Plan: left BKA, dressing on (5) Osteomyelitis Code(s): M86.9 - Osteomyelitis, unspecified Status: Acute Plan: On vancomycin with dialysis.
[2018-03-10 13:38] VITALS: PULSE 62
--- NOTE | 2018-03-10 14:13 | P.DS ---
DS: Providers Date of admission: 02/24/18 14:50 Primary care physician: UNKNOWN Consults: 02/22/18 23:05 Consult to Vascular Surgery Routine Consulting Provider: Bayron Coffman Patient known to:: Bayron Coffman Reason for Consultation: patient known to you, non healing wound to left foot , s/p left great toe amputation Spoke with:: adding to dr coffman's list - call in AM Date Notified:: 02/22/18 Time Notified:: 23:09 Comments:: Spoke to Dr Coffman @ [phone] - Ordering Provider: MAY 02/22/18 23:44 Consult to Nephrology Routine Consulting Provider: Shin Castrejon Does the patient have a Shaft Repairer who follows them?: Yes Preferred Nephrology Furnace Packer:: Harvey Anaya Reason for Consultation: ESRD on HD Notified:: Service Spoke with:: donato Date Notified:: 02/23/18 Time Notified:: 01:40 Comments:: call svc aware pt known to kanwal anaya loss prevention lead for group Ordering Provider: MAY 02/24/18 20:33 Consult to Infectious Diseases Routine Consulting Provider: Krystal Raymond Reason for Consultation: borderline fevers in DFU pt w/ poor healing wound, nonspecific findings on outside MRI report Notified:: Service Spoke with:: Soledad Date Notified:: 02/24/18 Time Notified:: 20:41 Ordering Provider: ZHAO Brief History from admission: HPI as documented by the admitting physician: 72 y/o male with a history of hypertension, HLD, diabetes, dvt on anticoagulation, neuropathy and ESRD on hemodialysis [place] [facility] [place] be evaluated by vascular surgery. He is 1 week status post left great toe amputation by Dr. Earl. He states once he got home last Sunday he had tripped and fallen, EMS came and picked him up and put him on the couch and when he tried to get off the couch he fell again [facility]. He states he has been at ever since and has only been laying around in bed. He denies any chest pain, shortness of breath, fever or chills. Dressing noted to the left amputation site it was covered with Vaseline gauze and Bart and patient states they have been changing it daily and treating him with antibiotics. According to the RN he received vancomycin prior to coming to [facility]. Not much documentation was sent from prior hospital. Patient update on day of discharge: Patient reports he is feeling well today. No new issues. DS: Diagnosis Discharge Diagnosis (1) ESRD (end stage renal disease): Status: Acute (2) Type 2 diabetes mellitus: Status: Acute (3) Essential (primary) hypertension: Status: Acute (4) Anemia associated with chronic renal failure: Status: Acute (5) Osteomyelitis: Status: Acute DS: Summary 72 y/o black male transferred over from [facility] to [facility] on 02/22 for suspected infected nonhealing diabetic foot wound status post left great toe amputation (operated on 02/13 at [facility]). Patient was originally admitted to [facility] on 02/17 due to generalized weakness and fevers. He was started on B.S. abxs, had CTA workup which demonstrated extensive PAD but no drainable abscess. Outside MRI report of of L foot is questionable for osteomyelitis. He was then transferred to [place] for vascular surgery input at rec of pt's personal mica spreader in light of non- healing L foot wound. Patient is now status post left BKA 03/02 due to poor healing wound 2/2 severe PAD, infectious followed and help manage antibiotics for osteomyelitis. Patient underwent left BKA. Course detailed below: Osteomyelitis in left lower extremity -Status post BKA on 03/02, on Zosyn and vancomycin per infectious disease -New fever on 03/04, repeat blood cultures negative. No other obvious source of infection. Fever resolved. -Continue Lipitor, already on Coumadin - He becomes lethargic with Percocet. He was transitioned to [place] with better pain control. - Discussed the case with infectious disease. The patient is discharged on Levaquin for an additional 7 days. He does need outpatient follow-up with vascular surgery. Encephalopathy: Secondary to Narcotics. Resolved. ESRD HTN, chronic -home medications amlodipine and metoprolol -Nephrology following, on schedule hemodialysis Diabetes, chronic -Accu checks with SSI -Diabetic/renal diet -long-acting insulin Diabetic neuropathy -Continue home gabapentin Generalized weakness Patient is discharged to [facility] to continue rehabilitation efforts Hx of DVT - has [place] filter, Lovenox while inpatient. Time Spent with Patient Total time spent providing and/or coordinating discharge services: Quality: VTE Deep Vein Thrombosis/Pulmonary Embolism Present on Admission: Yes Time Spent with Patient Total time spent providing and/or coordinating discharge services: Quality: VTE Deep Vein Thrombosis/Pulmonary Embolism Present on Admission: Yes Exam Narrative Exam Narrative: GENERAL: Elderly male in no acute distress. NECK: Supple, trachea midline. No JVD. CARDIOVASCULAR: Regular rate and rhythm without murmurs, gallops, or rubs. left IJ HD catheter RESPIRATORY: Breath sounds equal bilaterally. No accessory muscle use. GASTROINTESTINAL: Abdomen soft, non-tender, nondistended. EXTREMITIES: Status post left BKA NEUROLOGICAL: Awake, alert, and oriented x3 Results Procedures completed during hospitalization: Left-sided BKA on 02/19 Completed studies during hospitalization: Pending at discharge 03/02/18 09:16 Surgical [PTH] Routine Labs on day of discharge: Labs from last 24 hours 03/10/18 03/10/18 03/10/18 12:20 11:42 08:18 WBC 6.5 RBC 2.53 L Hgb 7.6 L Hct 22.8 L MCV 90.1 MCH 30.0 MCHC 33.2 RDW 16.8 Plt Count 371 MPV 7.9 POC Glucose 184 H 164 H 03/09/18 03/09/18 20:09 16:43 WBC RBC Hgb Hct MCV MCH MCHC RDW Plt Count MPV POC Glucose 300 H 256 H Impressions ITS Impressions Foot X-Ray 02/23/18 00:00 CONCLUSION: Tissue breakdown overlying the residual proximal phalanx of the great toe with underlying bone irregularity. Deformity of the forefoot following amputations as described above. Significant midfoot arthropathy. WBC Scan Nuclear Medicine 02/25/18 00:00 CONCLUSION: 1. Erosive destructive bone changes with abnormal radiotracer accumulation involving the residual proximal phalanx of the great toe following amputation and the underlying sesamoid bones. 2. Deformity of the distal first metatarsal without significant tracer accumulation. 3. Inflammation with small air bubbles surrounding the sesamoid bones. 4. Osteomyelitis of the residual first proximal phalanx and sesamoid bones is suspected. Chest X-Ray 03/04/18 00:00 CONCLUSION: 1. Cardiomegaly. 2. Minimal central pulmonary vascular congestion. Discharge Plan Discharge Disposition Patient Disposition: Discharge to SNF Discharge Order Discharge Orders: Discharge Order (Routine); Ordered 03/08/18 Ordered By: Adriana Gtz Vascular Surgery Clear for Discharge (Routine); Ordered 02/23/18 Ordered By: Bayron Coffman Physicians Team Primary Care Provider: UNKNOWN, Attending Provider: Adriana Gtz Other Providers: Shin Castrejon ; Bayron Coffman ; Krystal Raymond Rxs /Orders / Referrals /Forms Prescriptions: New oxycodone 5 mg Tablet 5 mg PO Q6H PRN (Reason: Acute Pain Exception) Qty: 12 RF: 0 levofloxacin [Levaquin] 500 mg tablet 250 mg PO Q48H 7 Days Qty: 1.5 RF: 0 Continue amlodipine 10 mg Tablet 10 mg PO DAILY RF: 0 insulin aspart U-100 [Novolog U-100 Insulin aspart] 100 unit/mL Solution 1 sliding scale dose SUBCUT UD RF: 0 gabapentin 300 mg Capsule 300 mg PO TID RF: 0 rosuvastatin 10 mg Tablet 10 mg PO DAILY RF: 0 metoprolol tartrate 25 mg Tablet 25 mg PO BID RF: 0 insulin glargine [Lantus Solostar U-100 Insulin] 100 unit/mL (3 mL) Insulin Pen 10 unit SUBCUT DAILY RF: 0 warfarin [Coumadin] 5 mg Tablet 5 mg PO DAILY RF: 0 multivitamin [Multiple Vitamins] Tablet 1 tab PO DAILY RF: 0 Referrals: Dami Sainz MD [Physician] - See Instructions (Your post op follow up is scheduled on 03/20/18 at 11:00) UNKNOWN, [Primary Care Provider] - See Instructions Discharge Instructions Patient Printed Instructions: MRSA (Methicillin-Resistant Staphylococcus Aureus ) (GEN), Below the Knee Amputation (DC)
== END 2018-03-10 15:15 ==
LOC: NEPGCP 20:16 → INTOOBSV 20:16 → N07 02-24 23:15 → HCPC 03-02 17:11
PROVIDERS: ADMIT Family Medicine; ATTEND Family Medicine
DX: I70.202 Unspecified atherosclerosis of native arteries of extremities, left leg; E78.5 Hyperlipidemia, unspecified; I97.88 Other intraoperative complications of the circulatory system, not elsewhere classified; T87.81 Dehiscence of amputation stump; E11.22 Type 2 diabetes mellitus with diabetic chronic kidney disease; E11.52 Type 2 diabetes mellitus with diabetic peripheral angiopathy with gangrene; Z86.718 Personal history of other venous thrombosis and embolism; D63.1 Anemia in chronic kidney disease; E11.311 Type 2 diabetes mellitus with unspecified diabetic retinopathy with macular edema; Z99.2 Dependence on renal dialysis; N18.6 End stage renal disease; I96 Gangrene, not elsewhere classified; Z79.4 Long term (current) use of insulin; G92 Toxic encephalopathy; W19.XXXA Unspecified fall, initial encounter; Z79.01 Long term (current) use of anticoagulants; E11.69 Type 2 diabetes mellitus with other specified complication; I12.0 Hypertensive chronic kidney disease with stage 5 chronic kidney disease or end stage renal disease; I87.2 Venous insufficiency (chronic) (peripheral); G54.6 Phantom limb syndrome with pain; L03.032 Cellulitis of left toe; M86.9 Osteomyelitis, unspecified; T40.605A Adverse effect of unspecified narcotics, initial encounter; Z79.899 Other long term (current) drug therapy; R53.1 Weakness; E11.40 Type 2 diabetes mellitus with diabetic neuropathy, unspecified; I95.89 Other hypotension; Y92.239 Unspecified place in hospital as the place of occurrence of the external cause; Z87.891 Personal history of nicotine dependence